=== PATIENT | female | born 1950 | race African-American/Black ===

== ENCOUNTER 2016-07-21 16:52 | Emergency (ER) | payer OTHER ==
[~2016-07-21] VITALS: Ht 152.4 cm; Wt 66.2 kg
--- NOTE | ~2016-07-21 | EKG ---
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
[~2016-07-21 16:52] MED LIST: ACCUNEB SO1.25 MG/1 INH; ADVAIR 250-501 EACH INH; ADVAIRDISKUS; ALBUTEROL INH; ALBUTEROL2.5 MG/0.1 INH; APAP500 PO; APAP650 PO; ASPIR 8181 MG PO; ASPIRIN325 PO; AUGMENTIN 875875 M1 PO; AUGMENTIN 875875 MG PO; AZITHROMYCIN 2250 MG; AZITHROMYCIN 2250 MG PO; AZITHROMYCIN500 MG PO; BACTRIM DS TAB1 EACH PO; BENICAR HCT 401 EACH PO; BENICAR20 MG PO; CEFUROXIME250 MG PO; CENTRUM SILVER1 EAC2 PO; CEPHALEXIN 500500 M3 PO; CIPRO250 M1 PO; CIPRO500 MG PO; CIPROFLOXACIN500 M1 PO; CLARITIN10 MG PO; CLEOCIN HCL150 MG PO; COLACE100 MG PO; CORT IH; COUMADIN 5 MG TA5 M1 PO; CRESTOR10 MG PO; DOXYCYCLINE 10100 MG PO; ENOXAPARIN30 MG/0.1 SUBQ; HYDROCHLOROTHIA25 M2 PO; KEFLEX250 M1 PO; KEFLEX500 M1 PO; KLOR-CON 1010 MEQ PO; LACTINEX CHEWA1 EACH PO; LACTINEX PO; LASIX 20 MG TAB20 MG PO; LEVAQUIN 500 M500 M2 PO; LIPITOR 20 MG T20 M1 PO; MUCINEX TA600 MG/TA2 PO; MULTIVITAMINS PO; NORCO 5-325 TA1 EACH PO; OXYCODONE HCL 55 MG PO; PERCOCET 5-3251 EACH PO; PREDNISONE 10 M10 M1 PO; PREDNISONE 10 M10 MG PO; PREDNISONE 5 MG5 M1 PO; PREDNISONE 5 MG5 MG PO; PREDNISONE50 MG PO; PROAIR HFA8.5 GM INH; PROVENTIL HFA6.7 G1 INH; SIMVASTATIN40 MG PO; TUSSIONEX PENN473 ML PO; TYLENOL325 MG PO; UNICOMPLEX M TA1 TA1 PO; ZOCOR40 MG PO; ZPAK PO
[2016-07-21 18:22] LABS: ABSOLUTE NEUTROPHILS 5.1 thou/uL (1.4-8.2); BASOPHILS 0.7 % (0.0-2.0); EOSINOPHILS 1.7 % (0.0-3.0); HEMATOCRIT 38.5 % (37.0-47.0); HEMOGLOBIN 12.5 gm/dL (12.0-15.0); MANUAL DIFF NO; MCH 27.5 pg (26.0-34.0); MCHC 32.5 % (28.0-37.0); MCV 84.8 fL (80.0-100.0); PLATELET COUNT 204 thou/uL (150-400); POLYS 70.6 % (36.0-66.0); RBC 4.54 mil/uL (4.20-5.00); RDW 14.4 % (10.5-14.5); WBC 7.3 thou/uL (4.0-11.0)
[2016-07-21 18:29] LABS: ANION GAP 8 mmol/L (7-16); BUN 16 mg/dL (7-18); CALCIUM 8.1 mg/dL (8.5-10.1); CHLORIDE 108 mmol/L (98-107); CO2 27 mmol/L (21-32); GLUCOSE 72 mg/dL (70-99); POTASSIUM 3.3 mmol/L (3.5-5.1); SODIUM 143 mmol/L (136-145)
[2016-07-21 18:37] LABS: TROPONIN-I < 0.04 ng/mL (<0.04-0.07)
== END 2016-07-21 19:45 | disposition home or self-care (01) ==
LOC: ER 16:52
PROVIDERS: Physician Assistant
DX: I10 Essential (primary) hypertension (principal); R51 Headache; E87.6 Hypokalemia; D86.0 Sarcoidosis of lung; G47.39 Other sleep apnea; H40.89 Other specified glaucoma; Z86.711 Personal history of pulmonary embolism; Z96.0 Presence of urogenital implants

== ENCOUNTER 2016-11-06 08:44 | Inpatient (IN) | payer OTHER ==
[~2016-11-06] VITALS: Ht 152.4 cm; Wt 63.5 kg
[2016-11-06] VITALS (16 sets, daily range): BP systolic 94–186; BP diastolic 49–83
--- NOTE | ~2016-11-06 | HC ---
[facility] [place] [address] CONSULTATION Name: ARIELLE YA Room #: 251-P ADM IN M.R.#: [id number] Admission: 11/06/16 Attend Phys: Angelo Gomez DO Discharge: Date of : 46 Report #: [id number] THIS REPORT FOR: //name// CC: Paula Haider PULMONARY CONSULTATION PRIMARY CARE PHYSICIAN: Pavithra Lilly M.D. REFERRAL PHYSICIAN: Ronak Frost M.D. REASON FOR REFERRAL: Hemoptysis. HISTORY OF PRESENT ILLNESS: The patient is a 66-year-old -Czech female who presents to the emergency room with hemoptysis. A pulmonary consultation is requested. The patient is known to this physician. She has been followed longitudinally for sleep apnea, bronchiectasis and sarcoidosis. She is also on chronic anticoagulation for history of multiple pulmonary emboli. She was in her usual state of health until this morning when she started to cough up blood. It is mild in quantity. It is mixed in with secretions. Otherwise, denies any recent febrile illness, chest pain, nausea, vomiting or diarrhea. PAST MEDICAL HISTORY: Notable for sarcoidosis with evidence of pulmonary fibrosis; bronchiectasis; chronic hypoxic respiratory failure, on supplemental O2 and HEAVEN, on CPAP. The patient was also found to have recurrent pulmonary embolus, on chronic anticoagulation. The patient is also on chronic corticosteroids for sarcoidosis. The patient has a history of nephrolithiasis, undergoing nephrostomy tube placement along with history of asthma and hypertension. PAST SURGICAL HISTORY: Notable for nephrostomy tube placement, as mentioned above. ALLERGIES: None to medications. MEDICATIONS: Home medication list reviewed. This includes Coumadin 5 mg once a day, prednisone 5 mg once a day, Crestor and multivitamins. SOCIAL HISTORY: The patient has never smoked. Denies any alcohol use. She lives with her son and [id number]. Has 2 brothers[address] [address] CONSULTATION Name: ARIELLE YA Room #: 251-P [facility] IN M.R.#: [id number] Admission: 11/06/16 Attend Phys: Angelo Gomez DO Discharge: Date of : 46 Report #: [id number] REVIEW OF SYSTEMS: As mentioned above, otherwise 10-point system review negative. PHYSICAL EXAMINATION: GENERAL: On examination, she is awake, alert, in no apparent distress. VITAL SIGNS: Temperature is 98.5 degrees Fahrenheit, pulse is 87, respiratory rate is 28, blood pressure is 122/49 mmHg and saturation is 97% on 3 liters of O2. HEENT: Normocephalic, atraumatic. NECK: Supple, without lymphadenopathy or thyromegaly. CHEST: Breath sounds are fair. Few scattered crackles. No wheezes. CARDIOVASCULAR: Normal S1, S2. There is no murmur or gallop. There is no JVD. There no carotid bruit. Pulses are 2+/4+ bilaterally. ABDOMEN: Soft, nontender. No organomegaly or masses felt. EXTREMITIES: There is no edema, cyanosis or clubbing. LABORATORY DATA: Chest x-ray shows bilateral nodular densities, pulmonary fibrosis that appears to be chronic changes. Electrolytes are unremarkable. WBC 9300, hemoglobin is 13.4. No significant bandemia. INR today is 3.2. IMPRESSION: 1. Hemoptysis in this 66-year-old -Czech female. This is in part related to anticoagulation with underlying lung disease. Note that she has a history of bronchiectasis along with sarcoidosis with some evidence of pulmonary fibrosis. I do not think she has an exacerbation of sarcoidosis at this time. 2. Recurrent pulmonary embolus, on chronic anticoagulation. Given the hemoptysis, we will need to hold anticoagulation for now. 3. Sarcoidosis with stage III radiographic changes, including pulmonary fibrosis and nodular densities. She has a past history of bronchiectasis. 4. History of asthma. 5. Chronic corticosteroids. 6. Obstructive sleep apnea, on CPAP. RECOMMENDATION: We will observe the patient in ICU overnight. We will quantitate hemoptysis. Cough suppression will be started. The patient will be kept n.p.o. or clear liquids for now. Hold anticoagulation as you are. Antitussives will also be administered. We will obtain a CT chest to evaluate the lung parenchyma. If hemoptysis worsens, the patient will need a diagnostic bronchoscopy and possible coil embolization. Hopefully, withholding the anticoagulation should help. As mentioned above, I do not think this is exacerbation of sarcoidosis and we will defer increasing corticosteroids for now. [address] [address] CONSULTATION Name: ARIELLE YA Room #: 251-P ADM IN M.R.#: [id number] Admission: 11/06/16 Attend Phys: Angelo Gomez DO Discharge: Date of : 46 Report #: [id number] I have discussed the above findings in detail with the patient along with her son and her brothers. Thank you for the consultation. By: 1331 1537 Aden Haider MD /butser
--- NOTE | ~2016-11-06 | EKG ---
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
[2016-11-06 10:01] LABS: ABSOLUTE NEUTROPHILS 7.2 thou/uL (1.4-8.2); BASOPHILS 0.5 % (0.0-2.0); EOSINOPHILS 1.3 % (0.0-3.0); HEMATOCRIT 40.4 % (37.0-47.0); HEMOGLOBIN 13.4 gm/dL (12.0-15.0); LYMPHOCYTES 13.6 % (24.0-44.0); MCH 28.6 pg (26.0-34.0); MCV 86.5 fL (80.0-100.0); MONOCYTES 7.5 % (1.0-8.0); PLATELET COUNT 227 thou/uL (150-400); POLYS 77.1 % (36.0-66.0); RBC 4.67 mil/uL (4.20-5.00); RDW 14.2 % (10.5-14.5); WBC 9.3 thou/uL (4.0-11.0)
[2016-11-06 10:02] LABS: MANUAL DIFF NO
[2016-11-06 10:15] LABS: ANION GAP 5 mmol/L (7-16); BUN 15 mg/dL (7-18); CALCIUM 8.7 mg/dL (8.5-10.1); CHLORIDE 105 mmol/L (98-107); CO2 34 mmol/L (21-32); CREATININE 0.9 mg/dL (0.6-1.0); GLUCOSE 97 mg/dL (74-106); POTASSIUM 3.3 mmol/L (3.5-5.1); SODIUM 144 mmol/L (136-145)
[2016-11-06 10:17] LABS: PROTIME 32.8 Seconds (9.3-11.4)
[2016-11-06 10:22] LABS: APTT 42.5 Seconds (24.5-32.8); INR 3.2
[2016-11-06 10:26] LABS: ALKALINE PHOSPHATASE 92 U/L (46-116); NT-PRO BRAIN NAT PEPTIDE 157 pg/mL (<300); SGOT 21 U/L (15-37); SGPT 27 U/L (30-65); TOTAL BILIRUBIN 0.6 mg/dL (<0.1-1.0); TROPONIN-I < 0.04 ng/mL (<0.04-0.07)
[2016-11-07] VITALS (19 sets, daily range): BP systolic 139–177; BP diastolic 55–123
[2016-11-07 03:46] LABS: ABSOLUTE NEUTROPHILS 4.3 thou/uL (1.4-8.2); EOSINOPHILS 4.2 % (0.0-3.0); HEMATOCRIT 38.5 % (37.0-47.0); HEMOGLOBIN 12.6 gm/dL (12.0-15.0); LYMPHOCYTES 16.4 % (24.0-44.0); MCH 28.4 pg (26.0-34.0); MCHC 32.8 g/dL (28.0-37.0); MCV 86.7 fL (80.0-100.0); MONOCYTES 7.6 % (1.0-8.0); PLATELET COUNT 212 thou/uL (150-400); POLYS 70.8 % (36.0-66.0); RBC 4.44 mil/uL (4.20-5.00); RDW 14.4 % (10.5-14.5); WBC 6.1 thou/uL (4.0-11.0)
[2016-11-07 03:50] LABS: CREATININE 0.8 mg/dL (0.6-1.0); INR 3.6; POTASSIUM 3.4 mmol/L (3.5-5.1); PROTIME 37.5 Seconds (9.3-11.4)
[2016-11-07 03:58] LABS: MANUAL DIFF NO
[2016-11-07 20:31] LABS: CALCIUM 8.5 mg/dL (8.5-10.1); CREATININE 1.2 mg/dL (0.6-1.0); POTASSIUM 4.2 mmol/L (3.5-5.1)
[2016-11-08 04:07] VITALS: BP 149/55
[2016-11-08 05:30] LABS: HEMOGLOBIN 12.3 gm/dL (12.0-15.0); MCHC 32.4 g/dL (28.0-37.0); MCV 86.3 fL (80.0-100.0); RBC 4.4 mil/uL (4.20-5.00); WBC 9.5 thou/uL (4.0-11.0)
[2016-11-08 05:44] LABS: CALCIUM 8.5 mg/dL (8.5-10.1); CREATININE 0.9 mg/dL (0.6-1.0); POTASSIUM 3.5 mmol/L (3.5-5.1)
[2016-11-08 08:01] VITALS: BP 132/62
[2016-11-08 09:54] LABS: INR 3.3; PROTIME 34.1 Seconds (9.3-11.4)
[2016-11-08 14:57] VITALS: BP 134/54
[2016-11-08 20:00] VITALS: BP 124/64
[2016-11-09 05:41] VITALS: BP 161/79
[2016-11-09 07:37] VITALS: BP 135/53
[2016-11-09] MEDS ORDERED: AUGMENTIN 875-1 EACH PO (08:28)
[2016-11-09] MEDS ORDERED: HYDRALAZINE 2525 MG PO (08:28)
[2016-11-09] MEDS ORDERED: PREDNISONE 20 M20 M1 PO (08:28)
[2016-11-09 15:41] VITALS: BP 136/60
[2016-11-09 16:41] VITALS: BP 136/60
[2016-11-09 21:51] VITALS: BP 150/79
[2016-11-10 07:16] VITALS: BP 153/98
== END 2016-11-10 07:59 | disposition home health service (06) | DRG 813 ==
LOC: ER 08:44 → EROBS 09:25 → ICU 09:25 → 4E 11-07 14:51
PROVIDERS: Emergency Medicine; Family Medicine; Internal Medicine; Internal Medicine Geriatric Medicine; Internal Medicine Pulmonary Disease
DX: D68.32 Hemorrhagic disorder due to extrinsic circulating anticoagulants (principal); J96.11 Chronic respiratory failure with hypoxia; T45.515A Adverse effect of anticoagulants, initial encounter; I10 Essential (primary) hypertension; H40.9 Unspecified glaucoma; D86.9 Sarcoidosis, unspecified; J45.909 Unspecified asthma, uncomplicated; G47.33 Obstructive sleep apnea (adult) (pediatric); J20.9 Acute bronchitis, unspecified; J47.9 Bronchiectasis, uncomplicated; Z86.711 Personal history of pulmonary embolism; Z95.820 Peripheral vascular angioplasty status with implants and grafts; Z87.442 Personal history of urinary calculi; Z79.01 Long term (current) use of anticoagulants; Z79.52 Long term (current) use of systemic steroids; Z93.6 Other artificial openings of urinary tract status
CPT/HCPCS: 10078; 10183

== ENCOUNTER 2016-11-17 14:59 | Inpatient (IN) | payer OTHER ==
[~2016-11-17] VITALS: Ht 152.4 cm; Wt 74.8 kg
--- NOTE | ~2016-11-17 | HC ---
[facility] [place] [address] CONSULTATION Name: ARIELLE YA Room #: 424-P ADM IN M.R.#: [id number] Admission: 11/17/16 Attend Phys: Jarocho Cannon MD Discharge: Date of : 46 Report #: [id number] THIS REPORT FOR: //name// CC: Jarocho CazaresTorres Haider MD DATE OF SERVICE: 11/18/2016 DATE OF SERVICE: 11/18/2016. REFERRING PROVIDER: Dr. Jarocho Cannon. REASON FOR CONSULTATION: Pneumonia. CHIEF COMPLAINT: Cough and shortness of breath. HISTORY OF PRESENT ILLNESS: Our group was asked to see the patient in consultation while hospitalized at [facility] discussed with the Emergency Department yesterday evening and seen earlier today, pleasant 66-year-old woman with a past pulmonary history significant for sarcoidosis with upper lobe predominant pulmonary fibrosis and bronchiectasis, she was just hospitalized and discharged on 11/09/2016 for similar complaints, was discharged on Augmentin and bronchodilators. However, the last few days had increasing shortness of breath, cough productive of yellow sputum, has not noted any fevers or chills, dyspnea was getting progressively worse, presented to the Emergency Department yesterday. Of note, review of her cultures from last hospital stay grew pseudomonas. Subsequently, has been admitted and started on Fortaz and Levaquin in addition to bronchodilators, feeling somewhat improved today. ALLERGIES: None known. PAST MEDICAL HISTORY: 1. History of pulmonary fibrosis likely related to sarcoidosis. 2. Bronchiectasis. 3. Hypertension. 4. Obstructive sleep apnea, on nocturnal CPAP and supplemental oxygen. 5. Chronic hypoxemic respiratory failure. 6. History of current venous thromboembolism, chronically anticoagulated. 7. History of nephrolithiasis. OUTPATIENT MEDICATIONS: 1. Hydralazine 25 mg twice daily. 2. Multivitamin. 3. Prednisone. [facility] [address] [place] [address] CONSULTATION Name: ARIELLE YA Room #: 424-P [facility] IN ..#: [id number] Admission: 11/17/16 Attend Phys: Jarocho Cannon MD Discharge: Date of : 46 Report #: [id number] 4. Warfarin. 5. Crestor. SOCIAL HISTORY: The patient lives independently, is a never smoker, no alcohol consumption. FAMILY HISTORY: Significant for father who had a malignancy. Mother had a stroke. REVIEW OF SYSTEMS: CONSTITUTIONAL: The patient's notes no fever, chills or sweats. HEENT: No upper respiratory congestion, rhinorrhea or dysphagia. CARDIOVASCULAR: No chest pains or palpitations. GASTROINTESTINAL: No nausea, vomiting, diarrhea, constipation or abdominal pain. GENITOURINARY: No dysuria, no frequency. INTEGUMENT: Denies any new rash. MUSCULOSKELETAL: No new joint pains or swelling, although lower extremity edema noted. PHYSICAL EXAMINATION: VITAL SIGNS: Afebrile, pulse 60 and regular, respiratory rate 20, blood pressure 142/66, oxygen saturation 90% on 2 liters. GENERAL: This is a pleasant elderly woman, does not appear in any distress. Speaking in full sentences. ENT: Clear oropharynx, Mallampati 2 airway. NECK: Supple, no lymphadenopathy. LUNGS: Some coarse expiratory wheezes and low pitch rhonchi noted throughout, prominent lower lung anne. CARDIOVASCULAR: Heart was regular. No murmurs noted. ABDOMEN: Soft, nontender, no masses, no hepatosplenomegaly. EXTREMITIES: Without edema. LABORATORY DATA: CT scan of the chest done PE protocol reveals no pulmonary embolism again noted is diffuse bronchiectasis, predominantly upper lung anne, difficult intermittent superimposed infiltrates are present, although does not appear much different when compared to prior study. White blood cell count 6000, hemoglobin 13, hematocrit 39, platelet count 194. Sodium 143, potassium 3.2, chloride 104, bicarbonate 34, BUN 16, creatinine 1.0, glucose 90. IMPRESSION: 1. Acute exacerbation of underlying bronchiectasis, likely related to pseudomonas noted on recent cultures. Suggest airway clearance with flutter valve, Mucinex and aerosol treatments in addition to antibiotics per Infectious Disease Service as well as oral steroid taper. 2. History of pulmonary fibrosis as presumed related to sarcoid. [facility] [address] [place] [address] CONSULTATION Name: ARIELLE YA Room #: 424-P ADM IN M.R.#: [id number] Admission: 11/17/16 Attend Phys: Jarocho Cannon MD Discharge: Date of : 46 Report #: [id number] 3. Chronic hypoxemic respiratory failure. PLAN: As outlined above. We will follow with you. Thank you for requesting our suggestions. <ELECTRONICALLY SIGNED> By: Kwame Sandhu MD 11/19/16 1454 1133 1355 Kwame Sanduh MD /nt
--- NOTE | ~2016-11-17 | HC ---
[facility] [place] [address] CONSULTATION Name: ARIELLE YA Room #: 424-P ADM IN M.R.#: [id number] Admission: 11/17/16 Attend Phys: Jarocho Cannon MD Discharge: Date of : 46 Report #: [id number] THIS REPORT FOR: //name// CC: Jarocho Lilly REASON FOR CONSULTATION: I was asked to evaluate concerning exacerbation of her bronchiectasis. HISTORY OF PRESENT ILLNESS: The patient was a 66-year-old with chronic bronchiectasis, sarcoidosis, hypertension, obstructive sleep apnea, who is maintained on prednisone and 2 liters of oxygen. She was hospitalized with an exacerbation of her bronchiectasis on 11/07/2016, dismissed on Augmentin. While at home, did not improve and now returns for further treatment. She has been coughing up purulent sputum with blood tinge. No fever, chills or sweats. No nausea, vomiting, diarrhea, no dysuria or frequency. No travel. She does have a history of Pseudomonas aeruginosa identified from her sputum. She also had 1 sputum culture, which showed mycobacterium avium that was several years ago. ALLERGIES: None known. MEDICATIONS: Was started on ceftazidime last evening and continued on Solu-Medrol. FAMILY HISTORY: Noncontributory. SOCIAL HISTORY: Nonsmoker, no significant alcohol intake. PAST MEDICAL HISTORY: Hypertension, sarcoidosis, pulmonary emboli, pneumonia, chronic bronchitis and bronchiectasis, kidney stones, glaucoma, obstructive sleep apnea. She has had methicillin-susceptible Staph aureus pubic abscess several years ago. PHYSICAL EXAMINATION: VITAL SIGNS: She is afebrile, hemodynamically stable. GENERAL: She is alert and cooperative and pleasant, in no acute distress, on 2 liters of oxygen per nasal cannula. SKIN: Unremarkable. LYMPH: Unremarkable. HEENT: Unremarkable. LUNGS: Decreased breath sounds bilaterally with no consolidation. She had frequent loose cough. HEART: Regular, without murmur. ABDOMEN: Soft, nontender, no hepatosplenomegaly or mass. EXTREMITIES: Unremarkable. LABORATORY STUDIES: Sodium 143, potassium 3.2, bicarbonate of 34, creatinine 1, [facility] [address] [place] [address] CONSULTATION Name: ARIELLE YA Room #: 424-P [facility].#: [id number] Admission: 11/17/16 Attend Phys: Jarocho Cannon MD Discharge: Date of : 46 Report #: [id number] liver function test normal. Hemoglobin 12.7, white count 5.7, differential unremarkable, platelet count 194,000. Review of her cultures from 11/07/2016, she has sputum culture Pseudomonas aeruginosa intermediate to ciprofloxacin, sensitive to Levaquin, resistant to imipenem, otherwise susceptible. Repeat sputum culture and blood cultures are pending. Chest x-ray, no acute changes. CT scan of the chest showed bronchiectasis. IMPRESSION: A 66-year-old with sarcoidosis and bronchiectasis with exacerbation of the bronchiectasis associated with Pseudomonas aeruginosa. With intermediate sensitivity to quinolones including ciprofloxacin, I would be concern about the possibility of loosing control with Levaquin. We will continue with ceftazidime while in the hospital and reevaluate as we go forward. May be reasonable candidate for aerosolized tobramycin in order to control her bronchiectasis. <ELECTRONICALLY SIGNED> By: Ronak Smith MD 11/19/16 1027 1204 1403 Ronak Smith MD /nt
[~2016-11-17 14:59] MED LIST changes: +AUGMENTIN 875-1 EACH PO; +HYDRALAZINE 2525 MG PO; +PREDNISONE 20 M20 M1 PO
[2016-11-17 15:00] VITALS: BP 162/99
[2016-11-17 16:59] LABS: HEMATOCRIT 40.6 % (37.0-47.0); HEMOGLOBIN 13.3 gm/dL (12.0-15.0); MCHC 32.8 g/dL (28.0-37.0); MCV 88.4 fL (80.0-100.0); PLATELET COUNT 228 thou/uL (150-400); RBC 4.59 mil/uL (4.20-5.00); RDW 14.6 % (10.5-14.5); WBC 9.1 thou/uL (4.0-11.0)
[2016-11-17 17:02] LABS: MANUAL DIFF YES
[2016-11-17 17:09] LABS: ANION GAP 4 mmol/L (7-16); BUN 18 mg/dL (7-18); CALCIUM 8.9 mg/dL (8.5-10.1); CHLORIDE 104 mmol/L (98-107); CO2 32 mmol/L (21-32); CREATININE 0.9 mg/dL (0.6-1.0); GLUCOSE 162 mg/dL (74-106); SODIUM 140 mmol/L (136-145)
[2016-11-17 17:13] LABS: ALBUMIN 3.1 g/dL (3.4-5.0); ALKALINE PHOSPHATASE 83 U/L (46-116); APTT 25.7 Seconds (24.5-32.8); DIRECT BILIRUBIN < 0.1 mg/dL (<0.1-0.3); INR 1.4; PROTIME 14.8 Seconds (9.3-11.4); SGOT 22 U/L (15-37); SGPT 21 U/L (30-65); TOTAL BILIRUBIN 0.7 mg/dL (<0.1-1.0); TOTAL PROTEIN 6.8 g/dL (6.4-8.2)
[2016-11-17 17:26] LABS: ABSOLUTE NEUTROPHILS 8.8 thou/uL (1.4-8.2); TOTAL CELL COUNT 100
[2016-11-17 18:58] VITALS: BP 118/43
[2016-11-17 20:00] VITALS: BP 119/62
[2016-11-17] MEDS ORDERED: COUMADIN 5 MG TA5 M1 PO (20:21)
[2016-11-18 04:30] VITALS: BP 142/66
[2016-11-18 05:48] LABS: HEMATOCRIT 39.4 % (37.0-47.0); HEMOGLOBIN 12.7 gm/dL (12.0-15.0); MCH 28.5 pg (26.0-34.0); MCHC 32.2 g/dL (28.0-37.0); MCV 88.6 fL (80.0-100.0); RBC 4.44 mil/uL (4.20-5.00); RDW 14.7 % (10.5-14.5); WBC 5.7 thou/uL (4.0-11.0)
[2016-11-18 06:02] LABS: INR 1.1; PROTIME 11.8 Seconds (9.3-11.4)
[2016-11-18 06:15] LABS: ALBUMIN 2.7 g/dL (3.4-5.0); CALCIUM 8.5 mg/dL (8.5-10.1); POTASSIUM 3.2 mmol/L (3.5-5.1); TOTAL BILIRUBIN 0.7 mg/dL (<0.1-1.0); TOTAL PROTEIN 6.5 g/dL (6.4-8.2)
[2016-11-18 15:48] VITALS: BP 154/71
[2016-11-18 19:51] VITALS: BP 131/56
[2016-11-19 03:58] VITALS: BP 162/52
[2016-11-19 06:06] LABS: INR 1.1; PROTIME 11.4 Seconds (9.3-11.4)
[2016-11-19 07:50] VITALS: BP 141/53
[2016-11-19 16:08] VITALS: BP 153/65
[2016-11-19 20:00] VITALS: BP 138/104
[2016-11-20 04:30] VITALS: BP 139/52
[2016-11-20 04:48] LABS: INR 1.3; PROTIME 13.1 Seconds (9.3-11.4)
[2016-11-20 19:30] VITALS: BP 147/60
[2016-11-21 05:45] VITALS: BP 164/81
[2016-11-21 06:20] LABS: INR 10.1; PROTIME 104.8 Seconds (9.3-11.4)
[2016-11-21 07:42] VITALS: BP 156/73
[2016-11-21 12:24] LABS: PROTIME 20.1 Seconds (9.3-11.4)
[2016-11-21 12:25] LABS: INR 1.9
[2016-11-21 16:18] VITALS: BP 173/60
[2016-11-21 20:30] VITALS: BP 127/59
[2016-11-22 05:30] VITALS: BP 150/67
[2016-11-22 07:36] VITALS: BP 164/59
[2016-11-22] MEDS ORDERED: MUCINEX TA600 MG/TA1 PO (09:47)
[2016-11-22] MEDS ORDERED: LEVAQUIN 750 M750 MG PO (09:48)
[2016-11-22 09:54] VITALS: BP 164/59
[2016-11-22] MEDS ORDERED: PREDNISONE 20 M20 M1 PO (09:55)
[2016-11-22 09:58] LABS: INR 1.2
[2016-11-22 15:55] VITALS: BP 156/85
== END 2016-11-22 17:29 | disposition home health service (06) | DRG 189 ==
LOC: ER 14:59 → EROBS 18:25 → 4E 18:25
PROVIDERS: Hospitalist; Internal Medicine; Nurse Practitioner; Nurse Practitioner Family
DX: J96.21 Acute and chronic respiratory failure with hypoxia (principal); E44.1 Mild protein-calorie malnutrition; J47.1 Bronchiectasis with (acute) exacerbation; J20.9 Acute bronchitis, unspecified; I10 Essential (primary) hypertension; H40.9 Unspecified glaucoma; G47.33 Obstructive sleep apnea (adult) (pediatric); D86.9 Sarcoidosis, unspecified; J84.10 Pulmonary fibrosis, unspecified; J45.909 Unspecified asthma, uncomplicated; B96.5 Pseudomonas (aeruginosa) (mallei) (pseudomallei) as the cause of diseases classified elsewhere; Z86.711 Personal history of pulmonary embolism; Z87.442 Personal history of urinary calculi; Z79.01 Long term (current) use of anticoagulants; Z86.718 Personal history of other venous thrombosis and embolism; Z82.3 Family history of stroke; Z86.14 Personal history of Methicillin resistant Staphylococcus aureus infection; Z79.52 Long term (current) use of systemic steroids; Z68.32 Body mass index [BMI] 32.0-32.9, adult
CPT/HCPCS: 10183; 27001

== ENCOUNTER 2017-01-07 17:45 | Inpatient (IN) | payer OTHER ==
[~2017-01-07] VITALS: Wt 63.0 kg
--- NOTE | ~2017-01-07 | EKG ---
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 : 1950 Requested By: Olga Stevens Order Number: [id number] MD: Kishore Vigil Measurements Intervals [place] Rate: 99 P: 63 [place]: 120 QRS: -68 QRSD: 81 T: 59 QT: 355 QTc: 456 Interpretive Statements Sinus rhythm Left atrial enlargement Left anterior fascicular block Anteroseptal infarct, age indeterminate Compared to ECG 11/06/2016 09:13:13 No significant change was found Electronically Signed On 01-08-2017 18:10:49 CDT by Kishore Vigil [email or web address] <ELECTRONICALLY SIGNED> By: Kishore Vigil MD, [facility] 01/08/17 1810 06 06 Kishore Vigil MD, [facility] /EPI
[2017-01-07 17:45] VITALS: BP 150/70
[~2017-01-07 17:45] MED LIST changes: +LEVAQUIN 750 M750 MG PO; +MUCINEX TA600 MG/TA1 PO
[2017-01-07 18:36] LABS: ABSOLUTE NEUTROPHILS 7.5 thou/uL (1.4-8.2); BASOPHILS 0.5 % (0.0-2.0); EOSINOPHILS 0.1 % (0.0-3.0); HEMATOCRIT 39.7 % (37.0-47.0); HEMOGLOBIN 12.7 gm/dL (12.0-15.0); LYMPHOCYTES 9.7 % (24.0-44.0); MCH 28.1 pg (26.0-34.0); MCV 87.8 fL (80.0-100.0); MONOCYTES 5.3 % (1.0-8.0); PLATELET COUNT 257 thou/uL (150-400); POLYS 84.4 % (36.0-66.0); RBC 4.52 mil/uL (4.20-5.00); RDW 14.8 % (10.5-14.5); WBC 8.9 thou/uL (4.0-11.0)
[2017-01-07 18:37] LABS: MANUAL DIFF NO
[2017-01-07 18:41] LABS: ANION GAP 4 mmol/L (7-16); BUN 19 mg/dL (7-18); CALCIUM 8.9 mg/dL (8.5-10.1); CHLORIDE 106 mmol/L (98-107); CO2 32 mmol/L (21-32); GLUCOSE 127 mg/dL (74-106); POTASSIUM 4.1 mmol/L (3.5-5.1); SODIUM 142 mmol/L (136-145)
[2017-01-07 18:53] LABS: NT-PRO BRAIN NAT PEPTIDE 183 pg/mL (<300); TROPONIN-I < 0.04 ng/mL (<0.04-0.07)
[2017-01-07 22:19] VITALS: BP 155/65
[2017-01-07 22:47] LABS: URINE BILIRUBIN NEGATIVE (Negative); URINE BLOOD 1+ (Negative); URINE COLOR YELLOW; URINE GLUCOSE-RANDOM* NEGATIVE (Negative); URINE KETONES NEGATIVE (Negative); URINE NITRITE NEGATIVE (Negative); URINE PROTEIN (DIPSTICK) TRACE (Negative); URINE SPECIFIC GRAVITY >= 1.030 (1.003-1.035); URINE UROBILINOGEN 0.2 E.U./dl (0.2-1.0)
[2017-01-07 22:52] LABS: ABG SAMPLE TYPE ARTERIAL; BE(vivo) 2.2 mmol/L (-2 to +3); HCO3 27.5 mmol/L (22.0-26.0); LACTATE 1.45 mmol/L (0.5-2.0); O2(CT) 17.7 mL/dL (15.0-23.0); O2Hb 95.1 % (92.0-98.0); PCO2 45.3 mmHg (35.0-45.0); PO2 85.6 mmHg (80.0-100.0); pH 7.401 (7.360-7.450); sO2 96.4 % (92.0-98.0); tCO2 28.9 mmol/L (24.0-30.0)
[2017-01-07 22:53] LABS: STICK SITE R.RADIAL
[2017-01-07 23:07] LABS: SQUAMOUS 4-10 Moderate /LPF (0-3)
[2017-01-07 23:08] LABS: BACTERIA 1-9 Few /HPF (None Seen); CASTS None Seen /LPF (None Seen); URINE RBC 0-2 Rare /HPF (0-2); URINE WBC None Seen /HPF (0-5)
[2017-01-07 23:09] LABS: CRYSTALS None Seen /LPF (None Seen)
[2017-01-08 00:55] VITALS: BP 140/58
[2017-01-08 07:10] LABS: HEMATOCRIT 36.8 % (37.0-47.0); HEMOGLOBIN 12.1 gm/dL (12.0-15.0); MCH 28.3 pg (26.0-34.0); MCV 85.7 fL (80.0-100.0); RBC 4.3 mil/uL (4.20-5.00); RDW 14.5 % (10.5-14.5); WBC 6.5 thou/uL (4.0-11.0)
[2017-01-08 07:41] VITALS: BP 136/61
[2017-01-08 08:42] LABS: CALCIUM 8.6 mg/dL (8.5-10.1); CREATININE 0.8 mg/dL (0.6-1.0); POTASSIUM 4.2 mmol/L (3.5-5.1)
[2017-01-08 12:40] VITALS: BP 136/73
[2017-01-08 14:49] LABS: PROTIME 20.5 Seconds (9.3-11.4)
[2017-01-08 15:14] VITALS: BP 150/68
[2017-01-08 19:21] VITALS: BP 137/63
[2017-01-09 02:42] LABS: HEMATOCRIT 35.2 % (37.0-47.0); HEMOGLOBIN 11.6 gm/dL (12.0-15.0); MCH 28.5 pg (26.0-34.0); MCHC 32.9 g/dL (28.0-37.0); MCV 86.7 fL (80.0-100.0); RBC 4.06 mil/uL (4.20-5.00); RDW 14.3 % (10.5-14.5); WBC 12.5 thou/uL (4.0-11.0)
[2017-01-09 02:53] LABS: CALCIUM 8.4 mg/dL (8.5-10.1); CREATININE 1.1 mg/dL (0.6-1.0); INR 2.9; POTASSIUM 4.7 mmol/L (3.5-5.1); PROTIME 30.2 Seconds (9.3-11.4)
[2017-01-09 03:35] VITALS: BP 152/63
[2017-01-09 08:27] VITALS: BP 148/66
[2017-01-09] MEDS ORDERED: MUCINEX TA600 MG/TA1 PO (12:07)
[2017-01-09 12:08] VITALS: BP 113/89
[2017-01-09] MEDS ORDERED: PREDNISONE 10 M10 MG PO (12:09)
[2017-01-09] MEDS ORDERED: AUGMENTIN 875875 MG PO (12:10)
[2017-01-09 12:52] VITALS: BP 113/89
[2017-01-09 13:48] VITALS: BP 113/89
== END 2017-01-09 18:43 | disposition home health service (06) | DRG 190 ==
LOC: ER 17:45 → 2N 19:54 → EROBS 19:54 → 2N 20:35
PROVIDERS: Emergency Medicine; Internal Medicine Pulmonary Disease; Nurse Practitioner Family
DX: J44.0 Chronic obstructive pulmonary disease with (acute) lower respiratory infection (principal); J15.6 Pneumonia due to other Gram-negative bacteria; E44.1 Mild protein-calorie malnutrition; I10 Essential (primary) hypertension; H40.9 Unspecified glaucoma; J44.1 Chronic obstructive pulmonary disease with (acute) exacerbation; G47.33 Obstructive sleep apnea (adult) (pediatric); D86.0 Sarcoidosis of lung; J84.10 Pulmonary fibrosis, unspecified; Z79.899 Other long term (current) drug therapy; Z86.711 Personal history of pulmonary embolism; Z87.442 Personal history of urinary calculi; Z79.01 Long term (current) use of anticoagulants; Z79.52 Long term (current) use of systemic steroids; Z93.6 Other artificial openings of urinary tract status; Z68.27 Body mass index [BMI] 27.0-27.9, adult
CPT/HCPCS: 10081

== ENCOUNTER 2017-08-07 15:03 | Emergency (ER) | payer OTHER ==
[~2017-08-07] VITALS: Ht 152.4 cm; Wt 63.5 kg
--- NOTE | ~2017-08-07 | EKG ---
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 : 1950 Requested By: Medardo Fang Order Number: [id number] MD: Kishore Vigil Measurements Intervals [place] Rate: 77 P: 68 CT: 124 QRS: -62 QRSD: 81 T: 63 QT: 373 QTc: 423 Interpretive Statements Sinus rhythm Left anterior fascicular block Poor R wave progression Compared to ECG 01/07/2017 18:07:41 No significant changes Electronically Signed On 08-07-2017 17:22:42 [employer] OFF[employer] by Kishore Vigil [email or web address] <ELECTRONICALLY SIGNED> By: Kishore Vigil MD, [facility] 08/07/17 1722 1522 1522 Kishore Vigil MD, [facility] /EPI
[2017-08-07 16:59] LABS: INR 2.8; PROTIME 28.7 Seconds (9.3-11.4)
[2017-08-07 17:05] LABS: BASOPHILS 0.3 % (0.0-2.0); EOSINOPHILS 0.1 % (0.0-3.0); HEMATOCRIT 37.8 % (37.0-47.0); HEMOGLOBIN 12.4 gm/dL (12.0-15.0); LYMPHOCYTES 17.5 % (24.0-44.0); MCH 28.7 pg (26.0-34.0); MCHC 32.9 g/dL (28.0-37.0); MCV 87.3 fL (80.0-100.0); MONOCYTES 9.8 % (1.0-8.0); PLATELET COUNT 208 thou/uL (150-400); POLYS 72.3 % (36.0-66.0); RBC 4.33 mil/uL (4.20-5.00); RDW 15.2 % (10.5-14.5); WBC 6.9 thou/uL (4.0-11.0)
[2017-08-07 17:11] LABS: CALCIUM 8.8 mg/dL (8.5-10.1); CREATININE 1.2 mg/dL (0.6-1.0); POTASSIUM 4.2 mmol/L (3.5-5.1)
[2017-08-07 17:16] LABS: ALBUMIN 2.9 g/dL (3.4-5.0); TOTAL BILIRUBIN 0.3 mg/dL (<0.1-1.0)
[2017-08-07] MEDS ORDERED: PREDNISONE 20 M20 MG PO (17:58)
[2017-08-07] MEDS ORDERED: DOXYCYCLINE 10100 MG PO (18:13)
[2017-08-07 18:23] VITALS: BP 155/70
== END 2017-08-07 18:33 | disposition home or self-care (01) ==
LOC: ER 15:03
PROVIDERS: Physician Assistant
DX: J44.1 Chronic obstructive pulmonary disease with (acute) exacerbation (principal); I10 Essential (primary) hypertension; Z87.01 Personal history of pneumonia (recurrent); G47.30 Sleep apnea, unspecified; Z99.81 Dependence on supplemental oxygen

== ENCOUNTER 2018-04-15 21:07 | Inpatient (IN) | payer OTHER ==
[~2018-04-15] VITALS: Ht 152.4 cm; Wt 65.8 kg
--- NOTE | ~2018-04-15 | EKG ---
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 : 1950 Requested By: Inna Saunders Order Number: [id number] MD: Kishore Vigil Measurements Intervals [place] Rate: 87 P: 79 DC: 134 QRS: -55 QRSD: 82 T: 85 QT: 377 QTc: 454 Interpretive Statements Sinus rhythm Left anterior fascicular block Poor septal R-wave progression Compared to ECG 08/07/2017 15:22:36 no significant change was found Electronically Signed On 04-16-2018 9:13:35 CDT by Kishore Vigil [email or web address] <ELECTRONICALLY SIGNED> By: Kishore Vigil MD, [facility] 04/16/18 0913 0024 0024 Kishore Vigil MD, [facility] /EPI
--- NOTE | ~2018-04-15 | HC ---
[facility] [place] [address] CONSULTATION Name: ARIELLE YA Room #: 456-P [facility] IN M.R.#: [id number] Admission: 04/16/18 Attend Phys: Jarocho Cannon MD Discharge: 04/17/18 Date of : 46 Report #: [id number] THIS REPORT FOR: //name// CC: Jarocho Lilly DATE OF SERVICE: 04/16/2018 CHIEF COMPLAINT: Lesion and possible ulceration to the right lower extremity. HISTORY OF PRESENT ILLNESS: This is a 67-year-old female patient who presents after developing an area of redness and pain, blistering to her right lower leg approximately 2 weeks ago. It has become increasingly uncomfortable and has not improved with benign neglect. She has been admitted for evaluation. I have been asked to see her with regard to wound care. Additionally, it is noted that Dermatology has been consulted for consideration of biopsy. The patient is followed by Dr. Pavithra Lilly, Dr. Belle, Dr. Aden Haider for Pulmonology. PAST MEDICAL HISTORY: Prior history of bronchitis, bronchiectasis, history of community-acquired pneumonia, COPD, sarcoidosis of the lung. ALLERGIES: None. MEDICATIONS: Include guaifenesin, prednisone, amoxicillin, multivitamin with minerals, Coumadin, olmesartan. SOCIAL HISTORY: Negative for alcohol or tobacco use. FAMILY HISTORY: Noncontributory. REVIEW OF SYSTEMS: CONSTITUTIONAL: The patient denies fever, chills, weight loss. NEUROLOGICAL: The patient denies focal weakness, numbness or tingling. EYES: The patient denies visual changes, redness or drainage. ENT: The patient denies earache, nasal drainage or sore throat. CARDIOVASCULAR: The patient denies chest pain, palpitations, diaphoresis. PULMONARY: The patient complains of mild discomfort with mild shortness of breath. Denies cough or sputum production. GASTROINTESTINAL: The patient denies nausea, vomiting, diarrhea or abdominal pain. ORTHOPEDIC: The patient does complain of pain, swelling and tenderness to her right lower extremity. Other systems in a 14-point review of systems are negative. PHYSICAL EXAMINATION: VITAL SIGNS: At this time include pulse 73, respiratory rate of 18, blood [address] [address] CONSULTATION Name: ARIELLE YA Room #: 456-P [facility] IN M.R.#: [id number] Admission: 04/16/18 Attend Phys: Jarocho Cannon MD Discharge: 04/17/18 Date of : 46 Report #: [id number] pressure 122/53, and temperature 98.4. GENERAL: This is a chronically ill-appearing female patient who appears to be in minimal distress. HEENT: Head is normocephalic. Nose and throat clear. NECK: Supple. LUNGS: Clear. HEART: Regular rhythm. ABDOMEN: Soft. Bowel sounds present. EXTREMITIES: Lower extremities demonstrate easily palpable dorsalis pedis and posterior tibialis pulses bilaterally. Feet are pink, warm and dry. She has multiple areas of petechiae scattered about both lower legs and feet. She has a circular area of erythema with 2 discrete bullae present on the right posterolateral ankle area just proximal to the lateral malleolus. These areas are tender. There is a little bit of drainage and I have lifted some of the loose skin from what appears to be a deflated blister and obtained a culture, there appears to be some underlying tissue necrosis as well. The erythema is not very warm, it is tender. CLINICAL IMPRESSION: 1. Bullous lesion to the right lower extremity. Etiology is indeterminate. 2. Petechiae in the bilateral lower extremities. 3. Chronic obstructive pulmonary disease and bronchiectasis. 4. Anticoagulation, on Coumadin. RECOMMENDATION: At this point in time, we have taken a culture and sensitivity from some of the fluid beneath the bullae. It may be reasonable to perform a biopsy. Her INR currently is 2.0. She may have some issues with bleeding following local biopsy, although this may be accomplished at the bedside with a local anesthetic with a vasoconstrictor. Dermatology has been consulted, specifically for biopsy. We will see what Dermatology's opinion is before proceeding. Certainly, differential diagnosis would include vasculitis versus insect bite or possible spider bite with tissue necrosis related to such. RECOMMENDATIONS: At this point in time, we will recommend silver foam to the affected area. We will await culture and sensitivity results. She may benefit from some topical steroid. If this were to be insect or spider venom related, benign neglect would be the appropriate course. Once again, biopsy may provide additional data. I appreciate being asked to see her in consultation. We will continue to follow her in the hospital. <ELECTRONICALLY SIGNED> By: Aung Haney MD 04/17/18 2039 1745 0127 Aung Haney MD /nt
[~2018-04-15 21:07] MED LIST changes: +PREDNISONE 20 M20 MG PO
[2018-04-15 21:19] VITALS: BP 140/65
[2018-04-15] MEDS ORDERED: OLMESARTAN-HCT1 EAC1 PO (22:30)
[2018-04-15 23:08] LABS: HEMATOCRIT 36.8 % (37.0-47.0); HEMOGLOBIN 12.2 gm/dL (12.0-15.0); MCH 29.6 pg (26.0-34.0); MCHC 33.2 g/dL (28.0-37.0); MCV 89.2 fL (80.0-100.0); PLATELET COUNT 213 thou/uL (150-400); RBC 4.13 mil/uL (4.20-5.00); RDW 14.5 % (10.5-14.5); WBC 8.3 thou/uL (4.0-11.0)
[2018-04-15 23:15] LABS: CALCIUM 9.2 mg/dL (8.5-10.1); CREATININE 1.1 mg/dL (0.6-1.0)
[2018-04-15 23:41] LABS: ABSOLUTE NEUTROPHILS 5.3 thou/uL (1.4-8.2)
[2018-04-16 00:42] VITALS: BP 117/35
[2018-04-16 01:08] VITALS: BP 121/64
[2018-04-16 02:20] LABS: PROTIME 19.8 Seconds (9.3-11.4)
[2018-04-16 08:40] VITALS: BP 116/60
[2018-04-16 16:35] VITALS: BP 122/53
[2018-04-16 20:03] VITALS: BP 120/53
[2018-04-17 03:21] VITALS: BP 121/50
[2018-04-17 05:42] LABS: HEMATOCRIT 36.7 % (37.0-47.0); HEMOGLOBIN 12.1 gm/dL (12.0-15.0); MCH 29.3 pg (26.0-34.0); MCHC 32.9 g/dL (28.0-37.0); MCV 89.1 fL (80.0-100.0); RBC 4.12 mil/uL (4.20-5.00); RDW 14.4 % (10.5-14.5)
[2018-04-17 05:52] LABS: INR 1.6; PROTIME 16.4 Seconds (9.3-11.4)
[2018-04-17 05:58] LABS: CALCIUM 9.1 mg/dL (8.5-10.1); CREATININE 1.1 mg/dL (0.6-1.0); MAGNESIUM 2.3 mg/dL (1.8-2.4); POTASSIUM 4.2 mmol/L (3.5-5.1)
[2018-04-17 07:33] VITALS: BP 155/67
[2018-04-17] MEDS ORDERED: PREDNISONE 20 M20 MG PO ×2 (09:31→10:31)
[2018-04-17] MEDS ORDERED: MUPIROCIN22 GM TOP (09:31)
[2018-04-17] MEDS ORDERED: TRIAMCINOLONE 080 G3 TOP (09:31)
[2018-04-17] MEDS ORDERED: DOXYCYCLINE HYC50 MG PO (09:31)
[2018-04-17] MEDS ORDERED: NORCO 5-325 TA1 EACH PO (09:31)
[2018-04-17 11:39] LABS: FOLIC ACID 31.3 ng/mL (8.6-58.9)
[2018-04-17 12:01] VITALS: BP 155/67
[2018-04-17 14:00] VITALS: BP 155/67
[2018-04-17 14:51] VITALS: BP 139/53
== END 2018-04-17 18:15 | disposition home health service (06) | DRG 546 ==
LOC: ER 21:07 → 4W 04-16 00:09 → EROBS 04-16 00:09 → 4W 04-16 00:49 → ENTRNSPT 04-17 17:52 → 4W 04-17 18:15
PROVIDERS: Internal Medicine; Nurse Practitioner Acute Care; Student in an Organized Health Care Education/Training Program
PROC: 5A09357 Assistance with Respiratory Ventilation, Less than 24 Consecutive Hours, Continuous Positive Airway Pressure (ICD-10-PCS; principal; 2018-04-16)
PROC: 5A09357 Assistance with Respiratory Ventilation, Less than 24 Consecutive Hours, Continuous Positive Airway Pressure (ICD-10-PCS; 2018-04-17)
DX: I77.6 Arteritis, unspecified (principal); J96.11 Chronic respiratory failure with hypoxia; T14.8XXA Other injury of unspecified body region, initial encounter; J44.9 Chronic obstructive pulmonary disease, unspecified; I10 Essential (primary) hypertension; H40.9 Unspecified glaucoma; L13.9 Bullous disorder, unspecified; G47.33 Obstructive sleep apnea (adult) (pediatric); M62.84 Sarcopenia; D86.0 Sarcoidosis of lung; Z23 Encounter for immunization; Z86.711 Personal history of pulmonary embolism; Z87.442 Personal history of urinary calculi; Z79.01 Long term (current) use of anticoagulants; Z99.81 Dependence on supplemental oxygen; Z79.52 Long term (current) use of systemic steroids; Z79.899 Other long term (current) drug therapy; X58.XXXA Exposure to other specified factors, initial encounter; Y93.89 Activity, other specified; Y92.89 Other specified places as the place of occurrence of the external cause; Y99.8 Other external cause status
CPT/HCPCS: 10040

== ENCOUNTER 2018-05-16 06:58 | Inpatient (IN) | payer OTHER ==
[~2018-05-16] VITALS: Ht 152.4 cm; Wt 69.6 kg
[2018-05-16] VITALS (36 sets, daily range): BP systolic 82–123; BP diastolic 28–73
--- NOTE | ~2018-05-16 | HC ---
[facility] [place] [address] CONSULTATION Name: ARIELLE YA Room #: 241-P ADM IN M.R.#: [id number] Admission: 05/16/18 Attend Phys: Jarocho Cannon MD Discharge: Date of : 46 Report #: [id number] THIS REPORT FOR: //name// CC: Jarocho Lilly DATE OF SERVICE: 05/16/2018 Infectious Disease Consultation: REASON FOR CONSULTATION: I was asked to evaluate concerning pulmonary infiltrates and bilateral lower extremity nonhealing wounds. HISTORY OF PRESENT ILLNESS: The patient is a 68-year-old with underlying history of bronchiectasis, sarcoidosis, obstructive sleep apnea, who is on longstanding prednisone 10 mg a day. Also, on 2 liters of oxygen on a regular basis. She has had nonhealing painful wounds to both lower extremities for last several months. No specific injuries noted. She does have some leg edema. Because of worsening lesions along with increased malaise, shortness of breath, cough with blood-streaked sputum, she was brought into the Emergency Room. No fever, chills or sweats. Once in the Emergency Room, she was hypotensive and has required several liters of fluid. She appeared dehydrated. Her creatinine was up to 2.2. She was afebrile. Now, on oxygen per nasal cannula and placed in the intensive care unit. Her urine output has picked up. Previous cultures of her sputum had shown Pseudomonas aeruginosa. 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 Unclear as to the treatment of her leg wounds other than topical steroid. She has also been on doxycycline recently. No HIV risk factors. No tuberculosis exposure. 2013 TB screen was negative as was histoplasma. ALLERGIES: None. MEDICATIONS: As noted on her MAR including multivitamin, Coumadin, prednisone at 10 mg a day, mupirocin topical to the wounds, olmesartan, hydrochlorothiazide. PAST MEDICAL HISTORY: Hypertension, sarcoidosis, pulmonary emboli, pneumonia, chronic bronchitis and bronchiectasis, kidney stones, glaucoma, obstructive sleep apnea, Staph aureus, pubic abscess several years ago, glaucoma. FAMILY HISTORY: Noncontributory. SOCIAL HISTORY: Nonsmoker, no significant alcohol intake. [address] [address] CONSULTATION Name: ARIELLE YA Room #: 241-P [facility] IN M.R.#: [id number] Admission: 05/16/18 Attend Phys: Jarocho Cannon MD Discharge: Date of : 46 Report #: [id number] REVIEW OF SYSTEMS: CONSTITUTIONAL: As noted above. EYES: No visual changes. EARS: No change in her hearing. MOUTH: No oral lesions. RESPIRATORY: As above. CARDIOVASCULAR: No chest pain, palpitations or syncopal episodes. GASTROINTESTINAL: No nausea, vomiting or diarrhea. GENITOURINARY: Negative. MUSCULOSKELETAL: Negative. SKIN: As above. NEUROLOGIC: Negative. PSYCHIATRIC: Negative. HEMATOLOGIC: As above. LYMPH: Negative. PHYSICAL EXAMINATION: VITAL SIGNS: The patient was alert and cooperative. Appeared her stated age, on 2 liters of oxygen per nasal cannula, blood pressure initially 88/35, now 123/65, heart rate 79, respiratory rate 19, MAP of 74. SKIN: Two lateral lower leg eschar wounds with some surrounding induration and significantly tender. No erythema or fluctuance. On the left, she had a bullous lesion with bloody fluid with surrounding induration without erythema or fluctuance. Area was tender to palpation. No other rashes or decubiti. No palpable lymphadenopathy. HEENT: Eyes, without conjunctivitis or scleral icterus. Mouth without lesion or mucositis. NECK: Supple with no thyromegaly, mass or JVD. LUNGS: A few scattered crackles with no wheezes or consolidation. HEART: Regular, without murmur, gallop or rub. ABDOMEN: Soft, nontender, no hepatosplenomegaly or mass appreciated. GENITOURINARY: External genitalia unremarkable with no lesions. RECTAL: Not performed. EXTREMITIES: With trace edema to her pretibial skin. No cyanosis or clubbing. NEUROLOGIC: Cranial nerves intact. Strength in the lower and upper extremities was normal. Sensation in upper and lower extremities normal. Mood, normal. Mental status, normal. Pulses in both feet normal, palpable with good capillary refill. LABORATORY STUDIES: Hemoglobin 11.8, WBC 7.8, platelet count 191,000. BNP was 96. Sodium 140, potassium 3.5, bicarbonate 35, creatinine 2.2. Liver function test normal. Lactate 1.4. TSH normal. Electrocardiogram, normal sinus rhythm, left anterior fascicular block unchanged. Urinalysis 30 bacteria with rare wbc's and rbc's. Influenza antigen is negative. INR 3.7. Blood cultures are pending. Urine culture is pending. Chest x-ray shows bilateral upper lobe and [facility] [address] [place] [address] CONSULTATION Name: ARIELLE YA Room #: 241-P ADM IN M.R.#: [id number] Admission: 05/16/18 Attend Phys: Jarocho Cannon MD Discharge: Date of : 48 Report #: [id number] lower lobe infiltrates, left greater than right. Previous CT scan has revealed upper lobe bronchiectasis as well as lower lobe bronchiectasis changes with bullae. IMPRESSION: A 68-year-old with hemoptysis and increased pulmonary infiltrates along with hypotension, dehydration with acute kidney injury. Would be concerned about exacerbation of her bronchiectasis. Atypical infection would also be considered noting that the patient is on 10 mg of prednisone a day. Would consider fungal and AFB including Mycobacterium causing problems at this point. 1. Bilateral lower extremity wounds, which appear tender. These have suggestion of vascular etiology. Do not have the typical appearance of atypical mycobacterial infection, but will need to be further evaluated. 2. Acute kidney injury, suspect prerenal. 3. Anticoagulated for previous pulmonary emboli. 4. Sarcoidosis. 5. Chronic obstructive pulmonary disease. 6. Obstructive sleep apnea. 7. Hypertension. RECOMMENDATIONS: We will obtain cultures of her sputum for AFB, fungus and bacteria. Check viral respiratory panel and urine antigens. Check histoplasma titers. Check procalcitonin level, sedimentation rate. Repeat CT scan of the chest. We will consider biopsying her lower extremity wounds for further workup. Begin cefepime considering the patient has had previous pseudomonas identified from her sputum. <ELECTRONICALLY SIGNED> By: Ronak Smith MD 05/17/18 1108 [id number] Ronak Smith MD /nt
--- NOTE | ~2018-05-16 | HC ---
[facility] [place] [address] CONSULTATION Name: ARIELLE YA Room #: 215-P ADM IN M.R.#: [id number] Admission: 05/16/18 Attend Phys: Jarocho Cannon MD Discharge: Date of : 48 Report #: [id number] THIS REPORT FOR: //name// [facility] DATE OF SERVICE: 05/19/2018 PERSONAL PHYSICIAN: Dr. Cannon. CHIEF COMPLAINT: Chronic ulcer, left lower extremity of indeterminate etiology. HISTORY OF PRESENT ILLNESS: This is a 68-year-old black female, who is currently hospitalized for respiratory failure, who has ulceration on her left lateral lower extremity that is somewhat hemorrhagic, but does not appear to be vascular in nature. The patient states she denies any trauma to the site. The actual etiology is unknown and therefore, I was asked by infectious disease to perform a punch biopsy of the lesion. PREPROCEDURE DIAGNOSES: 1. Chronic ulcer, left lateral lower extremity, limited breakdown of skin. 2. History of pulmonary failure with recurrent infection and a history of sarcoidosis. POSTPROCEDURE DIAGNOSES: 1. Chronic ulcer, left lateral lower extremity, limited breakdown of skin. 2. History of pulmonary failure with recurrent infection and a history of sarcoidosis. DESCRIPTION OF PROCEDURE: After timeout was taken, verbal consent was obtained. The patient had a punch biopsy performed at the bedside using a 4 mm punch biopsy without difficulty. There was no anesthesia used. The patient had no pain associated with the procedure. The biopsy material was placed in formalin and sent to pathology for evaluation. Bleeding was minimal, easily controlled with pressure. Sterile dressing was placed over the area after the procedure was performed. By: [id number] Devin Daniels MD /nt
--- NOTE | ~2018-05-16 | EKG ---
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: : 1950 Requested By: Ronak Frost Order Number: [id number] MD: Jesus Echevarria Measurements Intervals [place] Rate: 84 P: 72 [place]: 128 QRS: -52 QRSD: 90 T: 39 QT: 400 QTc: 473 Interpretive Statements Sinus rhythm left atrial enlargement Left anterior fascicular block Compared to ECG 04/16/2018 00:24:36 No significant changes Electronically Signed On 05-16-2018 10:19:03 TUBE LASER OPERATOR by Jesus Echevarria [email or web address] <ELECTRONICALLY SIGNED> By: Jesus Echevarria MD 05/16/18 1019 [id number] [id number] Jesus Echevarria MD /EPI
--- NOTE | ~2018-05-16 | PATH ---
[facility] [place] [address] PATHOLOGY RPT PROCEDURE Name: ARIELLE HOLGUIN Room #: 225-P DIS IN M.R.#: [id number] Admission: 05/16/18 Date of : 46 Discharge: 05/24/18 Report #: [id number] Path Case #: [id number] [facility] Accession Number: [id number] . 01 Material submitted: . PUNCH BIOPSY OF LEFT LOWER LEG . 01 Clinical history: . None provided . 02 Diagnosis: Skin, left lower leg, punch biopsy: - Complete ulceration of the surface associated with fibrinoid degeneration and gangrenous necrosis as well as hemorrhage, consistent with chronic ulcer bed. - Focal vessel identified within the deep dermis associated with a thrombus. - Negative for granulomata, history of sacroidosis. - No intact epithelium present. . (IUV:emma; 05/21/2018) QMS/05/26/2018 . 02 Comment: Dr. Maya Piper (board-certified dermatopathologist) has seen this case and concurs with the diagnosis as well as my findings. (IUV:emma; 05/21/2018) . 02 Electronically signed: . Dora Angelo MD, Pathologist NPI- [id number] . 01 Gross description: . Received in formalin labeled "Arielle Holguin," and additionally verified as "left lower leg," is a punch biopsy measuring 0.2 x 0.2 x 0.8 cm. The epidermal surface is dark brown and displays no grossly identifiable lesion. The margin is inked and the specimen is entirely submitted in cassette A1. (TSD; 05/20/2018) TOB/TOB . 02 Pathologist provided ICD-10: L98.499, I96, I74.3 . 02 CPT . 052899 Specimen Comment: A courtesy copy of this report has been sent to [place] [id number] PATHOLOGY RPT PROCEDURE Name: ARIELLE HOLGUIN Room #: 225-P DIS IN M.R.#: [id number] Admission: 05/16/18 Date of : 46 Discharge: 05/24/18 Report #: [id number] Path Case #: [id number] Specimen Comment: [phone]. Specimen Comment: Report sent to Specimen Comment: A duplicate report has been generated due to demographic updates. Performed at: [address], [place], [place] [id number] MD Cristian Leigh MD Phone: [phone] Performed at: [address] [id number] MD Dora Angelo MD Phone: [phone]
--- NOTE | ~2018-05-16 | HC ---
[facility] [place] [address] CONSULTATION Name: ARIELLE YA Room #: 215-P ADM IN M.R.#: [id number] Admission: 05/16/18 Attend Phys: Jarocho Cannon MD Discharge: Date of : 46 Report #: [id number] THIS REPORT FOR: //name// CC: Jarocho WallerMacdonald DATE OF SERVICE: 05/16/2018 CHIEF COMPLAINT: Ulcers, bilateral lower extremities. HISTORY OF PRESENT ILLNESS: This is a 68-year-old female patient with whom I am briefly familiar from a short hospitalization in 03/2018. At that time, she had a lesion and ulceration to the right lower extremity. It began 2 weeks prior. She was seen by dermatology. She does not have a biopsy at that time, but was started on some topical medications and sent home with home health. She has not had any wound care followup, but may have had some dermatology followup, although that is not entirely clear. PAST MEDICAL HISTORY: Positive for bronchitis, bronchiectasis, history of community-acquired pneumonia, COPD, and sarcoidosis. ALLERGIES: None. MEDICATIONS: Include guaifenesin, prednisone, amoxicillin, multivitamin, Coumadin, olmesartan. SOCIAL HISTORY: Negative for current tobacco use. FAMILY HISTORY: Noncontributory. REVIEW OF SYSTEMS: CONSTITUTIONAL: The patient denies fever, chills or weight loss. NEUROLOGICAL: The patient complains of generalized weakness. Denies focal weakness, numbness or tingling. EYES: The patient denies visual changes, redness or drainage. ENT: The patient denies earache, nasal drainage or sore throat. CARDIOVASCULAR: The patient denies chest pain, palpitations or diaphoresis. PULMONARY: The patient denies cough or shortness of breath. GASTROINTESTINAL: The patient denies nausea, vomiting or abdominal pain. ORTHOPEDIC: The patient does complain of pain and swelling in both ankles. Other systems in a 14-point review of systems are negative. PHYSICAL EXAMINATION: VITAL SIGNS: At this time include temperature of 97.1, pulse rate 79, respiratory rate of 26, blood pressure 112/43. [facility] [address] [place] [address] CONSULTATION Name: ARIELLE YA Room #: 215-P ADM IN M.R.#: [id number] Admission: 05/16/18 Attend Phys: Jarocho Cannon MD Discharge: Date of : 46 Report #: [id number] GENERAL: This is a somewhat chronically ill-appearing female patient who appears to be in mild discomfort. HEENT: Head normocephalic. Nose and throat are clear. NECK: Supple. HEART: Regular rhythm without murmur. ABDOMEN: Soft. Bowel sounds are present. There is no obvious tenderness. EXTREMITIES: Lower extremities demonstrate palpable distal pulses. She has discrete ulcerations with necrosis on both lateral ankles, just proximal to the lateral malleoli bilaterally. There is some surrounding hyperpigmentation. No obvious drainage. These areas are exquisitely tender to palpation. NEUROLOGIC: The patient is alert and oriented, does move all 4 extremities spontaneously. CLINICAL IMPRESSION: 1. Ulcerations to both ankles. Etiology is uncertain. Certainly possibility of cutaneous sarcoidosis is considered versus possible spider bite versus trauma. 2. Pulmonary fibrosis. 3. Sterile stage 4 sarcoidosis. 4. Possible sepsis. 5. Acute kidney injury and volume depletion with hypotension. RECOMMENDATIONS: At this point in time, we will recommend simple topical care. We will use Silvadene and morphine compound with Xeroform gauze and a Tk or Kerlix with no tape or adhesive to the skin. Likely, she will require debridement and/or biopsy of these areas to try to establish a tissue diagnosis. We will recommend q. 2 hour turning and positioning. She is on the ICU bed at present. Consider Prevalon boots. We will check arterial Dopplers for the sake of thoroughness, although I am able to palpate her distal pulses. I do appreciate being asked to see her in consultation. <ELECTRONICALLY SIGNED> By: Aung Haney MD 05/19/18 0921 [id number] 0325 Aung Haney MD /nt
[~2018-05-16 06:58] MED LIST changes: +DOXYCYCLINE HYC50 MG PO; +MUPIROCIN22 GM TOP; +OLMESARTAN-HCT1 EAC1 PO; +TRIAMCINOLONE 080 G3 TOP
[2018-05-16 08:44] LABS: BE(vivo) 6.1 mmol/L (-2 to +3); HCO3 33.1 mmol/L (22.0-26.0); PCO2 VENOUS 59.6 mmHg (41.0-51.0); PO2 VENOUS 39.4 mmHg (35.0-45.0)
[2018-05-16 08:49] LABS: HEMATOCRIT 35.3 % (37.0-47.0); HEMOGLOBIN 11.8 gm/dL (12.0-15.0); MCH 29.5 pg (26.0-34.0); MCHC 33.5 g/dL (28.0-37.0); MCV 88.2 fL (80.0-100.0); PLATELET COUNT 191 thou/uL (150-400); RDW 14.2 % (10.5-14.5); WBC 7.8 thou/uL (4.0-11.0)
[2018-05-16 09:00] LABS: ANION GAP 7 mmol/L (7-16); BUN 91 mg/dL (7-18); CALCIUM 9.1 mg/dL (8.5-10.1); CHLORIDE 98 mmol/L (98-107); CO2 35 mmol/L (21-32); CREATININE 2.2 mg/dL (0.6-1.0); GLUCOSE 101 mg/dL (74-106); POTASSIUM 3.5 mmol/L (3.5-5.1); SODIUM 140 mmol/L (136-145)
[2018-05-16 09:01] LABS: PROTIME 38.1 Seconds (9.3-11.4)
[2018-05-16 09:03] LABS: INR 3.7
[2018-05-16 09:08] LABS: ALBUMIN 2.8 g/dL (3.4-5.0); MAGNESIUM 2.6 mg/dL (1.8-2.4); SGOT 25 U/L (15-37); SGPT 27 U/L (30-65); TOTAL BILIRUBIN 0.6 mg/dL (<0.1-1.0); TOTAL PROTEIN 6.8 g/dL (6.4-8.2); TROPONIN-I <0.06 ng/mL (<0.06)
[2018-05-16 09:17] LABS: URINE BILIRUBIN NEGATIVE (Negative); URINE BLOOD 1+ (Negative); URINE CLARITY CLEAR; URINE COLOR YELLOW; URINE GLUCOSE-RANDOM* NEGATIVE (Negative); URINE KETONES NEGATIVE (Negative); URINE LEUKOCYTES-REFLEX NEGATIVE (Negative); URINE NITRITE-REFLEX NEGATIVE (Negative); URINE PROTEIN (DIPSTICK) NEGATIVE (Negative); URINE SPECIFIC GRAVITY >= 1.030 (1.005-1.035); URINE UROBILINOGEN 0.2 E.U./dl (0.2-1.0)
[2018-05-16 09:20] LABS: ANISOCYTOSIS SLIGHT
[2018-05-16 09:31] LABS: CASTS None Seen /LPF (None Seen); MUCUS 0-3 Light strn/LPF (None Seen); SQUAMOUS 4-10 Moderate /LPF (0-3); URINE WBC-REFLEX 0-5 Rare /HPF (0-5)
[2018-05-16 09:32] LABS: AMORPHOUS URATES Few /LPF (None Seen); BACTERIA-REFLEX >30 Many /HPF (None Seen); URINE RBC 0-2 Rare /HPF (0-2)
[2018-05-16 14:47] LABS: TSH 0.363 uIU/mL (0.358-3.740)
[2018-05-17] VITALS (38 sets, daily range): BP systolic 90–124; BP diastolic 31–65
[2018-05-17] MEDS ORDERED: CRESTOR10 MG PO (05:55)
[2018-05-17] MEDS ORDERED: PENTOXIFYLLINE400 MG PO (05:59)
[2018-05-17 06:00] LABS: HEMATOCRIT 30.4 % (37.0-47.0); HEMOGLOBIN 10.3 gm/dL (12.0-15.0); MCHC 33.9 g/dL (28.0-37.0); MCV 88.6 fL (80.0-100.0); RBC 3.44 mil/uL (4.20-5.00); RDW 14.1 % (10.5-14.5); WBC 5.2 thou/uL (4.0-11.0)
[2018-05-17 06:09] LABS: CALCIUM 7.3 mg/dL (8.5-10.1); POTASSIUM 3.8 mmol/L (3.5-5.1)
[2018-05-17 06:11] LABS: CREATININE 1.2 mg/dL (0.6-1.0)
[2018-05-17 06:29] LABS: PROTIME 41.5 Seconds (9.3-11.4)
[2018-05-18] VITALS (12 sets, daily range): BP systolic 108–162; BP diastolic 43–71
[2018-05-18 05:27] LABS: HEMATOCRIT 28.2 % (37.0-47.0); HEMOGLOBIN 9.5 gm/dL (12.0-15.0); MCH 29.8 pg (26.0-34.0); MCHC 33.7 g/dL (28.0-37.0); MCV 88.6 fL (80.0-100.0); RBC 3.18 mil/uL (4.20-5.00); WBC 6.5 thou/uL (4.0-11.0)
[2018-05-18 05:33] LABS: POTASSIUM 3.9 mmol/L (3.5-5.1)
[2018-05-18 05:42] LABS: CALCIUM 6.9 mg/dL (8.5-10.1); MAGNESIUM 1.9 mg/dL (1.8-2.4)
[2018-05-18 10:23] LABS: INR 3.2; PROTIME 33.1 Seconds (9.3-11.4)
[2018-05-19] VITALS (13 sets, daily range): BP systolic 118–175; BP diastolic 53–76
[2018-05-19 06:01] LABS: HEMATOCRIT 31.3 % (37.0-47.0); HEMOGLOBIN 10.5 gm/dL (12.0-15.0); MCH 29.8 pg (26.0-34.0); MCHC 33.5 g/dL (28.0-37.0); MCV 88.9 fL (80.0-100.0); RBC 3.52 mil/uL (4.20-5.00); RDW 14.3 % (10.5-14.5); WBC 6.8 thou/uL (4.0-11.0)
[2018-05-19 06:10] LABS: CALCIUM 6.7 mg/dL (8.5-10.1); CREATININE 0.9 mg/dL (0.6-1.0); MAGNESIUM 1.7 mg/dL (1.8-2.4); POTASSIUM 3.9 mmol/L (3.5-5.1)
[2018-05-19 06:12] LABS: INR 2.3; PROTIME 23.7 Seconds (9.3-11.4)
[2018-05-20 04:08] LABS: CALCIUM 7.4 mg/dL (8.5-10.1); CREATININE 0.8 mg/dL (0.6-1.0); MAGNESIUM 1.8 mg/dL (1.8-2.4); POTASSIUM 4.1 mmol/L (3.5-5.1)
[2018-05-20 04:14] VITALS: BP 130/60
[2018-05-20 06:01] LABS: HEMATOCRIT 25.2 % (37.0-47.0); HEMOGLOBIN 8.6 gm/dL (12.0-15.0); MCV 88.4 fL (80.0-100.0); RBC 2.85 mil/uL (4.20-5.00); RDW 14.3 % (10.5-14.5); WBC 5.6 thou/uL (4.0-11.0)
[2018-05-20 06:11] LABS: INR 2.3; PROTIME 23.9 Seconds (9.3-11.4)
[2018-05-20 13:48] LABS: HEMATOCRIT 32.7 % (37.0-47.0); MCH 29.7 pg (26.0-34.0); MCHC 33.6 g/dL (28.0-37.0); MCV 88.3 fL (80.0-100.0); RBC 3.7 mil/uL (4.20-5.00); RDW 14.7 % (10.5-14.5); WBC 9.7 thou/uL (4.0-11.0)
[2018-05-20 13:50] LABS: CALCIUM 7.2 mg/dL (8.5-10.1); CREATININE 0.7 mg/dL (0.6-1.0); POTASSIUM 3.9 mmol/L (3.5-5.1)
[2018-05-20 13:57] LABS: INR 2.2; PROTIME 22.9 Seconds (9.3-11.4)
[2018-05-20 15:14] VITALS: BP 130/53
[2018-05-20 19:55] VITALS: BP 140/51
[2018-05-20 23:00] VITALS: BP 138/51
[2018-05-20 23:10] LABS: HISTOPLASMA MYCELIAL-CF Negative (Neg:<1:2)
[2018-05-21 00:06] LABS: ADENOVIRUS Negative (Negative); INFLUENZA A Negative (Negative); INFLUENZA B Negative (Negative); METAPNEUMOVIRUS Negative (Negative); PARAINFLUENZA 1 Negative (Negative); PARAINFLUENZA 2 Negative (Negative); PARAINFLUENZA 3 Negative (Negative); RHINOVIRUS Negative (Negative); RSV A Negative (Negative); RSV B Negative (Negative)
[2018-05-21 04:00] LABS: INR 2.1; PROTIME 21.8 Seconds (9.3-11.4)
[2018-05-21 07:35] VITALS: BP 156/79
[2018-05-21 19:57] VITALS: BP 134/62
[2018-05-21 21:08] LABS: HISTOPLASMA MYCELIAL-ID Negative (Negative)
[2018-05-22 04:39] LABS: ANION GAP < 0 mmol/L (7-16); BUN 20 mg/dL (7-18); CALCIUM 7.9 mg/dL (8.5-10.1); CHLORIDE 106 mmol/L (98-107); CO2 39 mmol/L (21-32); CREATININE 0.8 mg/dL (0.6-1.0); GLUCOSE 95 mg/dL (74-106); POTASSIUM 4.1 mmol/L (3.5-5.1); SODIUM 144 mmol/L (136-145)
[2018-05-22 04:44] LABS: INR 1.5; PROTIME 15.9 Seconds (9.3-11.4)
[2018-05-22 05:10] LABS: HEMATOCRIT 32.7 % (37.0-47.0); HEMOGLOBIN 10.7 gm/dL (12.0-15.0); MCH 29.6 pg (26.0-34.0); MCHC 32.8 g/dL (28.0-37.0); RBC 3.64 mil/uL (4.20-5.00); RDW 14.2 % (10.5-14.5); WBC 7.2 thou/uL (4.0-11.0)
[2018-05-22 07:53] VITALS: BP 150/69
[2018-05-22 19:11] VITALS: BP 119/50
[2018-05-23 07:10] LABS: HEMATOCRIT 30.9 % (37.0-47.0); MCH 28.8 pg (26.0-34.0); MCHC 32.3 g/dL (28.0-37.0); MCV 89.3 fL (80.0-100.0); RBC 3.46 mil/uL (4.20-5.00); RDW 14.5 % (10.5-14.5); WBC 7.2 thou/uL (4.0-11.0)
[2018-05-23 07:30] LABS: ANION GAP < 0 mmol/L (7-16); BUN 19 mg/dL (7-18); CALCIUM 8.5 mg/dL (8.5-10.1); CHLORIDE 104 mmol/L (98-107); CO2 41 mmol/L (21-32); CREATININE 0.8 mg/dL (0.6-1.0); GLUCOSE 93 mg/dL (74-106); INR 1.3; POTASSIUM 4.1 mmol/L (3.5-5.1); PROTIME 13.3 Seconds (9.3-11.4); SODIUM 144 mmol/L (136-145)
[2018-05-23 08:12] VITALS: BP 129/55
[2018-05-23 13:31] VITALS: BP 129/55
[2018-05-23 20:42] VITALS: BP 130/50
[2018-05-24 07:32] VITALS: BP 122/48
[2018-05-24 08:11] LABS: INR 1.5; PROTIME 15.2 Seconds (9.3-11.4)
[2018-05-24] MEDS ORDERED: CEFDINIR300 MG PO (10:34)
== END 2018-05-24 18:42 | disposition home health service (06) | DRG 682 ==
LOC: ER 06:58 → 2N 09:26 → EROBS 09:26 → ICU 13:52 → 2N 05-19 06:27 → SICU 05-20 23:19
PROVIDERS: Emergency Medicine; Hospitalist; Internal Medicine; Specialist
PROC: 0HBLXZX Excision of Left Lower Leg Skin, External Approach, Diagnostic (ICD-10-PCS; principal; 2018-05-19)
PROC: 5A09357 Assistance with Respiratory Ventilation, Less than 24 Consecutive Hours, Continuous Positive Airway Pressure (ICD-10-PCS; 2018-05-22)
DX: N17.9 Acute kidney failure, unspecified (principal); J96.21 Acute and chronic respiratory failure with hypoxia; E43 Unspecified severe protein-calorie malnutrition; R04.2 Hemoptysis; L97.321 Non-pressure chronic ulcer of left ankle limited to breakdown of skin; L97.311 Non-pressure chronic ulcer of right ankle limited to breakdown of skin; N39.0 Urinary tract infection, site not specified; I50.32 Chronic diastolic (congestive) heart failure; E27.40 Unspecified adrenocortical insufficiency; I13.0 Hypertensive heart and chronic kidney disease with heart failure and stage 1 through stage 4 chronic kidney disease, or unspecified chronic kidney disease; J44.0 Chronic obstructive pulmonary disease with (acute) lower respiratory infection; A31.0 Pulmonary mycobacterial infection; H40.9 Unspecified glaucoma; N18.9 Chronic kidney disease, unspecified; G47.33 Obstructive sleep apnea (adult) (pediatric); I95.9 Hypotension, unspecified; J45.909 Unspecified asthma, uncomplicated; E86.0 Dehydration; D86.9 Sarcoidosis, unspecified; J84.10 Pulmonary fibrosis, unspecified; E86.9 Volume depletion, unspecified; I27.20 Pulmonary hypertension, unspecified; Z79.52 Long term (current) use of systemic steroids; Z86.711 Personal history of pulmonary embolism; Z87.442 Personal history of urinary calculi; Z99.81 Dependence on supplemental oxygen; Z79.01 Long term (current) use of anticoagulants; Z68.30 Body mass index [BMI] 30.0-30.9, adult
CPT/HCPCS: 10078; 10081; 15002

== ENCOUNTER → 2018-06-17 | Outpatient (CLI) | payer OTHER ==
[~2018-06-17] MED LIST changes: +CEFDINIR300 MG PO; +PENTOXIFYLLINE400 MG PO
== END ==
LOC: HYPER 05-15 11:34
DX: S80.862A Insect bite (nonvenomous), left lower leg, initial encounter (principal); S80.861A Insect bite (nonvenomous), right lower leg, initial encounter; L84 Corns and callosities; G47.33 Obstructive sleep apnea (adult) (pediatric); I10 Essential (primary) hypertension; J44.9 Chronic obstructive pulmonary disease, unspecified; F41.9 Anxiety disorder, unspecified; Z79.01 Long term (current) use of anticoagulants; Z86.711 Personal history of pulmonary embolism

== ENCOUNTER → 2018-07-09 | Outpatient (CLI) | payer OTHER | LOC: HYPER 06:35 | DX: S80.861D Insect bite (nonvenomous), right lower leg, subsequent encounter (principal); I10 Essential (primary) hypertension; L84 Corns and callosities; J44.9 Chronic obstructive pulmonary disease, unspecified; F41.9 Anxiety disorder, unspecified; Z79.01 Long term (current) use of anticoagulants; W57.XXXD Bitten or stung by nonvenomous insect and other nonvenomous arthropods, subsequent encounter ==

== ENCOUNTER → 2018-08-13 | Outpatient (CLI) | payer OTHER | LOC: HYPER 07-24 09:20 | DX: S80.862D Insect bite (nonvenomous), left lower leg, subsequent encounter (principal); S80.861D Insect bite (nonvenomous), right lower leg, subsequent encounter; L84 Corns and callosities; G47.33 Obstructive sleep apnea (adult) (pediatric); I10 Essential (primary) hypertension; J44.9 Chronic obstructive pulmonary disease, unspecified; F41.9 Anxiety disorder, unspecified; Z79.01 Long term (current) use of anticoagulants; Z86.711 Personal history of pulmonary embolism ==

== ENCOUNTER → 2018-09-03 | Outpatient (CLI) | payer OTHER | LOC: HYPER 06:35 | DX: S80.862D Insect bite (nonvenomous), left lower leg, subsequent encounter (principal); S80.861D Insect bite (nonvenomous), right lower leg, subsequent encounter; L84 Corns and callosities; I10 Essential (primary) hypertension; J44.9 Chronic obstructive pulmonary disease, unspecified; G47.33 Obstructive sleep apnea (adult) (pediatric); F41.9 Anxiety disorder, unspecified; Z79.01 Long term (current) use of anticoagulants; Z87.01 Personal history of pneumonia (recurrent); W57.XXXD Bitten or stung by nonvenomous insect and other nonvenomous arthropods, subsequent encounter ==

== ENCOUNTER 2018-09-24 19:09 | Inpatient (IN) | payer OTHER ==
[~2018-09-24] VITALS: Ht 152.4 cm; Wt 59.3 kg
[2018-09-24 19:17] VITALS: BP 179/80
[2018-09-24 20:59] LABS: BE(vivo) 8.8 mmol/L (-2 to +3); HCO3 34.4 mmol/L (22.0-26.0); PCO2 51.5 mmHg (35.0-45.0); PO2 79.2 mmHg (80.0-100.0); pH 7.442 (7.360-7.450); sO2 95.9 % (92.0-98.0)
[2018-09-24 21:25] LABS: ABSOLUTE NEUTROPHILS 8.3 thou/uL (1.4-8.2); BASOPHILS 0.2 % (0.0-2.0); EOSINOPHILS 0.9 % (0.0-3.0); HEMATOCRIT 35.5 % (37.0-47.0); HEMOGLOBIN 11.6 gm/dL (12.0-15.0); LYMPHOCYTES 8.3 % (24.0-44.0); MCH 27.8 pg (26.0-34.0); MCHC 32.6 g/dL (28.0-37.0); MCV 85.3 fL (80.0-100.0); MONOCYTES 8.4 % (1.0-8.0); PLATELET COUNT 205 thou/uL (150-400); POLYS 82.2 % (36.0-66.0); RBC 4.16 mil/uL (4.20-5.00); RDW 14.9 % (10.5-14.5); WBC 10.1 thou/uL (4.0-11.0)
[2018-09-24 21:36] LABS: ANION GAP 2 mmol/L (7-16); BUN 11 mg/dL (7-18); CALCIUM 8.8 mg/dL (8.5-10.1); CHLORIDE 103 mmol/L (98-107); CO2 38 mmol/L (21-32); CREATININE 0.8 mg/dL (0.6-1.0); GLUCOSE 106 mg/dL (74-106); POTASSIUM 3.4 mmol/L (3.5-5.1); SODIUM 143 mmol/L (136-145)
[2018-09-24 21:37] LABS: APTT 28.3 Seconds (24.5-32.8); INR 1.1; PROTIME 11.4 Seconds (9.3-11.4)
[2018-09-24 21:46] LABS: ALBUMIN 3.1 g/dL (3.4-5.0); MAGNESIUM 1.7 mg/dL (1.8-2.4); SGOT 19 U/L (15-37); SGPT 19 U/L (30-65); TOTAL BILIRUBIN 0.8 mg/dL (<0.1-1.0); TOTAL PROTEIN 6.8 g/dL (6.4-8.2); TROPONIN-I <0.06 ng/mL (<0.06)
[2018-09-24 22:56] VITALS: BP 162/63
[2018-09-24 23:46] VITALS: BP 148/61
--- NOTE | 2018-09-25 02:26 | NUR ---
Received pt from ED at 2114. Pt has been having dizziness and productive cough with luis sputum blood streaked x1 wk. AOX4. VSS. +1 edema on both ankles. Mild jones on both legs. R FA I.V with NS @125. X1 assist to bedside commode. 4L O2 NC. No identified needs at the moment. Will continue to monitor.
[2018-09-25 03:39] VITALS: BP 136/68
[2018-09-25 06:35] LABS: HEMATOCRIT 36.2 % (37.0-47.0); HEMOGLOBIN 11.5 gm/dL (12.0-15.0); MCH 27.2 pg (26.0-34.0); MCHC 31.9 g/dL (28.0-37.0); MCV 85.4 fL (80.0-100.0); RBC 4.23 mil/uL (4.20-5.00); RDW 15.3 % (10.5-14.5); WBC 5.9 thou/uL (4.0-11.0)
[2018-09-25 06:49] LABS: CALCIUM 8.2 mg/dL (8.5-10.1); CREATININE 0.8 mg/dL (0.6-1.0)
[2018-09-25 06:59] LABS: POTASSIUM 4.6 mmol/L (3.5-5.1)
[2018-09-25 08:25] VITALS: BP 152/65
--- NOTE | 2018-09-25 08:42 | EKG ---
[address] [place] [address] ELECTROCARDIOGRAM REPORT Name: FELTONARIELLE CHANCE Room #: 464-P ADM IN M.R.#: [id number] ������������������ Admission: 09/24/18 ������������������ Attend Phys: Mary Sanderson Discharge: ������������������ Date of : 46 Report #: [id number] ����������������������������������������������������������������� [id number] THIS REPORT FOR: //name// [facility] ED Test Date: 2018-09-24 Test Time: 19:35:44 Pat Name: ARIELLE YA Department: Room: 464 Gender: F Geophysical Manager: ZAID : 1950 Requested By: Ronak Frost Order Number: [id number] MD: Kishore Vigil Measurements Intervals [place] Rate: 120 P: 38 CT: 154 QRS: -75 QRSD: 78 T: 85 QT: 300 QTc: 424 Interpretive Statements Sinus tachycardia Left anterior hemiblock Poor R wave progression Compared to ECG 05/16/2018 08:53:16 Heart rate has increased Electronically Signed On 09-25-2018 8:42:42 CDT by Kishore Vigil [email or web address] ��������������������������������������������� <ELECTRONICALLY SIGNED> ���������������������������������������� By: Kishore Vigil MD, [facility] ��������������������������������������������� 09/25/18 0842 34 34 Kishore Vigil MD, [facility] /EPI
--- NOTE | 2018-09-25 16:19 | NUR ---
PT ADMITTED RELATED TO CAP, SARCOIDOSIS, HYPOXIA. CM REVIEWED CHART AND SPOKE WITH CARE TEAM. CM MET WITH PT AT BEDSIDE THIS REJI PT IS A &O X4, CM ROLE INTRODUCED. PT INDICATED SHE LIVES IN A HOUSE WITH HER SON WITH 7 STEPS TO ENTER AND 6 STEPS WITH HANDRAILS INSIDE. PT INDICATED SHE HAD OCCASIONALLY USED A CANE TO ASSIST WITH MOBILITY AEROSPACE ENGINEER OFFICER ARMAMENT. PT INDICATED THAT SHE HAS A CPAP AND HOME O2 THROUGH [facility]. PT INDICATED SHE HAD BEEN ON SERVICE WITH [facility] IN THE PAST AND THAT SHE WOULD LIKE TO USE THEM AGAIN UPON DC IF NEEDED. PT STATED SHE PLANS TO RETURN HOME ONCE MEDICALLY STABLE. CM TO FOLLOW INDICATED WITH DC PLANNING.
--- NOTE | 2018-09-25 16:27 | NUR ---
PATIENT WAS ASLEEP WHEN CARE ASSUMED, UPON AWAKENING, PATIENT TOOK ALL MEDICATION WITHOUT DIFFICULTY. PATIENT IS ALERT AND ORIENTED X 3-4, FORGETFUL AT TIMES. PATIENT NOW HAS ORDER FOR BLOOD SUGAR CHECK AC/HS. PATIENT IS TO BE NPO AFTER MIDNIGHT TONIGHT, DUE TO BRONSCHOSCOPY TOMORROW, SPUTUM SPECIMEN OBTAINED, SENT TO LAB. PATIENT DENIES HAVING PHYSICAL PAIN. [address] AT 4L/NC. NO SIGN OF ACUTE DISTRESS NOTED, WILL CONTINUE TO MONITOR.
[2018-09-25 18:35] VITALS: BP 152/55
--- NOTE | 2018-09-25 19:17 | NUR ---
PATIENT TRANSFERRED FROM [facility] TO SICU 223, PATIENT TRANSPORTED PER WHEELCHAIR, PATIENT ON O2@3L/NC, RUE SALINE LOCK, ASSIST X1 TRANSFER FROM [facility] TO BED, DENIES PAIN AND DISCOMFORT, PERSONAL BELONGINGS AND CALL LIGHT IN REACH, WILL CONTINUE TO MONITOR
[2018-09-25 23:09] LABS: GLYCOHEMOGLOBIN (HGB A1C) 6.1 % (4.8-5.6)
--- NOTE | 2018-09-26 05:37 | NUR ---
ASSUMED CARE OF PATIENT AT 190. VSS. ASSESSMENT COMPLETED AT 2048 AND IS DOCUMENTED. PT HAS A PRODUCTIVE COUGH, COARSE CRACKLES THROUGHOUT ALL LOBES AND WHEEZES IN UPPER LOBES. O2 @ 3L VIA NC, CPAP @ HS. CONTINUOUS PULSE OX THROUGHOUT NIGHT. RIGHT UPPER ARM PIV PATENT WITH NS RUNNING AT 75 ML/HR. IV ABT GIVEN PER AUG WITHOUT COMPLICATION. BLOOD SUGAR AT HS: 189; 3 UNITS OF COVERAGE INSULIN GIVEN ORDERED. INCONTINENT OF BOWEL X1 LAST NIGHT. PT UP TO BSC WITH SBA. PT NPO 09/25 @ 6199 FOR SCHEDULED BRONCHOSCOPY. CONSENT SIGNED AND ON FRONT OF CHART. PT CURRENTLY SITTING IN BED IN NO ACUTE DISTRESS. CALL LIGHT WITHIN REACH. BED LOCKED AND IN LOWEST POSITION. WCTM.
--- NOTE | 2018-09-26 05:45 | NUR ---
Lady ALBERT THE ASSESSMENT AND NOTE ON THIS PATIENT. HELPED PATIENT CALL SON X2.
[2018-09-26 07:53] VITALS: BP 151/68
--- NOTE | 2018-09-26 09:43 | NUR ---
PATIENT OFF THE UNIT FOR BRONCHOSCOPY. IV SALINE LOCKED.
[2018-09-26 09:48] VITALS: BP 141/65
[2018-09-26] MEDS ORDERED: NORCO 5-325 TA1 EACH PO (10:47)
--- NOTE | 2018-09-26 10:47 | NUR ---
ASSUMED CARE OF PATIENT THIS MORNING. PATIENT IS ALERT AND ORIENTED WITH SOME FORGETFULLNESS. SHE GETS UP WITH 1 ASSIST AND WALKER. HER LUNG SOUNDS WERE COARSE. SHE IS ON 3L OF OXYGEN. 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 PATIENT WAS NPO PRIOR TO BRONCHOSCOPY AND SHE IS CURRENTLY OFF THE UNIT. SHE WAS CLEANED UP WITH ASSIST THIS MORNING AND HER BED LINENS WERE CHANGED. MEDICATIONS WILL BE GIVEN AFTER PROCEDURE.
--- NOTE | 2018-09-26 12:52 | NUR ---
PATIENT RETURNED TO THE UNIT FROM BRONCHOSCOPY. FLUIDS WILL BE RESUMED AND MORNING MEDICATION WILL BE GIVEN. BLOOD SUGAR WILL BE CHECKED.
[2018-09-26 13:18] VITALS: BP 141/61
[2018-09-26 13:19] VITALS: BP 132/73
--- NOTE | 2018-09-26 15:59 | NUR ---
SW reviewed chart and spoke with nursing and attending physician. Pt was transferred to [facility] from . Pt had bronchoscopy earlier today. Plan is for pt to return home when medically stable. SW is following to assist as needed with discharge planning.
--- NOTE | 2018-09-26 16:59 | NUR ---
I AGREE WITH NURSING ASSESSMENT DONE BY DIGNA/JOSE DE JESUS.
[2018-09-26 18:49] VITALS: BP 169/92
[2018-09-27] VITALS (22 sets, daily range): BP systolic 86–190; BP diastolic 32–86
--- NOTE | 2018-09-27 04:23 | NUR ---
ASSUMED CARE OF PATIENT AT 1900. VSS. ASSESSMENT COMPLETED AT 1999 AND IS DOCUMENTED. LUNG SOUNDS STILL COARSE. PRODUCTIVE COUGH WITH MODERATE AMOUNT OF YELLOW SPUTUM. PT C/O THROAT PAIN WHEN COUGHING. PRN CEPACOL GIVEN WITH SOME RELIEF ACHIEVED. PT UP TO BSC WITH SBA. RIGHT UPPER ARM PIV PATENT WITH NS RUNNING AT 75 ML/HR. IV ABT GIVEN PER AUG WITHOUT COMPLICATION. PATIENT WAS ABLE TO SLEEP FOR A COUPLE HOURS LAST NIGHT. PT CURRENTLY SITTING PEACEFULLY IN BED IN NO ACUTE DISTRESS. BED LOCKED AND IN LOWEST POSITION. CALL LIGHT WITHIN REACH. WCTM.
--- NOTE | 2018-09-27 05:46 | NUR ---
THIS NURSE AGREES WITH THE ASSESSMENT AND NOTES OF THE AUTOMOTIVE SALES PROFESSIONAL FOR THIS PATIENT.
[2018-09-27 06:45] LABS: INR 1.1; PROTIME 11.5 Seconds (9.3-11.4)
--- NOTE | 2018-09-27 12:15 | NUR ---
PT ALERT AND ORIENTED TIMES FOUR, WITH VERY BLUNTED AFFECT. BP ELEVATED THIS MORNING 190/86 NOTIFIED ONETIME DOSE OF HYDRALAZINE ORDERED AND GIVEN. WILL RECHECK BP. OTHER VSS, 94%3L. PT DENIES PAIN. PT TOLERATES MEDS AND MEALS. PT UP TO BSC WITH STANDBY ASSIST, CURRENTLY SITTING IN THE CHAIR. PT SLOWLY PROGRESSING TOWRADS POC GOALS.
--- NOTE | 2018-09-27 17:24 | HC ---
[facility] [place] [address] CONSULTATION Name: ARIELLE YA Room #: 223-P ADM IN M.R.#: [id number] Admission: 09/24/18 ������������������ Attend Phys: Mary Sanderson Discharge: ������������������ Date of : 46 Report #: [id number] THIS REPORT FOR: //name// CC: Pavithra Gabriel DATE OF SERVICE: 09/25/2018 REFERRING PHYSICIAN: Dr. Martinez. REASON FOR REFERRAL: Dyspnea. HISTORY OF PRESENT ILLNESS: The patient is a 68-year-old -Maldivian female who is well known to this physician, presents to the ED with progressive cough, dyspnea, congestion over the past week. She notes that she has coughed up 2 tablespoons of bright red blood. For that reason, a pulmonary consultation was requested. The patient has been seen in the Pulmonary Clinic. She has known pulmonary sarcoidosis, radiographic stage 4. Previous chest CT showed pulmonary fibrosis along with traction bronchiectasis. 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 She was last hospitalized in 05/2018. She has been doing fairly well until about a week ago when she started to be congested along with increasing cough and dyspnea. She has coughed up blood in the past. It has been many months ago. She is on Coumadin for history of pulmonary embolus. Otherwise, she denies any recent chest pain, febrile illness. She denies any recent productive cough or purulent sputum. 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 She is chronically on 2 liters of O2, also history of hypertension. PAST SURGICAL HISTORY: As mentioned above. ALLERGIES: None to medications. HOME MEDICATIONS: Omnicef, hydrocodone, multivitamins, Coumadin 5 mg once a day, olmesartan-hydrochlorothiazide once a day, Crestor once a day, pentoxifylline 400 mg once a day. [facility] [address] [place] [address] CONSULTATION Name: ARIELLE YA CHANCE Room #: 223-P [facility] IN M.R.#: [id number] Admission: 09/24/18 ������������������ Attend Phys: Mary Sanderson Discharge: ������������������ Date of : 46 Report #: [id number] FAMILY HISTORY: Noncontributory. SOCIAL HISTORY: The patient has never smoked. Denies any alcohol use. She lives with her son and [id number]. Her son is quite attentive to her medical needs. REVIEW OF SYSTEMS: As mentioned above, otherwise 10-point system review negative. PHYSICAL EXAMINATION: GENERAL: She is awake, alert, in mild distress. She appears mildly dyspneic. VITAL SIGNS: Temperature is 98 degrees Fahrenheit, pulse is 80, respiratory rate is 20, blood pressure 150/55 mmHg, saturation is 99%. HEENT: Normocephalic, atraumatic. NECK: Supple without lymphadenopathy or thyromegaly. CHEST: Breath sounds are fair. Few scattered crackles. Mild expiratory wheezes. CARDIOVASCULAR: Normal S1, S2. There are no murmurs or gallop. There is no JVD. There is no carotid bruit. Pulses are 2+/4+ bilaterally. ABDOMEN: Soft, nontender. No organomegaly or masses felt. GENITOURINARY: Deferred. RECTAL: Deferred. EXTREMITIES: There is no edema, cyanosis or clubbing. LABORATORY DATA: Portable chest x-ray shows pulmonary fibrosis, volume loss along with traction fibrosis seen in both upper lobes. Influenza A and B swab is negative. EKG shows left anterior hemiblock, poor R-wave progression. Electrolytes are normal, creatinine is normal. Liver enzymes are normal. INR is 1.1. Arterial blood gas revealed pH 7.44, pCO2 51, pO2 79 on 4 liters of O2. IMPRESSION: 1. Progressive cough and dyspnea in this 68-year-old white female. She had recent hemoptysis. Pneumonia is likely. INR is subtherapeutic and pulmonary embolus is possible. 2. Hgmrj-gd-zjdrinj hypercapnic-hypoxic respiratory failure due to above. 3. Pulmonary sarcoidosis, radiographic stage 4 with bronchiectasis, pulmonary fibrosis or past colonization with MAC and Pseudomonas. 4. Chronic steroids for sarcoidosis. In the past, she has been at maintenance dose at 15 mg. We were in the process of slowly tapering the prednisone. 5. Obstructive sleep apnea, on home CPAP. 6. Hypertension. 7. Recurrent pulmonary embolus on chronic anticoagulation. Note that she is subtherapeutic on this admission. 8. Chronic O2 at 2 liters. RECOMMENDATION AND DISCUSSION: The patient never had a recent bronchoscopy. [facility] [address] [place] [address] CONSULTATION Name: ARIELLE YA Room #: 223-P [facility] IN M.R.#: [id number] Admission: 09/24/18 ������������������ Attend Phys: Mary Sanderson Discharge: ������������������ Date of : 46 Report #: [id number] The patient had a history of recurrent hemoptysis. Given advancing age and recurrent hemoptysis, I would recommend proceeding with diagnostic bronchoscopy. Risks and benefits were discussed, which include infection, bleeding, pneumothorax. She voiced understanding. Continue broad spectrum antibiotics, corticosteroids and bronchodilators. We will check sputum for Gram stain, culture and sensitivity. DVT and GI prophylaxis recommended. The patient to resume the home CPAP use during sleep. Wean O2 for saturation 90%. Note that she is on baseline 2 liters of O2. Thank you for this consultation. ��������������������������������������������� <ELECTRONICALLY SIGNED> ���������������������������������������� By: Aden Haider MD ��������������������������������������������� 09/27/18 1724 1554 0605 Aden Haider MD /nt
--- NOTE | 2018-09-27 17:24 | P ---
[facility] [place] [address] PROCEDURE REPORT Name: ARIELLE YA Room #: 223-P ADM IN M.R.#: [id number] Admission: 09/24/18 ������������������ Attend Phys: Mary Sanderson Discharge: ������������������ Date of : 46 Report #: [id number] THIS REPORT FOR: //name// CC: Pavithra Gabriel DATE OF SERVICE: 09/26/2018 PROCEDURE: Diagnostic bronchoscopy. CLINICAL HISTORY: A 68-year-old -Tunisian female with pulmonary sarcoidosis, now with recurrent hemoptysis. Diagnostic bronchoscopy was performed. POSTOPERATIVE DIAGNOSES: 1. Pneumonia, right lung field. 2. No evidence of bleeding. DESCRIPTION OF PROCEDURE: Following obtained consent and risks and benefits been explained to the patient, which include infection, bleeding, pneumothorax, procedure performed in the endoscopy suite. The patient received aerosolized lidocaine. She also received Diprivan per anesthesia. Following adequate sedation, a flexible fiberoptic bronchoscope was introduced through the left naris without difficulty. The epiglottis was normal, vocal cords normal, trachea was unremarkable. At the distal trachea along with the right main stem bronchus, there appears to be moderate purulent secretions seen emanating. Moderate secretion was seen in the right upper lobe. Bronchial lavage was performed with 2 aliquots of 20 mL syringe. Right middle lobe and right lower lobes are otherwise gross unremarkable other than mild purulent secretion seen. Left main stem bronchus, left upper lobe and left lower were normal. No evidence of endobronchial lesion seen or bleeding noted. There is moderate purulent secretion seen predominantly in the right lung field. The patient tolerated the procedure well. Vital signs and saturation throughout the study were within normal range. Bronchial wash will be sent for microbiologic studies including AFB smear, fungal smear Gram stain, culture and sensitivity. ��������������������������������������������� <ELECTRONICALLY SIGNED> ���������������������������������������� By: Aden Haider MD ��������������������������������������������� 09/27/18 1724 1558 0614 Aden Haider MD /nt
[2018-09-27 18:14] LABS: HEMATOCRIT 41.4 % (37.0-47.0); HEMOGLOBIN 12.9 gm/dL (12.0-15.0); MCH 27.2 pg (26.0-34.0); MCHC 31.1 g/dL (28.0-37.0); MCV 87.5 fL (80.0-100.0); RBC 4.74 mil/uL (4.20-5.00); RDW 15.7 % (10.5-14.5); WBC 15.5 thou/uL (4.0-11.0)
--- NOTE | 2018-09-27 18:16 | NUR ---
PT FAMILY MEMBER WAS CONCERN ABOUT NOISES PATIENT WAS MAKING WHILE SHE WAS ASLEEP, STATING THAT AT NIGHT PATIENT WAS SLEEPLESS AND UP THROUGHOUT THE NIGHT,SHE WAS THINKING MAYBE SHE WAS JUST SO TIRED.NURSE ASSESSED PATIENT AND PATIENT WAS AROUSABLE BUT NOT ALERT OR ORIENTED, PATIENT WAS UNABLE TO SQUEEZE HANDS, OR FOLLOW ANY COMMANDS.PATIENT HAD SAID A FEW WORDS THAT WERE NOT RELATED, TO ANY QUESTIONS THAT WERE ASKED.VITALS WERE TAKEN. BLOOD SUGAR WAS TAKEN.DIRECTOR GAME WAS CALLED,AND CODE STROKE WAS CALLED.HOSPITALIST WAS NOTIFIED, AND ORDERS WERE GIVEN. CT WAS DONE. PT WAS GIVEN AN RECTAL ASA. NEUROLOGY WAS CONSULTED.REPORT WAS GIVEN TO ICU NURSE FOR TRANSFER FROM SENIOR SUITES AT 1900. FAMILY WAS UPDATED AND THEN TAKEN TO ICU WAITING ROOM, WHILE PATIENT WAS SETTLED IN ROOM 242.
[2018-09-27 18:21] LABS: ANION GAP 1 mmol/L (7-16); BUN 13 mg/dL (7-18); CALCIUM 9.3 mg/dL (8.5-10.1); CHLORIDE 106 mmol/L (98-107); CO2 38 mmol/L (21-32); CREATININE 0.7 mg/dL (0.6-1.0); GLUCOSE 162 mg/dL (74-106); POTASSIUM 4.8 mmol/L (3.5-5.1); SODIUM 145 mmol/L (136-145)
[2018-09-27 18:30] LABS: TROPONIN-I <0.06 ng/mL (<0.06)
--- NOTE | 2018-09-27 18:48 | NUR ---
CODE STROKE INITIATED AT 1753. PT WAS A/O X 4 TODAY, WALKING AND TALKING THIS AFTERNOON PER NURSE.BECAME LETHARGIC, MOANING AND UNABLE TO FOLLOW COMMANDS.CT CONFIRMS ACUTE R CEREBELLAR INFARCT PER RADIOLOGY. PT TRANSFERRED TO ICU PER DR MORGAN ORDER.
--- NOTE | 2018-09-27 19:42 | NUR ---
PT RECEIVED TO ICU ROOM 242 AT 1910. PT NON-RESPONSIVE TO PAINFUL STIMULI, PUPILS 3 AND VERY SLUGGISH, LEFT PUPIL CLOUDY. ARMS AND LEGS VERY STIFF. MONITOR IS SINUS TACH RATE 116; RESPIRATIONS IN MID-30'S ON BIPAP 16/6, RATE 18, FiO2 60%. BREATH SOUNDS COARSE THROUGH OUT. SPOKE WITH FAMILY; CONSENT GIVEN FOR PICC LINE AND PT WILL REMAIN FULL CODE. SPOKE WITH DR. BREWER AND READ HIM CT REPORT OVER PHONE. HE WILL BE IN TO SEE PATIENT.
--- NOTE | 2018-09-27 20:20 | NUR ---
VASCULAR ACCESS CONSUTED FOR PICC PLACEMENT. PT'S HISTORY,LABS,MEDS,ORDER AND CONSENT VERIFIED. PT WAS PREPPED AND DRAPED FOR MAX BARRIER PRECAUTIONS. LUIGI BASILIC WAS WIDELY PATENT WITH USG,1% LIDOCAINE GIVEN SQ. 5FR TL POWER PICC TRIMMED TO 40CM INSERTED TO 0CM. PICC SECURED STAT CXR ORDERED.DISCUSSED PICC LINE WITH DAUGHTER,VERBALIZED UNDERSTANDING.
[2018-09-27 20:22] LABS: BE(vivo) 6.2 mmol/L (-2 to +3); HCO3 37.9 mmol/L (22.0-26.0); PO2 122.1 mmHg (80.0-100.0); sO2 97.2 % (92.0-98.0)
[2018-09-27 20:23] LABS: PCO2 102.3 mmHg (35.0-45.0); pH 7.187 (7.360-7.450)
--- NOTE | 2018-09-27 20:42 | NUR ---
CXR CONFIRMED PLACEMENT, PICC RELEASED FOR IMMEIDAITE USE PER PROTOCOL TO HAMZAH HENDERSON
[2018-09-27 22:26] LABS: BE(vivo) 8.4 mmol/L (-2 to +3); HCO3 32.8 mmol/L (22.0-26.0); PCO2 44.8 mmHg (35.0-45.0); PO2 244.3 mmHg (80.0-100.0); pH 7.483 (7.360-7.450); sO2 99.6 % (92.0-98.0)
[2018-09-28] VITALS (49 sets, daily range): BP systolic 84–160; BP diastolic 35–61
--- NOTE | 2018-09-28 05:19 | NUR ---
END OF SHIFT SUMMARY Pt has been stable since intubation at 2114. Monitor sinus rhythm with one episode of SVT lasting approximately 20 beats with rate of 178 about 2330. VS stable, SBP remains > 95, MAP > 60, sat 98-100% on FiO2 40%, peep 8, Tv 50, AC 14. Pt moves all extremities and reaches for ET tube when sedaion lightened. Soft wrist restraints maintained bilaterally for pt safety. OG tube to LIS draining small amount of bile green drainage. Urine output adequate. Breath sounds remain coarse, suctioning moderate to large amounts of thick yellow-luis sputum about q 3 hours.
[2018-09-28 06:38] LABS: HEMATOCRIT 30.4 % (37.0-47.0); MCH 27.4 pg (26.0-34.0); MCHC 31.8 g/dL (28.0-37.0); MCV 86.2 fL (80.0-100.0); RBC 3.53 mil/uL (4.20-5.00); RDW 15.6 % (10.5-14.5); WBC 8.2 thou/uL (4.0-11.0)
[2018-09-28 06:40] LABS: HEMOGLOBIN 9.7 gm/dL (12.0-15.0)
[2018-09-28 06:46] LABS: CALCIUM 8.2 mg/dL (8.5-10.1); CREATININE 0.9 mg/dL (0.6-1.0); POTASSIUM 3.5 mmol/L (3.5-5.1)
[2018-09-28 06:52] LABS: APTT 66.4 Seconds (24.5-32.8); INR 1.2; PROTIME 12.7 Seconds (9.3-11.4)
--- NOTE | 2018-09-28 11:47 | EKG ---
[address] [address] ELECTROCARDIOGRAM REPORT Name: ARIELLE YA Room #: 242-P ADM IN M.R.#: [id number] ������������������ Admission: 09/24/18 ������������������ Attend Phys: Mary Sanderson Discharge: ������������������ Date of : 46 Report #: [id number] ����������������������������������������������������������������� [id number] THIS REPORT FOR: //name// [facility] Test Date: 2018-09-27 Test Time: 14:22:09 Pat Name: ARIELLE YA Department: Room: 242 Gender: F Pricing Lead: LUPIS : 1950 Requested By: Camilo Ledezma Order Number: [id number] MD: Kishore Vigil Measurements Intervals [place] Rate: 94 P: 59 IA: 128 QRS: -65 QRSD: 82 T: 61 QT: 374 QTc: 468 Interpretive Statements Sinus rhythm Left anterior fascicular block Anteroseptal infarct, age indeterminate Compared to ECG 09/24/2018 19:35:44 Sinus tachycardia no longer present Electronically Signed On 09-28-2018 11:47:49 CDT by Kishore Vigil [email or web address] ��������������������������������������������� <ELECTRONICALLY SIGNED> ���������������������������������������� By: Kishore Vigil MD, [facility] ��������������������������������������������� 09/28/18 1147 1422 1422 Kishore Vigil MD, [facility] /EPI
[2018-09-29] VITALS (25 sets, daily range): BP systolic 91–161; BP diastolic 33–60
[2018-09-29 04:32] LABS: BASOPHILS 0.1 % (0.0-2.0); HEMATOCRIT 32.7 % (37.0-47.0); HEMOGLOBIN 10.4 gm/dL (12.0-15.0); LYMPHOCYTES 3.9 % (24.0-44.0); MCH 27.2 pg (26.0-34.0); MCHC 31.7 g/dL (28.0-37.0); MCV 85.8 fL (80.0-100.0); MONOCYTES 2.6 % (1.0-8.0); PLATELET COUNT 127 thou/uL (150-400); POLYS 93.4 % (36.0-66.0); RBC 3.81 mil/uL (4.20-5.00); RDW 15.7 % (10.5-14.5); WBC 7.5 thou/uL (4.0-11.0)
[2018-09-29 04:38] LABS: CALCIUM 8.1 mg/dL (8.5-10.1); CREATININE 0.8 mg/dL (0.6-1.0); POTASSIUM 3.4 mmol/L (3.5-5.1)
--- NOTE | 2018-09-29 06:38 | NUR ---
END OF SHIFT SUMMARY: No significant changes in pt status. Monitor remains sinus rhythm in 70's to 80's. Max temp 99.9 F axillary. Breath sounds remain coarse and still suctioning thick yellow sputum q 2-3 hours. Remains on vent at FiO2 40%. Urine output marginal, 300 cc this shift.
--- NOTE | 2018-09-29 11:24 | 2DMMODE ---
[facility] [address] [place] [address] 2 D/M-MODE ECHOCARDIOGRAM Name: ARIELLE YA CHANCE Room #: 242-P ADM IN M.R.#: [id number] ������������� Admission: 09/24/18 ������������� Attend Phys: Juan Luis Rodriguez Discharge: ��� ������������� ��� Date of : 46 Date of Service: 09/29/18 1124 �� Report #: [id number] �������� ��������������������������������������������[id number] THIS REPORT FOR: //name// APPROVED REPORT Study performed: 09/29/2018 08:33:07 EXAM: Comprehensive 2D, Doppler, and color-flow Echocardiogram Patient Location: ICU Room #: 242 Status: routine BSA: 1.63 HR: 90 bpm BP: 126/59 mmHg Other Information Study Quality: Technically Difficult Technically limited study due to patient condition/inability to position patient. Indications COPD Hypertension/HDD stroke, sarcoidosis, SOA Echo Enhancing Agent Indication: Rule out Shunt Agent(s) / Amount(s) Used: Agitated Saline 6 cc 2D Dimensions RVDd: 33.52 mm IVSd: 8.96 (7-11mm) LVOT Diam: 19.25 (18-24mm) LVDd: 37.33 mm PWd: 9.78 (7-11mm) Ascending Ao: 27.64 (22-36mm) LVDs: 22.38 (25-40mm) Aortic Root: 22.96 mm IVC: 15.00 mm Volumes Left Atrial Volume (Systole) Single Plane 4CH: 50.54 mL Single Plane 2CH: 25.34 mL LA ESV Index: 24.00 mL/m2 Aortic Valve AoV Peak Ben.: 1.65 m/s AO Peak Gr.: 10.93 mmHg LVOT Max P.01 mmHg [facility] [address] [place] [address] 2 D/M-MODE ECHOCARDIOGRAM Name: ARIELLE YA Room #: [facility] IN .R.#: [id number] ������������� Admission: 09/24/18 ������������� Attend Phys: Juan Luis Rodriguez Discharge: ��� ������������� ��� Date of : 46 Date of Service: 09/29/18 1124 �� Report #: [id number] �������� ��������������������������������������������[id number] LVOT Max V: 1.42 m/s MATTHEW Vmax: 2.49 cm2 Mitral Valve E/A Ratio: 0.7 MV Decel. Time: 137.37 ms MV E Max Ben.: 0.94 m/s MV A Ben.: 1.32 m/s MV PHT: 39.84 ms IVRT: 114.19 ms Pulmonary Valve PV Peak Ben.: 1.27 m/s PV Peak Gr.: 6.49 mmHg Pulmonary Vein P Vein S: 0.87 m/s P Vein A: 0.36 m/s P Vein D: 0.55 m/s P Vein A Dur.: 103.8 msec P Vein S/D Ratio: 1.58 Tricuspid Valve TR Peak Ben.: 3.44 m/s RAP Estimate: 5.00 mmHg TR Peak Gr.: 47.30 mmHg PA Pressure: 52.00 mmHg Left Ventricle The left ventricle is normal size. There is normal LV segmental wall motion. There is normal left ventricular wall thickness. The left ventricular systolic function is normal. The left ventricular ejection fraction is within the normal range. LVEF is 60-65%. Transmitral Doppler flow pattern suggests mild impaired LV relaxation. Right Ventricle The right ventricle is normal size. The right ventricular systolic function is normal. Atria The left atrium size is normal. No shunting by contrast bubble injection. The right atrium size is normal. PICC line noted in right atrium. Aortic Valve Aortic valve is mildly calcified. with focal density noted clinical correlation suggested No aortic regurgitation is present. There is no aortic valvular stenosis. [facility] [address] [place] [address] 2 D/M-MODE ECHOCARDIOGRAM Name: ARIELLE YA Room #: 242-P ADM IN ..#: [id number] ������������� Admission: 09/24/18 ������������� Attend Phys: Juan Luis Rodriguez Discharge: ��� ������������� ��� Date of : 46 Date of Service: 09/29/18 1124 �� Report #: [id number] �������� ��������������������������������������������[id number] Mitral Valve The mitral valve is normal in structure. Trace mitral regurgitation. No evidence of mitral valve stenosis. Tricuspid Valve The tricuspid valve is normal in structure. Mild tricuspid regurgitation. PAP is estimated at 52-57 mmHg. Pulmonic Valve The pulmonary valve is normal in structure. There is no pulmonic valvular regurgitation. Great Vessels The aortic root is not well visualized but is probably normal size. IVC is normal in size. Unable to evaluate inspiratory collapse, patient is on a ventilator. Pericardium There is no pericardial effusion. <Conclusion> The left ventricle is normal size. LVEF is 60-65%. The right atrium size is normal. PICC line noted in right atrium. Aortic valve is mildly calcified. with focal density noted clinical correlation suggested No aortic regurgitation is present. There is no aortic valvular stenosis. The mitral valve is normal in structure. Trace mitral regurgitation. The tricuspid valve is normal in structure. Mild tricuspid regurgitation. PAP is estimated at 52-57 mmHg. The pulmonary valve is normal in structure. There is no pericardial effusion. No shunting by contrast bubble injection. ��������������������������������������������� <ELECTRONICALLY SIGNED> ���������������������������������������� By: Jesus Echevarria MD ��������������������������������������������� 09/29/18 1124 1124 1124 Jesus Echevarria MD /INF
--- NOTE | 2018-09-29 13:17 | NUR ---
VASCULAR ACCESS ROUNDING- THIS PATIENT CONTINUES IN ICU DAY 2 ON MULTIPLE DRIPS. PICC ACCESS IS APPROPRIATE AT THIS TIME
--- NOTE | 2018-09-29 18:33 | NUR ---
ASSUMED CARE OF PT AT 0645. PLAN FOR MRI THAT WAS NOT COMPLETED OVER WEEKEND. PRN VERSED GIVEN TO HELP WITH SEDATION, MRI DOES NOT HAVE COMPATIBLE IV PUMP. PT ROUSES TO NAME, NOT FOLLOWING COMMANDS. URINE TURNED BLOOD TINGED. DIETARY MADE RECOMMENDATIONS FOR TF. DR MORGAN AGREED TO PLACE ORDERS FOR POTASSIUM PER TUBE, ORDERS NEVER RECEIVED. DR MORGAN PAGED, NO RESPONSE. SON STAYING IN SLEEP ROOM. NO PROGRESS TOWARD PLAN OF CARE.
[2018-09-30] VITALS (25 sets, daily range): BP systolic 86–146; BP diastolic 39–98
[2018-09-30 05:04] LABS: HEMOGLOBIN 9.8 gm/dL (12.0-15.0); MCH 27.3 pg (26.0-34.0); MCHC 31.7 g/dL (28.0-37.0); MCV 86.1 fL (80.0-100.0); RBC 3.6 mil/uL (4.20-5.00); RDW 15.5 % (10.5-14.5); WBC 5.9 thou/uL (4.0-11.0)
[2018-09-30 05:35] LABS: CALCIUM 8.3 mg/dL (8.5-10.1); CREATININE 0.6 mg/dL (0.6-1.0); POTASSIUM 3.8 mmol/L (3.5-5.1)
--- NOTE | 2018-09-30 06:32 | NUR ---
PATIENT REMAINED STABLE THROUGHOUT THE NIGHT AND NO ACUTE EVENTS OCCURED. FAMILY UPDATED ON CARE PLAN. PATIENT PROGRESSING TOWARDS PLAN OF CARE.
[2018-09-30 08:38] LABS: PROTIME 10.7 Seconds (9.3-11.4)
--- NOTE | 2018-09-30 09:55 | NUR ---
VASCULAR ACCESS ROUNDING, PT ON MULTIPLE IV MEDS, CENTRAL LINE IS APPROPRIATE.
--- NOTE | 2018-09-30 17:34 | NUR ---
SHIFT SUMMARY: ON THE VENT LIGHTLY SEDATED, DURING SEDATION VACATION PATIENT FOLLOWS COMMANDS AND MOVES ALL EXTREMITIES. NODS TO Y/N QNS. VITALS STABLE. CPAP TRIAL UNSUCCESSFUL-PATIENT TACHYPNIC AND DESATURATES. STARTED ON TUBEFEEDING PER OG TUBE. CONTINUES TO HAVE BLOOD TINGED IN THE ROY. ON HEPARIN GTT. FAMILY UPDATED ON CONDITION AND PLAN OF CARE. WILL CONTINUE WITH POC.
[2018-10-01] VITALS (25 sets, daily range): BP systolic 111–153; BP diastolic 29–72
--- NOTE | 2018-10-01 01:04 | NUR ---
SHIFT NOTE VSS AND ASSESSMENT CHARTED. PT TURNED Q2H AND PRN. PT CLEANED AND LINENS WERE CHANGED. PT HAD NO S/SX OF SOA, CHEST PAIN, OR NV. PT TUBE FEEDING INCREASED TOLERATED. PT SUCTIONED AND ORAL CARE PROVIDED Q2H AND PRN. PT HAD 3 LOOSE BMS SO RECTAL TUBE WAS PLACED TO PROTECT SKIN. WILL CONTINUE TO MONITOR TILL THE END OF THE SHIFT.
[2018-10-01 05:07] LABS: HCO3 38.6 mmol/L (22.0-26.0); PO2 104.8 mmHg (80.0-100.0); pH 7.464 (7.360-7.450)
[2018-10-01 05:15] LABS: PROTIME 10.7 Seconds (9.3-11.4)
[2018-10-01 05:20] LABS: ALBUMIN 1.8 g/dL (3.4-5.0); CALCIUM 8.2 mg/dL (8.5-10.1); CREATININE 0.6 mg/dL (0.6-1.0); POTASSIUM 3.2 mmol/L (3.5-5.1); TOTAL BILIRUBIN 0.3 mg/dL (<0.1-1.0)
--- NOTE | 2018-10-01 06:24 | NUR ---
SHIFT NOTE PT ALERT AND ORRIENTED. VS AND ASSESSMENT CHARTED. PT TURNED Q2H AND PRN. ORAL CARE Q2H AND PRN. PT HAD NO S/SX OF PAIN, SOA, CHEST PAIN, OR NV. PT WILL CONTINUE TO BE MONITORED TILL THE END OF THE SHIFT. PT HEMOGLOBIN LOW 1 UNIT PRBC ORDERED TO BE TRANSFUSED WITH DIALYSIS IN AM CONSENT ON CHART.
--- NOTE | 2018-10-01 11:28 | NUR ---
PER COLLABORATION WITH RT BISMARK, CPAP TRIAL FOR 10 MINUTES WITH RR-40, TV-205, SA02-89%. REPLACED ON ASSIST CONTROL.
--- NOTE | 2018-10-01 15:37 | NUR ---
PATIENT CURRENTLY ON VENT AND HAS NOT RECEIVED THERAPY EVALUATIONS. FURTHER ASSESSMENT REGARDING IF PATIENT WOULD MEET ACUTE REHAB CRITERIA WILL BE MADE AFTER THERAPY EVALUATIONS HAVE BEEN ORDERED AND COMPELTED. THANK YOU FOR THIS REFERRAL.
[2018-10-01 16:32] LABS: CALCIUM 8.4 mg/dL (8.5-10.1); CREATININE 0.7 mg/dL (0.6-1.0); MAGNESIUM 1.8 mg/dL (1.8-2.4); POTASSIUM 3.5 mmol/L (3.5-5.1)
--- NOTE | 2018-10-01 17:58 | EEG ---
[facility] [place] [address] [place] [address] ELECTROENCEPHALOGRAM Name: ARIELLE YA Room #: 242-P ADM IN M.R.#: [id number] ������������������ Admission: 09/24/18 ������������������ Attend Phys: Juan Luis Gabriel, Discharge: ������������������ Date of : 46 Report #: [id number] ����������������������������������������������������������������� [id number] THIS REPORT FOR: //name// CC: Pavithra Gabriel DATE OF SERVICE: 09/27/2018 This patient is being evaluated for altered mental status. EEG was done by placing the electrodes by standard 10-20 system of electrode placement. Both referential and sequential montages were used for recording. Background activity in this patient's EEG is about 8 Hz and 30 microvolts. Background activity is intermixed with a lot of theta range slowing on both sides. Some question of triphasic waves is present in this patient, but it is difficult to confirm. Photic stimulation is unremarkable. IMPRESSION: Severely abnormal electroencephalogram because it is intermixed with theta range slowing on both sides. That is a nonspecific abnormality, which typically occurs with encephalopathy, but can occur in multiple other etiologies. Clinical correlation is recommended. ���������������������������������������� <ELECTRONICALLY SIGNED> ���������������������������������������� By: Rome Hicks MD ��������������������������������������������� 10/01/18 1758 1213 1430 Rome Hicks MD /nt
--- NOTE | 2018-10-01 18:01 | HC ---
[facility] [place] [address] CONSULTATION Name: ARIELLE YA Room #: 242-P ADM IN M.R.#: [id number] Admission: 09/24/18 ������������������ Attend Phys: Mary Sanderson Discharge: ������������������ Date of : 46 Report #: [id number] THIS REPORT FOR: //name// CC: Pavithra Gabriel DATE OF SERVICE: 09/27/2018 HISTORY OF PRESENT ILLNESS: This is a 68-year-old female patient who is unable to provide any history at all. I talked to the nurse about this patient who called the consult this evening and the patient was seen immediately. The history is from the patient's son. The patient, as I understand was well until 2:00 today. Son talked to the patient yesterday about 5:30 p.m. and she was doing okay. One of the aunts talked to the patient around 2:00 today, she was doing okay, but was having some respiratory difficulty. Since then, she has been unresponsive. So time of onset of this unresponsiveness is about 2:00. Subsequently, she was transferred to ICU where the patient was seen and the nurses tell me they did not give her any sedation, but the patient is completely unresponsive at the moment. REVIEW OF SYSTEMS: Indicate that the patient lives with the family. She is able to do her activities of daily living by herself. She is battling chronic infection in the lungs and home health come there and help her with the infection. She has a longstanding history of COPD. Her last blood gases were done on and did indicate that pCO2 was 51 at that time. Record indicate that she used to be on Coumadin at one time and it looks like she did get warfarin yesterday, but her INR has been only 1.1 here. Reason for admission at this time was infection. She has numerous other problems. She has a history of hemoptysis, bronchiectasis, lung sarcoidosis, COPD, glaucoma. She does take prednisone on a regular basis. This was a relevant 14-point review of system. PAST MEDICAL HISTORY: According to the family, is negative for any stroke in the past, but it is positive for COPD. FAMILY HISTORY: Negative for any early age stroke. SOCIAL HISTORY: The patient lives with his family. She was never a smoker, but had secondhand exposure to the smoke. PHYSICAL EXAMINATION: Pretty limited. She is completely unresponsive. She does not have any response of any kind. Her rest of the examination is not possible. Pupil is sluggish. She did have a CT scan of the head done and it [address] [address] CONSULTATION Name: ARIELLE YA Room #: 242-P ADM IN M.R.#: [id number] Admission: 09/24/18 ������������������ Attend Phys: Mary Sanderson Discharge: ������������������ Date of : 46 Report #: [id number] demonstrated question of cerebellum stroke, but that finding is a lot of time an artifact. I got blood gases done in this patient because the last blood gas was on . This patient's pH is only 7.1 and the patient's pCO2 is 102. She is on BiPAP at the moment. Nurses are going to call that finding to a utility forester. IMPRESSION AND PLAN: The patient's condition is most likely because of very high pCO2. Stroke is a possibility and cannot be excluded fully; however, the workup is very difficult. This is because she is on BiPAP and her respiratory status is poor and I cannot take her down for MRI. Secondly this time of onset is 2:00 and even if it is stroke, this is more than 6 hours and she is not a TPA candidate. She is also on Coumadin, although her INR is low. I had thought about sending her down for CT angiogram, but her respiratory status is so tenuous and we have the reason for her altered mental status that I am holding it for the time being until she is stabilized somewhat. Once she is stabilized, we might get a CT angio on her, but she is in no condition to go for MRI, which will be the test of choice when she stabilizes. I have talked to the family in great detail and I discussed her options. I discussed my plan with them. I am going to talk to them again after this dictation and this patient's family is agreeable with the plan and understand the difficult situation where. ��������������������������������������������� <ELECTRONICALLY SIGNED> ���������������������������������������� By: Rome Hicks MD ��������������������������������������������� 10/01/18 180 29 08 Rome Hicks MD /nt
--- NOTE | 2018-10-01 18:50 | NUR ---
SHIFT SUMMARY: PROPOFOL OFF IN AM UNTIL AFTER CPAP TRIAL. THEN PROPOFOL TITRATED 5-10 MCG/KG/MIN TO TOLERATE VENT. MOVES ALL EXTREMITIES TO COMMAND, SR WITH RARE PAC, CALL PLACED TO DR. MORGAN- ELECTROLYTE PROTOCOL ORDERED RELATED TO LOW POTASSIUM. LABS DRAWN AND POTASSIUM ADMINISTERED. LASIX ADMINISTERED WHEN POTASSIUM LEVEL ADEQUATE. TOLERATING VENT, LARGE AMOUNT SECRETIONS SUCTIONED PER ETT, TOLERATING TUBE FEEDINGS, ADEQUATE URINE OUTPUT. FAMILY MEMBERS PRESENT, UPDATED ON PLAN OF CARE.
[2018-10-01 22:58] LABS: BE(vivo) 13.5 mmol/L (-2 to +3); HCO3 40.4 mmol/L (22.0-26.0); pH 7.432 (7.360-7.450)
[2018-10-02] VITALS (26 sets, daily range): BP systolic 93–159; BP diastolic 31–62
[2018-10-02 05:48] LABS: ABSOLUTE NEUTROPHILS 4.7 thou/uL (1.4-8.2); BASOPHILS 0.4 % (0.0-2.0); HEMATOCRIT 30.5 % (37.0-47.0); HEMOGLOBIN 9.8 gm/dL (12.0-15.0); LYMPHOCYTES 9.2 % (24.0-44.0); MCH 27.3 pg (26.0-34.0); MCHC 32.1 g/dL (28.0-37.0); MCV 84.8 fL (80.0-100.0); PLATELET COUNT 131 thou/uL (150-400); POLYS 82.4 % (36.0-66.0); RBC 3.59 mil/uL (4.20-5.00); RDW 14.7 % (10.5-14.5); WBC 5.7 thou/uL (4.0-11.0)
[2018-10-02 06:08] LABS: ALBUMIN 1.8 g/dL (3.4-5.0); CALCIUM 8.4 mg/dL (8.5-10.1); CREATININE 0.6 mg/dL (0.6-1.0); POTASSIUM 3.5 mmol/L (3.5-5.1); TOTAL BILIRUBIN 0.2 mg/dL (<0.1-1.0)
--- NOTE | 2018-10-02 07:19 | NUR ---
PATIENT IS SLOWLY PROGRESSING IN HER CARE PLAN. VITAL SIGNS STABLE WITH NURSE NOT PERCEIVING ANY PAIN OR NAUSEA ON BEHALF OF PATIENT. BREATHING STABLE ON VENTILATOR EVIDENCED BY READINGS ON CONTINUOUS SATURATION MONITOR. ORAL CARE PROVIDED PER PROTOCOL. PATIENT REMAINS ON HEPARIN AND PROPOFOL GTT. EYES OPEN TO STIMULATION WITH PATIENT ABLE TO COMMUNICATE YES/NO WHEN OFF SEDATION. CONTINUOUS TUBE FEED THROUGHOUT SHIFT. PATIENT WAS TURNED FREQUENTLY AND PROVIDED WITH BED BATH THIS MORNING. CONTINUE PLAN OF CARE.
--- NOTE | 2018-10-02 10:24 | NUR ---
FOLLOWING FOR DC PLANNING. CLINICAL INFO REVIEWED. PT TRANSFERRED TO ICU WITH RESP FAILURE 08/31/18 AND INTUBATED SINCE. POORLY TOLERATING CPAP. PLANS TO CHANGE LOW DOSE PROPOFOL SEDATION TO PRECEDEX. PT AROUSABLE AND FOLLOWS COMMANDS. PT'S DTR LISSETTE HERE THIS AM AND MET WITH HER AND DISCUSSED PT'S CONDITION AND LIKELY NEED FOR REHAB STAY PRIOR TO RETURNING HOME. 5N CONSULTED 09/30/18 BUT PT'S INNSURANCE IS OON AND UPDATED 5N. LISSETTE IDICATES PT HAS BEEN TO [facility] SKILLED REHAB IN PAST AND OPEN TO SKILLED REHAB STAY AGAIN.
[2018-10-02 13:24] LABS: MAGNESIUM 2.4 mg/dL (1.8-2.4); POTASSIUM 3.7 mmol/L (3.5-5.1)
[2018-10-02 16:11] LABS: BE(vivo) 14.7 mmol/L (-2 to +3); HCO3 41.9 mmol/L (22.0-26.0); PO2 97.6 mmHg (80.0-100.0); sO2 97.3 % (92.0-98.0)
[2018-10-02 16:19] LABS: PCO2 66.1 mmHg (35.0-45.0)
--- NOTE | 2018-10-02 19:10 | NUR ---
SHIFT SUMMARY: PROPOFOL OFF WHEN PRECEDEX STARTED. INITIAL PRECEDEX BOLUS 1 MCG/KG OVER 10 MIN, THEN GTT STARTED AT 0.2 MCG/KG/HR. PRECEDEX OFF AT 1300, PT AWAKE @ 1500, THEN CPAP TRIAL STARTED. RR-32, ABG'S OBTAINED WITH C02-66. REPLACED ON ASSIST CONTROL. SR, K+, MAG REPLACED. HEPARIN SUBTHERAPEUTIC- SEE ANTICOAGULATION FLOWSHEET FOR DETAILS. TOLERATING TUBE FEEDING, LIQUID STOOL PER FLEXISEAL. FAMILY MEMBERS PRESENT, UPDATED ON PLAN OF CARE. PT SLOWLY PROGRESSING TOWARD EXTUBATION. REPORT TO SANTIAGO RUDD.
[2018-10-03] VITALS (23 sets, daily range): BP systolic 87–146; BP diastolic 24–57
[2018-10-03 05:40] LABS: HEMATOCRIT 27.3 % (37.0-47.0); HEMOGLOBIN 8.7 gm/dL (12.0-15.0); MCH 27.3 pg (26.0-34.0); MCV 85.4 fL (80.0-100.0); RBC 3.2 mil/uL (4.20-5.00); RDW 14.9 % (10.5-14.5); WBC 5.3 thou/uL (4.0-11.0)
--- NOTE | 2018-10-03 05:54 | NUR ---
PT AOX1, RUBY, DIFFICULTIES UNDERSTANDING PT SPEECH. PT SAID SHE WAS IN PAIN WHEN ASKED. PAIN MEDS GIVEN. AFEBIRLE. AFIB ON THE MONITOR, HR UP TO THE 120S, NOT SUSTAINED. BP HIGH AT TIMES. FREQUENT TURNS AND ORAL CARE. NO COMPLAINS PRESENTLY. WILL CONTINUE TO MONITOR.
--- NOTE | 2018-10-03 05:57 | NUR ---
PT AO. ON PRECEDEX AT 0.5MCG/KG/HR. ABLE TO FOLLOW COMMANDS. NO PAIN. AFEBRILE. VSS. ON VENT, TOLERATING VENT SETTINGS. MINIMAL SECRETIONS. TF ONGONG AT 60CC/HR, GOAL. FREQUENT TURNS AND ORAL CARE. ROY IN PLACE AND FECAL MANAGEMENT SYSTEM. PT RESTRAINED. ON HEPARIN GTT. FAMILY IN TO VISIT DURING THE NIGHT. SLOWLY PROGRESSING TOWARDS GOALS. WILL CONTINUE TO MONITOR.
[2018-10-03 09:08] LABS: BE(vivo) 15.3 mmol/L (-2 to +3); HCO3 41.9 mmol/L (22.0-26.0); PCO2 63.2 mmHg (35.0-45.0); PO2 106.1 mmHg (80.0-100.0); pH 7.439 (7.360-7.450); sO2 97.9 % (92.0-98.0)
[2018-10-04] VITALS (24 sets, daily range): BP systolic 114–187; BP diastolic 35–93
[2018-10-04 05:26] LABS: ABSOLUTE NEUTROPHILS 6.6 thou/uL (1.4-8.2); BASOPHILS 0.3 % (0.0-2.0); EOSINOPHILS 0.5 % (0.0-3.0); HEMATOCRIT 30.9 % (37.0-47.0); HEMOGLOBIN 9.7 gm/dL (12.0-15.0); LYMPHOCYTES 13.6 % (24.0-44.0); MCH 27.1 pg (26.0-34.0); MCHC 31.5 g/dL (28.0-37.0); MCV 85.9 fL (80.0-100.0); MONOCYTES 8.5 % (1.0-8.0); PLATELET COUNT 191 thou/uL (150-400); POLYS 77.1 % (36.0-66.0); RDW 14.9 % (10.5-14.5); WBC 8.6 thou/uL (4.0-11.0)
[2018-10-04 05:38] LABS: CALCIUM 8.5 mg/dL (8.5-10.1); CREATININE 0.7 mg/dL (0.6-1.0); POTASSIUM 3.2 mmol/L (3.5-5.1)
--- NOTE | 2018-10-04 05:44 | NUR ---
PT APX2-3, FORGETFUL, AND RESTLESS DURING THE NIGHT. DENIES PAIN. AFEBRILE. VSS. BP ELEVATED, INFORMED DOORPERSON ABOUT BP, ORDERS RECIEVED. ON FACESHIELD 50%, PT INFORMED ABOUT KEEPING O2 IN PLACE. REFUSED TO WEAR BIPAP AT NIGHT. NPO TILL SPEECH EVAL. FREQUENT TURNS AND ORAL CARE. URINE OUTPUT NOTED AND OUTPUT FROM FECAL MANAGEMENT SYSTEM NOTED. NO COMPLAINS PRESENTLY. WILL CONTINUE TO MONITOR.
--- NOTE | 2018-10-04 15:38 | NUR ---
VASCULAR ACCESS ROUNDS- PATIENT CONTINUES TO BE A CRITICAL PATIENT AND ON MULTIPLE NONCOMPATABLE IV MEDS. MAY BE ABLE TO TRANSITION TO MIDLINE OR PERIPHERAL IVS IN THE NEXT 24 TO 48 - WE WILL CONTINUE TO MONITOR
[2018-10-05] VITALS (24 sets, daily range): BP systolic 108–155; BP diastolic 37–80
[2018-10-05 05:20] LABS: BASOPHILS 0.2 % (0.0-2.0); EOSINOPHILS 0.9 % (0.0-3.0); HEMATOCRIT 28.5 % (37.0-47.0); HEMOGLOBIN 9.3 gm/dL (12.0-15.0); LYMPHOCYTES 18.9 % (24.0-44.0); MCH 27.6 pg (26.0-34.0); MCHC 32.5 g/dL (28.0-37.0); MCV 84.8 fL (80.0-100.0); MONOCYTES 8.9 % (1.0-8.0); PLATELET COUNT 220 thou/uL (150-400); POLYS 71.1 % (36.0-66.0); RBC 3.36 mil/uL (4.20-5.00); RDW 14.6 % (10.5-14.5); WBC 8.5 thou/uL (4.0-11.0)
[2018-10-05 05:40] LABS: ALBUMIN 2.7 g/dL (3.4-5.0); CALCIUM 9.1 mg/dL (8.5-10.1); CREATININE 0.8 mg/dL (0.6-1.0); POTASSIUM 3.3 mmol/L (3.5-5.1); TOTAL BILIRUBIN 0.7 mg/dL (<0.1-1.0); TOTAL PROTEIN 5.9 g/dL (6.4-8.2)
--- NOTE | 2018-10-05 05:40 | NUR ---
PT AOX2, CONFUSED AND FORGETFUL. DENIES PAIN. AFEBRIE. VSS. SR. ON 5L NC, USED CPAP DURING THE NIGHT. TOLERATED CPAP. ROY AND FECAL MANAGEMENT IN PLACE. OUTPUT NOTED. NO COMPLAINS PRESENTLY. WILL CONTINUE TO MONITOR PT.
--- NOTE | 2018-10-05 18:55 | NUR ---
ASSUMED CARE OF PT AT 0700, PT IS A/O TIMES 2-3, DENIES PAIN OR DISCOMFORT. PT CONT TO NEED 5L NC AND DESATS EASILY WITH EXERTION LASIX GIVEN THIS MORNING. VSS, PT SLIGHTLY FEBRILE THIS EVENING. SR ON THE MONITOR. CONT TO NEED BIPAP AT NOC. WILL CONT TO PROVIDE CARE TOWARDS GOALS.
[2018-10-06] VITALS (15 sets, daily range): BP systolic 107–146; BP diastolic 40–72
[2018-10-06 05:25] LABS: ABSOLUTE NEUTROPHILS 6.6 thou/uL (1.4-8.2); BASOPHILS 0.3 % (0.0-2.0); EOSINOPHILS 0.8 % (0.0-3.0); HEMATOCRIT 30.9 % (37.0-47.0); HEMOGLOBIN 9.9 gm/dL (12.0-15.0); LYMPHOCYTES 16.8 % (24.0-44.0); MCV 84.2 fL (80.0-100.0); MONOCYTES 9.5 % (1.0-8.0); PLATELET COUNT 281 thou/uL (150-400); POLYS 72.6 % (36.0-66.0); RBC 3.67 mil/uL (4.20-5.00); RDW 14.6 % (10.5-14.5)
[2018-10-06 05:37] LABS: ALBUMIN 3.4 g/dL (3.4-5.0); CALCIUM 9.5 mg/dL (8.5-10.1); POTASSIUM 3.2 mmol/L (3.5-5.1); TOTAL BILIRUBIN 0.8 mg/dL (<0.1-1.0); TOTAL PROTEIN 6.7 g/dL (6.4-8.2)
--- NOTE | 2018-10-06 06:21 | NUR ---
PT SLEPT ON AND OFF DURING NOC FOR BRIEF PERIODS. HAD HOME CPAP ON MOST OF NOC. CURRENTLY BACK ON 2L-02SAT 98% LS-DIMINISHED. CONGESTED COUGH NON PRODUCTIVE. VSS SR. UO ADEQUATE. OSMEL SM SIPS OF THICKENED LIQUIDS. PROGRESSING TOWARDS GOALS. CONT PLAN OF CARE
--- NOTE | 2018-10-06 09:10 | HC ---
[facility] [place] [address] CONSULTATION Name: ARIELLE YA Room #: 242-P ADM IN M.R.#: [id number] Admission: 09/24/18 ������������������ Attend Phys: Mary Sanderson Discharge: ������������������ Date of : 48 Report #: [id number] THIS REPORT FOR: //name// CC: Pavithra Gabriel DATE OF SERVICE: 10/03/2018 ATTENDING PHYSICIAN: Elio Martinez MD. REASON FOR CONSULTATION: Pseudomonas sputum. I discussed the patient's situation with her nurse last night, the patient on treatment with Zosyn. Adding Cipro high dose as well as inhaled tobramycin. I discussed with Dr. Alex Mcneil who reports the patient may be getting closer to extubation. The patient in ICU, ventilator dependent. All information gathered from review of records. PAST MEDICAL HISTORY: 1. Obstructive sleep apnea, requiring CPAP. 2. Pulmonary embolism -- recurrent. 3. Sarcoidosis, on prednisone. 4. Nephrolithiasis, status post nephrostomy tube placement. 5. 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 6. Hypertension. 7. Glaucoma. DRUG ALLERGIES: None listed. MEDICATIONS: The patient is on Cipro 400 mg 3 times daily, tobramycin inhalation treatment 300 mg 3 times daily. She is also on Zosyn 3.37 grams IV every 8 hours prolonged infusions, methylprednisolone 40 mg IV daily, magnesium and potassium supplementation per protocol, sedation with dexmedetomidine, aspirin, chlorhexidine oral care, guaifenesin liquid per tube, subcutaneous heparin infusions, p.r.n. morphine sulfate, normal saline IV, p.r.n. metoprolol, Atrovent and albuterol inhalation treatment as well as warfarin. She is on p.r.n. ondansetron and Tylenol. FAMILY HISTORY: Unable to obtain. REVIEW OF SYSTEMS: Unable to obtain. The patient not being in pain. PHYSICAL EXAMINATION: GENERAL: Chronically ill-appearing woman. [address] [address] CONSULTATION Name: ARIELLE YA Room #: 242-P [facility] IN .R.#: [id number] Admission: 09/24/18 ������������������ Attend Phys: Mary Sanderson Discharge: ������������������ Date of : 48 Report #: [id number] VITAL SIGNS: Temperature maximum 101.2 on 09/28/2018, essentially afebrile thereafter. Temperature today is 98.4, pulse 80, respirations 33, BP 109/49. Height not recorded. Weight 149.7 pounds. HEENT: Pupils reactive, status post cataract surgery, lens implants. Mouth, unable to examine. NECK: Supple. BREASTS: Deferred. LUNGS: Few basilar crackles. HEART: S1, S2. No gallop. ABDOMEN: Soft, no masses or megaly. PELVIC AND RECTAL: Deferred. EXTREMITIES: No clubbing, cyanosis. NEUROLOGIC: Grossly within normal limits. LABORATORY DATA: Revealed the following abnormals. BUN 23, creatinine 0.6, glucose 146, albumin 1.8 g/dL. WBC 5300, hemoglobin 8.7 g/dL, platelets are decreased at 127,000. Thrombocytopenia has developed on 09/28/2018. Arterial blood gases yesterday revealed pH 7.43, pCO2 elevated at 63.2, PO2 was 106, bicarbonate elevated at 41 indicating COPD. Lactate normal. This set of gases is on FiO2 of 40%, 5 of PEEP, tidal volume 380. MICROBIOLOGY DATA: Sputum culture 09/27/2018 revealed many white blood cells, no epithelial cells and the culture grew 1+ Pseudomonas aeruginosa, 2+ yeast. The Pseudomonas aeruginosa reported to be sensitive to all tested antibiotics. On 09/25/2018 through a glitch in the laboratory data reported as Pseudomonas being resistant to ceftriaxone, and so are possibly next to 99% of Pseudomonas, so this report is worthless. RADIOLOGY EVALUATION: A chest x-ray portable reveal endotracheal tube, right arm PICC, chronic changes both lung infiltrates, which appeared to be chronic in nature. Of course, pneumonia difficult to read in between the lines. ASSESSMENT: 1. Chronic obstructive pulmonary disease with chronic lung findings on CT, question pneumonia in isolation of Pseudomonas aeruginosa and yeast in sputum, improving. 2. Anemia. 3. Thrombocytopenia. 4. History of decubitus. SUGGESTIONS: Recommend few days of combination antibiotics for Pseudomonas in sputum. We will continue Zosyn 3.375 grams IV every 8 hours, Cipro 400 mg IV every 8 hours and inhalation tobramycin 300 mg t.i.d. I believe with this combination antibiotic, we should make it significantly better, though I doubt complete redundancy of Pseudomonas from chronic lung disease may be possible. [address] [address] CONSULTATION Name: ARIELLE YA Room #: 242-P ADM IN M.R.#: [id number] Admission: 09/24/18 ������������������ Attend Phys: Juan Luis Tadakamalla, M Discharge: ������������������ Date of : 48 Report #: [id number] Ledezma, thank you for requesting my suggestions. ��������������������������������������������� <ELECTRONICALLY SIGNED> ���������������������������������������� By: Wally Harmon MD ��������������������������������������������� 10/06/18 0910 1022 0101 Wally Harmon MD /nt
--- NOTE | 2018-10-06 10:53 | NUR ---
FOLLOWING FOR DC PLANNING. PT EXTUBATED 10/03/18 AROUND 1800 AND NOW ON 2-3 L NC AND CPAP. PT/OT EVAL PENDING TODAY AND ST SAW AND PT PASSED BEDSIDE SWALLOW EVAL. REFERRAL FOR SKILLED REHAB TO [facility] PER DC STUDENT ACTIVITIES DIRECTOR.
--- NOTE | 2018-10-06 14:45 | NUR ---
FAXED REFERRAL TO [facility] LEFT G WITH YAHAIRA IN ADM. THAT PT. IS NOW OUT OF ICU AND IS IN RM 355. ANTICIPATE DC WED. DCP TO FOLLOW.
--- NOTE | 2018-10-06 18:27 | NUR ---
CARE ASSUMED @ 1432 FROM KORY PEREIRA. PT HAS BEEN UP IN THE CHAIR. ASSESSMENT DOCUMENTED. NO CONCERNS AT THIS TIME WILL CONTINUE TO MONITOR.
[2018-10-07 00:13] VITALS: BP 119/60
[2018-10-07 04:18] VITALS: BP 133/73
--- NOTE | 2018-10-07 05:46 | NUR ---
ASSUMED CARE OF PT AT 1900. A&Ox2, PLEASANT. VS STABLE. HEPARIN DRIP INFUSING ORDERED. DENIED PAIN. 2L O2 VIA NC IN PLACE. WANTED TO SLEEP RECLINING IN CHAIR, PROVIDED. NO ACUTE DISTRESS OVER NOC. PROGRESSING TOWARDS POC GOALS. WILL CONTINUE TO PROVIDE CARE AND MONITOR.
[2018-10-07 08:00] VITALS: BP 109/61
[2018-10-07 11:41] VITALS: BP 102/43
--- NOTE | 2018-10-07 12:51 | NUR ---
Assumed care of patient at 0700. Vitals have been stable. Maintaining oxygen saturations on 2L NC. Alert and oriented to person, sometimes place. Otherwise confused. Able to follow commands, pleasant. Denies pain, SOB, nausea. Fall precautions in place. Up with one assist and gait belt. To pull Diaz this afternoon; good urine output. Incontinent of bowel. Cleaned as needed and frequent barrier cream applied. Heparin gtt continues to infuse; aPtt therapeutic this morning, so no changes made. Spoke with Dr. Ledezma regarding heparin drip. He states he will speak with pulmonary to determine when switch can be made to PO and to DC drip. Family at bedside this morning. Slowly progressing towards POC. Will continue to monitor.
[2018-10-07 13:30] LABS: INR 1.2; PROTIME 12.1 Seconds (9.3-11.4)
--- NOTE | 2018-10-07 15:26 | NUR ---
SAE reviewed chart and spoke with nursing and attending physician. Pt was transferred to from ICU and is progressing towards goals for discharge. SAE notified that [facility] is able to accept pt from a clinical standpoint. Discharge is anticipated for tomorrow. SAE updated Fabiana at [facility] to request them to submit for insurance authorization. SAE spoke with pt's dtr, Pepe, via phone to provide update. Pepe is aware and agreeable with discharge plan. Per Pepe, she will notify pt's son. SAE updated pt's nurse. Pt was sleeping soundly during time of SW visit. SAE is following to assist as needed with discharge planning.
[2018-10-07 16:34] VITALS: BP 110/50
[2018-10-07 20:45] VITALS: BP 124/50
[2018-10-08 03:55] VITALS: BP 104/47
--- NOTE | 2018-10-08 04:17 | NUR ---
SLEEPING MOST OF SHIFT. OFF CPAP FOR 30 MIN FOR SNACK AND PLACED ON O2 AT 2L/NC. PLACED BACK ON CPAP AT 0400, INCONTINENT OF URINE AT TIMES. PERICARE PRN AND LINEN CHANGE. REPOSITIONED EVERY 2 HOURS FOR COMFORT AND SKIN CARE. WORKING ON GOALS AND PLAN OF CARE FOR NOC. PROGRESSING SLOWLY TOWARDS DISCHARGE GOALS. CONTINUE TO ASSES CLOESLY.
[2018-10-08 06:30] LABS: INR 1.1; PROTIME 11.7 Seconds (9.3-11.4)
[2018-10-08 08:35] VITALS: BP 117/43
--- NOTE | 2018-10-08 11:16 | NUR ---
WOUND CONSULT: RECIVED A CONSULT TO EVALUATE THIS PT. SACRUM FOR A NEW SKIN ISSUE AND RULE OUT OR CONFIRM PRESSURE ULCER. PT. WAS SEEN AND EXAMINED BY THIS CABLE INSTALLER REPAIRER. PT. DOES NOT HAVE A PRESSURE ULCER. SHE IS SUFFERING FROM INCONTIENT ASSOICATED DERMITIS IN RELATION TO CONSTANT FECAL CONTAIMINATION. PT. WAS ALSO, SOILED UPON ARRIVAL OF ASSESMENT. PT. HAD A FECAL TUBE IN PLACE PRIOR DUE TO THE INCONTIENTENCE BUT, THIS IS NO LONGER AN OPTION. PT. AND STAFF NURSE WERE EDUCATION ON TREAMTENT MEASURES AND PRESSURE ULCER PREVENTION. WOUND CARE WILL BE SIGNING OFF AT THIS TIME. PLEASE RE-CONSULT IF NEEDED.
[2018-10-08 11:24] VITALS: BP 120/56
--- NOTE | 2018-10-08 14:55 | NUR ---
DISCHARGE PLANNING. ANTICIPATED DISCHARGE FOR PATIENT TO POST ACUTE CARE. UPDATED CLINICAL INFORMATION FAXED TO [facility], FOR INSURANCE AUTH PROCESS. YAHAIRA TO NOTIFY CM ONCE INSURANCE AUTH OBTAINED. WILL FACILITATE DISCHARGE ONCE AUTH COMPLETE. UNIT CM/SW AWARE. FOLLOWING TO ASSIST WITH DISCHARGE NEEDS.
--- NOTE | 2018-10-08 15:27 | NUR ---
care of pt assumed this am @ ~0700. pt has been awake and engaging today. pt has denied co pain, soa and no n/v/d today. pt w/ an improved appetite for food and fluid today as compared to yesterday. pt w/ use of o2 @ 2lt nc and nasal mask cpap today, w/ cont pulse oximetry. pt noted to have cold hands today, so need to replace pulse oximetry several times for a good waveform. pt up to her chair today for lunch and an afternoon nap. pt also up to bsc w/ x2 assistance. pt found to be incontinent of stool and urine today. iv access to rue picc, 3 ports all functional w/ + blood return. pt's friend/Ela at bs during lunch today, assisting pt w/ her hair, she left her phone number [phone] as she is retired, but Oneal and Pepe both still have to work.
[2018-10-08 16:24] VITALS: BP 112/40
--- NOTE | 2018-10-08 16:31 | NUR ---
SW reviewed chart and spoke with nursing and attending physician. land planner faxed clinical/therapy updates to [facility] for review. Awaiting insurance authorization at this time. SAE met with pt at bedside to discuss discharge plan. Pt is agreeable with plan for discharge. SAE left voice message for pt's dtrPepe, to provide update. SAE is following to assist as needed with discharge planning.
[2018-10-08 19:40] VITALS: BP 114/49
[2018-10-09 04:00] VITALS: BP 142/59
--- NOTE | 2018-10-09 05:03 | NUR ---
SLEPT MOST OF SHIFT. MORE ALERT TONIGHT. DENIES COMPLAINTS OF PAIN OR SHORTNESS OF AIR. TOLERATING CPAP THIS NOC. NEEDS REINFORCEMENT TO KEEP ON. WORKING ON GOALS AND PLAN OF CARE FOR NOC. ASSISTED UP TO COMODE AND SAT IN CHAIR UNTIL BEDTIME LAST NOC. TOLERATED WELL. PROGRESSING TOWARDS DISCHARGE GOALS SLOWLY. CONTINUE TO ASSES CLOESLY.
[2018-10-09 05:15] LABS: INR 1.3; PROTIME 13.8 Seconds (9.3-11.4)
[2018-10-09 07:31] VITALS: BP 130/52
[2018-10-09] MEDS ORDERED: CIPRO500 MG PO (10:19)
[2018-10-09] MEDS ORDERED: LOPRESSOR50 PO (10:19)
[2018-10-09 11:16] VITALS: BP 115/47
--- NOTE | 2018-10-09 13:22 | NUR ---
DISCHARGE NOTE: SW reviewed chart and spoke with nursing and attending physician. Pt is medically stable for discharge to [facility] today. [facility] did obtain insurance authorization and can accept today. Wheelchair van transportation is scheduled for 1330 per facility's arrangements. Pt's dtr, Pepe, notified. partner integration planner coordinated. Chart copy ordered. Nursing provided with number to call report. No additional SW needs identified at this time, but is available to assist should needs arise.
--- NOTE | 2018-10-09 14:03 | NUR ---
Assumed care of Pt at 0700. Pt alert and oriented to self and situation, very forgetful, requires frequent reminders. breathing comfortably on 2L NC. Ambulating around hallway with PT. daughter at bedside. Instructed by physician to remove PICC. SR/SB on telemetry. transported to wheelchair van by transport service to [facility]. report called to receiving nurse.
== END 2018-10-09 13:47 | DRG 870 ==
LOC: ER 19:09 → EROBS 22:38 → 4W 22:38 → ICU 22:38 → 4W 23:33 → SICU 09-25 18:32 → ICU 09-27 19:13 → 3W 10-06 13:32
PROVIDERS: Emergency Medicine; Family Medicine; Hospitalist; Internal Medicine Pulmonary Disease; Nurse Practitioner Family; Pediatrics; Psychiatry & Neurology Neuromuscular Medicine; ADMIT Hospitalist
DX: A41.9 Sepsis, unspecified organism (principal); J96.21 Acute and chronic respiratory failure with hypoxia; J15.1 Pneumonia due to Pseudomonas; I26.99 Other pulmonary embolism without acute cor pulmonale; G92 Toxic encephalopathy; J96.22 Acute and chronic respiratory failure with hypercapnia; J44.1 Chronic obstructive pulmonary disease with (acute) exacerbation; N17.9 Acute kidney failure, unspecified; K62.5 Hemorrhage of anus and rectum; I16.1 Hypertensive emergency; R04.2 Hemoptysis; D68.32 Hemorrhagic disorder due to extrinsic circulating anticoagulants; E87.0 Hyperosmolality and hypernatremia; D62 Acute posthemorrhagic anemia; J44.0 Chronic obstructive pulmonary disease with (acute) lower respiratory infection; I10 Essential (primary) hypertension; H40.9 Unspecified glaucoma; J20.9 Acute bronchitis, unspecified; G47.33 Obstructive sleep apnea (adult) (pediatric); J45.909 Unspecified asthma, uncomplicated; D86.0 Sarcoidosis of lung; D64.9 Anemia, unspecified; D69.6 Thrombocytopenia, unspecified; R00.0 Tachycardia, unspecified; R91.1 Solitary pulmonary nodule; E87.6 Hypokalemia; E11.65 Type 2 diabetes mellitus with hyperglycemia; J22 Unspecified acute lower respiratory infection; E88.09 Other disorders of plasma-protein metabolism, not elsewhere classified; Z87.442 Personal history of urinary calculi; Z93.6 Other artificial openings of urinary tract status; Z79.01 Long term (current) use of anticoagulants; Z79.52 Long term (current) use of systemic steroids; Z99.81 Dependence on supplemental oxygen; Z79.82 Long term (current) use of aspirin; Z79.899 Other long term (current) drug therapy
CPT/HCPCS: 10045; 10203; 10779; 10879; 15002; 27000; 62110; 62900; 70005

== ENCOUNTER 2018-11-01 04:40 | Inpatient (IN) | payer OTHER ==
[~2018-11-01] VITALS: Ht 152.4 cm; Wt 54.0 kg
[2018-11-01] VITALS (7 sets, daily range): BP systolic 96–135; BP diastolic 40–61
[~2018-11-01 04:40] MED LIST changes: +LOPRESSOR50 PO
[2018-11-01 04:53] LABS: BE(vivo) 11.4 mmol/L (-2 to +3); pH 7.332 (7.360-7.450); sO2 99.5 % (92.0-98.0)
[2018-11-01 04:54] LABS: PCO2 77.2 mmHg (35.0-45.0)
[2018-11-01] MEDS ORDERED: SEROQUEL 25 MG25 M1 PO (05:12)
[2018-11-01] MEDS ORDERED: COUMADIN 4 MG TA4 M1 PO (05:14)
--- NOTE | 2018-11-01 05:22 | NUR ---
lab contacted, blood is there and being checked in
[2018-11-01 05:31] LABS: ABSOLUTE NEUTROPHILS 11.3 thou/uL (1.4-8.2); BASOPHILS 0.8 % (0.0-2.0); EOSINOPHILS 0.1 % (0.0-3.0); HEMATOCRIT 37.1 % (37.0-47.0); HEMOGLOBIN 11.4 gm/dL (12.0-15.0); LYMPHOCYTES 6.4 % (24.0-44.0); MCH 26.6 pg (26.0-34.0); MCHC 30.7 g/dL (28.0-37.0); MCV 86.7 fL (80.0-100.0); MONOCYTES 4.7 % (1.0-8.0); PLATELET COUNT 347 thou/uL (150-400); RBC 4.28 mil/uL (4.20-5.00); RDW 16.3 % (10.5-14.5); WBC 12.9 thou/uL (4.0-11.0)
[2018-11-01 05:33] LABS: ANION GAP 8 mmol/L (7-16); BUN 14 mg/dL (7-18); CALCIUM 9.9 mg/dL (8.5-10.1); CHLORIDE 99 mmol/L (98-107); CO2 36 mmol/L (21-32); GLUCOSE 126 mg/dL (74-106); POTASSIUM 3.3 mmol/L (3.5-5.1); SODIUM 143 mmol/L (136-145)
[2018-11-01 05:43] LABS: ALBUMIN 3.2 g/dL (3.4-5.0); MAGNESIUM 1.8 mg/dL (1.8-2.4); SGOT 58 U/L (15-37); SGPT 28 U/L (30-65); TOTAL BILIRUBIN 0.7 mg/dL (<0.1-1.0); TOTAL PROTEIN 8.6 g/dL (6.4-8.2); TROPONIN-I <0.06 ng/mL (<0.06)
[2018-11-01 05:56] LABS: INR 2.3; PROTIME 24.1 Seconds (9.3-11.4)
--- NOTE | 2018-11-01 08:45 | EKG ---
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 : 1950 Requested By: Inna Saunders Order Number: [id number] MD: Jeff Harmon Measurements Intervals Dodge Rate: 79 P: 76 FL: 124 QRS: -53 QRSD: 88 T: 39 QT: 426 QTc: 489 Interpretive Statements Sinus rhythm Left anterior fascicular block Probable anteroseptal infarct, old Compared to ECG 09/27/2018 14:22:09 No significant changes Electronically Signed On 11-01-2018 8:45:08 CDT by Jeff Harmon [email or web address] ��������������������������������������������� <ELECTRONICALLY SIGNED> ���������������������������������������� By: Jeff Harmon MD ��������������������������������������������� 11/01/18 0845 0454 0454 Jeff Harmon MD /EPI
[2018-11-01 09:00] LABS: BE(vivo) 12.4 mmol/L (-2 to +3); HCO3 40.6 mmol/L (22.0-26.0); PCO2 74.8 mmHg (35.0-45.0); PO2 99.7 mmHg (80.0-100.0); pH 7.352 (7.360-7.450)
--- NOTE | 2018-11-01 15:39 | 2DMMODE ---
[facility] [place] [address] 2 D/M-MODE ECHOCARDIOGRAM Name: ARIELLE YA Room #: 350-P ADM IN M.R.#: [id number] ������������� Admission: 11/01/18 ������������� Attend Phys: Hansel Narayanan MD Discharge: ��� ������������� ��� Date of : 46 Date of Service: 11/01/18 1539 �� Report #: [id number] �������� ��������������������������������������������[id number] THIS REPORT FOR: //name// APPROVED REPORT Study performed: 11/01/2018 12:15:14 EXAM: Comprehensive 2D, Doppler, and color-flow Echocardiogram Patient Location: Bedside Room #: 350 Status: routine BSA: 1.67 HR: 72 bpm BP: 112/56 mmHg Rhythm: Irregular Other Information Study Quality: Adequate Indications Dyspnea Syncope Hx. COPD, Sarcoidosis, PE 2D Dimensions RVDd: 33.28 mm IVSd: 10.84 (7-11mm) LVOT Diam: 19.27 (18-24mm) LVDd: 34.93 mm PWd: 9.39 (7-11mm) Ascending Ao: 28.67 (22-36mm) LVDs: 18.91 (25-40mm) Aortic Root: 27.79 mm IVC: 18.00 mm Volumes Left Atrial Volume (Systole) Single Plane 4CH: 24.73 mL Single Plane 2CH: 21.62 mL LA ESV Index: 14.93 mL/m2 Aortic Valve AoV Peak Ben.: 1.77 m/s AO Peak Gr.: 12.47 mmHg LVOT Max P.18 mmHg LVOT Max V: 1.43 m/s MATTHEW Vmax: 2.36 cm2 Mitral Valve E/A Ratio: 0.7 [facility] [address] [address] 2 D/M-MODE ECHOCARDIOGRAM Name: ARIELLE YA Room #: [address] [place] [address] IN [facility]#: [id number] ������������� Admission: 11/01/18 ������������� Attend Phys: Hansel Narayanan MD Discharge: ��� ������������� ��� Date of : 46 Date of Service: 11/01/18 1539 �� Report #: [id number] �������� ��������������������������������������������[id number] MV Decel. Time: 202.75 ms MV E Max Ben.: 0.75 m/s MV A Ben.: 1.11 m/s MV PHT: 58.80 ms IVRT: 86.51 ms Pulmonary Valve PV Peak Ben.: 1.35 m/s PV Peak Gr.: 7.24 mmHg Pulmonary Vein P Vein S: 0.82 m/s P Vein D: 0.62 m/s P Vein S/D Ratio: 1.32 Tricuspid Valve TR Peak Ben.: 3.82 m/s RAP Estimate: 10.00 mmHg TR Peak Gr.: 58.49 mmHg PA Pressure: 68.00 mmHg Left Ventricle The left ventricle is normal size. There is normal left ventricular wall thickness. The left ventricular systolic function is normal. The left ventricular ejection fraction is within the normal range. LVEF is 55-60%. Mild diastolic dysfunction is present (impaired relaxation pattern). Right Ventricle The right ventricle is normal size. The right ventricular systolic function is normal. Atria The left atrium size is normal. The right atrium size is normal. Aortic Valve Aortic valve is calcified. Mild aortic regurgitation. There is no aortic valvular stenosis. Mitral Valve The mitral valve is normal in structure. Mild mitral regurgitation. No evidence of mitral valve stenosis. Tricuspid Valve The tricuspid valve is normal in structure. Moderate tricuspid regurgitation. Estimated PAP of 68 mmHg. [facility] [address] [place] [address] 2 D/M-MODE ECHOCARDIOGRAM Name: ARIELLE YA Room #: 350-P ADM IN .R.#: [id number] ������������� Admission: 11/01/18 ������������� Attend Phys: Hansel Narayanan MD Discharge: ��� ������������� ��� Date of : 46 Date of Service: 11/01/18 1539 �� Report #: [id number] �������� ��������������������������������������������[id number] Pulmonic Valve Pulmonic valve is not well visualized. Moderate pulmonic regurgitation. Great Vessels The aortic root is normal in size. The ascending aorta is normal in size. IVC is normal in size and collapses <50% with inspiration. Pericardium There is no pericardial effusion. <Conclusion> The left ventricle is normal size. There is normal left ventricular wall thickness. The left ventricular systolic function is normal. The left ventricular ejection fraction is within the normal range. LVEF is 55-60%. The right ventricle is normal size. The right ventricular systolic function is normal. The left atrium size is normal. The right atrium size is normal. Aortic valve is calcified. Mild aortic regurgitation. There is no aortic valvular stenosis. The mitral valve is normal in structure. Mild mitral regurgitation. The tricuspid valve is normal in structure. Moderate tricuspid regurgitation. Estimated PAP of 68 mmHg. IVC is normal in size and collapses <50% with inspiration. There is no pericardial effusion. ��������������������������������������������� <ELECTRONICALLY SIGNED> ���������������������������������������� By: Jeff Harmon MD ��������������������������������������������� 11/01/18 1539 1539 1539 Jeff Harmon MD /INF
--- NOTE | 2018-11-01 18:31 | NUR ---
ASSUMED PATIENT CARE AT 0700. ALERT TO SELF. OFF BIPAP AT 0930. TITRIATED TO 3L/NC. DENIES CHEST PAIN. POOR APPETITE. AGITATED WITH NURSING CARE. FAMILY AT BEDSIDE. SLOWLY TOWARDS POC GOALS.
[2018-11-02] VITALS (7 sets, daily range): BP systolic 128–140; BP diastolic 48–75
[2018-11-02 04:23] LABS: HEMATOCRIT 30.9 % (37.0-47.0); HEMOGLOBIN 9.7 gm/dL (12.0-15.0); MCH 27.2 pg (26.0-34.0); MCHC 31.5 g/dL (28.0-37.0); MCV 86.3 fL (80.0-100.0); RBC 3.58 mil/uL (4.20-5.00); RDW 16.4 % (10.5-14.5); WBC 7.4 thou/uL (4.0-11.0)
[2018-11-02 04:38] LABS: ALBUMIN 2.7 g/dL (3.4-5.0); CALCIUM 8.7 mg/dL (8.5-10.1); POTASSIUM 3.1 mmol/L (3.5-5.1); TOTAL BILIRUBIN 0.3 mg/dL (<0.1-1.0); TOTAL PROTEIN 6.1 g/dL (6.4-8.2)
--- NOTE | 2018-11-02 05:32 | NUR ---
SLEPT MOST OF SHIFT. REMAINS ALERT AND ORIENTED X1 TO SELF ONLY AND FORGETFUL. WORKING ON GOALS AND PLAN OF CARE FOR NOC. INCONTINENT OF URINE X2, PERICARE PRN. DENIES COMPLAINTS OF PAIN OR SHORTNESS OF AIR. O2 SAT REMAINS >95% ON 3L/NC. PROGRESSING SLOWLY TOWARDS DISCHARGE GOALS. CONTINUE TO ASSES CLOESLY. MAINTAIN SAFE ENVIRONMENT. BED ALARM ON.
[2018-11-02 14:11] LABS: URINE BILIRUBIN NEGATIVE (Negative); URINE BLOOD 1+ (Negative); URINE CLARITY HAZY; URINE COLOR YELLOW; URINE GLUCOSE-RANDOM* NEGATIVE (Negative); URINE KETONES NEGATIVE (Negative); URINE LEUKOCYTES-REFLEX 2+ (Negative); URINE NITRITE-REFLEX NEGATIVE (Negative); URINE PROTEIN (DIPSTICK) 1+ (Negative); URINE SPECIFIC GRAVITY 1.025 (1.005-1.035); URINE UROBILINOGEN 0.2 E.U./dl (0.2-1.0)
[2018-11-02 14:19] LABS: CASTS None Seen /LPF (None Seen); MUCUS 0-3 Light strn/LPF (None Seen); SQUAMOUS 4-10 Moderate /LPF (0-3)
[2018-11-02 14:20] LABS: BACTERIA-REFLEX 1-9 Few /HPF (None Seen); URIC ACID CRYSTALS >10 Many /LPF (None Seen); URINE RBC 0-2 Rare /HPF (0-2); YEAST-REFLEX Present (None Seen)
[2018-11-02 14:21] LABS: URINE WBC-REFLEX 6-15 Few /HPF (0-5)
--- NOTE | 2018-11-02 14:48 | HC ---
[facility] [place] [address] CONSULTATION Name: ARIELLE YA Room #: 350-P ADM IN M.R.#: [id number] Admission: 11/01/18 ������������������ Attend Phys: Hansel Narayanan MD Discharge: ������������������ Date of : 46 Report #: [id number] THIS REPORT FOR: //name// CC: Pavithra Narayanan DATE OF SERVICE: 11/01/2018 Infectious Diseases Consultation REASON FOR CONSULTATION: I was asked to evaluate concerning pneumonia. HISTORY OF PRESENT ILLNESS: The patient was a 68-year-old with underlying history of chronic bronchitis and bronchiectasis with COPD, steroid and oxygen dependent and obstructive sleep apnea, requiring CPAP. Also has pulmonary fibrosis for sarcoidosis, underlying, and pulmonary emboli. She presents after falling at home. No injury. Family was there to support her. Placed back on her CPAP, but did not improve and was hospitalized to the emergency room. She has had increased cough with purulent sputum production. She was just hospitalized last month at [facility] for exacerbation of COPD and pneumonia. She spent several days in the intensive care unit. Cultures had revealed pansensitive Pseudomonas aeruginosa. She was discharged on ciprofloxacin, which she completed. Now reports no pleuritic chest pain. No hemoptysis. Has a moderate amount of yellow sputum production. No chills or sweats. She has had low-grade fever. She has dyspnea on exertion. She has been on oxygen per nasal cannula and then CPAP at night. She was on 10 mg of prednisone a day. REVIEW OF SYSTEMS: A 10-point review of systems was negative other than what is described above. ALLERGIES: None known. MEDICATIONS: As noted on her MAR, now on Zosyn. PAST MEDICAL HISTORY: Bronchiectasis, obstructive sleep apnea, COPD, recurrent bronchitis, sarcoidosis, pulmonary fibrosis, pulmonary emboli, glaucoma, right kidney stone, status post stenting, recurrent pneumonia, pulmonary emboli, hypertension. FAMILY HISTORY: Noncontributory. SOCIAL HISTORY: Nonsmoker. No significant alcohol intake. PHYSICAL EXAMINATION: VITAL SIGNS: Afebrile, maximum temperature was 99 degrees, pulse 72, [facility] [address] [place] [address] CONSULTATION Name: ARIELLE YA Room #: 350-[facility] IN M.R.#: [id number] Admission: 11/01/18 ������������������ Attend Phys: Hansel Narayanan MD Discharge: ������������������ Date of : 46 Report #: [id number] respirations 28, blood pressure 115/61. She is on oxygen at 4 L per nasal cannula. GENERAL: She was alert and conversant. She was mildly disoriented, did not know for sure where she was. She did not know my name and day, did not give me a good history leading up to presentation. SKIN: Without rash or ulceration. No palpable adenopathy. HEENT: Eyes without scleral icterus. Mouth without mucositis. NECK: Supple, with no thyromegaly or mass. LUNGS: Coarse bilaterally with scattered wheezes. HEART: Regular without murmur, gallop or rub. ABDOMEN: Soft, nontender. No hepatosplenomegaly or mass. GENITOURINARY: External genitalia unremarkable with no lesions. RECTAL: Not performed. No CVA tenderness or back tenderness to palpation or percussion. EXTREMITIES: Without clubbing, cyanosis or edema. Cranial nerves intact. Strength in the upper and lower extremities was normal. Sensation in upper and lower extremities normal to touch. PSYCHIATRY: Mood normal. LABORATORY DATA: Chest x-ray with bilateral infiltrates. ABGs on 45% CPAP showed 45% BiPAP with pO2 99, pCO2 of 75, pH 7.3. Hemoglobin 11.4, WBC 12.9 and platelet count 347,000. Sodium 143, potassium 3.3, bicarbonate 36, creatinine 1, AST 58, ALT 28, alkaline phosphatase 120, bilirubin 0.7. Troponin 0.2. IMPRESSION: 1. A 68-year-old with bronchopneumonia, unsuspecting cause for her presentation, Gram-negative organisms suspected. She has mild encephalopathy. 2. Pulmonary sarcoidosis. 3. Chronic bronchiectasis. 4. Obstructive sleep apnea. 5. History of recurrent pulmonary emboli. RECOMMENDATIONS: We will continue with anti-pseudomonal coverage. Obtain sputum culture. Serial chest x-rays. Corticosteroids and pulmonary toilet. ��������������������������������������������� <ELECTRONICALLY SIGNED> ���������������������������������������� By: Ronak Smith MD ��������������������������������������������� 11/02/18 1448 1253 0610 Ronak Smith MD /nt
[2018-11-02 18:00] LABS: INR 3.2; PROTIME 33.6 Seconds (9.3-11.4)
--- NOTE | 2018-11-02 18:24 | NUR ---
ASSUMED PATIENT CARE AT 0700. PATIENT GETTING MORE ALERT. ABLE TO OFF BED USE BSC. FEEDED TO SELF. TOLERATED ON 3L/NC. PROGRESSING TOWARDS POC GOALS.
[2018-11-03 03:40] VITALS: BP 136/49
--- NOTE | 2018-11-03 05:20 | NUR ---
SLEPT MOST OF SHIFT. COOPERATIVE AND REMAINS ORIENTED TO SELF AND SITUATION. ASSIST UP PRN. INCONTINENT AT TIMES. TOLERATING CPAP TONIGHT. WORKING ON GOALS AND PLAN OF CARE FOR NOC. PROGRESSING TOWARDS DISCHARGE GOALS SLOWLY. CONTINUE TO ASSES CLOESLY.
[2018-11-03 06:02] LABS: ABSOLUTE NEUTROPHILS 4.7 thou/uL (1.4-8.2); BASOPHILS 0.6 % (0.0-2.0); EOSINOPHILS 1.2 % (0.0-3.0); HEMOGLOBIN 9.3 gm/dL (12.0-15.0); LYMPHOCYTES 14.8 % (24.0-44.0); MCH 27.2 pg (26.0-34.0); MCHC 31.1 g/dL (28.0-37.0); MCV 87.5 fL (80.0-100.0); PLATELET COUNT 237 thou/uL (150-400); POLYS 77.4 % (36.0-66.0); RBC 3.42 mil/uL (4.20-5.00); RDW 16.4 % (10.5-14.5); WBC 6.1 thou/uL (4.0-11.0)
[2018-11-03 06:12] LABS: INR 2.7
[2018-11-03 06:18] LABS: CREATININE 0.7 mg/dL (0.6-1.0); POTASSIUM 3.3 mmol/L (3.5-5.1)
[2018-11-03 07:46] VITALS: BP 135/53
--- NOTE | 2018-11-03 08:50 | EKG ---
[address] [place] [address] ELECTROCARDIOGRAM REPORT Name: ARIELLE YA Room #: 350-P ADM IN M.R.#: [id number] ������������������ Admission: 11/01/18 ������������������ Attend Phys: Ed Askew MD Discharge: ������������������ Date of : 46 Report #: [id number] ����������������������������������������������������������������� [id number] THIS REPORT FOR: //name// [facility] Test Date: 2018-11-02 Test Time: 07:11:55 Pat Name: ARIELLE YA Department: Room: 350 P Gender: F Field Examiner: : 1950 Requested By: Donna Gutierrez Order Number: [id number] MD: Kishore Vigil Measurements Intervals [place] Rate: 62 P: 72 SC: 121 QRS: -51 QRSD: 87 T: 59 QT: 435 QTc: 442 Interpretive Statements Sinus rhythm Probable left atrial enlargement Left anterior fascicular block Borderline T abnormalities, anterior leads Compared to ECG 11/01/2018 04:54:07 T-wave abnormality now present Electronically Signed On 11-03-2018 8:50:10 CDT by Kishore Vigil [email or web address] ��������������������������������������������� <ELECTRONICALLY SIGNED> ���������������������������������������� By: Kishore Vigil MD, [facility] ��������������������������������������������� 11/03/18 0850 0711 0711 Kishore Vigil MD, [facility] /EPI
[2018-11-03 10:40] VITALS: BP 134/50
--- NOTE | 2018-11-03 14:00 | NUR ---
ASSESSMENT: CM REVIEWED CHART AND MET WITH PATIENT AT THE BEDSIDE. PT WAS ADMITTED WITH ACUTE HYPOXIC RESPIRATORY FAILURE. PT REPORTS THAT SHE LIVES IN A HOUSE WITH HER ADULT SON. PT REPORTS HAVING ABOUT 7 STEPS TO ENTER THE HOME AND ABOUT 6 STEPS ONCE INSIDE. PT REPORTS SHE HAS A CANE AT HOME THAT SHE USES. PT REPORTS HAVING A CPAP AND OXYGEN ARRANGE AT HOME THROUGH [facility]. PT REPORTS BEING AT [facility] IN THE PAST RECENTLY AND REPORTS HAVING [facility] IN THE PAST BUT STATES SHE DOES NOT HAVE IT CURRENTLY. CM DISCUSSED ROLE. PT STATES SHE IS HOPEFUL SHE WILL BE ABLE TO RETURN HOME AND STATES SHE IS AGREEABLE WITH HH IF NEEDED. PT REPORTS IF SHE NEEDS HH SHE PREFERS TO USE [facility] AGAIN SINCE SHE HAS HAD THEM IN THE PAST. CM WILL CONTINUE TO FOLLOW. PT/OT EVALS ARE PENDING.
[2018-11-03 16:17] VITALS: BP 142/64
--- NOTE | 2018-11-03 17:53 | NUR ---
ASSUMED PATIENT CARE AT 0700. ALERT TO SELF. CONFUSED SOMETIMES. INCONT URINE. STB ASSITED WHEN UP. PROGRESSING TOWARDS POC GOALS.
[2018-11-03 19:25] VITALS: BP 130/69
--- NOTE | 2018-11-04 04:12 | NUR ---
PATIENT IS PROGRESSING SLOWLY IN HER CARE PLAN. VITAL SIGNS STABLE WITH PATIENT HAVING NO COMPLAINTS OF PAIN OR NAUSEA. PATIENT HAS REMAINED CONFUSED THROUGHOUT SHIFT AND IS ORIENTED ONLY TO SELF, WHICH NURSE BELIEVES MAY BE PATIENTS BASELINE. SHE HAS SHOWN IMPULSIVENESS MULTIPLE TIMES DURING SHIFT, AND SHOULD BE REGARDED A HIGH FALL RISK. BREATHING STABLE ON NASAL CANNULA AND HOME CPAP WHICH SHE TOLERATED OVERNIGHT. SPOT OXYGENATION CHECKS SHOW PATIENT IN ACCEPTABLE RANGE. PATIENT HAS BEEN INCONTINENT TO BOWEL AND BLADDER AND HAS REQUIRED NURSING STAFF TO CLEAN HER UP. FREQUENT INCONTINENCE CHECKS WITH SKIN CARE PROVIDED. PATIENT IS TO BE TRANSFERRED TO [facility] AT SHIFT CHANGE THIS MORNING. CONTINUE PLAN OF CARE.
[2018-11-04 04:45] VITALS: BP 145/79
[2018-11-04 06:31] LABS: HEMATOCRIT 33.7 % (37.0-47.0); HEMOGLOBIN 10.5 gm/dL (12.0-15.0); MCH 27.1 pg (26.0-34.0); MCHC 31.3 g/dL (28.0-37.0); MCV 86.7 fL (80.0-100.0); RBC 3.88 mil/uL (4.20-5.00); RDW 16.8 % (10.5-14.5); WBC 6.7 thou/uL (4.0-11.0)
[2018-11-04 06:41] LABS: CALCIUM 8.7 mg/dL (8.5-10.1); CREATININE 0.7 mg/dL (0.6-1.0); POTASSIUM 3.3 mmol/L (3.5-5.1)
[2018-11-04 08:30] VITALS: BP 143/74
[2018-11-04 13:38] LABS: BE(vivo) 10.5 mmol/L (-2 to +3); HCO3 38.1 mmol/L (22.0-26.0); PO2 103.7 mmHg (80.0-100.0); pH 7.366 (7.360-7.450); sO2 97.4 % (92.0-98.0)
--- NOTE | 2018-11-04 15:50 | NUR ---
PT RECOMMENDING POST ACUTE CARE STAY OT INDICATED FURTHER ASSESSMENT NEEDED. CM CALLED AND SPOKE WITH PT'S SON AND INDICATED THE ABOVE. HE INDICATED THAT IS PT NEED POST ACUTE CARE STAY HE WOULD BE AGREEABLE WITH PT GOING BACK TO [facility]. CM ASKED DC END LATHE OPERATOR TO FAX REFERRAL FOR THEM TO REVIEW. CM TO FOLLOW INDICATED WITH DC PLANNING.
--- NOTE | 2018-11-04 16:00 | NUR ---
dp sent referral to [facility], possible dc in a day or 2.
[2018-11-04 19:01] VITALS: BP 124/42
--- NOTE | 2018-11-04 19:52 | NUR ---
ASSUMED CARE OF PATIENT AT 0730, REPORT FROM RADHA/B2B SALES CONSULTANTBOATSWAIN MATE NURSE. PATIENT TRANSPORTED BY BED TO [facility]. PATIENT UP WITH SBA WITH WALKER AND GAIT BELT, PATIENT WORKED WITH PHYSICAL THERAPY TODAY. PATIENT UP IN RECLINER MOST OF THE SHIFT. PATIENT HAS RIGHT UPPER ARM IV WITH D5NS AT 75CC/HR, RECEIVED IV ZOSYN THIS SHIFT. PATIENT ON SOLU-MEDROL IV, BLOOD SUGAR MONITORING ORDERED, S/S INSULIN GIVEN PER BLOOD SUGAR. DR AYERS WANTS PATIENT BACK ON TELE MONITOR FLOOR DUE TO ABNORMAL LABS. PATIENT HAS O2 AT 4 LITERS/NC. REPORT GIVEN TO GIA/SANTIAGO, PATIENT TRANSFERRED TO [facility]. ALL PERSONAL BELONGINGS SENT WITH THE PATIENT.
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
--- NOTE | 2018-11-05 00:54 | NUR ---
ASSUMED CARE OF PATIENT AT 1999 PAST BLACKJACK DEALER VISITED WITH PATIENT AND FAMILY. ASSESMENT COMPLETED AT 2024 PAST REVIEWING PATIENT MEDICATIONS. WATER GIVEN TO PATIENT AND IV FLUIDS STARTED, MEDICATIONS GIVEN. POLICE HERE FOR REPORT. 2199 PATIENT WATCHING TV AT THIS TIME. WILL AWAIT CPAP WHEN SHOW IS OVER. DENIES PRESENT COMPLAINTS.
[2018-11-05 04:20] VITALS: BP 152/55
[2018-11-05 05:59] LABS: ALBUMIN 2.9 g/dL (3.4-5.0); CALCIUM 8.9 mg/dL (8.5-10.1); CREATININE 0.6 mg/dL (0.6-1.0); PHOSPHORUS 2.1 mg/dL (2.5-4.9)
--- NOTE | 2018-11-05 07:26 | NUR ---
SLEPT MOST OF SHIFT WITH CPAP ON. REMAINS ORIENTED TO SELF AND SOMETIMES SITUATION. REORIENTED FREQUENTLY. WORKING ON GOALS AND PLAN OF CARE FOR NOC. PROGRESSING SLOWLY TOWARDS DISCHARGE GOALS. MAINTAIN SAFE ENVIRONMENT. AM REPORT GIVEN TO FEMALE NURSE. NO FURTHER COMPLAINTS OF FEELINGS OF VIOLATION. ATTEMPTED TO GET OUT OF BED X1 WITHOUT CALLING. BED ALARM REMAINS ON AT ALL TIMES WHEN IN BED.
[2018-11-05 08:04] VITALS: BP 126/64
[2018-11-05] MEDS ORDERED: AUGMENTIN 875-1 EACH PO (09:09)
[2018-11-05] MEDS ORDERED: PREDNISONE 5 MG5 M1 PO (09:16)
[2018-11-05 11:43] VITALS: BP 122/49
[2018-11-05 12:46] VITALS: BP 122/49
--- NOTE | 2018-11-05 12:46 | NUR ---
DISCHARGE PLANNING. HOME HEALTH RECOMMENDED AT DISCHARGE. PATIENT REQUESTS REFERRAL FAXED TO [facility] FOR HH SERVICES. PATIENT HAS USED [facility] IN THE PAST. [facility] MORE TO REVIEW AND CONTACT EZEQUIEL ONCE COMPLETE. FOLLOWING TO ASSIST WITH DISCHARGE NEEDS. UNIT CM/SAE AWARE.
[2018-11-05 12:54] VITALS: BP 122/49
--- NOTE | 2018-11-05 14:21 | NUR ---
DISCHARGE NOTE: SW reviewed chart and spoke with nursing and attending physician. Pt was transferred back to from [facility] yesterday. Pt is medically stable for discharge home today with HH services. SW spoke with pt's dtr, Pepe, via phone to provide update and discuss discharge plan. Pt's dtr requests [facility] to be the HH provider, as pt is currently on service with them. SW confirmed pt's home address and phone number. Pt's PCP is Dr. Pavithra Lilly. Pt's family will be transporting pt home around 1600 this afternoon. medical planner notified intake at [facility] of discharge orders. Contact info for [facility] placed in pt's discharge summary. [facility] admissions were notified of pt's discharge disposition. No additional SW needs identified at this time, but is available to assist should needs arise.
--- NOTE | 2018-11-05 16:40 | NUR ---
ASSUMED PATIENT CARE AT 0715. A&OX1-2. PATIENT CALM AND COOPERATIVE WITH THIS NURSE TODAY. NO COMPLAINTS. PATIENT CLEARED TO DC HOME WITH SON. PATIENT HAS O2 AT HOME WELL NEBULIZER AND RT TREATMENTS. ALL MEDS AND DISCHARGE ORDERS DISCUSSED WITH SON. PATIENT ALREADY HAS FOLLOW UP APPOINTMENTS SCHEDULED WITH DR. VARGAS AND PRIMARY CARE PHYSICIAN. IV DC'D.
== END 2018-11-05 17:06 | disposition home health service (06) | DRG 177 ==
LOC: ER 04:40 → EROBS 05:37 → SICU 05:37 → 3W 05:37 → SICU 11-04 07:46 → ENTRNSPT 11-04 17:58 → 3W 11-04 18:57 → EDTRNSPT 11-05 16:37 → 3W 11-05 17:06
PROVIDERS: Hospitalist; Internal Medicine Pulmonary Disease; Student in an Organized Health Care Education/Training Program; ADMIT Family Medicine
PROC: 5A09357 Assistance with Respiratory Ventilation, Less than 24 Consecutive Hours, Continuous Positive Airway Pressure (ICD-10-PCS; principal; 2018-11-01)
PROC: 5A09357 Assistance with Respiratory Ventilation, Less than 24 Consecutive Hours, Continuous Positive Airway Pressure (ICD-10-PCS; 2018-11-04)
DX: J15.1 Pneumonia due to Pseudomonas (principal); I50.33 Acute on chronic diastolic (congestive) heart failure; J96.21 Acute and chronic respiratory failure with hypoxia; G93.40 Encephalopathy, unspecified; N17.9 Acute kidney failure, unspecified; E87.1 Hypo-osmolality and hyponatremia; J44.1 Chronic obstructive pulmonary disease with (acute) exacerbation; J44.0 Chronic obstructive pulmonary disease with (acute) lower respiratory infection; A31.0 Pulmonary mycobacterial infection; J18.0 Bronchopneumonia, unspecified organism; H40.9 Unspecified glaucoma; G47.33 Obstructive sleep apnea (adult) (pediatric); I11.0 Hypertensive heart disease with heart failure; J84.10 Pulmonary fibrosis, unspecified; D86.0 Sarcoidosis of lung; I27.20 Pulmonary hypertension, unspecified; E87.6 Hypokalemia; Z86.711 Personal history of pulmonary embolism; Z87.442 Personal history of urinary calculi; Z86.14 Personal history of Methicillin resistant Staphylococcus aureus infection; Z99.81 Dependence on supplemental oxygen; Z79.899 Other long term (current) drug therapy; Z87.891 Personal history of nicotine dependence
CPT/HCPCS: 10779; 10879

== ENCOUNTER → 2018-11-10 | Outpatient (CLI) | payer OTHER ==
[~2018-11-10] MED LIST changes: +COUMADIN 4 MG TA4 M1 PO; +SEROQUEL 25 MG25 M1 PO
== END ==
LOC: RAD 12:09
DX: J84.9 Interstitial pulmonary disease, unspecified (principal); J90 Pleural effusion, not elsewhere classified; J98.4 Other disorders of lung

== ENCOUNTER 2018-11-14 03:50 | Inpatient (IN) | payer OTHER ==
[~2018-11-14] VITALS: Ht 165.1 cm; Wt 52.6 kg
[2018-11-14 03:52] VITALS: BP 110/43
[2018-11-14 04:22] LABS: HCO3 33.6 mmol/L (22.0-26.0); PO2 137.9 mmHg (80.0-100.0); sO2 98.4 % (92.0-98.0)
[2018-11-14 04:23] LABS: PCO2 67.1 mmHg (35.0-45.0); pH 7.318 (7.360-7.450)
[2018-11-14 04:34] LABS: ABSOLUTE NEUTROPHILS 7.7 thou/uL (1.4-8.2); BASOPHILS 0.2 % (0.0-2.0); EOSINOPHILS 1.3 % (0.0-3.0); HEMOGLOBIN 9.3 gm/dL (12.0-15.0); LYMPHOCYTES 7.3 % (24.0-44.0); MCH 27.2 pg (26.0-34.0); MCV 87.6 fL (80.0-100.0); MONOCYTES 6.1 % (1.0-8.0); PLATELET COUNT 206 thou/uL (150-400); POLYS 85.1 % (36.0-66.0); RBC 3.43 mil/uL (4.20-5.00); RDW 18.8 % (10.5-14.5)
[2018-11-14 04:39] LABS: ANION GAP 2 mmol/L (7-16); BUN 10 mg/dL (7-18); CHLORIDE 104 mmol/L (98-107); CO2 40 mmol/L (21-32); CREATININE 0.7 mg/dL (0.6-1.0); GLUCOSE 148 mg/dL (74-106); POTASSIUM 3.1 mmol/L (3.5-5.1); SODIUM 146 mmol/L (136-145)
[2018-11-14 04:48] LABS: TROPONIN-I <0.06 ng/mL (<0.06)
[2018-11-14 12:01] VITALS: BP 113/84
--- NOTE | 2018-11-14 16:02 | NUR ---
WOUND CONSULT; BILATERAL BUTTOCKS WOUNDS RE; FRICTION SHEARING. PATIENT IS INCONTINET OF URINE. NO INFECTION S/S . RECOMMENDATION; PUREWICK URINARY INCONTINECE MANAGEMENT DEVICE. USE BARRIER CREAM WITH EACH INCONTINET EPISODE APPLY THICKLY AND LIBRALLY TO THE BUTTOCK AND PERINEAL AREAS. DISCUSSED WITH RN
[2018-11-14 16:13] VITALS: BP 122/49
--- NOTE | 2018-11-14 17:27 | NUR ---
ASSUMED CARE OF PT AT 1140 THIS SHIFT. PT IS AN ED ADMIT TO CC/TELE, OVERFLOW IN ICU. PT HAS BEEN COOPERATIVE, CONFUSED, VERY DROWSY. PT WOKE UP FOR A FEW HOURS AND AND WAS NOT AWARE OF WHAT HAPPENED TO GET HER TO THE HOSPITAL. PT WAS ABLE TO RE-ORIENT FOR A FEW HOURS AND HAS NOW GONE BACK TO SLEEP. PT IS CURRENTLY TOLERATING BIPAP WELL WHILE ASLEEP. PT HAS EXTERNAL FEMALE CATHETER ON. PT HAS HAD FAMILY VISIT, EDUCATION WAS PROVIDED. PLAN OF CARE IS TO CONTINUE TO MONITOR PT CLOSELY AT THIS TIME.
[2018-11-14 19:00] LABS: INR 3.7; PROTIME 38.2 Seconds (9.3-11.4)
[2018-11-14 20:46] VITALS: BP 122/41
[2018-11-14 21:57] LABS: URINE BILIRUBIN NEGATIVE (Negative); URINE BLOOD TRACE (Negative); URINE CLARITY CLEAR; URINE COLOR YELLOW; URINE GLUCOSE-RANDOM* NEGATIVE (Negative); URINE KETONES NEGATIVE (Negative); URINE LEUKOCYTES-REFLEX NEGATIVE (Negative); URINE NITRITE-REFLEX NEGATIVE (Negative); URINE PROTEIN (DIPSTICK) NEGATIVE (Negative); URINE SPECIFIC GRAVITY 1.015 (1.005-1.035); URINE UROBILINOGEN 0.2 E.U./dl (0.2-1.0)
[2018-11-15 03:28] LABS: ABSOLUTE NEUTROPHILS 5.4 thou/uL (1.4-8.2); HEMATOCRIT 33.2 % (37.0-47.0); HEMOGLOBIN 10.1 gm/dL (12.0-15.0); LYMPHOCYTES 4.8 % (24.0-44.0); MCH 27.2 pg (26.0-34.0); MCHC 30.4 g/dL (28.0-37.0); MCV 89.6 fL (80.0-100.0); MONOCYTES 0.9 % (1.0-8.0); PLATELET COUNT 206 thou/uL (150-400); POLYS 94.3 % (36.0-66.0); RDW 18.2 % (10.5-14.5); WBC 5.7 thou/uL (4.0-11.0)
[2018-11-15 03:39] LABS: CALCIUM 8.1 mg/dL (8.5-10.1); CREATININE 0.6 mg/dL (0.6-1.0); MAGNESIUM 1.9 mg/dL (1.8-2.4)
[2018-11-15 03:45] LABS: ALBUMIN 3.1 g/dL (3.4-5.0); CREATININE 0.6 mg/dL (0.6-1.0); POTASSIUM 4.6 mmol/L (3.5-5.1); TOTAL BILIRUBIN 0.5 mg/dL (<0.1-1.0); TOTAL PROTEIN 6.1 g/dL (6.4-8.2)
[2018-11-15 03:46] LABS: POTASSIUM 4.6 mmol/L (3.5-5.1)
[2018-11-15 04:00] VITALS: BP 90/70
--- NOTE | 2018-11-15 05:36 | NUR ---
ASSUMED PATIENT CARE AT 1900. PATIENT SLEEPING AND ON BIPAP. PATIENT WAKES EASILY BUT IS VERY DROWSY. PATIENT NOTED TO BE WET AND HAS OPEN ULCERS ON THE BUTTOCKS. NOTIFED DRY CHAIN PULLER (Antonio GAVIN) AND REQUESTED FOR ROY. URINE SAMPLE COLLECTED ALSO. PATIENT BRIEFLY WOKE UP AT 0400 AND WAS VERY CONFUSED AND ASKING WHAT HAPPENED TO HER. SHE KEPT THANKING GOD THAT SHE WAS OKAY WHEN REALIZED WHAT HAPPENED AND THANKING THIS RN AND RT FOR GIVING HER GOOD CARE. SHE ALSO BEGAN TO STATE SHE WAS HUNGRY AND WANTED A COOKIE. HOURLY ROUNDING COMPLETED. PATIENT PROGRESSING TOWARD GOAL.
[2018-11-15 11:19] LABS: PROTIME 49.2 Seconds (9.3-11.4)
[2018-11-15 11:22] LABS: INR 4.8
--- NOTE | 2018-11-15 18:11 | NUR ---
ASSUMED CARE AT 0700, ALER BUT CONFUSED. SHE C/O ROY BURNING, PATIENT PULLED THE ROY OUT, AND SHE IS INCONTINENET OF BOWEL AND BLADDAR. REMIANS ON O2 4L NC. ASSESSMENT DOCUMENTED. BED SWALLOW EVAL WAS DONE AND PASSED. REGULAR DIET ORDERED AND PATIENT TOLERATED DIET WELL. PROGRESSING TOWARDS GOALS AND WILL CONTINUE WITH POC.
[2018-11-15 18:12] VITALS: BP 112/41
[2018-11-15 18:54] VITALS: BP 116/32
[2018-11-15 19:14] LABS: AMP/METHAMP Negative (Negative); BARBITURATES Negative (Negative); BENZODIAZEPINES Negative (Negative); COCAINE Negative (Negative); METHADONE Negative (Negative); OPIATES Negative (Negative); PCP Negative (Negative)
[2018-11-15 20:00] VITALS: BP 113/32
[2018-11-15 20:34] VITALS: BP 103/34
[2018-11-16] VITALS (9 sets, daily range): BP systolic 106–135; BP diastolic 35–88
[2018-11-16 05:38] LABS: ABSOLUTE NEUTROPHILS 8.3 thou/uL (1.4-8.2); HEMATOCRIT 31.9 % (37.0-47.0); HEMOGLOBIN 10.1 gm/dL (12.0-15.0); LYMPHOCYTES 2.2 % (24.0-44.0); MCH 27.9 pg (26.0-34.0); MCHC 31.5 g/dL (28.0-37.0); MCV 88.6 fL (80.0-100.0); PLATELET COUNT 209 thou/uL (150-400); POLYS 96.8 % (36.0-66.0); RDW 18.1 % (10.5-14.5); WBC 8.6 thou/uL (4.0-11.0)
--- NOTE | 2018-11-16 05:38 | NUR ---
Pt remains stable, sleep well tonight. No event in this shift.Continue to be on O2 therapy. So far her o2 sat has been reading 100% on 4 liters of oxygen. Denies any trouble breathing. RT placed pt on BIPAP last night as order. She isn't miguel bipap and requested it to be off. Taking Po well. She is being incontinent of urine and stool. Unable to obtain accurate output due to above. Continue to monitor any changes.
[2018-11-16 05:44] LABS: INR 4.5; PROTIME 46.8 Seconds (9.3-11.4)
[2018-11-16 05:52] LABS: ALBUMIN 2.9 g/dL (3.4-5.0); ANION GAP < 0 mmol/L (7-16); BUN 11 mg/dL (7-18); CHLORIDE 103 mmol/L (98-107); CO2 41 mmol/L (21-32); CREATININE 0.6 mg/dL (0.6-1.0); GLUCOSE 167 mg/dL (74-106); MAGNESIUM 1.9 mg/dL (1.8-2.4); POTASSIUM 5.5 mmol/L (3.5-5.1); SGOT 13 U/L (15-37); SGPT 22 U/L (30-65); SODIUM 143 mmol/L (136-145); TOTAL BILIRUBIN 0.4 mg/dL (<0.1-1.0); TOTAL PROTEIN 5.9 g/dL (6.4-8.2)
--- NOTE | 2018-11-16 17:04 | NUR ---
ASSUMED CARE AT SHIFT CAHNGE, ALERT AND ORIENTED X4 AND FORGETFUL. LOW GRADE FEVER THIS AM, AND DR BALL NOTIFIED. DBP 39-64, DR BENJAMIN NOTIFIED MEOPROLOL CHANGED TO DAILY. PROGRESSING TOWARD GOALS.REPORT GIVEN TO RECIEVING RN AND PATIENT TRANSFERED TO CCU.
--- NOTE | 2018-11-16 18:36 | NUR ---
ASSUMED CARE OF PT APPROX 1730. TRANSFERRED FROM ICU. PT CAN ANSWER ORIENTATION QUESTIONS BUT THEN THINKS SHE IS AT WORK. PROVIDED HER WITH TELEMETRY LETTER AND EDUCATION. ALSO SPOKE WITH HER DAUGHTER, LISSETTE, ABOUT TELEMETRY. PT VITALS WITHIN NORMAL LIMITS, PT WAS SINUS ARYTHMIA ON TELE WITH 1D, BBB. WILL CONT WITH POC.
--- NOTE | 2018-11-16 22:25 | EKG ---
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 : 1950 Requested By: Olga Stevens Order Number: [id number] MD: Jeff Harmon Measurements Intervals [place] Rate: 65 P: 67 RI: 127 QRS: -49 QRSD: 87 T: 71 QT: 455 QTc: 474 Interpretive Statements Sinus rhythm Left anterior fascicular block Borderline T wave abnormalities Compared to ECG 11/02/2018 07:11:55 No significant changes Electronically Signed On 11-16-2018 22:25:03 CDT by Jeff Harmon [email or web address] ��������������������������������������������� <ELECTRONICALLY SIGNED> ���������������������������������������� By: Jeff Harmon MD ��������������������������������������������� 11/16/18 8887 0424 042 Jeff Harmon MD /GRISELDA
[2018-11-17 04:40] VITALS: BP 141/73
[2018-11-17 04:48] LABS: HEMATOCRIT 33.9 % (37.0-47.0); HEMOGLOBIN 10.5 gm/dL (12.0-15.0); MCH 27.4 pg (26.0-34.0); MCHC 31.1 g/dL (28.0-37.0); MCV 88.1 fL (80.0-100.0); RBC 3.85 mil/uL (4.20-5.00); RDW 17.8 % (10.5-14.5); WBC 8.3 thou/uL (4.0-11.0)
[2018-11-17 05:14] LABS: CALCIUM 8.7 mg/dL (8.5-10.1); CREATININE 0.5 mg/dL (0.6-1.0)
--- NOTE | 2018-11-17 06:56 | NUR ---
ASSUME CARE 1900 VITALS STABLE. PT CONFUSED AND WANTING TO LEAVE. DENIES BEING IN THE HOSPITAL AND DEMANDING TO CALL THE POSLICVE TO TAKE HER BACK. HALDOL GIVEN AND REST EVENTUALLY NOTED. ADEQUATE SLEEP NOTED ALL NIGHT WITH PT JUMPING OOB WITH INCONTINENCE. A/O TO PERSON ONLY. REFUSING TO WEAR BIPAP. 2LNC SATS OK. NEEDS FREQUENT REDIRECTION TO UNDERSTAND AND COMPLY WITH TREATMENT. WILL CONTINUE TO MONITOR AND FOLLOW WITH POC
[2018-11-17 07:30] VITALS: BP 142/66
[2018-11-17 12:43] LABS: PROTIME 30.4 Seconds (9.3-11.4)
[2018-11-17 12:44] LABS: INR 2.9
--- NOTE | 2018-11-17 16:01 | NUR ---
met with patient she is A/Ox4. She resides at home with son. She reports when he works she is alone during that time but has no worries. She reports steps "all over the home" and she reports she has never fallen and no problem with steps. She reports railings up/down steps. She goes to basement area to do her laundry. She uses a walker in home. She has nebulizer, oxygen, cpap, at home via [facility]. She is usu 3L at home for her home oxygen. 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 She reports she really enjoys having her HH care. She is hopeful for dc home at dc with resumed HH care. Recent dc from [facility] November 10 to home with HH. [facility] following for dc planning.
--- NOTE | 2018-11-17 16:53 | NUR ---
PATIENT ASSESSMENTS AND VITAL SIGNS DOCUMENTED. SHE DENIES PAIN. SHE HAS BEEN UP FREQUENTLY TO THE BEDSIDE COMMODE WITH ASSISTANCE. SHE IS STEADY WITH ASSISTANCE. FAMILY UPDATED ON CURRENT PLAN OF CARE AND TREATMENTS. SHE HAD A SWALLOW EVALUATION TODAY, CHANGE IN DIET NOTED, FAMILY INFORMED. NURSE TO CONTINUE TO MONITOR PATIENT STATUS.
[2018-11-17 20:46] VITALS: BP 138/48
[2018-11-18 03:18] VITALS: BP 143/45
--- NOTE | 2018-11-18 04:03 | NUR ---
pt resting quietly in room called appropriatly for help up to bsc, remains compliant with honey thick liquids, and pureed diet, bg checked at 121, no c/o pain, remains on 2L/nc refusing bipap, vss, will con't to monitor per ppoc.
[2018-11-18 07:23] VITALS: BP 151/53
[2018-11-18 07:53] LABS: INR 2.1; PROTIME 21.9 Seconds (9.3-11.4)
[2018-11-18 15:19] VITALS: BP 127/47
--- NOTE | 2018-11-18 15:38 | NUR ---
Discussed with patient therapy recommendation for post acute care. Patient is not willing. She wants to return home with HH care via [facility]. She is very pleased with HH care. Reviewed benefit of post acute and more therapy but patient adament of home. Plan home with HH [facility] at [place].
--- NOTE | 2018-11-18 18:12 | NUR ---
ASSESSMENT DOCUMENTED, VSS AND DENIES ANY DISOCMFORT.PROGRESSING TOWARD GOALS AND WILL CONTINUE WITH POC.
[2018-11-18 20:05] VITALS: BP 112/72; BP 144/75
[2018-11-19 04:45] VITALS: BP 140/60
[2018-11-19 05:07] LABS: INR 1.9
--- NOTE | 2018-11-19 05:27 | NUR ---
PT ALERT AND ORIENTED X 2. PT ANXIOUS ABOUT HER STAY HERE. REASSURED HER ABOUT HER STAY. PT DENIES ANY PAIN DISCOMFORT OR SOB. REPORTS BREATHING BETTER BTHAN PREVIOUS DAYS. FAILED SWALLOWING TEST. CURRENTLY ON MECHANICAL SOFT AND NECTER THICK DIET. NO FURTHER COMPLAINS AT THIS TIME. NO C/O NAUSEA VOMITING OR DIARRHEA . WILL CONTINUE TO FOLLOW POC.
[2018-11-19 08:44] VITALS: BP 133/47
[2018-11-19 16:59] VITALS: BP 131/45
--- NOTE | 2018-11-19 18:04 | NUR ---
ASSUMED CARE OF PT AT SHIFT CHANGE. ASSESSMENTS CHARTED. MEDS GIVEN PER AUG. PT ALERT AND ORIENTED TO SELF, PLACE, AND SITUATION, FORGETFUL OF TIME. VSS, O2 SATS WNL ON 2L O2. NO C/O PAIN, DENIES CHEST PAIN. PT UP WITH PHYSICAL THERAPY, TOLERATED WELL, WALKED WITH NURSING STAFF AROUND UNIT AND TOLERATED WELL. APPETITE ADEQUATE. WOUND CARE PERFORMED PER WOUND CARE ORDERS, Q2 TURNS ENFORCED. PT SON DISCUSSED WITH CASE MANAGEMENT REGARDING PT DESIRE FOR HOME WITH HOME HEALTH, PLAN IS FOR PT TO DC HOME WITH HOME HEALTH AND LIVE WITH SON. PT CURRENTLY RESTING IN CHAIR IN NO APPARENT DISTRESS, DENYING CONCERNS. CONTINUING TO MONITOR.
[2018-11-19 20:15] VITALS: BP 150/60
[2018-11-20] VITALS (7 sets, daily range): BP systolic 122–146; BP diastolic 47–53
[2018-11-20 04:42] LABS: CREATININE 0.7 mg/dL (0.6-1.0); MAGNESIUM 2.1 mg/dL (1.8-2.4); POTASSIUM 4.9 mmol/L (3.5-5.1)
[2018-11-20 05:16] LABS: INR 2.2; PROTIME 22.4 Seconds (9.3-11.4)
[2018-11-20 05:37] LABS: HEMATOCRIT 33.6 % (37.0-47.0); HEMOGLOBIN 10.3 gm/dL (12.0-15.0); MCH 27.6 pg (26.0-34.0); MCHC 30.8 g/dL (28.0-37.0); MCV 89.6 fL (80.0-100.0); RBC 3.75 mil/uL (4.20-5.00); WBC 7.1 thou/uL (4.0-11.0)
--- NOTE | 2018-11-20 10:03 | NUR ---
Pt wanting to dc to home with hh per [facility] today vs going to snf. Attempted to contact pt's son Stephon this morning to discuss pt's care needs as she lives with him. Unable to leave a message. Will try again later this morning. Discussed with the care team.
--- NOTE | 2018-11-20 10:03 | NUR ---
Assess for length of stay. Admitted with copd, has stage IV sarcoidosis. Has friction shearing to buttocks, seen by wound care. ST following and pt requires modified diet of mech soft, honey liquids-tolerating and was eage to eat breakfast this am. ST educated pt/son on diet precautions for home. Appears pt has had severe wt loss past few months 24lb/17%. On oral supplments of ensure pudding. No new interventions since pt with good appetite. Low nutrition risk
[2018-11-20] MEDS ORDERED: PREDNISONE 5 MG5 M1 PO (12:05)
--- NOTE | 2018-11-20 15:02 | NUR ---
ASSUMED CARE OF PT AT 0700. PT ALERT, ORIENTED TO SELF AND SOMETIMES PLACE AND TIME. PT FORGETFUL AND REQUIRES REORIENTATION. PT NEEDFUL AND DOES NOT LIKE TO BE ALONE IN HER ROOM. ON MECH ALT AND HONEY THICKS. PT DENIES SHORTNESS OF BREATH AND IS ON 2L O2. PT CONTINUES TO BE HOARSE. PT TO BE DISCHARGED HOME TO FAMILY. SON TO PICK HER UP AT 1800. VITALS WITHIN NORMAL LIMITS, BLOOD SUGAR WNL. PT WAS SINUS RHYTHM ON MONITOR. SWALLOW PRECAUTIONS MAINTAINED.
--- NOTE | 2018-11-20 15:35 | NUR ---
WOUND CARE FOLLOW UP; ROUNDING WITH DR AARON OBRIEN TODAY. PATIENT IS GOING TO BE D/C TO [facility] TODAY. FAMILY IN THE ROOM DURING ASSESSMENT. DR OBRIEN ANSWERED QUESTIONS FORM THE FAMILY. THE WOUND WAS CLEANSED AND THE DRESSING CHANGED. THE PATIENT TOLERATED WELL. PLAN ; OK TO D/C TO [facility] DR OBRIEN WILL FOLLOW THE PATIENT THERE. BILLET HEATER PRESENT
== END 2018-11-20 19:13 | disposition home health service (06) | DRG 189 ==
LOC: ER 03:50 → ICU 06:04 → 2N 06:04 → EROBS 06:04 → ICU 11:07 → 2N 11-16 17:15
PROVIDERS: Emergency Medicine; Nurse Practitioner; Nurse Practitioner Family; Pediatrics; ADMIT Internal Medicine
PROC: 5A09357 Assistance with Respiratory Ventilation, Less than 24 Consecutive Hours, Continuous Positive Airway Pressure (ICD-10-PCS; principal; 2018-11-14)
PROC: 5A09357 Assistance with Respiratory Ventilation, Less than 24 Consecutive Hours, Continuous Positive Airway Pressure (ICD-10-PCS; 2018-11-16)
DX: J96.21 Acute and chronic respiratory failure with hypoxia (principal); J15.1 Pneumonia due to Pseudomonas; G92 Toxic encephalopathy; J44.0 Chronic obstructive pulmonary disease with (acute) lower respiratory infection; J44.1 Chronic obstructive pulmonary disease with (acute) exacerbation; E87.2 Acidosis; E87.0 Hyperosmolality and hypernatremia; D68.9 Coagulation defect, unspecified; D68.59 Other primary thrombophilia; I50.32 Chronic diastolic (congestive) heart failure; Z68.1 Body mass index [BMI] 19.9 or less, adult; A31.0 Pulmonary mycobacterial infection; J96.22 Acute and chronic respiratory failure with hypercapnia; H40.9 Unspecified glaucoma; D86.9 Sarcoidosis, unspecified; I11.0 Hypertensive heart disease with heart failure; J84.10 Pulmonary fibrosis, unspecified; M62.84 Sarcopenia; E83.51 Hypocalcemia; E87.6 Hypokalemia; I27.20 Pulmonary hypertension, unspecified; G47.33 Obstructive sleep apnea (adult) (pediatric); E11.65 Type 2 diabetes mellitus with hyperglycemia; E66.9 Obesity, unspecified; Z86.14 Personal history of Methicillin resistant Staphylococcus aureus infection; Z87.442 Personal history of urinary calculi; Z86.711 Personal history of pulmonary embolism; Z99.81 Dependence on supplemental oxygen; Z87.891 Personal history of nicotine dependence; Z79.01 Long term (current) use of anticoagulants; Z79.52 Long term (current) use of systemic steroids
CPT/HCPCS: 10081; 10203

== ENCOUNTER 2019-01-07 13:08 | Emergency (ER) | payer OTHER ==
[~2019-01-07] VITALS: Ht 152.4 cm; Wt 47.6 kg
[2019-01-07 14:23] LABS: ABSOLUTE NEUTROPHILS 6.2 thou/uL (1.4-8.2); BASOPHILS 0.6 % (0.0-2.0); EOSINOPHILS 1.2 % (0.0-3.0); HEMATOCRIT 34.8 % (37.0-47.0); HEMOGLOBIN 10.8 gm/dL (12.0-15.0); LYMPHOCYTES 9.7 % (24.0-44.0); MCHC 31.1 g/dL (28.0-37.0); MCV 86.7 fL (80.0-100.0); MONOCYTES 6.6 % (1.0-8.0); PLATELET COUNT 316 thou/uL (150-400); POLYS 81.9 % (36.0-66.0); RBC 4.01 mil/uL (4.20-5.00); RDW 15.5 % (10.5-14.5); WBC 7.6 thou/uL (4.0-11.0)
[2019-01-07 14:30] LABS: ANION GAP 2 mmol/L (7-16); BUN 13 mg/dL (7-18); CALCIUM 9.5 mg/dL (8.5-10.1); CHLORIDE 107 mmol/L (98-107); CO2 42 mmol/L (21-32); CREATININE 0.8 mg/dL (0.6-1.0); GLUCOSE 156 mg/dL (74-106); POTASSIUM 3.4 mmol/L (3.5-5.1); SODIUM 151 mmol/L (136-145)
[2019-01-07 14:38] LABS: TROPONIN-I <0.06 ng/mL (<0.06)
--- NOTE | 2019-01-07 16:55 | EKG ---
[facility] [place] [address] ELECTROCARDIOGRAM REPORT Name: ARIELLE YA Room #: [facility] [id number] ������������������ Admission: 01/07/19 ������������������ Attend Phys: Discharge: ������������������ Date of : 46 Report #: [id number] ����������������������������������������������������������������� [id number] THIS REPORT FOR: //name// [facility] ED Test Date: 2019-01-07 Test Time: 13:22:51 Pat Name: ARIELLE YA Department: Room: Gender: F Yarrow Gatherer: : 1950 Requested By: Khoa Matute Order Number: [id number] MD: Kishore Vigil Measurements Intervals [place] Rate: 59 P: 31 MT: 132 QRS: -61 QRSD: 87 T: 21 QT: 446 QTc: 442 Interpretive Statements Sinus rhythm Left anterior fascicular block Poor R wave progression Compared to ECG 11/14/2018 04:24:53 No significant change was found Electronically Signed On 01-07-2019 16:55:31 CDT by Kishore Vigil [email or web address] ��������������������������������������������� <ELECTRONICALLY SIGNED> ���������������������������������������� By: Kishore Vigil MD, [facility] ��������������������������������������������� 01/07/19 1655 1322 21 Kishore Vigil MD, FACC /EPI
[2019-01-07 17:25] VITALS: BP 114/45
== END 2019-01-07 17:25 | disposition home or self-care (01) ==
LOC: ER 13:08
PROVIDERS: Emergency Medicine
DX: R06.00 Dyspnea, unspecified (principal); I10 Essential (primary) hypertension; J44.9 Chronic obstructive pulmonary disease, unspecified; G47.30 Sleep apnea, unspecified

== ENCOUNTER 2019-01-09 15:52 | Inpatient (IN) | payer OTHER ==
[~2019-01-09] VITALS: Ht 152.4 cm; Wt 59.9 kg
[2019-01-09 15:53] VITALS: BP 132/66
[2019-01-09 17:52] LABS: ABSOLUTE NEUTROPHILS 8.2 thou/uL (1.4-8.2); BASOPHILS 0.5 % (0.0-2.0); EOSINOPHILS 0.7 % (0.0-3.0); HEMATOCRIT 38.1 % (37.0-47.0); HEMOGLOBIN 11.6 gm/dL (12.0-15.0); MCH 26.7 pg (26.0-34.0); MCHC 30.5 g/dL (28.0-37.0); MCV 87.5 fL (80.0-100.0); MONOCYTES 4.8 % (1.0-8.0); PLATELET COUNT 330 thou/uL (150-400); RBC 4.35 mil/uL (4.20-5.00); RDW 15.6 % (10.5-14.5)
[2019-01-09 18:05] LABS: HCO3 37.8 mmol/L (22.0-26.0); PCO2 69.8 mmHg (35.0-45.0); PO2 82.2 mmHg (80.0-100.0); pH 7.351 (7.360-7.450); sO2 95.2 % (92.0-98.0)
[2019-01-09 18:13] LABS: ALBUMIN 2.5 g/dL (3.4-5.0); CALCIUM 8.3 mg/dL (8.5-10.1); CREATININE 0.6 mg/dL (0.6-1.0); TOTAL BILIRUBIN 0.2 mg/dL (<0.1-1.0); TOTAL PROTEIN 6.1 g/dL (6.4-8.2); TROPONIN-I 0.16 ng/mL (<0.06)
[2019-01-09 18:20] LABS: MAGNESIUM 1.9 mg/dL (1.8-2.4); POTASSIUM 3.1 mmol/L (3.5-5.1)
[2019-01-09 18:27] LABS: APTT 44.6 Seconds (24.5-32.8); PROTIME 53.5 Seconds (9.3-11.4)
[2019-01-09 18:33] LABS: INR 5.2
[2019-01-09 18:47] VITALS: BP 155/71
[2019-01-09 19:43] VITALS: BP 158/98
[2019-01-09 20:02] LABS: CHOLESTEROL 186 mg/dL (<200); HDL CHOLESTEROL 54 mg/dL (>40); LDL CHOLESTEROL 116 mg/dL (<100); TC:HDL 3.4 Ratio (Not establshd); TRIGLYCERIDE 82 mg/dL (<150); VLDL 16 mg/dL (<40)
[2019-01-09 20:06] LABS: SERUM ASSESSMENT Clear
[2019-01-09 20:25] LABS: TSH 0.659 uIU/mL (0.358-3.740)
[2019-01-09 21:19] LABS: FOLIC ACID 48.6 ng/mL (8.6-58.9)
[2019-01-10 00:31] VITALS: BP 103/74
[2019-01-10 04:17] VITALS: BP 164/50
--- NOTE | 2019-01-10 05:24 | NUR ---
ADMIT. PT NEW ADMIT OF YESTERDAY 01/09. ARRIVED ON UNIT ABOUT 1999. ALERT AND ORIENTED WITH INTERMITTENT CONFUSION.. PT WAS UPSET BECAUSE SHE HAD BEEN HERE IN THE ED ABOUT A WEEK AGO AND SENT HOME AFTER VISIT. VITALS OTHERWISE STABLE. DENIES PAIN. PRODUCTIVE COUGH WITH A FAIR TO POOR COUGH EFFORT. RECEIVING D5W AT 75/HR. PT REFUSED TO WEAR BIPAP. NO FURTHER C/O AT THIS TIME . WILL CONTINUE TO FOLLOW POC/. ,
[2019-01-10 07:31] VITALS: BP 155/136
[2019-01-10 07:35] LABS: PROTIME 52.5 Seconds (9.3-11.4)
[2019-01-10 07:45] LABS: INR 5.1
[2019-01-10 07:48] LABS: ALBUMIN 2.5 g/dL (3.4-5.0); ANION GAP 5 mmol/L (7-16); BUN 10 mg/dL (7-18); CALCIUM 8.5 mg/dL (8.5-10.1); CHLORIDE 108 mmol/L (98-107); CO2 36 mmol/L (21-32); CREATININE 0.6 mg/dL (0.6-1.0); GLUCOSE 202 mg/dL (74-106); PHOSPHORUS 3.7 mg/dL (2.5-4.9); SODIUM 149 mmol/L (136-145); TROPONIN-I <0.06 ng/mL (<0.06)
[2019-01-10 07:50] LABS: POTASSIUM 5.3 mmol/L (3.5-5.1)
--- NOTE | 2019-01-10 10:38 | 2DMMODE ---
[facility] [place] [address] 2 D/M-MODE ECHOCARDIOGRAM Name: ARIELLE YA Room #: 218-P ADM IN M.R.#: [id number] ������������� Admission: 01/09/19 ������������� Attend Phys: Bhavna David Discharge: ��� ������������� ��� Date of : 46 Date of Service: 01/10/19 [facility] �� Report #: [id number] �������� ��������������������������������������������[id number] THIS REPORT FOR: //name// APPROVED REPORT Study performed: 01/10/2019 08:59:58 EXAM: Limited 2D, Doppler, and color-flow Echocardiogram Patient Location: Bedside Room #: 214 Status: on-call BSA: 1.50 HR: 73 bpm BP: 164/50 mmHg Rhythm: NSR Other Information Study Quality: Adequate Indications Elevated troponin. (Complete echo done 10/2018) Hx: HTN, COPD, sarcoidosis. Aortic Valve AoV Peak Ben.: 1.45 m/s AO Peak Gr.: 8.36 mmHg Tricuspid Valve TR Peak Ben.: 3.36 m/s RAP Estimate: 5.00 mmHg TR Peak Gr.: 45.27 mmHg PA Pressure: 50.00 mmHg Left Ventricle The left ventricle is normal size. There is normal LV segmental wall motion. There is normal left ventricular wall thickness. Left ventricular systolic function is normal. LVEF is 60-65%. Mild diastolic dysfunction is present (impaired relaxation pattern). Right Ventricle The right ventricle is normal size. The right ventricular systolic function is normal. Aortic Valve Aortic valve is trileaflet, mildly calcified. No aortic regurgitation is present. There is no aortic valvular stenosis. [facility] [address] [place] [address] 2 D/M-MODE ECHOCARDIOGRAM Name: ARIELLE YA Room #: 218-P ADM IN M.R.#: [id number] ������������� Admission: 01/09/19 ������������� Attend Phys: Bhavna David Discharge: ��� ������������� ��� Date of : 46 Date of Service: 01/10/19 [facility] �� Report #: [id number] �������� ��������������������������������������������[id number] Mitral Valve The mitral valve is normal in structure. Mild mitral regurgitation. Tricuspid Valve The tricuspid valve is normal in structure. Mild to moderate tricuspid regurgitation. Estimated PAP is 50mmHg. Great Vessels IVC is normal in size and collapses >50% with inspiration. Pericardium There is no pericardial effusion. <Conclusion> Left ventricular systolic function is normal. There is normal LV segmental wall motion. LVEF is 60-65%. Mild diastolic dysfunction Aortic valve is trileaflet, mildly calcified. No aortic stenosis or insufficiency. The mitral valve is normal in structure. Mild mitral regurgitation. Mild to moderate tricuspid regurgitation. Estimated pulmonary artery pressure of 50mmHg. There is no pericardial effusion. ��������������������������������������������� <ELECTRONICALLY SIGNED> ���������������������������������������� By: Kishore Vigil MD, [facility] ��������������������������������������������� 01/10/19 1038 1038 1038 Kishore Vigil MD, FACC /INF
--- NOTE | 2019-01-10 11:11 | EKG ---
[facility] [address] [place] [address] ELECTROCARDIOGRAM REPORT Name: ARIELLE YA Room #: 218-P ADM IN M.R.#: [id number] ������������������ Admission: 01/09/19 ������������������ Attend Phys: Bhavna Garcia Discharge: ������������������ Date of : 46 Report #: [id number] ����������������������������������������������������������������� [id number] THIS REPORT FOR: //name// [facility] ED Test Date: 2019-01-09 Test Time: 16:09:12 Pat Name: ARIELLE YA Department: Room: 218 Gender: F Shipping Specialist: LORETTA : 1950 Requested By: Ronak Frost Order Number: [id number] MD: Kishore Vigil Measurements Intervals [place] Rate: 63 P: 49 SD: 128 QRS: -61 QRSD: 82 T: 46 QT: 426 QTc: 437 Interpretive Statements Sinus rhythm Left anterior fascicular block Poor R wave progression Compared to ECG 01/07/2019 13:22:51 no significant change was found Electronically Signed On 01-10-2019 11:10:56 CDT by Kishore Vigil [email or web address] ��������������������������������������������� <ELECTRONICALLY SIGNED> ���������������������������������������� By: Kishore Vigil MD, [facility] ��������������������������������������������� 01/10/19 1110 1609 1609 Kishore Vigil MD, [facility] /EPI
[2019-01-10 12:18] VITALS: BP 125/43
[2019-01-10 16:17] VITALS: BP 121/43
[2019-01-10 19:20] VITALS: BP 140/62
[2019-01-11 04:13] VITALS: BP 152/85; BP 185/85
--- NOTE | 2019-01-11 04:53 | NUR ---
ASSUMED CARE AT 1900. PT ALERT BUT A LITTLE CONFUSED. RECIEVING BREATHING SCHEDULED AND PT CONTINUES TO DECLINE CPAP/BIPAP. VITALS STABLE. STILL PRODUCTIVE COUGH WITH A FAIR COUGH EFFORT. C/O OF HEADACHE AND INABILITY TO SLEEP. TYLENOL AND AMBIEN GIVEN. NO FURTHER C/O OVER NIGHT. WILL CONTINUE TO FOLLOW PLAN OF CARE.
[2019-01-11 05:54] LABS: ALBUMIN 2.4 g/dL (3.4-5.0); CALCIUM 8.9 mg/dL (8.5-10.1); CREATININE 0.6 mg/dL (0.6-1.0); POTASSIUM 4.9 mmol/L (3.5-5.1)
[2019-01-11 07:32] VITALS: BP 140/48
--- NOTE | 2019-01-11 10:17 | NUR ---
PT ORIENTED TO ROOM AND UNIT. TELE APPLIED. BED LOW AND LOCKED, SIDE RAILS UPX 3, CALL LIGHT IN REACH. WILL CONTINUE TO ASSESS.
[2019-01-11 11:53] VITALS: BP 119/35
--- NOTE | 2019-01-11 16:18 | NUR ---
PT UP TO CHAIR AND BED CAHNGED. FAMILY VISITED TODAY. PT REMIANS ON OXYGEN VIA [place]. WILL CONTINUE TO ASSESS.
[2019-01-11 19:24] VITALS: BP 135/77
[2019-01-12 04:55] VITALS: BP 123/48
[2019-01-12 05:05] LABS: ALBUMIN 2.3 g/dL (3.4-5.0); ANION GAP 3 mmol/L (7-16); BUN 18 mg/dL (7-18); CALCIUM 8.4 mg/dL (8.5-10.1); CHLORIDE 106 mmol/L (98-107); CO2 36 mmol/L (21-32); CREATININE 0.6 mg/dL (0.6-1.0); GLUCOSE 130 mg/dL (74-106); PHOSPHORUS 2.7 mg/dL (2.5-4.9); POTASSIUM 4.4 mmol/L (3.5-5.1); SODIUM 145 mmol/L (136-145); TROPONIN-I <0.06 ng/mL (<0.06)
--- NOTE | 2019-01-12 07:41 | NUR ---
pt sleeping on and off thru the noc, vss, prn tylenol given for ARREDONDO, no further c/o, iv infusing in l hand, RT placed on 9L to home cpap machine and added chin strap and able to titrate down to 4l then pt agreed to bipap placement with rate at 16 and 35% O2, will con't to monitor per ppoc.
[2019-01-12 08:51] VITALS: BP 118/47; BP 188/47
[2019-01-12 09:19] LABS: PROTIME 37.6 Seconds (9.3-11.4)
[2019-01-12 09:21] LABS: INR 3.6
--- NOTE | 2019-01-12 10:44 | NUR ---
ASSUMED CARE AT 0700, SHIFT ASSESSMENT DONE, MEDS GIVEN, VSS. DENIES ANY PAIN, NAUSEA, VOMITING. ON 3L NASAL CANULA, TOLERATING WELL, SATURATING ABOVE 95%. SR TO SB ON THE MONITOR. UP WITH STANDBY ASSIST, WILL CONTINUE TO ASSESS AND ASSIST WITH ADLs NEEDED.
[2019-01-12 12:12] VITALS: BP 152/59
[2019-01-12 16:54] VITALS: BP 139/47
--- NOTE | 2019-01-12 17:47 | NUR ---
met with patient with recent dc from hospital with HH from [facility]. PIE BOTTOMER patient resides at home with son. He works during day. Patient reports her sisters are helping during the day. patient has oxygen via [place] [facility], cpap, walker at home. Discussed post acute care patient adamant she wants to return home at dc with HH care. Called son and discussed post acute care. Left list of post acute facilities in room. Plan to further discuss with son in am [facility] following.
[2019-01-12 19:56] VITALS: BP 142/50
[2019-01-13 04:17] VITALS: BP 155/54
[2019-01-13 06:27] LABS: INR 2.5; PROTIME 26.2 Seconds (9.3-11.4)
[2019-01-13 07:09] VITALS: BP 149/46
--- NOTE | 2019-01-13 07:19 | NUR ---
PT STATED SHE RESTED VERY WELL LAST EVENING, O2 SATS STAYED 95% AND GREATER, VSS,ASSISTED UP TO BSC SEVERAL TIMES THRU THE NOC, WILL CON'T TO MONITOR PER PPOC.
--- NOTE | 2019-01-13 11:36 | NUR ---
ASSUMED CARE AT 0700, SHIFT ASSESSMENT DONE, MEDS GIVEN, VSS. DENIES PAIN, NAUSEA, VOMITING. HAD A VIDEO SWALLOW EVAL DONE TODAY, DIET CHNAGED TO [facility] CHOPPED PER INSTRUCTION. REMAINS ON 3L NC. WILL CONTINUE TO ASSESS AND ASSIST WITH ADLs NEEDED.
--- NOTE | 2019-01-13 15:26 | NUR ---
sp with patient who did not recall converation yesterday regarding post acute care. Patient again wanted to review post acute list and reports she did not like care at [facility]. She wants to return home with HH. Discussed with son patients desire for home with HH. Son reports he believes post acute beneficial and interested in [facility]. Requested referral to [facility] to seek auth for dc on am.
[2019-01-13 15:57] VITALS: BP 129/63
--- NOTE | 2019-01-13 17:13 | NUR ---
FAXED REFERRAL TO [facility] SPOKE WITH VÍCTOR IN ADM SHE RECEIVED REFERRAL AND WILL REVIEW. DCP TO FOLLOW.
[2019-01-13 20:08] VITALS: BP 152/52
[2019-01-14 04:30] LABS: INR 1.9; PROTIME 19.6 Seconds (9.3-11.4)
--- NOTE | 2019-01-14 04:43 | NUR ---
ASSUMED PT CARE AT 1900. PT A/0 TO SELF, PLACE AND OCCASIONALLY TO SITUATION. VITAL SIGNS STABLE, ASSESSMENT CHARTED. NO COMPLAINTS OF PAIN. FREQUENT CHECKS. PT RESTED WELL THROUGH THE NIGHT. NO ACUTE CHANGES IN POC. WILL CONTINUE TO MONITOR.
[2019-01-14 05:43] VITALS: BP 166/55
[2019-01-14 08:20] VITALS: BP 147/57
[2019-01-14 20:00] VITALS: BP 158/52
[2019-01-15 00:53] VITALS: BP 147/57
--- NOTE | 2019-01-15 04:21 | NUR ---
ASSUMED PT CARE AT 1900. PT A/O TO SELF, PLACE AND OCCASIONALLY TO SITUATION. NIGHT PROGRESSED, PT BECAME INCREASINGLY CONFUSED. REMAINED ON 3L THROUGH THE NIGHT. VITAL SIGNS STABLE, ASSESSMENT CHARTED. REFUSED BIPAP. FALL PRECAUTIONS MAINTAINED. FREQUENT CHECKS. RESTED PROGRESSING SLOWLY TOWARD PLAN OF CARE. WILL CONTINUE TO MONITOR.
[2019-01-15 08:00] VITALS: BP 178/79
[2019-01-15 16:00] VITALS: BP 135/62
[2019-01-15 20:05] VITALS: BP 154/51
--- NOTE | 2019-01-16 03:17 | NUR ---
ASSUMED PT CARE AT 1900. PT ORIENTED TO SELF, SLEEPY, SOME CONFUSION. VITAL SIGNS STABLE, ASSESSMENT CHARTED. NO COMPLAINTS OF PAIN. FALL PRECAUTIONS MAINTAINED. PT REFUSED CPAP AT HS. PT RESTED WELL THROUGH THE NIGHT. ON 3L O2 NC. WILL CONTINUE TO CLOSELY MONITOR.
[2019-01-16 05:08] VITALS: BP 144/48
--- NOTE | 2019-01-16 07:51 | NUR ---
ASSUMED CARE OF PT APPROX 0715, READJUSTED IN BED FOR BREAKFAST, SET UP TRAY, PT IS A&0X2-3, FORGETFUL, IS NOT IMPULSIVE THUS FAR, TAKES PILLS ONE AT A TIME IN PUDDING. SEE INTERVENTIONS FOR ASSESSMENTS. WILL CONTINUE TO MONITOR, MED SURGE PT
[2019-01-16 08:21] VITALS: BP 142/61
[2019-01-16 08:42] LABS: INR 1.4; PROTIME 14.7 Seconds (9.3-11.4)
[2019-01-16 10:48] LABS: HEMATOCRIT 35.6 % (37.0-47.0); HEMOGLOBIN 11.2 gm/dL (12.0-15.0); MCHC 31.5 g/dL (28.0-37.0); MCV 85.8 fL (80.0-100.0); RBC 4.15 mil/uL (4.20-5.00); WBC 10.9 thou/uL (4.0-11.0)
[2019-01-16 11:01] LABS: ALBUMIN 2.5 g/dL (3.4-5.0); BUN 22 mg/dL (7-18); CALCIUM 8.7 mg/dL (8.5-10.1); CHLORIDE 103 mmol/L (98-107); CREATININE 0.6 mg/dL (0.6-1.0); GLUCOSE 171 mg/dL (74-106); MAGNESIUM 2.4 mg/dL (1.8-2.4); POTASSIUM 4.4 mmol/L (3.5-5.1); SGOT 15 U/L (15-37); SGPT 25 U/L (30-65); SODIUM 148 mmol/L (136-145); TOTAL BILIRUBIN 0.4 mg/dL (<0.1-1.0); TOTAL PROTEIN 5.7 g/dL (6.4-8.2)
[2019-01-16 11:03] LABS: CO2 > 45 mmol/L (21-32)
[2019-01-16 12:43] VITALS: BP 148/56
--- NOTE | 2019-01-16 14:05 | NUR ---
Chart reviewed and case discussed with the care tea. Critical CO2 today. The attending spoke with the pt's son. [facility] has obtained auth for [facility] admission this weekend if medically cleared for dc to skilled rehab. [facility] can be contacted to give report and arranged transport. Orders would need to be faxed and chart copy sent with the pt as well as dc confirmed with the pt's son. [facility] report [phone], fax [phone]
[2019-01-16 16:35] VITALS: BP 190/69
[2019-01-16 19:31] VITALS: BP 153/61
[2019-01-17 06:40] LABS: CALCIUM 8.4 mg/dL (8.5-10.1); CREATININE 0.5 mg/dL (0.6-1.0); MAGNESIUM 2.1 mg/dL (1.8-2.4)
[2019-01-17 08:15] VITALS: BP 157/58
--- NOTE | 2019-01-17 08:19 | NUR ---
ASSUME CARE 1900. PT/VITALS STABLE. DENIES ANY PAIN. MODERATE TOLERANCE TO ACTIVITY. UP WITH ASSISTANCE. A/O TO PERSON. FOLLOWS COMMANDS APPROPRIATELY BUT FORGETFUL AND CONFUSED AT TIMES. HX OF DEMENTIA. ADEQUATE REST NOTED. ASSESSMENT CHARTED. PLAN IS A POSSIBLE DISCHARGE TO [facility] AFTER ENT SEES PATIENT. WILL CONTINUE TO MONITOR AND FOLLOW WIHT POC
[2019-01-17 08:33] LABS: HEMATOCRIT 35.1 % (37.0-47.0); MCH 26.8 pg (26.0-34.0); MCHC 31.3 g/dL (28.0-37.0); MCV 85.8 fL (80.0-100.0); RBC 4.1 mil/uL (4.20-5.00); RDW 15.3 % (10.5-14.5); WBC 12.5 thou/uL (4.0-11.0)
[2019-01-17 08:48] LABS: INR 1.3
[2019-01-17 12:00] VITALS: BP 123/56
--- NOTE | 2019-01-17 13:49 | NUR ---
ASSUMED CARE AT 0700, SHIFT ASSESSMENT DONE, MEDS GIVEN, VSS. DENIES ANY PAIN, NAUSEA, VOMITING. ON 3L NC. UP WITH STANDBY, HAD TWO EPISODES OF INCONTINENECE OF URINE. SAT ON THE BEDSIDE COMMODE BUT DID NOT URINATE. WILL CONTINUE TO ASSESS AND ASSIST WITH ADLs NEEDED.
--- NOTE | 2019-01-17 14:35 | HC ---
[facility] [place] [address] CONSULTATION Name: ARIELLE YA Room #: 208-P ADM IN M.R.#: [id number] Admission: 01/09/19 ������������������ Attend Phys: Bhavna Garcia Discharge: ������������������ Date of : 46 Report #: [id number] THIS REPORT FOR: //name// CC: Bhavna Lilly DATE OF SERVICE: 01/15/2019 HISTORY OF PRESENT ILLNESS: This is a 68-year-old female patient who is unable to provide any reliable history. I talked to hospitalist, Dr. Cannon. I tried to call and reach the patient's son and I was not able to reach him. The patient talks very softly. She is not oriented. I do not know the duration of these symptoms. She does not like to go to the rehabilitation. She thinks peoples are mean to her. She will not give me much history. I reviewed the patient's record. She is admitted with shortness of breath and cough. She has a history of sarcoid and I do not know what the patient's baseline memory status is. I reviewed the patient's old records and it would appear that she was admitted with increased CO2 at one time. I do not know if this patient had an evaluation for sarcoid in the past and what her baseline status as far as mentation is concerned. REVIEW OF SYSTEMS: Positive for pulmonary fibrosis. She has been admitted to this facility with increased pCO2 even during this admission on 01/09/2019, her pCO2 was 69. A 14-point review of system was carried out from the record. This is the relevant for this patient has numerous medical problems. She has been admitted on multiple occasions with respiratory failure. She has increased pCO2. She has memory problem. It is not sure how long this memory problem is going on. She has a history of COPD. That was the relevant 14-point review. PAST MEDICAL HISTORY: Positive for sarcoid and pulmonary fibrosis. FAMILY HISTORY: Negative for any stroke. SOCIAL HISTORY: She does not smoke or drink any alcohol. PHYSICAL EXAMINATION: NEUROLOGIC: The patient's examination was pretty limited because she is not able to cooperate. She talks very softly. She thinks it is September. Cranial nerve examination II through XII was attempted. It looks like she can move all 4 extremities. She does not cooperate very well with the rest of the examination. She does not appear to be any more distress than her baseline is. VITAL SIGNS: Her blood pressure is 135/62, respirations 18, pulse is 71, and temperature is 97. [address] [address] CONSULTATION Name: ARIELLE YA Room #: [facility] IN M.R.#: [id number] Admission: 01/09/19 ������������������ Attend Phys: Bhavna Garcia Discharge: ������������������ Date of : 46 Report #: [id number] LABORATORY DATA: White count is 10. IMAGING: She did not have any imaging study of the brain. IMPRESSION: It is not possible to form any impression until we can talk to some family member. We will continue to try to reach the son. We need to see how long she has memory disturbances and then decide whether to do the workup for sarcoid or dementia. Sarcoid workup is pretty extensive, but can be done depending upon how aggressive the family need to be. RECOMMENDATIONS: 1. I will schedule an EEG. 2. I will recommend doing a CT or an MRI. 3. We will try to reach the family and see how aggressive they want to be and then decide about the studies and I will check out the patient to Dr. Ley who will take over the service tomorrow and hopefully, she can reach the family and decide about the workup depending upon what the family would like to do. ��������������������������������������������� <ELECTRONICALLY SIGNED> ���������������������������������������� By: Rome Contreras MD ��������������������������������������������� 01/17/19 1435 1832 [id number] Rome Contreras MD /nt
--- NOTE | 2019-01-17 14:36 | EEG ---
[facility] [place] [address] ELECTROENCEPHALOGRAM Name: ARIELLE YA Room #: 208-P ADM IN M.R.#: [id number] ������������������ Admission: 01/09/19 ������������������ Attend Phys: Bhavna Peter Discharge: ������������������ Date of : 46 Report #: [id number] ����������������������������������������������������������������� [id number] THIS REPORT FOR: //name// CC: Bhavna Lilly DATE OF SERVICE: 01/16/2019 INTERPRETATION: The patient is being evaluated for altered mental status. EEG was done by placing the electrodes by standard 10-20 system of electrode placement. Both referential and sequential montages were used for recording. Background activity in this patient's EEG is about 8 Hz and 30 microvolt. The patient became drowsy that is associated with bilateral slowing. Photic stimulation is unremarkable. No active epileptiform activity was noticed. IMPRESSION: Moderately abnormal EEG because it is intermixed with theta range slowing. That is a nonspecific abnormality, which can occur with dementia, encephalopathy, effect of psychotropic medication, etc. Clinical correlation is recommended. ���������������������������������������� <ELECTRONICALLY SIGNED> ���������������������������������������� By: Rome Contreras MD ��������������������������������������������� 01/17/19 1436 1742 762 Rome Contreras MD /nt
[2019-01-17 16:15] VITALS: BP 157/49
[2019-01-17 20:15] VITALS: BP 152/58
--- NOTE | 2019-01-18 02:15 | NUR ---
ASSESSMENT: PT REMAIN ALERT AND ORIENT TIMES 1-2. EASY TO REORIENT TO PLACE AND TIME. PT LIKES TO SAT ON THE SIDE OF THE BED. BED ALARM SET WITH SBA. UP WITH ONE TO THE BSC. BM TIMES TWO. PT SPEAKS OF A REPUBLICAN TO GO ON TONIGHT WHERE A LOT OF PPL WILL BE COMING TO HAVE A GOOD TIME. VSS, AFEBRILE. NOT BEING MONITORED. [facility] AND HONEY THICK LIQUIDS. UA STILL PENDING AT THIS. REFUSED BIPAP AT [facility], TOLERATING 3 LITERS, SAT PROBE PLACED ON EAR TO PREVENT PT FROM PULLING OFF OF HER FINGER. DOES NOT SEEM TO BOTHER PROBE ON EAR. SLOW PROGRESS TOWARDS DC GOALS, WILL CONTINUE TO MONITOR.
[2019-01-18 04:45] VITALS: BP 147/72
[2019-01-18 05:37] LABS: INR 1.5; PROTIME 15.6 Seconds (9.3-11.4)
[2019-01-18 05:51] LABS: HEMATOCRIT 36.5 % (37.0-47.0); HEMOGLOBIN 11.2 gm/dL (12.0-15.0); MCH 26.6 pg (26.0-34.0); MCHC 30.7 g/dL (28.0-37.0); MCV 86.6 fL (80.0-100.0); RBC 4.21 mil/uL (4.20-5.00); RDW 15.1 % (10.5-14.5); WBC 9.5 thou/uL (4.0-11.0)
[2019-01-18 05:56] LABS: ALBUMIN 2.4 g/dL (3.4-5.0); BUN 19 mg/dL (7-18); CALCIUM 8.4 mg/dL (8.5-10.1); CHLORIDE 104 mmol/L (98-107); CREATININE 0.5 mg/dL (0.6-1.0); GLUCOSE 100 mg/dL (74-106); MAGNESIUM 2.3 mg/dL (1.8-2.4); POTASSIUM 4.1 mmol/L (3.5-5.1); SGOT 25 U/L (15-37); SGPT 40 U/L (30-65); SODIUM 147 mmol/L (136-145); TOTAL BILIRUBIN 0.4 mg/dL (<0.1-1.0); TOTAL PROTEIN 5.5 g/dL (6.4-8.2)
[2019-01-18 06:02] LABS: CO2 > 45 mmol/L (21-32)
[2019-01-18 08:00] VITALS: BP 144/62
[2019-01-18] MEDS ORDERED: PANTOPRAZOLE SO40 M1 PO (08:33)
[2019-01-18] MEDS ORDERED: NYSTATIN100000 UNI SW&SWALLOW (08:34)
[2019-01-18 10:06] LABS: SYPHILIS AB Negative (Negative)
[2019-01-18 11:15] VITALS: BP 118/41
--- NOTE | 2019-01-18 12:35 | NUR ---
ASSUMED CARE AT 0700, SHIFT ASSESSMENT DONE, MEDS GIVEN, VSS. DENIES PAIN, NAUSEA, VOMITING. ALERT TO SELF ONLY. FALL PRECAUTIONS IN PLACE. ON 3L NC. DISCHARGE ORDER RECEIVED, PERIPHERAL IV WAS TAKEN OUT. [facility] IS SUPPOSED TO BALING MACHINE TENDER THE PATIENT AT 1400. WILL CONTINUE TO ASSESS AND ASSIST WITH ADLs NEEDED.
--- NOTE | 2019-01-18 14:16 | NUR ---
REPORPT CALLED AT 1400, PATIENT LEFT THE HOSPITAL WITH VOLUNTEER AT 1350.
--- NOTE | 2019-01-19 13:49 | NUR ---
PT DISCHARGED OVER WEEKEND TO [facility] FAXED DC ORDERS/SUMMARY TO FACILITY SPOKE WITH BRITTANY IN ADM SHE RECEIVED DC ORDERS.
== END 2019-01-18 13:40 | DRG 189 ==
LOC: ER 15:52 → 2N 18:39 → EROBS 18:39 → 2N 19:36
PROVIDERS: Emergency Medicine; Internal Medicine; Internal Medicine Pulmonary Disease; Nurse Practitioner Family; Psychiatry & Neurology Neurology; ADMIT Hospitalist
PROC: 5A09357 Assistance with Respiratory Ventilation, Less than 24 Consecutive Hours, Continuous Positive Airway Pressure (ICD-10-PCS; principal; 2019-01-11)
PROC: 5A09357 Assistance with Respiratory Ventilation, Less than 24 Consecutive Hours, Continuous Positive Airway Pressure (ICD-10-PCS; 2019-01-12)
PROC: 5A09357 Assistance with Respiratory Ventilation, Less than 24 Consecutive Hours, Continuous Positive Airway Pressure (ICD-10-PCS; 2019-01-13)
PROC: 5A09357 Assistance with Respiratory Ventilation, Less than 24 Consecutive Hours, Continuous Positive Airway Pressure (ICD-10-PCS; 2019-01-14)
PROC: 5A09357 Assistance with Respiratory Ventilation, Less than 24 Consecutive Hours, Continuous Positive Airway Pressure (ICD-10-PCS; 2019-01-15)
DX: J96.22 Acute and chronic respiratory failure with hypercapnia (principal); G92 Toxic encephalopathy; E43 Unspecified severe protein-calorie malnutrition; E87.0 Hyperosmolality and hypernatremia; J44.1 Chronic obstructive pulmonary disease with (acute) exacerbation; I10 Essential (primary) hypertension; H40.9 Unspecified glaucoma; J96.21 Acute and chronic respiratory failure with hypoxia; E87.6 Hypokalemia; D86.9 Sarcoidosis, unspecified; T45.515A Adverse effect of anticoagulants, initial encounter; J84.10 Pulmonary fibrosis, unspecified; E86.1 Hypovolemia; E87.5 Hyperkalemia; G47.33 Obstructive sleep apnea (adult) (pediatric); I27.20 Pulmonary hypertension, unspecified; E78.5 Hyperlipidemia, unspecified; I08.1 Rheumatic disorders of both mitral and tricuspid valves; R13.10 Dysphagia, unspecified; R49.0 Dysphonia; D72.829 Elevated white blood cell count, unspecified; F03.90 Unspecified dementia, unspecified severity, without behavioral disturbance, psychotic disturbance, mood disturbance, and anxiety; Z87.01 Personal history of pneumonia (recurrent); Z99.81 Dependence on supplemental oxygen; Z86.711 Personal history of pulmonary embolism; Z79.52 Long term (current) use of systemic steroids; Z87.442 Personal history of urinary calculi; Z87.440 Personal history of urinary (tract) infections; Z79.899 Other long term (current) drug therapy; Z79.01 Long term (current) use of anticoagulants; Y92.89 Other specified places as the place of occurrence of the external cause; Z68.25 Body mass index [BMI] 25.0-25.9, adult
CPT/HCPCS: 10081; 10194

== ENCOUNTER 2019-05-04 20:51 | Inpatient (IN) | payer OTHER ==
[~2019-05-04] VITALS: Ht 152.4 cm; Wt 53.1 kg
[~2019-05-04 20:51] MED LIST changes: +NYSTATIN100000 UNI SW&SWALLOW; +PANTOPRAZOLE SO40 M1 PO
[2019-05-04 21:00] VITALS: BP 169/71
[2019-05-04 21:32] LABS: URINE BILIRUBIN NEGATIVE (Negative); URINE BLOOD 2+ (Negative); URINE CLARITY CLEAR; URINE COLOR YELLOW; URINE GLUCOSE-RANDOM* NEGATIVE (Negative); URINE KETONES TRACE (Negative); URINE LEUKOCYTES-REFLEX NEGATIVE (Negative); URINE NITRITE-REFLEX NEGATIVE (Negative); URINE PROTEIN (DIPSTICK) 2+ (Negative); URINE SPECIFIC GRAVITY 1.025 (1.005-1.035); URINE UROBILINOGEN 0.2 E.U./dl (0.2-1.0)
[2019-05-04 21:33] LABS: BASOPHILS 0.5 % (0.0-2.0); EOSINOPHILS 0.1 % (0.0-3.0); HEMATOCRIT 36.3 % (37.0-47.0); HEMOGLOBIN 11.3 gm/dL (12.0-15.0); LYMPHOCYTES 11.8 % (24.0-44.0); MCH 26.3 pg (26.0-34.0); MCHC 31.1 g/dL (28.0-37.0); MCV 84.5 fL (80.0-100.0); MONOCYTES 11.3 % (1.0-8.0); PLATELET COUNT 221 thou/uL (150-400); POLYS 76.3 % (36.0-66.0); RDW 15.1 % (10.5-14.5); WBC 6.6 thou/uL (4.0-11.0)
[2019-05-04 21:43] LABS: BACTERIA-REFLEX 1-9 Few /HPF (None Seen); CASTS None Seen /LPF (None Seen); SQUAMOUS 0-3 Few /LPF (0-3); URINE RBC 0-2 Rare /HPF (0-2); URINE WBC-REFLEX 0-5 Rare /HPF (0-5)
[2019-05-04 21:44] LABS: AMORPHOUS URATES Moderate /LPF (None Seen)
[2019-05-04 21:46] LABS: ANION GAP 3 mmol/L (7-16); BUN 17 mg/dL (7-18); CALCIUM 9.6 mg/dL (8.5-10.1); CHLORIDE 99 mmol/L (98-107); CO2 38 mmol/L (21-32); CREATININE 0.9 mg/dL (0.6-1.0); GLUCOSE 154 mg/dL (74-106); POTASSIUM 3.2 mmol/L (3.5-5.1); SODIUM 140 mmol/L (136-145)
[2019-05-04 21:52] LABS: MAGNESIUM 1.9 mg/dL (1.8-2.4); SGOT 19 U/L (15-37); SGPT 16 U/L (30-65); TOTAL BILIRUBIN 0.9 mg/dL (<0.1-1.0); TOTAL PROTEIN 7.4 g/dL (6.4-8.2); TROPONIN-I <0.06 ng/mL (<0.06)
[2019-05-04 23:10] VITALS: BP 127/40
[2019-05-04 23:27] VITALS: BP 117/43
[2019-05-05 00:03] VITALS: BP 119/48
[2019-05-05] MEDS ORDERED: FUROSEMIDE 20 M20 MG PO (01:03)
[2019-05-05 01:04] LABS: INR 1.3
[2019-05-05] MEDS ORDERED: RAYOS5 MG PO (01:06)
[2019-05-05] MEDS ORDERED: TOPROL XL25 MG PO (01:07)
--- NOTE | 2019-05-05 01:18 | NUR ---
2345 PT ARRIVED FROM ED VIA STRETCHER IN STABLE CONDITION. PT NOW HAS BEEN R/O FOR INFLUENZA A AND B. PT PLACED ON TELE AND CONSENT SIGNED FOR INTERFERENCE KNOWLEDGE. PT ORIENTED TO ROOM. ALLOWED FOR QUESTIONS. ALL ORDERS HAVE BEEN CARRIED OUT SO FAR.
[2019-05-05 03:45] VITALS: BP 97/48
--- NOTE | 2019-05-05 04:26 | NUR ---
PT CURRENTLY SLEEPING AND HAS BEEN DROWSY SINCE ARRIVAL FROM ED TO FLOOR. PT CONTINUES WITH MAINTENANCE IVFs. CONTINUES ON 4L O2 PER NC. PENDING COLLECTION OF SPUTUM SAMPLE.
[2019-05-05 08:02] VITALS: BP 106/52
--- NOTE | 2019-05-05 08:46 | NUR ---
WILL MAKE PT NPO UNTIL SWALLOW EVALUATION DONE BY ST. [facility] CRUSHED PILLS.
[2019-05-05 11:05] LABS: BE(vivo) 6.8 mmol/L (-2 to +3); HCO3 34.4 mmol/L (22.0-26.0); PCO2 65.9 mmHg (35.0-45.0); PO2 93.5 mmHg (80.0-100.0); pH 7.335 (7.360-7.450); sO2 96.4 % (92.0-98.0)
--- NOTE | 2019-05-05 14:03 | NUR ---
INITIAL ASSESSMENT: Received high risk nursing referral. SW reviewed chart and spoke with nursing and attending physician. Pt was admitted from home due to pneumonia/AMS. SW met with pt at bedside. Introduced role of SW. Pt is alert/orientated x 4. Pt reports she lives at home with her son. Prior to admission, pt was using a walker and is on home O2 (provided by [facility]). Pt states she has O2 tubing that allows her to go all over the house. Pt has used [facility] in the past for HH services and was recently at [facility] in December of this year. Pt states she had a good experience at [facility]. ST ordered to evaluate pt. Pt agreeable with HH if needed. Pt's PCP is Dr. Pavithra Lilly. planner intern to fax HH referral to [facility] for review. SW is following to assist as needed with discharge planning.
--- NOTE | 2019-05-05 14:36 | NUR ---
DISCHARGE PLANNING. ANTICIPATED DISCHARGE TO HOME IN ONE TO TWO DAYS. HOME HEALTH RECOMMENDED AT DISCHARGE. PATIENT REFERRAL FAXED TO [facility] PER REQUEST. [facility] TO REVIEW, AWAITING RESPONSE. FOLLOWING.
--- NOTE | 2019-05-05 14:41 | NUR ---
PT IS MORE ALERT THIS AFTERNOON AND ABLE TO TAKE IN ORDERED PO DIET WELL. WILL CONTINUE TO ASSESS.
[2019-05-05 14:53] VITALS: BP 117/55
--- NOTE | 2019-05-05 17:02 | EKG ---
[place] [address] [facility] [place] [address] ELECTROCARDIOGRAM REPORT Name: ARIELLE YA Room #: 358-P ADM IN M.R.#: [id number] Admission: 05/04/19 Attend Phys: Bhavna Garcia Discharge: Date of : 46 Report #: [id number] THIS REPORT FOR: //name// [facility] ED Test Date: 2019-05-04 Test Time: 21:09:19 Pat Name: ARIELLE YA Department: Room: 358 Gender: F Craft Center Director: SHANNON : 1950 Requested By: Ronak Frost Order Number: [id number] MD: Kishore Vigil Measurements Intervals [place] Rate: 119 P: 66 LA: 117 QRS: -73 QRSD: 90 T: 95 QT: 310 QTc: 437 Interpretive Statements Sinus tachycardia Right atrial enlargement Left anterior fascicular block Poor R wave progression Compared to ECG 01/09/2019 16:09:12 Heart rate has increased Electronically Signed On 05-05-2019 17:02:01 HYDROSTATIC TUBING TESTER by Kishore Vigil [email or web address] <ELECTRONICALLY SIGNED> By: Kishore Vigil MD, [facility] 05/05/19 170 08 08 Kishore Vigil MD, [facility] /EPI
[2019-05-05 17:26] VITALS: BP 149/64
[2019-05-05 19:40] VITALS: BP 128/61
[2019-05-06 03:40] VITALS: BP 135/72
[2019-05-06 05:11] LABS: INR 1.8; PROTIME 18.4 Seconds (9.3-11.4)
--- NOTE | 2019-05-06 06:09 | NUR ---
PT MAKING PROGRESS TOWARDS GOALS. ON O2 AT 2L PER NC, THEN CPAP WITH 2L O2 BLED IN OVERNIGHT. PT HAS PREDOMINATELY NOT SLEPT THOUGHT SHE HAS WORN THEN CPAP MUCH OF THE NIGHT. LUNGS CLEAR, DIMINISHED SLIGHTLY IN BOTH WITH FAINT WHEEZE IN RLL. DENIES ANY SOA AT REST. NO PAUSES IN SPEECH OBSERVED.
[2019-05-06 07:37] VITALS: BP 130/59
--- NOTE | 2019-05-06 14:03 | NUR ---
SW reviewed chart and spoke with nursing and attending physician. Pt is progressing towards goals for discharge. Discharge home is anticipated in 1-2 days. Pt will d/c home with [facility]. liaison met with pt and family at bedside earlier today. SW is following to assist as needed with discharge planning.
[2019-05-06 16:00] VITALS: BP 121/62
--- NOTE | 2019-05-06 16:24 | NUR ---
Assumed care approx. 0700 this AM. Pt on CPAP machine at shift change then placed on 2LNC. Diaz catheter intact-will DC today per orders. Pt has complained of a nagging headache that won't subside; tylenol and tramadol administered. [facility] visited patient today and are planning on providing services at discharge. Family visited patient at bedside today. Pt progressing toward plan of care goals.
[2019-05-06 20:14] VITALS: BP 138/62
[2019-05-07 03:38] VITALS: BP 154/71
[2019-05-07 06:22] LABS: INR 2.3; PROTIME 24.2 Seconds (9.3-11.4)
[2019-05-07 07:25] VITALS: BP 152/73
--- NOTE | 2019-05-07 14:40 | NUR ---
SW reviewed chart and spoke with nursing and attending physician. Pt is progressing towards goals for discharge. Discharge home with HH is anticipated for tomorrow. [facility] SW is following to assist as needed with dishcharge planning.
[2019-05-07 15:41] VITALS: BP 154/72
--- NOTE | 2019-05-07 19:33 | NUR ---
PT ALERT AND ORIENTED TIMES FOUR. VSS, 97%2L, SR ON TELE. PT C/O BACK PAIN PAIN PATCH APPILED. PT TOLERATES MEDS AND MEALS. PT UP TO CHAIR FOR SOME PART OF THE SHIFT. PT SLOWLY PROGRESSING TOWRADS POC GOALS.
[2019-05-07 21:00] VITALS: BP 151/73
--- NOTE | 2019-05-08 03:07 | NUR ---
ASSUMED CARE FROM DAY SHIFT PT RESTING IN BED , NO CONCERNS VOICED , CPAP PLACED ON BY RESP , UP TO BSC WITH STAND BY ASSIST . TRAMDOL GIVEN FOR FLANK PAIN. [employer] UTILITY WORKER SHOWS NSR , RESTING WELL THROUGHOUT HOURLY ROUNDS, PT USING CALL LIGHT WHEN NEEDING ASSISTANCE BED ALARM ON FOR SAFETY.
[2019-05-08 03:55] VITALS: BP 140/70
[2019-05-08 05:34] LABS: INR 2.5; PROTIME 25.5 Seconds (9.3-11.4)
[2019-05-08 07:25] VITALS: BP 153/65
[2019-05-08] MEDS ORDERED: LEVAQUIN 500 M500 M2 PO (08:38)
[2019-05-08] MEDS ORDERED: TRAMADOL 50 MG50 MG PO (08:39)
[2019-05-08 09:36] VITALS: BP 153/65
--- NOTE | 2019-05-08 09:54 | NUR ---
DISCHARGE NOTE: SAE reviewed chart and spoke with nursing and attending physician. Pt is medically stable for discharge home today with services. SAE faxed final discharge orders/summary to [facility] . SAE spoke with Misael in intake at to notify of pt's discharge. Contact info for HH placed in pt's discharge summary. SAE met with pt at bedside to discuss discharge. Pt is aware and in agreement with discharge plan. Pt's son will provide transportation home. No additional SW needs identified at this time, but is available to assist should needs arise.
[2019-05-08 15:28] VITALS: BP 153/70
--- NOTE | 2019-05-08 16:37 | NUR ---
assumed patient care at 0700. a/o x3. forgetful. no disdress noted. will dc to home with HH soon.
[2019-05-08 21:07] LABS: ADENOVIRUS Negative (Negative); INFLUENZA A Negative (Negative); INFLUENZA B Negative (Negative); METAPNEUMOVIRUS Negative (Negative); PARAINFLUENZA 1 Negative (Negative); PARAINFLUENZA 2 Negative (Negative); PARAINFLUENZA 3 Negative (Negative); RHINOVIRUS Negative (Negative); RSV A Negative (Negative); RSV B Negative (Negative)
== END 2019-05-08 17:42 | disposition home health service (06) | DRG 871 ==
LOC: ER 20:51 → 3W 22:28 → EROBS 22:28 → 3W 23:27
PROVIDERS: Emergency Medicine; Nurse Practitioner Acute Care; ADMIT Hospitalist
PROC: 5A09357 Assistance with Respiratory Ventilation, Less than 24 Consecutive Hours, Continuous Positive Airway Pressure (ICD-10-PCS; principal; 2019-05-07)
PROC: 5A09357 Assistance with Respiratory Ventilation, Less than 24 Consecutive Hours, Continuous Positive Airway Pressure (ICD-10-PCS; 2019-05-08)
DX: A41.9 Sepsis, unspecified organism (principal); J96.21 Acute and chronic respiratory failure with hypoxia; G93.41 Metabolic encephalopathy; J69.0 Pneumonitis due to inhalation of food and vomit; I50.32 Chronic diastolic (congestive) heart failure; J44.0 Chronic obstructive pulmonary disease with (acute) lower respiratory infection; J84.10 Pulmonary fibrosis, unspecified; I11.0 Hypertensive heart disease with heart failure; D86.0 Sarcoidosis of lung; E87.6 Hypokalemia; G47.33 Obstructive sleep apnea (adult) (pediatric); F03.90 Unspecified dementia, unspecified severity, without behavioral disturbance, psychotic disturbance, mood disturbance, and anxiety; Z99.81 Dependence on supplemental oxygen; Z86.14 Personal history of Methicillin resistant Staphylococcus aureus infection; Z87.442 Personal history of urinary calculi; Z86.711 Personal history of pulmonary embolism; Z87.891 Personal history of nicotine dependence; Z79.1 Long term (current) use of non-steroidal anti-inflammatories (NSAID); Z79.01 Long term (current) use of anticoagulants
CPT/HCPCS: 10879

== ENCOUNTER 2019-06-03 21:15 | Emergency (ER) | payer OTHER ==
[~2019-06-03] VITALS: Ht 152.4 cm; Wt 52.2 kg
[~2019-06-03 21:15] MED LIST changes: +FUROSEMIDE 20 M20 MG PO; +RAYOS5 MG PO; +TOPROL XL25 MG PO; +TRAMADOL 50 MG50 MG PO
[2019-06-03 22:41] LABS: ABSOLUTE NEUTROPHILS 4.4 thou/uL (1.4-8.2); BASOPHILS 0.3 % (0.0-2.0); EOSINOPHILS 1.3 % (0.0-3.0); HEMATOCRIT 34.5 % (37.0-47.0); HEMOGLOBIN 10.6 gm/dL (12.0-15.0); LYMPHOCYTES 21.4 % (24.0-44.0); MCH 26.1 pg (26.0-34.0); MCHC 30.8 g/dL (28.0-37.0); MCV 84.6 fL (80.0-100.0); MONOCYTES 11.7 % (1.0-8.0); PLATELET COUNT 216 thou/uL (150-400); POLYS 65.3 % (36.0-66.0); RBC 4.07 mil/uL (4.20-5.00); RDW 15.6 % (10.5-14.5); WBC 6.7 thou/uL (4.0-11.0)
[2019-06-03 22:47] LABS: CALCIUM 9.1 mg/dL (8.5-10.1); CREATININE 0.9 mg/dL (0.6-1.0); POTASSIUM 3.6 mmol/L (3.5-5.1)
[2019-06-03 22:53] LABS: DIRECT BILIRUBIN 0.1 mg/dL (<0.1-0.3); TOTAL BILIRUBIN 0.4 mg/dL (<0.1-1.0); TOTAL PROTEIN 6.6 g/dL (6.4-8.2)
[2019-06-04 02:17] VITALS: BP 142/55
[2019-06-04] MEDS ORDERED: PREDNISONE 20 M20 MG PO (02:36)
[2019-06-04] MEDS ORDERED: ZPAK PO (02:39)
--- NOTE | 2019-06-04 17:32 | EKG ---
[place] [address] [facility] [place] [address] ELECTROCARDIOGRAM REPORT Name: ARIELLE YA [id number] Admission: 06/03/19 Attend Phys: Discharge: 06/04/19 Date of : 46 Report #: [id number] THIS REPORT FOR: //name// [facility] ED Test Date: 2019-06-03 Test Time: 22:25:05 Pat Name: ARIELLE YA Department: Room: Gender: F Personal Care Worker: TK : 1950 Requested By: Olga Stevens Order Number: [id number] MD: Kishore Vigil Measurements Intervals [place] Rate: 91 P: 12 TN: 123 QRS: -70 QRSD: 77 T: 65 QT: 365 QTc: 450 Interpretive Statements Sinus rhythm Left anterior hemiblock Poor R wave progression Compared to ECG 05/04/2019 21:09:19 No significant change was found Electronically Signed On 06-04-2019 17:31:57 DRAPERY ESTIMATOR by Kishore Vigil [email or web address] <ELECTRONICALLY SIGNED> By: Kishore Vigil MD, [facility] 06/04/19 1731 24 Kishore Vigil MD, F[facility] /EPI
== END 2019-06-04 02:47 | disposition home or self-care (01) ==
LOC: ER 21:15
PROVIDERS: Emergency Medicine
DX: J98.4 Other disorders of lung (principal); R06.02 Shortness of breath; I10 Essential (primary) hypertension; J44.9 Chronic obstructive pulmonary disease, unspecified; Z99.81 Dependence on supplemental oxygen; Z79.899 Other long term (current) drug therapy; Z79.01 Long term (current) use of anticoagulants; Z87.01 Personal history of pneumonia (recurrent)

== ENCOUNTER 2019-07-29 13:39 | Inpatient (IN) | payer OTHER ==
[~2019-07-29] VITALS: Ht 152.4 cm; Wt 56.2 kg
[2019-07-29 13:48] VITALS: BP 142/70
[2019-07-29 16:19] LABS: ABSOLUTE NEUTROPHILS 4.9 thou/uL (1.4-8.2); BASOPHILS 0.4 % (0.0-2.0); EOSINOPHILS 2.7 % (0.0-3.0); HEMATOCRIT 35.8 % (37.0-47.0); HEMOGLOBIN 10.9 gm/dL (12.0-15.0); LYMPHOCYTES 21.5 % (24.0-44.0); MCH 26.9 pg (26.0-34.0); MCHC 30.5 g/dL (28.0-37.0); MCV 88.2 fL (80.0-100.0); MONOCYTES 11.1 % (1.0-8.0); PLATELET COUNT 175 thou/uL (150-400); POLYS 64.3 % (36.0-66.0); RBC 4.06 mil/uL (4.20-5.00); RDW 16.2 % (10.5-14.5); WBC 7.7 thou/uL (4.0-11.0)
[2019-07-29 16:21] LABS: ANION GAP 1 mmol/L (7-16); BUN 16 mg/dL (7-18); CALCIUM 8.8 mg/dL (8.5-10.1); CHLORIDE 104 mmol/L (98-107); CO2 37 mmol/L (21-32); CREATININE 0.7 mg/dL (0.6-1.0); GLUCOSE 66 mg/dL (74-106); POTASSIUM 4.6 mmol/L (3.5-5.1); SODIUM 142 mmol/L (136-145)
[2019-07-29 16:34] LABS: ALBUMIN 3.1 g/dL (3.4-5.0); SGOT 25 U/L (15-37); SGPT 24 U/L (30-65); TOTAL BILIRUBIN 0.6 mg/dL (<0.1-1.0); TOTAL PROTEIN 6.1 g/dL (6.4-8.2); TROPONIN-I <0.06 ng/mL (<0.06)
[2019-07-29 18:07] LABS: BE(vivo) 7.3 mmol/L (-2 to +3); HCO3 32.7 mmol/L (22.0-26.0); PCO2 49.2 mmHg (35.0-45.0); PO2 41.9 mmHg (80.0-100.0); sO2 78.7 % (92.0-98.0)
[2019-07-29 18:33] VITALS: BP 142/70
[2019-07-29 19:23] VITALS: BP 128/53
[2019-07-29 20:00] VITALS: BP 142/97
[2019-07-29 20:06] VITALS: BP 142/97
[2019-07-30 04:45] VITALS: BP 132/72
[2019-07-30 04:45] LABS: HEMATOCRIT 35.5 % (37.0-47.0); HEMOGLOBIN 11.1 gm/dL (12.0-15.0); MCH 27.2 pg (26.0-34.0); MCHC 31.3 g/dL (28.0-37.0); MCV 86.7 fL (80.0-100.0); RBC 4.09 mil/uL (4.20-5.00); RDW 15.9 % (10.5-14.5); WBC 5.2 thou/uL (4.0-11.0)
[2019-07-30 05:08] LABS: CALCIUM 8.9 mg/dL (8.5-10.1); CREATININE 0.8 mg/dL (0.6-1.0); MAGNESIUM 2.1 mg/dL (1.8-2.4); POTASSIUM 4.3 mmol/L (3.5-5.1)
[2019-07-30 07:40] VITALS: BP 119/60
--- NOTE | 2019-07-30 07:43 | NUR ---
ADMISSION NOTE:RECEIVED REPORT FROM SHAKIR PARKER RN.PATIENT ARRIVED TO ROOM 205 AROUND 1999.PATIENT A/O X 4.UP WITH 1 ASSIST TO THE BEDSIDE COMMODE.O2 2L NC.PULMONARY CONSULTED.MONITOR SHOWS SR.ADMISSION DONE.POC CONTINUED.
[2019-07-30 08:25] LABS: BE(vivo) 7.1 mmol/L (-2 to +3); HCO3 33.7 mmol/L (22.0-26.0); PCO2 57.8 mmHg (35.0-45.0); PO2 88.9 mmHg (80.0-100.0); pH 7.384 (7.360-7.450); sO2 96.5 % (92.0-98.0)
[2019-07-30 15:40] VITALS: BP 99/77
--- NOTE | 2019-07-30 16:29 | NUR ---
PT CARE ASSUMED APPROX 0700. ASSESSMENT CHARTED. PT DENIES PAIN AND SOA. VSS. UP WITH WALKER AND MIN ASSIST. PT COMPLIANT WITH FALL PRECAUTIONS. UP TO CHAIR OR SIDE OF BED MOST OF SHIFT. EDUCATED OFTEN TODAY ABOUT MODIFIED DIET. TOLERATING POC. NO FAMILY AT BEDSIDE THIS SHIFT. NO DISTRESS NOTED.
--- NOTE | 2019-07-30 16:38 | NUR ---
Case opened to follow for dc planning. Pt admitted for copd exac. Pt known to cm from previous admissions. She was here in May 2019 and dc'd to home with hh per [facility]. Drafter Structural visited with the pt at bedside. She is a&ox4 and reports that she does not have any hh services at this time. She has home o2, cpap, rwalker and cane at home. Her o2 use is 2liters at baseline. Her son lives with her but works outside the home. Other family members provide supervision when he is at work. She reports that someone is always with her. She is receptive to having HH [facility] and wants to use [facility] again. She is being seen by therapy. Referral faxed to [facility] for possible hh referral at [facility]. Will follow.
--- NOTE | 2019-07-30 18:06 | NUR ---
PT IS CONFUSED AT BASELINE SO CODE STATUS UPDATED TO NO CODE PER HER SON/DPEFREN HOUSTON. HE REPORTED TO THIS NURSE THAT SHE HAS NOT WANTED "ANY TYPE OF RESUSCITATION FOR A LONG TIME NOW." SANTIAGO BANGURA PROVIDED WITNESS TO CODE STATUS CHANGE.
[2019-07-30 20:08] VITALS: BP 154/76
[2019-07-31 05:11] VITALS: BP 152/77
--- NOTE | 2019-07-31 06:10 | NUR ---
PATIENTS CARES WERE ASSUMED AT SHIFT CHANGE. PATIENT WAS ASSESSED AND MEDS WERE PASSED. PATIENT DID HAVE A SHORT EPISODE OF CONFUSION AT APPROX 0330. SHE THOUGHT SHE HAD SLEPT FOR DAYS AFTER GOING TO THE BATHROOM. PATIENT WAS EASILY REDIRECTED. REFILLED HER ICE WATER AND VISITED WITH HER FOR AWHILE AND SHE WENT BACK TO BED, HOURLY ROUNDS WERE DONE, THE BED IS IN A LOW AND LOCKED POSITION
[2019-07-31 07:45] VITALS: BP 140/60
[2019-07-31 08:30] VITALS: BP 140/60
[2019-07-31] MEDS ORDERED: [UNRECOGNIZED DRUG - CODE] PO (11:48)
[2019-07-31 11:50] VITALS: BP 140/60
--- NOTE | 2019-07-31 11:52 | NUR ---
Pt dcing home today. [facility] can see for hh. Dc operations planner to fax and verify hh orders. Reagan to issue a rwalker to pt prior to dc today. Script and referral faxed to intake for delievery to her hospital room willy.
[2019-07-31 12:34] VITALS: BP 140/60
[2019-07-31 13:46] VITALS: BP 140/60
--- NOTE | 2019-07-31 13:52 | NUR ---
FAXED REFERRAL TO [facility] FOR [facility] SPOKE WITH LISSETH HE RECEIVED REFERRAL AND WILL DELIVER PRIOR TO DC TODAY. [facility] SPOKE WITH MORE IN INTAKE AND RECEIVED CONFIRMATION THEY WILL NOTIFY PT'S FAMILY TIME OF VISITS.
--- NOTE | 2019-07-31 16:49 | NUR ---
PT CARE ASSUMED APPROXIMATELY 0700. PT ASSESSMENTS CHARTED. RIGHT WRIST IV INSERTED DUE TO LEFT HAND INFILTRATING. PT DENIES PAIN. PT IS CALM AND COOPERATIVE. PT IS DISCHARGING TODAY.
--- NOTE | 2019-07-31 17:43 | NUR ---
PT CARE ASSUMED APPROX 0700. ASSESSMENT CHARTED. DENIES PAIN AND SOA. VSS. UP WITH WALKER AND SBA. PT APPROVED FOR DISCHARGE. DISCHARGE EDUCATION AND PAPERWORK REVIEWED WITH PT AND PT'S SON. BOTH DENY QUESITONS OR CONCERNS REGARDING POST HOSPITAL CARES AND PHYSICIAN F/U. IV OUT, TELE BOX OFF. PT BEING ESCORTED OUT VIA WHEELCHAIR BY HOSPITAL STAFF AT THIS TIME.
== END 2019-07-31 17:49 | disposition home or self-care (01) | DRG 189 ==
LOC: ER 13:39 → 2N 17:48 → EROBS 17:48 → 2N 19:37
PROVIDERS: Emergency Medicine; ADMIT Internal Medicine
DX: J96.21 Acute and chronic respiratory failure with hypoxia (principal); J44.1 Chronic obstructive pulmonary disease with (acute) exacerbation; I50.32 Chronic diastolic (congestive) heart failure; R04.2 Hemoptysis; D86.9 Sarcoidosis, unspecified; J84.10 Pulmonary fibrosis, unspecified; J44.9 Chronic obstructive pulmonary disease, unspecified; Z96.0 Presence of urogenital implants; I11.0 Hypertensive heart disease with heart failure; Z86.711 Personal history of pulmonary embolism; Z99.81 Dependence on supplemental oxygen; Z87.01 Personal history of pneumonia (recurrent); Z87.442 Personal history of urinary calculi; Z86.14 Personal history of Methicillin resistant Staphylococcus aureus infection; Z87.440 Personal history of urinary (tract) infections; Z79.899 Other long term (current) drug therapy; Z79.01 Long term (current) use of anticoagulants; Z79.52 Long term (current) use of systemic steroids; Z87.891 Personal history of nicotine dependence
CPT/HCPCS: 10081

== ENCOUNTER 2019-08-16 12:23 | Emergency (ER) | payer OTHER ==
[~2019-08-16] VITALS: Ht 172.7 cm; Wt 55.3 kg
[~2019-08-16 12:23] MED LIST changes: +[UNRECOGNIZED DRUG - CODE] PO
[2019-08-16 12:54] LABS: ABSOLUTE NEUTROPHILS 5.8 thou/uL (1.4-8.2); BASOPHILS 0.5 % (0.0-2.0); EOSINOPHILS 1.3 % (0.0-3.0); HEMATOCRIT 37.2 % (37.0-47.0); HEMOGLOBIN 11.5 gm/dL (12.0-15.0); LYMPHOCYTES 8.5 % (24.0-44.0); MCH 27.4 pg (26.0-34.0); MCV 88.6 fL (80.0-100.0); MONOCYTES 3.3 % (1.0-8.0); PLATELET COUNT 215 thou/uL (150-400); POLYS 86.4 % (36.0-66.0); WBC 6.7 thou/uL (4.0-11.0)
[2019-08-16 13:02] LABS: ANION GAP < 0 mmol/L (7-16); BUN 14 mg/dL (7-18); CHLORIDE 104 mmol/L (98-107); CO2 43 mmol/L (21-32); CREATININE 0.9 mg/dL (0.6-1.0); GLUCOSE 138 mg/dL (74-106); POTASSIUM 4.1 mmol/L (3.5-5.1); SODIUM 145 mmol/L (136-145)
[2019-08-16 13:12] LABS: ALBUMIN 3.1 g/dL (3.4-5.0); SGOT 12 U/L (15-37); SGPT 19 U/L (30-65); TOTAL BILIRUBIN 0.4 mg/dL (<0.1-1.0); TOTAL PROTEIN 7.1 g/dL (6.4-8.2); TROPONIN-I <0.06 ng/mL (<0.06)
[2019-08-16 16:00] LABS: URINE BILIRUBIN NEGATIVE (Negative); URINE BLOOD NEGATIVE (Negative); URINE CLARITY SL CLOUDY; URINE COLOR YELLOW; URINE GLUCOSE-RANDOM* NEGATIVE (Negative); URINE KETONES NEGATIVE (Negative); URINE LEUKOCYTES-REFLEX NEGATIVE (Negative); URINE NITRITE-REFLEX NEGATIVE (Negative); URINE PROTEIN (DIPSTICK) NEGATIVE (Negative); URINE SPECIFIC GRAVITY 1.015 (1.005-1.035); URINE UROBILINOGEN 0.2 E.U./dl (0.2-1.0)
[2019-08-16 16:14] LABS: SSA (PROTEIN CONFIRMATORY) NEGATIVE (Negative)
[2019-08-16 16:39] VITALS: BP 138/59
[2019-08-16] MEDS ORDERED: DOXYCYCLINE 10100 M2 PO (16:48)
[2019-08-16] MEDS ORDERED: PREDNISONE50 MG PO (16:50)
--- NOTE | 2019-08-17 08:00 | EKG ---
[facility] [place] [address] ELECTROCARDIOGRAM REPORT Name: ARIELLE YA Room #: DEP [facility]#: [id number] Admission: 08/16/19 Attend Phys: Discharge: 08/16/19 Date of : 46 Report #: [id number] THIS REPORT FOR: cc: Pavithra Lilly MD, Karla L. MD Lundgren,Kishore Dunbar MD [facility] THIS REPORT FOR: //name// [facility] ED Test Date: 2019-08-16 Test Time: 12:59:39 Pat Name: ARIELLE YA Department: Room: Gender: Filler Block Inserter Remover: : 1950 Requested By: Stephan Colon Order Number: [id number] MD: Kishore Vigil Measurements Intervals [place] Rate: 65 P: 45 NE: 134 QRS: -55 QRSD: 83 T: 49 QT: 414 QTc: 431 Interpretive Statements Sinus rhythm Left anterior fascicular block Compared to ECG 06/03/2019 22:25:05 no significant change was found Electronically Signed On 08-17-2019 7:59:36 TOTER by Kishore Vigil [email or web address] <ELECTRONICALLY SIGNED> By: Kishore Vigil MD, [facility] 08/17/19 0759 [id number] [id number] Kishore Vigil MD, [facility] /EPI
== END 2019-08-16 16:39 | disposition home or self-care (01) ==
LOC: ER 12:23
PROVIDERS: Emergency Medicine
DX: J44.1 Chronic obstructive pulmonary disease with (acute) exacerbation (principal); I10 Essential (primary) hypertension; J44.9 Chronic obstructive pulmonary disease, unspecified; G47.30 Sleep apnea, unspecified; Z86.14 Personal history of Methicillin resistant Staphylococcus aureus infection

== ENCOUNTER 2019-12-16 08:19 | Inpatient (IN) | payer OTHER ==
[2019-12-16] VITALS (33 sets, daily range): BP systolic 98–150; BP diastolic 40–87
[~2019-12-16] VITALS: Ht 152.4 cm; Wt 50.1 kg
--- NOTE | ~2019-12-16 | EMS ---
[address] [address] EMS Patient Care Report Name: ARIELLE YA Room #: 236-P ADM IN M.R.#: [id number] Admission: 12/16/19 Attend Phys: Hansel Narayanan MD Discharge: Date of : 46 Report #: [id number] THIS REPORT FOR: //name// Report Transmitted: 12/16/2019 20:45 EMS Care Summary [place], [place] Incident [id number] @ 12/16/2019 07:24 Incident [address] [place] [address] Patient ARIELLE YA Female, 69 Years 1950 Patient Address [address] [place] [address] Patient History Chronic Obstructive Pulmonary Disease (COPD), Patient Allergies No known allergies, Patient Medications Prednisone, Furosemide, Metoprolol, Rosuvastatin, Chief Complaint SOB Disposition Transported No Lights/[place] Dispatch Reason Breathing Problem Transported To [facility] Narrative Called for SOB. Upon arrival, pt was awake and talking, moderate resp distress. 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 Her son wants her transported. Pt switched to a NRB, moved to the stair chair, EMS cot and loaded into the ambulance [place] [address] EMS Patient Care Report Name: ARIELLE YA Room #: 236-P ADM IN .R.#: [id number] Admission: 12/16/19 Attend Phys: Hansel Narayanan MD Discharge: Date of : 46 Report #: [id number] obtained. 4 lead. Duo-Neb. Attempt IV x 2. D-stick. Vitals repeated. 20g IV. 125mg Solumedrol. En route: pt appeared to be doing better. RR to [facility]. Vitals repeated. Arrived, pt taken to ER #15, pt care & report to ER staff. Initial Vitals @07:51P: 97,CO: 4,SpO2: 95, @07:55P: 204,CO: 2,SpO2: 99, @08:02P: 97,R: 40,BP: 128/59,Pain: 0/10,GCS: 13,Glucose: 111,SpO2: 98,Revised Trauma: 11,AL Suspected: false @07:52P: 98, @07:58P: 95,CO: 1,SpO2: 99, @07:53P: 97,R: 48,BP: 128/75,Pain: 0/10,CO: 4,SpO2: 98,AL Suspected: false @07:40P: 109,R: 56,BP: 180/75,Pain: 0/10,GCS: 15,SpO2: 85,Revised Trauma: 11, Assessments @07:31MENTAL:Person Oriented,Time Oriented,Place Oriented,Event Oriented,SKIN:HEENT:LUNG SOUNDS:ABDOMEN:PELVIS//GI:EXTREMITIES:Left Arm: No Abnormalities,Right Arm: No Abnormalities,Left Leg: No Abnormalities,Right Leg: No Abnormalities,PULSE:Radial: 2+ Normal,NEURO: Impression Acute Respiratory Distress (Dyspnea) Procedures @07:56Saline Lock 8cc (20 ga) Site: Forearm-RightResponse: UnchangedSucceeded@07:31ALS AssessmentResponse: UnchangedSucceeded@07:36StairchairResponse: Unchanged@07:50Saline Lock cc (18 ga) Site: Forearm-LeftResponse: UnchangedFailed@07:52Atrovent - 0.5 Milligrams (mg) - NebulizedResponse: Improved@07:38StretcherResponse: Unchanged@07:52Albuterol - 2.5 Milligrams (mg) - NebulizedResponse: Improved@07:52Saline Lock cc (18 ga) Site: Forearm-LeftResponse: UnchangedFailed@07:52Albuterol - 2.5 Milligrams (mg) - NebulizedResponse: Improved@07:58Solu-Medrol - 125 Milligrams (mg) - Intravenous (IV)Response: Improved@PTAOxygen FlowRate: 2 Device: Nasal Cannula (NC) Response: WorseFailed@07:32Oxygen FlowRate: 12 Device: Non Re-breather Mask (NRB) Response: ImprovedSucceeded Timeline LEGAL DOCUMENT ASSISTANT,Oxygen FlowRate: 2 Device: Nasal Cannula (NC) Response: WorseFailed, 07:23,Call Received 07:23,Dispatch Notified 07:24,Dispatched 07:25,En Route 07:30,On Scene 07:31,At Patient 07:31,ALS Assessment,Response: UnchangedSucceeded, [facility] [address] [place] [address] EMS Patient Care Report Name: ARIELLE YA Room #: 236-P [facility] IN M.R.#: [id number] Admission: 12/16/19 Attend Phys: Hansel Narayanan MD Discharge: Date of : 46 Report #: [id number] 07:32,Oxygen FlowRate: 12 Device: Non Re-breather Mask (NRB) Response: ImprovedSucceeded, 07:36,Stairchair,Response: Unchanged 07:38,Stretcher,Response: Unchanged 07:40,BP: 180/75 M,PULSE: 109,RR: 56 R,SPO2: 85 Ox,ETCO2: ,BG: ,PAIN: 0,GCS: 15, 07:50,Saline Lock cc 18 ga Site: Forearm-Left,Response: UnchangedFailed, 07:51,BP: / M,PULSE: 97,RR: R,SPO2: 95 Ox,ETCO2: ,BG: ,PAIN: ,GCS: , 07:52,BP: / M,PULSE: 98,RR: R,SPO2: Ox,ETCO2: ,BG: ,PAIN: ,GCS: , 07:52,Albuterol - 2.5 Milligrams (mg) - Nebulized,Response: Improved 07:52,Albuterol - 2.5 Milligrams (mg) - Nebulized,Response: Improved 07:52,Atrovent - 0.5 Milligrams (mg) - Nebulized,Response: Improved 07:52,Saline Lock cc 18 ga Site: Forearm-Left,Response: UnchangedFailed, 07:53,BP: 128/75 M,PULSE: 97,RR: 48 R,SPO2: 98 Ox,ETCO2: ,BG: ,PAIN: 0,GCS: , 07:55,BP: / M,PULSE: 204,RR: R,SPO2: 99 Ox,ETCO2: ,BG: ,PAIN: ,GCS: , 07:56,Saline Lock 8cc 20 ga Site: Forearm-Right,Response: UnchangedSucceeded, 07:58,Solu-Medrol - 125 Milligrams (mg) - Intravenous (IV),Response: Improved 07:58,BP: / M,PULSE: 95,RR: R,SPO2: 99 Ox,ETCO2: ,BG: ,PAIN: ,GCS: , 08:00,Depart Scene 08:02,BP: 128/59 M,PULSE: 97,RR: 40 R,SPO2: 98 Ox,ETCO2: ,B,PAIN: 0,GCS: 13, 08:13,At Destination 08:35,Call Closed Disclaimer v1.1 Copyright 2020 [employer] This EMS Care Summary contains data elements from the applicable legal record (which may be displayed differently). It is designed to provide pertinent information for the following purposes: continuity of care, clinical quality, and state data reporting. The complete legal record is available to ED staff and administrators of the receiving hospital in ES's Patient Tracker. All data is provided "as is."
[~2019-12-16 08:19] MED LIST changes: +DOXYCYCLINE 10100 M2 PO
[2019-12-16 08:48] LABS: HEMATOCRIT 40.6 % (37.0-47.0); HEMOGLOBIN 12.4 gm/dL (12.0-15.0); MCH 26.6 pg (26.0-34.0); MCHC 30.4 g/dL (28.0-37.0); MCV 87.5 fL (80.0-100.0); PLATELET COUNT 212 thou/uL (150-400); RBC 4.64 mil/uL (4.20-5.00); RDW 15.9 % (10.5-14.5); WBC 5.7 thou/uL (4.0-11.0)
[2019-12-16 08:54] LABS: BE(vivo) 12.8 mmol/L (-2 to +3); PCO2 VENOUS 92.2 mmHg (41.0-51.0); PO2 VENOUS 39.6 mmHg (35.0-45.0)
[2019-12-16 08:58] LABS: BUN 13 mg/dL (7-18); CALCIUM 9.2 mg/dL (8.5-10.1); CHLORIDE 103 mmol/L (98-107); CREATININE 0.8 mg/dL (0.6-1.0); GLUCOSE 106 mg/dL (74-106); POTASSIUM 3.5 mmol/L (3.5-5.1); SODIUM 145 mmol/L (136-145)
[2019-12-16 09:08] LABS: ALBUMIN 3.1 g/dL (3.4-5.0); MAGNESIUM 2.2 mg/dL (1.8-2.4); SGOT 17 U/L (15-37); SGPT 16 U/L (30-65); TOTAL BILIRUBIN 0.7 mg/dL (0.2-1.0); TROPONIN-I <0.06 ng/mL (<0.06)
[2019-12-16 09:21] LABS: URINE BILIRUBIN NEGATIVE (Negative); URINE BLOOD 1+ (Negative); URINE CLARITY CLEAR; URINE COLOR YELLOW; URINE GLUCOSE-RANDOM* NEGATIVE (Negative); URINE KETONES NEGATIVE (Negative); URINE PROTEIN (DIPSTICK) 1+ (Negative); URINE UROBILINOGEN 0.2 E.U./dl (0.2-1.0)
[2019-12-16 09:21] LABS: CO2 > 45 mmol/L (21-32)
[2019-12-16 09:23] LABS: URINE LEUKOCYTES-REFLEX 1+ (Negative); URINE NITRITE-REFLEX POSITIVE (Negative)
[2019-12-16 09:38] LABS: ABSOLUTE NEUTROPHILS 3.2 thou/uL (1.4-8.2); PLATELET ESTIMATE NORMAL
[2019-12-16 09:39] LABS: BACTERIA-REFLEX >30 Many /HPF (None Seen); CASTS None Seen /LPF (None Seen); CRYSTALS None Seen /LPF (None Seen); SQUAMOUS 0-3 Few /LPF (0-3); URINE RBC 0-2 Rare /HPF (0-2); URINE WBC-REFLEX 6-15 Few /HPF (0-5)
[2019-12-16] MEDS ORDERED: FUROSEMIDE 20 M20 M1 PO (10:39)
[2019-12-16] MEDS ORDERED: ADVIL200 M3 PO (10:40)
[2019-12-16] MEDS ORDERED: PREDNISOLONE SO10 MG PO (10:41)
--- NOTE | 2019-12-16 11:13 | NUR ---
CALLED LAB AT THIS TIME TO FIND OUT IF COVID SWAB WILL BE ON THE FIRST BATCH OR SECOND, PROVIDED PT NAME AND TIME OF COLLECTION, MICRO STATED THAT HER SWAB WILL BE STARTED IN THE 2ND BATCH WHICH USUALLY STARTS AROUND [id number]
[2019-12-16 11:32] LABS: BE(vivo) 18.5 mmol/L (-2 to +3); HCO3 50.4 mmol/L (22.0-26.0); PO2 69.9 mmHg (80.0-100.0); sO2 89.7 % (92.0-98.0)
[2019-12-16 11:34] LABS: PCO2 113.3 mmHg (35.0-45.0); pH 7.266 (7.360-7.450)
--- NOTE | 2019-12-16 13:51 | NUR ---
ASSUMED CARE OF PT ON ARRIVAL TO UNIT AT APPROX 1130. PT ON BIPAP, IN MOD RESP DISTRESS. HR 35-40's. CRITICALLY HIGH pCO2 RELAYED TO PULMONARY. IV ABX, STEROIDS, AND MAINTENANCE FLUIDS INFUSING PER ORDER. AFEBRILE. PT UNABLE TO STAY AWAKE TO RECORD ADMISSION HISTORY, QUICKLY FALLING BACK ASLEEP. HOME MEDS PLACED IN SECURITY BAG AND LEFT IN ROOM PER PHARMACIST REC. WILL CONT TO MONITOR.
--- NOTE | 2019-12-16 16:57 | EKG ---
[facility] [place] [address] ELECTROCARDIOGRAM REPORT Name: ARIELLE YA Room #: 236-P ADM IN M.R.#: [id number] Admission: 12/16/19 Attend Phys: Hansel Narayanan MD Discharge: Date of : 46 Report #: [id number] THIS REPORT FOR: cc: Pavithra Lilly MD,Pavithra Vigil,Kishore Dunbar MD [facility] ~ THIS REPORT FOR: //name// [facility] ED Test Date: 2019-12-16 Test Time: 08:42:10 Pat Name: ARIELLE YA Department: Room: 236 Gender: F Qa Software Test Engineer: azra : 1950 Requested By: Ronak Frost Order Number: [id number] MD: Kishore Vigil Measurements Intervals [place] Rate: 102 P: 62 WV: 156 QRS: -80 QRSD: 86 T: 50 QT: 362 QTc: 472 Interpretive Statements Sinus tachycardia Left anterior fascicular block Poor R wave progression Baseline wander in lead(s) I,II,aVR,V1,V2,V4 Compared to ECG 08/16/2019 12:59:39 No significant change was found Electronically Signed On 12-16-2019 16:56:41 CDT by Kishore Vigil [email or web address] <ELECTRONICALLY SIGNED> By: Kishore Vigil MD, [facility] 12/16/19 1656 1 1 Kishore Vigil MD, [facility] /EPI
--- NOTE | 2019-12-16 19:24 | NUR ---
PT RESTING IN BED. PT DID NOT RESPOND TO COMMANDS, PT DID WITHDRAWL TO TOUCH AND HAVING EYES CHECKED FOR RESPONSIVENESS TO LIGHT. PT DID RESPOND TO NURSE SQUEEZING HER HANDS BILATERALLY. LUNGS DIMINISHED. FEMALE EXTERNAL CATH INTACT. BIPAP INTACT. RR 37. TALKED WITH RT RE RR AND BIPAP ALARMS. RT PROVIDING TREATMENT. PT REMAINS IN ISOLATION, FIRST COVID TEST NEG.
[2019-12-17] VITALS (11 sets, daily range): BP systolic 118–145; BP diastolic 46–80
[2019-12-17 05:48] LABS: HEMATOCRIT 37.2 % (37.0-47.0); HEMOGLOBIN 11.4 gm/dL (12.0-15.0); MCHC 30.8 g/dL (28.0-37.0); MCV 87.8 fL (80.0-100.0); RBC 4.23 mil/uL (4.20-5.00); RDW 15.4 % (10.5-14.5); WBC 3.9 thou/uL (4.0-11.0)
[2019-12-17 06:03] LABS: BUN 22 mg/dL (7-18); CALCIUM 8.9 mg/dL (8.5-10.1); CHLORIDE 101 mmol/L (98-107); CREATININE 0.9 mg/dL (0.6-1.0); GLUCOSE 118 mg/dL (74-106); MAGNESIUM 2.2 mg/dL (1.8-2.4); POTASSIUM 4.3 mmol/L (3.5-5.1); SODIUM 147 mmol/L (136-145)
[2019-12-17 08:27] LABS: CO2 > 45 mmol/L (21-32)
--- NOTE | 2019-12-17 09:46 | NUR ---
INITIAL ASSESSMENT: SW reviewed chart and spoke with attending physician. Pt was admitted from home due to respiratory failure. Pt is in Enhanced Isolation to r/o COVID-19. First test is negative. Pt is currently requiring bipap support. Pt is on IV abx and IV steroids. Pulmonary consulted. Pt known to SW from prior hospitalizations. SW spoke with pt's dtr, Pepe via phone. Introduced role of SW. Pt is normally alert/orientated x 4. Pt lives at home with her son, Stephon. Prior to admission, pt was independent with ADLs. Pt has a cane, walker and home O2 through [employer]. No steps to enter the home or inside the home. [facility] the past and has been [facility] Pt's PCP is Dr. Pavithra Lilly. Pt's dtr states that pt and family would be open to HH or SNF in recommended. Therapy evals to be ordered when pt is able to participate. SW left voice message for pt's son, Stephon. SW is following to assist as needed with discharge planning.
[2019-12-17 10:30] LABS: BE(vivo) 18.2 mmol/L (-2 to +3); HCO3 49.4 mmol/L (22.0-26.0); sO2 96.1 % (92.0-98.0)
[2019-12-17 10:31] LABS: PCO2 105.3 mmHg (35.0-45.0); pH 7.289 (7.360-7.450)
--- NOTE | 2019-12-17 19:57 | NUR ---
PATIENT TRANSITIONED FROM BIPAP NASAL CANNULA THIS SHIFT. ABLE TO TITRATE TO 3L NC. O2 SATS 94-96% AT REST. PT DOES DESAT WITH ACTIVITY AND TALKING. NEEDS FREQUENT REMINDERS TO TAKE SLOW DEEP BREATHS. ANSWERS ORIENTATION QUESTIONS APPROPRIATELY AT BEGINNING OF SHIFT. HOWEVER, HAS INCREASED CONFUSION SHIFT PROGRESSED TOWARDS EVENING. FAMILY WAS CALLED AND GIVEN UPDATE THIS SHIFT. EDUCATION REGARDING DESIGNATED VISITOR PROVIDED TO FAMILY. PATIENT REMOVED FROM ENHANCED PRECAUTIONS THIS SHIFT PER INFECTION CONTROL.
[2019-12-18] VITALS (12 sets, daily range): BP systolic 111–149; BP diastolic 40–64
--- NOTE | 2019-12-18 06:47 | NUR ---
Patient on NC O2 6L tolerating well. Able to make needs known. Slightly confused but redirectable. Plesant demenor. No adverse event throughout the night. Intructed to take deep breath when talking so she won't desat. Patient is stable progressing towards goal.
--- NOTE | 2019-12-18 12:37 | NUR ---
SW reviewed chart and spoke with nursing and attending physician. PT/OT ordered to evaluate pt for discharge needs. Pt transferred to CCU earlier today. No weekend discharge planned. Will need insurance authorization for post acute care if needed. Pt has been to [facility] in the past. SAE is following to assist as needed with discharge planning.
--- NOTE | 2019-12-18 17:37 | NUR ---
PT TRANSFERED FROM ICU TO CCU PRIOR TO NOON MEAL. PT ALERT TO SELF, UNABLE TO STATE PLACE OR SITUATION. HX OF DEMENCIA WITH ING AT NOT PER THERAPEUTIC SALES SPECIALIST. PT IMPULSIVE. UP WITH WALKER/GATE BELT. INCONTINENET OF BLADDER. NO BM NOTED AT THIS TIME. DECLINED NOON AND EVENING MEAL VOICING THAT SHE WAS NOT HUNGRY. FLUIDS AND MEALS ENCOURAGED. BS MONITORED WNL. 3L NASAL CANNULA BASE IS 2L AT HOME. DENIES PAIN, DENIES SOB. PER CM NOTES DC LIKELY SATURDAY AT [facility]. FALL PRECAUTIONS IN PLACE. CLOSE TO NURSE STATION. STAFF TO ANTICIPATE NEEDS. PT UNABLE TO DEMONSTRATE CALL LIGHT.
[2019-12-19] VITALS (7 sets, daily range): BP systolic 116–150; BP diastolic 47–76
--- NOTE | 2019-12-19 04:44 | NUR ---
ASSUMED PT CARE AT THE CHANGE OF SHIFT, PT IS AWAKE, ALERT AND ORIENTED TO SELF, ASSESSMENTS CHARTED, SR ON THE MONITOR, PT REFUSED BIPAP,O2SATS STABLE, PT WENT TACHYPNIC AROUND 0300, RT NOTIFIED, PT AGREED TO PUT ON BIPAP UPON ENCOURAGING HER TO PUT IT ON, VITAL NSIGNS STABLE, BS STABLE, ENCOURAGED PT TO TAKE ORANGE JUICE, DENIES PAIN, RESTING IN BED, NO DISTRESS NOTED, WILL CONTINUE TO MONITOR
--- NOTE | 2019-12-19 16:29 | NUR ---
ASSUMED CARE AT CHANGE OF SHIFT. ALERT TO SELF, CONFUSED BUT RE-ORRIENTATES TO SITUATION. COMPLIANT WITH BIPAP THIS MORING WHEN RESP RATE INCREASED TO UPPER 30'S. WALKED THE ARRIETA WITH REINSURANCE ANALYST. UP TO CHAIR PRIOR TO LUNCH. POOR NUTRITIONAL INTAKE. ENCOURAGE FLUIDS AND MEALS. INCONTINENT OF BOWEL/BLADDER. STAFF TO ANTICIPATE NEEDS. CALL LIGHT AND PERSONAL ITEMS IN REACH. CONTINUE TO MONITOR.
--- NOTE | 2019-12-20 03:44 | NUR ---
PT IS ALERT TO SELF WITH SELF WITH CUNFUSION. LUNGS ARE COARSE TO DIMINISHED. ON BIPAP DURING THE NIGHT. DAY ON OXYGEN AT 2 LITERS PER NASAL CANULA. SINUS RHYTHM ON THE CONTINUITY TESTER. ABDOMEN IS SOFT. BOWELS SOUNDS ACTIVE X4 QUAD. NO PAIN NOTED. PT HAS A FEMALE CATH ON. REPOSITION AND TURN. BILAERAL EDEMA NOTED 2 PLUS. CONTINUOUS OXYGEN SATURATION ON WITH BIPAP. FREQUENT MONITORING WITH BIPAP AND OXYGEN SATURATIONS. WILL CONTINUE TO ASSESS AND MONITOR PER NURSING
[2019-12-20 03:45] VITALS: BP 140/56
--- NOTE | 2019-12-20 04:46 | NUR ---
ERROR IN ALERT TO SELF. PT IS NOT PULLING AT BIPAP AND BIPAP IS ALARMING WITH FIO2 AT 40 PERCENT. OXYGEN SATURATION IS 88 PERCENT. FLUCUATING EVEN WITH CHAGING O2 SATUATION PROBES OUT ON PT. WILL GET ABG. AND GO FROM THERE AND NOTIFY PULMONARY WITH RESULTS AND SEE WHAT IS RECOMENDED IN PTS PLAN OF CARE FOR TREATEMENT. PT IS A FULL CODE.
[2019-12-20 04:56] LABS: BE(vivo) 17.8 mmol/L (-2 to +3); HCO3 48.9 mmol/L (22.0-26.0); PO2 73.5 mmHg (80.0-100.0); sO2 91.9 % (92.0-98.0)
[2019-12-20 04:57] LABS: PCO2 102.1 mmHg (35.0-45.0); pH 7.298 (7.360-7.450)
--- NOTE | 2019-12-20 05:13 | NUR ---
PT ABG REPORTED TO DR. VARGAS PT NOT FOLLOWING ANY COMMAND OR PULLING AT BIPAP AND NO CHANGES MADE IN BIPAP PER PHYSICAN. PHYSICAN AWARE OF PT CURRENT CONDITION AND AROUSAL NOTED AND HOW IT CHANGED WITH ONCOMING SHIFT PER NURSING. AND THAT ALSO PT IS A FULL CODE AND PHYSICAN AWARE OF THIS PER REPORT GIVEN TO PHSYCIAN IN REGARDS TO PT'S MENTAL STATUS CHANGES NOTED. AND NO NEW ORDERS GIVEN PER PHYSICAN WITH IN REGARDS TO PLAN OF CARE.
[2019-12-20 07:31] VITALS: BP 146/60
[2019-12-20 11:13] VITALS: BP 144/57
[2019-12-20 16:05] VITALS: BP 129/57
[2019-12-20 20:00] VITALS: BP 126/45
[2019-12-20 20:30] VITALS: BP 145/66
--- NOTE | 2019-12-20 20:36 | NUR ---
ASSUMMED PT CARE AT APPROXIMATELY 0700. PT ALERT AND ORIENTED TO SELF, OCCASIONALLY TO PLACE. PT IMPULSIVE AT TIMES. PT C HX OF DEMENTIA. FREQUENT REORIENTATION PROVIDED. PT DENIES HAVING CHEST PAIN. PT HAS SOB ON EXERSION. O2 SATS STABLE. PT DENIES HAVING ACUTE PAIN. VITAL SIGNS STABLE. BLOOD SUGARS STABLE. PT AMBULATED MULTIPLE TIMES AROUND UNIT. PT AMBULATES STEADY C STANDBY C WALKER. PT UP TO CHAIR THROUGHOUT SHIFT. EDUCATED PT ABOUT POC. ENCOURAGED PT TO EAT AND DRINK FLUIDS. PT COMFORTABLE IN CHAIR. PT DENIES HAVING FURTHER CONCERNS.
[2019-12-21] VITALS (7 sets, daily range): BP systolic 107–143; BP diastolic 33–77
--- NOTE | 2019-12-21 03:45 | NUR ---
PT REFUSE TO WEAR HER BIPAP MCHINE THIS EVENING. AND IS ON 3 LITETRS OXYGEN NASAL CANULA. LUNGS ARE COARSE TO DIMINISHED. PT REFUSE BPIAP TO RT AND NURSING STAFF. ALERT TO SELF WITH CONFUSION. UP IN THE CHAIR THIS EVENING THEN ASSISTED TO BED X1 WITH ASSIST AND LATOYA BELT. DENIES ANY PAIN NOTED. CALL LIGHT WITHIN REACH IF NEEDS ASSSTANCE
[2019-12-21 08:42] LABS: BE(vivo) 17.9 mmol/L (-2 to +3); PO2 75.6 mmHg (80.0-100.0); pH 7.332 (7.360-7.450); sO2 93.2 % (92.0-98.0)
[2019-12-21 08:44] LABS: PCO2 92.7 mmHg (35.0-45.0)
[2019-12-21 13:32] LABS: HEMATOCRIT 39.5 % (37.0-47.0); HEMOGLOBIN 11.8 gm/dL (12.0-15.0); MCH 26.7 pg (26.0-34.0); MCV 88.9 fL (80.0-100.0); RBC 4.44 mil/uL (4.20-5.00); RDW 15.8 % (10.5-14.5); WBC 7.8 thou/uL (4.0-11.0)
[2019-12-21 13:48] LABS: ALBUMIN 2.7 g/dL (3.4-5.0); BUN 14 mg/dL (7-18); CALCIUM 8.5 mg/dL (8.5-10.1); CHLORIDE 101 mmol/L (98-107); CREATININE 0.8 mg/dL (0.6-1.0); GLUCOSE 120 mg/dL (74-106); POTASSIUM 4.3 mmol/L (3.5-5.1); SGOT 16 U/L (15-37); SGPT 18 U/L (30-65); SODIUM 144 mmol/L (136-145); TOTAL BILIRUBIN 0.3 mg/dL (0.2-1.0); TOTAL PROTEIN 6.1 g/dL (6.4-8.2)
[2019-12-21 13:51] LABS: CO2 > 45 mmol/L (21-32)
--- NOTE | 2019-12-21 18:43 | NUR ---
PT CARE ASSUMED AT 0700, PT SEEMS DROWSY AND LETHARGIC, OPEN EYES WHEN NAME CALLED OUT AND FOLLWED SOME WHAT COMMANDS. DENIES PAIN, NAUSEA AND VOMITING. PT IS ON 4L NC, NO SIGNS OF DISTRESS NOTED. DR. BENJAMIN AND DR. BALL AWARE ABOUT PT DROWSINESS, GAVE ORDERS TO PUT PT ON FACESHIELD. 1230 PT SON VISITING, UPDATED ON PT CARE 1700 PT SEEMS MORE ALERT AND AWAKE, STATES SHE WANTS TO EAT HER DINNER. NC PLACED ON PT. PT FOLLOWED ALL COMMANDS AND ALERT AND ORIENTED X3, CONTINUES TO BE FORGETFUL AT TIMES. PT TURNED EVERY 2 HOURS.
--- NOTE | 2019-12-22 01:49 | NUR ---
ASSUMED PT CARE AT APPROX 2300.PT SLEEPING AT THE TIME.PER REPORT,PT REFUSING TO WEAR HER BIPAP,SHE WAS ON 3L/NC AT START OF THIS SHIFT.PRN HALDOL ADMINISTERED AT 2330,RT WAS ABLE TO PUT PT ON HER BIPAP.PT CONT TAKES THE BIPAP OFF,SHE NEEDED CONSTANT REMINDER TO LEAVE IT ON.PT NOTED TO DESAT ONCE THE BIPAP IS OFF BUT BOUNCES BACK TO MID 90'S ONCE THE BIPAP IS BACK ON.PT SLEEPING AT THIS TIME WITH HER BIPAP ON.FALL PREACUTIONS IN PLACE,CALL LIGHT WITHIN REACH.
[2019-12-22 05:04] VITALS: BP 131/64
[2019-12-22 06:38] LABS: ABSOLUTE NEUTROPHILS 5.5 thou/uL (1.4-8.2); BASOPHILS 0.3 % (0.0-2.0); EOSINOPHILS 0.5 % (0.0-3.0); HEMATOCRIT 37.9 % (37.0-47.0); HEMOGLOBIN 11.8 gm/dL (12.0-15.0); LYMPHOCYTES 13.7 % (24.0-44.0); MCH 27.5 pg (26.0-34.0); MCHC 31.2 g/dL (28.0-37.0); PLATELET COUNT 156 thou/uL (150-400); POLYS 78.5 % (36.0-66.0); RBC 4.31 mil/uL (4.20-5.00); RDW 15.7 % (10.5-14.5); WBC 7.1 thou/uL (4.0-11.0)
[2019-12-22 06:48] LABS: HCO3 54.9 mmol/L (22.0-26.0); pH 7.335 (7.360-7.450); sO2 92.8 % (92.0-98.0)
[2019-12-22 06:55] LABS: PCO2 105.3 mmHg (35.0-45.0)
--- NOTE | 2019-12-22 07:31 | NUR ---
SPOKE WITH DR BALL IN REGARD TO [facility] CRITICAL VALUES- WE CHANGED THE MODE TO AVAPS TO SEE IF WE ARE ABLE TO REDUCE THE CO2 AND BICARB. WILL MONITOR AND SEE HOW PATIENT TOLERATES NEW MODE.
[2019-12-22 07:52] VITALS: BP 145/45
--- NOTE | 2019-12-22 10:25 | NUR ---
Patient not answering phone in room. Sp with son Stephon discussing possible need for post acute care. plan referral to [facility] where patient has been in past. RN reports she sp with patient who nodded yes she liked [facility] following.
--- NOTE | 2019-12-22 11:37 | NUR ---
09:00AM. PT. REFUSED TO WEAR HER BIPAPAVAPS MASK AT THIS TIME, BROKE IT PART AND FOUND IT ON THE GROUND. PT. ALSO WAS TRYING TO GET OUT OF BED AND CONFUSED OVERALL. COMBATIVE WITH STAFF. HAD THE [employer] HELP ME LIFT HER BACK INTO HER BED FROM THE END OF IT. PLACED HER ON A NASAL CANNULA AT 3.0 AND HER OXYGEN SATURATIONS CAME BACK UP TO 93% WHEN DOING SUCH. NEW VAGINAL URINE WHICKING SYSTEM APPLIED WELL AND IT IS WORKING ABSORBING URINE. PT. IS GENERALLY CONFUSED OVERALL.
--- NOTE | 2019-12-22 11:41 | NUR ---
PT. IS DOING BETTER NOW, NO LONGER COMBATIVE AND KEEPING HER OXYGEN ON FOR NOW. LESS CONFUSION AND ORIENTS TO SELF ONLY. SPOKE TO CASE LYNN SHE DID SAY YES WHEN I ASKED HER IF SHE WANTED TO RETURN TO [facility] AND SHARED THIS WITH LÁZARO EUBANKS.
[2019-12-22 12:30] VITALS: BP 152/50
--- NOTE | 2019-12-22 14:17 | NUR ---
FAXED REFERRAL TO [facility] SPOKE WITH VÍCTOR IN ADM SHE RECEIVED REFERRAL BUT WILL HAVE TO DENY THEY DO NOT TAKE MEDICAID SECONDARY TO [employer] AND A CONCERN ABOUT TRANSITION TO NEXT LEVEL OF CARE. DP TO FOLLOW.
--- NOTE | 2019-12-22 15:24 | NUR ---
Spoke with son reviewed [facility] unable to accept. Emailed son list of facilities for review.
[2019-12-22 16:35] LABS: ALBUMIN 2.6 g/dL (3.4-5.0); BUN 15 mg/dL (7-18); CALCIUM 8.1 mg/dL (8.5-10.1); CHLORIDE 99 mmol/L (98-107); CREATININE 0.7 mg/dL (0.6-1.0); GLUCOSE 144 mg/dL (74-106); MAGNESIUM 1.9 mg/dL (1.8-2.4); POTASSIUM 3.5 mmol/L (3.5-5.1); SGOT 24 U/L (15-37); SGPT 21 U/L (30-65); SODIUM 142 mmol/L (136-145); TOTAL BILIRUBIN 0.4 mg/dL (0.2-1.0); TOTAL PROTEIN 5.5 g/dL (6.4-8.2)
[2019-12-22 16:37] LABS: CO2 > 45 mmol/L (21-32)
[2019-12-22 17:26] VITALS: BP 146/52
[2019-12-22 21:06] VITALS: BP 126/62
--- NOTE | 2019-12-23 05:18 | NUR ---
ASSUMED PT CARE AT 1900. PT IS ALERT AND SITTING IN CHAIR. PT IS CONFUSED. PT IS ON OXYGEN. OXYGEN STAURATION IS STABLE. FALL PRECAUTION IN PLACE. CALL LIGHT WITHIN REACH. ASSESSMENT COMPLETED AND DOCUMENTED. SCHEDULED MEDS ADMINISTERED TO PT. PT TOLERATED PO INTAKE. BIPAP IS PLACED ON THE FOR THE NIGHT. PT TOLERATED BIPAP FOR THE MOST PART OF THE NIGHT. NURSING POC, CONTINEU TO MONITOR. NO FURTHER NEEDS AT THIS TIME.
[2019-12-23 06:06] VITALS: BP 134/100
[2019-12-23 08:15] VITALS: BP 128/49
--- NOTE | 2019-12-23 11:36 | NUR ---
08:00- PT. IS MUCH MORE ALERT TODAY AND WITH IT OVERALL IN RESPONDING TO QUESTIONS. PERFORMED A LINEN EXCHANGE AT THIS TIME SHE HAD SOILED HER PAD AREA. DENIES ANY SOB, DENIES AND CHEST PAIN. WILL HAVE HER AMBULATE MORE WITH PT/OT TODAY ON UNIT SHE IS MORE STABLE IN HER GAIT AND TRANSFER ABILITIES.
[2019-12-23 12:17] VITALS: BP 129/43
[2019-12-23 16:35] VITALS: BP 111/29
--- NOTE | 2019-12-23 18:25 | NUR ---
14:00 AMBULATED AROUND THE UNIT TODAY WITH PT. OT GAVE HER A BTH TODAY. UP IN CHAIR AFTER ACITIVITY TOLERATED AMBULATION WELL WITH STAFF. DENIES ANY SOB, NO CHEST PAIN.
--- NOTE | 2019-12-23 18:26 | NUR ---
18:00-RETURNED PT. TO HER BED FOR SINNER AT THIS TIME. TOLERATED TRANSGER WELL AND NO SOB OBSERVED. SHE IS FUNNY TODAY AND CRACKING JOKES WITH STAFF.
[2019-12-23 20:40] VITALS: BP 126/43
[2019-12-24 03:30] VITALS: BP 119/43
--- NOTE | 2019-12-24 04:44 | NUR ---
ASSUMED CARE 1900. PT AOX1, PLEASANT AND CONFUSED. VITALS STABLE. DENIES PAIN, CHEST OR SOB. EXTERNAL FEMALE CATHETER TO INCONTINENCE. PT DECLINED BIPAP OVERNIGHT. URINAL SAMPLE OBTAINED VIA STRAIGHT CATH. PT DENIES CONCERNS. WILL CONTINUE TO MONITOR.
[2019-12-24 05:27] LABS: URINE BILIRUBIN NEGATIVE (Negative); URINE BLOOD TRACE (Negative); URINE CLARITY CLEAR; URINE COLOR YELLOW; URINE GLUCOSE-RANDOM* NEGATIVE (Negative); URINE KETONES NEGATIVE (Negative); URINE LEUKOCYTES-REFLEX NEGATIVE (Negative); URINE NITRITE-REFLEX NEGATIVE (Negative); URINE PROTEIN (DIPSTICK) NEGATIVE (Negative); URINE SPECIFIC GRAVITY 1.025 (1.005-1.035); URINE UROBILINOGEN 0.2 E.U./dl (0.2-1.0)
[2019-12-24 07:20] VITALS: BP 136/52
[2019-12-24 12:01] VITALS: BP 134/49
--- NOTE | 2019-12-24 12:29 | NUR ---
Spoke with son this am. Referral to [facility]. [facility] choice [facility].
[2019-12-24 16:00] VITALS: BP 154/59
--- NOTE | 2019-12-24 17:12 | NUR ---
FAXED REFERRAL TO [facility] SPOKE WITH ADM LIASON AND THEY CANNOT ACCEPT THEY HAVE NO BEDS AVAILABLE. [facility]XED RE[facility]ERRAL [facility] SPOKE WITH BISMARK IN ADM SHE RECEIVED REFERRAL AND WILL REVIEW. DP TO F/U WITH FACILITY IN THE AM.
[2019-12-24 20:30] VITALS: BP 134/48
--- NOTE | 2019-12-25 03:46 | NUR ---
NO CONCERNS OVERNIGHT.NO REPORTS OF PAIN, NAUSEA OR SOB. PT STILL DECLINED TO WEAR BIPAP DURING THE NIGHT. PT PLEASANTLY CONFUSED. SR ON THE MONITOR. NO OTHER CONCERNS. WILL CONTINUE TO FOLLOW POC.
[2019-12-25 04:45] VITALS: BP 139/45
[2019-12-25 07:46] VITALS: BP 139/54
--- NOTE | 2019-12-25 09:41 | NUR ---
ASSUMED CARE AT 0700, ASSESSMENT AND VITAL SIGNS COMPLETED PER CCU PROTOCOL. DR. BENJAMIN ROUNDED, NEW ORDERS RECEIVED. PT IS VERY LETHARGIC AND DIFFICULT TO AROUSE THIS MORNING. PLAN OF CARE DISCUSSED WITH DR. BENJAMIN, RN WILL CONTINUE TO MONITOR.
[2019-12-25 10:42] LABS: BE(vivo) 21.1 mmol/L (-2 to +3); HCO3 52.6 mmol/L (22.0-26.0); PCO2 102.3 mmHg (35.0-45.0); PO2 60.6 mmHg (80.0-100.0); pH 7.329 (7.360-7.450); sO2 87.3 % (92.0-98.0)
--- NOTE | 2019-12-25 11:25 | NUR ---
FAXED THE LATEST PT/OT NOTES TO [facility] SPOKE WITH BISMARK IN ADM SHE RECEIVED NOTES AND WILL ACCEPT CLINICALLY AND WILL SUBMIT FOR AUTH PT WILL NOT DC OVER WEEKEND. DP TO FOLLOW.
[2019-12-25 13:10] VITALS: BP 146/83
[2019-12-25 14:21] LABS: HEMATOCRIT 43.2 % (37.0-47.0); HEMOGLOBIN 12.9 gm/dL (12.0-15.0); MCH 26.6 pg (26.0-34.0); MCHC 29.9 g/dL (28.0-37.0); MCV 88.9 fL (80.0-100.0); RBC 4.86 mil/uL (4.20-5.00); RDW 15.9 % (10.5-14.5)
[2019-12-25 14:33] LABS: BUN 16 mg/dL (7-18); CALCIUM 8.5 mg/dL (8.5-10.1); CHLORIDE 98 mmol/L (98-107); CREATININE 0.6 mg/dL (0.6-1.0); GLUCOSE 297 mg/dL (74-106); POTASSIUM 3.8 mmol/L (3.5-5.1); SGOT 25 U/L (15-37); SGPT 24 U/L (30-65); SODIUM 140 mmol/L (136-145); TOTAL BILIRUBIN 0.4 mg/dL (0.2-1.0); TOTAL PROTEIN 6.3 g/dL (6.4-8.2)
[2019-12-25 14:53] LABS: CO2 > 45 mmol/L (21-32)
--- NOTE | 2019-12-25 14:53 | NUR ---
SAE reviewed chart and spoke with nursing and attending physician. Pt is not ready for discharge to SNF today. [facility] does not have any beds available. [facility] can accept pt and has submitted for insurance authorization. Physicians to discuss plan of care and code status with pt's son. SW left voice message for pt's son. No weekend discharge anticipated. Will need insurance authorization for SNF. Pt will need an updated COVID-19 test prior to discharge per facility's request. SAE is follwoing to assist as needed with discharge planning.
[2019-12-25 16:39] VITALS: BP 128/62
[2019-12-25 20:20] VITALS: BP 137/63
[2019-12-26 05:45] VITALS: BP 144/66
--- NOTE | 2019-12-26 06:41 | NUR ---
ASSUMED PT CARE AT AROUND MIDNOC. PT WAS VERY RESTLESS UPTO ABOUT 0300 DESPITE BEING GIVEN TYLENOL FOR C/O HEADACHE AND ATARAX TO HELP HER RELAX AND SLEEP. SHE TOLERATES HER BIPAP.ALERT TO SELF AND VERY CONFUSED. INCONTINENT OF B/B. AFEBRILE.PROGRESSING SLOWLY.
[2019-12-26 07:42] VITALS: BP 151/60
--- NOTE | 2019-12-26 08:37 | NUR ---
REC CARE OF PT AT SHIFT CHANGE, SLEEPING WITH HER OWN SLEEP MACHINE, TOLD RESPIRATORY SHE WASN'T READY FOR IT TO BE OFF, ALERT TO SELF, BDATE, REPORTS OF IMPULSIVITY, BED ALARM ON. TURNS INITIATED BY STAFF ALTHOUGH PT MOVING FREELY IN BED, VERY CLOSE SBA TO CHAIR, MINIMAL APPETITE, CONSIDERED FOOD SET UP MERELY D/T COGNITION. SEE SEPARATE INTERVENTIONS FOR ASSESSMENTS. ENCOURAGED HER TO USE CALL LIGHT FOR ANY NEEDS AND SHE DOES
[2019-12-26 09:12] LABS: ABSOLUTE NEUTROPHILS 4.8 thou/uL (1.4-8.2); BASOPHILS 0.4 % (0.0-2.0); EOSINOPHILS 0.7 % (0.0-3.0); HEMATOCRIT 39.7 % (37.0-47.0); HEMOGLOBIN 12.2 gm/dL (12.0-15.0); LYMPHOCYTES 16.6 % (24.0-44.0); MCH 26.8 pg (26.0-34.0); MCHC 30.6 g/dL (28.0-37.0); MCV 87.7 fL (80.0-100.0); MONOCYTES 6.9 % (1.0-8.0); PLATELET COUNT 176 thou/uL (150-400); POLYS 75.4 % (36.0-66.0); RBC 4.53 mil/uL (4.20-5.00); RDW 15.6 % (10.5-14.5); WBC 6.4 thou/uL (4.0-11.0)
[2019-12-26 09:28] LABS: ALBUMIN 2.7 g/dL (3.4-5.0); BUN 17 mg/dL (7-18); CALCIUM 8.7 mg/dL (8.5-10.1); CHLORIDE 101 mmol/L (98-107); CREATININE 0.7 mg/dL (0.6-1.0); GLUCOSE 90 mg/dL (74-106); MAGNESIUM 2.2 mg/dL (1.8-2.4); PHOSPHORUS 2.2 mg/dL (2.5-4.9); POTASSIUM 3.7 mmol/L (3.5-5.1); SGOT 16 U/L (15-37); SGPT 21 U/L (30-65); SODIUM 147 mmol/L (136-145); TOTAL BILIRUBIN 0.4 mg/dL (0.2-1.0); TOTAL PROTEIN 5.7 g/dL (6.4-8.2)
[2019-12-26 09:30] LABS: CO2 > 45 mmol/L (21-32)
[2019-12-26 11:28] VITALS: BP 126/56
--- NOTE | 2019-12-26 14:01 | NUR ---
DAUGHTER'S PHONE NUMBER IS [phone]
[2019-12-26 15:24] VITALS: BP 135/64
[2019-12-26 19:13] VITALS: BP 151/60
--- NOTE | 2019-12-26 22:59 | NUR ---
ASSESSMENTS CHARTED, MEDS CHARTED GIVEN. PATIENT RESTING IN BED DURING SHIFT. ON HOME BIPAP AT NIGHT WITH 2 LITERS BLEED IN. ACHS ON SSI. NO INSULIN GIVEN. PATIENT UP TO BSC WITH ASSIST, HAD BOWEL MOVEMENTS. PLAN OF CARE IS TO TRANSFER [facility] ON SATURDAY. FALL PRECAUTIONS IN PLACE DURING SHIFT. DENIED PAIN.
[2019-12-27 03:00] VITALS: BP 151/64
--- NOTE | 2019-12-27 06:53 | NUR ---
ASSUME CARE 1900. PT VITALS STABLE. DENIES ANYU PAIN. A/O TO PERSON AND MORE CONFUSION NOTED THROUGH THE NIGHT. ASSESSMENT CHARTED. PROGRESSING WELL WITH POC. PLAN IS TO CONTINUE MONITOR RESPIRATORY FUNCTION AND DISCHARGE SATURDAY TO [facility]. WILL CONTINUE TO MONITOR AND FOLLOW WITH POC
[2019-12-27 07:29] VITALS: BP 133/63
[2019-12-27 11:34] VITALS: BP 139/65
[2019-12-27 15:55] VITALS: BP 114/67
--- NOTE | 2019-12-27 17:07 | NUR ---
ASSUMED CARE OF PATIENT AT 0700. ASSESSMENT COMPLETED. PATIENT A&O TO SELF AND SITUATION AT TIMES. PATIENT'S SON VISITED FOR 30 MIN AND URGED PATIENT TO CONTINUE BIPAP. PATIENT USED HOME BIPAP UNIT 75% OF THE DAY, AND TOLERATED WELL. . CONTINUOUS PULSE OX ON. SR ON MONITOR, SB WHILE SLEEPING. ACCU CHECKS CHANGED TO BEFORE MEALS ONLY. PATIENT HAD MULTIPLE INCONTINENT EPISODES OF URINE AND BLADDED SCANNED WITH LESS THAN 35 ML OF URINE IN BLADDER AFTER PATIENT NOTED ABDOMINAL TENDERNESS ON PHYSICAL EXAM BY DOCTOR. PATIENT TO CONTINUE WITH POC.
[2019-12-27 20:14] VITALS: BP 136/56
--- NOTE | 2019-12-28 02:52 | NUR ---
ALERT,ANSWERS QUESTIONS,FORGETFUL.ASSISTED X1 TO THE BEDSIDE COMMODE.VOIDED.ON BIPAP AND SHE'S STILL ON SO FAR.RESTING IN BED AND APPEARS TO BE SLEEPING.MONITOR SHOWS SINUS ARRHYTHMIA.POC CONTINUED.
[2019-12-28 03:23] VITALS: BP 138/65
[2019-12-28 04:32] LABS: ABSOLUTE NEUTROPHILS 5.3 thou/uL (1.4-8.2); BASOPHILS 0.2 % (0.0-2.0); EOSINOPHILS 0.8 % (0.0-3.0); HEMATOCRIT 36.4 % (37.0-47.0); HEMOGLOBIN 11.4 gm/dL (12.0-15.0); LYMPHOCYTES 12.1 % (24.0-44.0); MCH 27.6 pg (26.0-34.0); MCHC 31.4 g/dL (28.0-37.0); MCV 87.9 fL (80.0-100.0); MONOCYTES 7.9 % (1.0-8.0); PLATELET COUNT 172 thou/uL (150-400); RBC 4.14 mil/uL (4.20-5.00); WBC 6.7 thou/uL (4.0-11.0)
[2019-12-28 04:43] LABS: ALBUMIN 2.5 g/dL (3.4-5.0); BUN 16 mg/dL (7-18); CALCIUM 8.7 mg/dL (8.5-10.1); CHLORIDE 102 mmol/L (98-107); CREATININE 0.7 mg/dL (0.6-1.0); GLUCOSE 90 mg/dL (74-106); MAGNESIUM 2.1 mg/dL (1.8-2.4); PHOSPHORUS 3.4 mg/dL (2.5-4.9); POTASSIUM 3.7 mmol/L (3.5-5.1); SGOT 15 U/L (15-37); SGPT 20 U/L (30-65); SODIUM 145 mmol/L (136-145); TOTAL BILIRUBIN 0.3 mg/dL (0.2-1.0); TOTAL PROTEIN 5.6 g/dL (6.4-8.2)
[2019-12-28 05:29] LABS: CO2 > 45 mmol/L (21-32)
[2019-12-28 07:00] VITALS: BP 105/67
[2019-12-28 11:20] VITALS: BP 102/53
--- NOTE | 2019-12-28 12:36 | NUR ---
Patient cannot tolerate being off bipap. Dr Ryan consulted for goals of care. Phys plans to discuss with son. Naz updated [facility].
[2019-12-28 16:30] VITALS: BP 139/49
--- NOTE | 2019-12-28 16:51 | NUR ---
PT CARE ASSUMED APPROX 0700. ASSESSMENTS CHARTED. PT DENIES PAIN AND SOA. PT SB MOST SHIFT. ASYMPTOMATIC. VITAL SIGNS OTHERWISE STABLE. SLEPT MOST OF DAY. EASILY AROUSABLE. CONFUSED BUT FOLLOWING COMMANDS. POOR ORAL INTAKE. COMPLIANT WITH POC. NO DISTRESS NOTED.
[2019-12-28 20:39] VITALS: BP 107/45
[2019-12-29 05:16] VITALS: BP 115/3
--- NOTE | 2019-12-29 06:37 | NUR ---
ASSESSMENTS CHARTED, MEDS GIVEN. PATIENT RESTED VERY WELL DURING SHIFT. FALL PRECAUTIONS IN PLACE DURING SHIFT.
--- NOTE | 2019-12-29 07:59 | EKG ---
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: Jayson FREY : 1950 Requested By: Donna Ace Order Number: [id number] MD: Kishore Vigil Measurements Intervals [place] Rate: 50 P: 66 WI: 129 QRS: -39 QRSD: 80 T: 39 QT: 461 QTc: 421 Interpretive Statements Sinus rhythm Poor R wave progression Compared to ECG 12/16/2019 08:42:10 No significant change was found Electronically Signed On 12-29-2019 7:59:22 CDT by Kishore Vigil [email or web address] <ELECTRONICALLY SIGNED> By: Kishore Vigil MD, [facility] 12/29/19 0759 1049 1049 Kishore Vigil MD, [facility] /EPI
[2019-12-29 08:07] VITALS: BP 120/96
[2019-12-29 11:17] VITALS: BP 136/44
[2019-12-29 16:15] VITALS: BP 145/58
--- NOTE | 2019-12-29 16:18 | NUR ---
phys reports she sp with son and plan for observation of 48 hours to determine if patient improves. Updated [facility].
--- NOTE | 2019-12-29 17:01 | NUR ---
PT CARE ASSUMED APPROX 0700. ASSESSMENTS CHARTED. PT DENIES PAIN AND SOA. VSS. UP WITH P/T, /OT. PT VERY CONFUSED BUT NOT IMPULSIVE. SON RECEIVED CLINICAL UPDATE FORM DR GONZALEZ. PT TOLERATING POC. CALORIE COUNT STARTED AND DIET ADVANCED. WILL AWAIT OUTCOMES. PT TURNING SELF IN BED WITH ENCOURAGEMENT AND REMINDERS. NO DISTRESS NOTED.
[2019-12-29 20:06] VITALS: BP 116/81
[2019-12-30 05:15] VITALS: BP 138/51
[2019-12-30 07:43] VITALS: BP 137/50
--- NOTE | 2019-12-30 10:08 | NUR ---
Calorie count in progress. No menus saved, however % intake was 10% of B/L/D yesterday. Breakfast tray delivered this am, pt sleeping. Continue calorie count.
[2019-12-30 11:35] VITALS: BP 126/44
--- NOTE | 2019-12-30 15:37 | NUR ---
FAXED CLINICAL UPDATE TO [facility] SPOKE WITH BISMARK IN ADM SHE RECEIVED UPDATE. DP TO FOLLOW.
[2019-12-30 16:35] VITALS: BP 134/51
--- NOTE | 2019-12-30 17:02 | NUR ---
ASSUMMED PT CARE AT APPROXIMATELY 0700. PT ALERT AND ORIENTED TO PERSON, PLACE, AND SITUATION. PT C HX OF DEMENTIA. FREQUENT REORIENTATION PROVIDED. ENCOURAGED PT TO EAT AND DRINK FLUIDS. PT HAS LOW APPETITE. VITAL SIGNS STABLE. BLOOD SUGARS STABLE. PT AMBULATES STEADY C WALKER C ONE ASSIST. EDUCATED FAMILY AND PT ABOUT POC. PT AND PT'S FAMILY STATED UNDERSTANDING AND DENIED HAVING FURTHER QUESTIONS. PT UP TO CHAIR THROUGHOUT SHIFT. ASSESSMENT CHARTED. FALL PRECAUTIONS IN PLACE. PT COMFORTABLE. PT DENIES HAVING FURTHER CONCERNS.
[2019-12-30 19:45] VITALS: BP 127/59
--- NOTE | 2019-12-31 03:31 | NUR ---
PT IS ALERT TO SELF AND SITUATION. LUNGS ARE COARSE. PRODUCTIVE COUGH WITH CLEAR MUCUS NOTED. USES WALKER WITH NURSING ASSISTANCE. SOCKS ON AND GAIT BELT ON WITH AMBULATING. CHANGES HER OWN BREIFS. WEARS HER HOME BIPAP MACHINE AND LIKES IT BETTER THAN THE HOSPITALS OXYGEN SATURATION IS 97 PERCENT. PT IS VERY PLEASANT THIS EVENING. DENIES PAIN AND IS WATCHING SOME TV THIS MORNING. NO ISSUES OR CONCERNS NOTED.
[2019-12-31 04:11] VITALS: BP 144/58
[2019-12-31 07:40] VITALS: BP 134/57
[2019-12-31 11:25] VITALS: BP 115/56
--- NOTE | 2019-12-31 13:30 | NUR ---
Nutrition: Day 1 calorie count pt consumed 765 kcals and 32 gm protein or approx. 50% of needs. Receives supplements on all trays. Now on megace. Overall intake appears to be improved but weight continues to decline. May need supplemental tube feeds if within POC. Continue nutrition interventions, encouragement and pushing nutrient dense foods first. Plan to D/C to SNF soon.
[2019-12-31 15:25] VITALS: BP 124/52
--- NOTE | 2019-12-31 15:30 | NUR ---
Case discussed with the care team. Pt working with therapy this afternoon. SNF auth pending with [facility];however the pt's po intake remains poor. Dr Ryan to f/u with pt/son regarding plan of care. The [facility] has a bed for the pt but is needing a new auth. Therapy notes for three days faxed and they are resubmitting auth request for possible dc tomorrow or sat.
--- NOTE | 2019-12-31 16:59 | NUR ---
RECEIVED PT'S CARE AROUND 724; PT. ON BED; RESTING WITH EYES CLOSED; EQUAL CHEST PAIN NOTICED; SR ON THE MONITOR; DURING AM ASSESSMENT NO C/O PAIN; AM MEDICATIONS GIVEN; UP TO CHAIR WITH PT & OT; PER DR. GONZALEZ MONITOR BREAKFAST & LUNCH INTAKE; POOR APPETITE DURING MEALS; ENCOURAGE TO EAT; PHYSICIAN NOTIFIED; NO NEW ORDERS; HAND COKE DRAWER NOTIFIED ABOUT PT'S POOR APPETITE; ST. UNDERSTANDING; PT. ATE ICE CREAM IN BETWEEN MEALS; ASSESSMENT CHARGED; FOLLOWING POC;
[2019-12-31 20:00] VITALS: BP 101/54
--- NOTE | 2020-01-01 03:35 | NUR ---
PT IS ALERT TO SELF. SITUATION FORGETFULL AT TIMES. UP TO BATHROOM WITH ASSISTANCE AND CHANGES HER OWN BREIEFS WITH HELP FROM NURSING STAFF. WALKED ARRIET[address] WAY WITH OXYGEN AND WALKER AND MASK ON. LUNGS ARE CLEAR TO WHEEZES NOTED WEARS HER OWN BIPAP MACHINE AT BEDTIME. DENIES ANY PAIN ISSUES. AT ICE CREAM TONIGHT FOR A SNACK. PLEASANT WITH MOOD. SPONGE BATH DONE AND SHEETS CHANGED FOR PT PRIOR TO BED. CALL LIGHT WITHIN REACH IF NEEDS ASSISTANCE
[2020-01-01 07:30] VITALS: BP 124/57
[2020-01-01 11:30] VITALS: BP 140/69
[2020-01-01 15:50] VITALS: BP 117/53
[2020-01-01 19:40] VITALS: BP 153/80
--- NOTE | 2020-01-01 20:15 | NUR ---
RECEIVED PT'S CARE AROUND 0715; PT. ON BED; RESTING WITH EYES CLOSED; EQUAL CHEST RISING NOTICED; SR ON THE MONITOR; DURING AM ASSESSMENT PT. AWAKE; ALERT TO PERSON; ST. WANTS TO EAT BREAKFAST SITTING ON THE BEDSIDE; AM MEDICATIONS GIVEN; IMPROVED APPETITE; PHYSICIAN NOTIFIED DURING ROUNDINGS; PER BIKE DESIGNER NOTES SNIF ARRAGMENTS ON PLACED; PHYSICIAN NOTIFIED DURING ROUNDINGS; NO NEW ORDERS RECEIVED; PT. UP TO CHAIR WITH PT.; AROUND NOON ST. WANTS TO GO UPSTAIRS; EDUCATED ABOUT D/C PROCESS; ST. UNDERSTANDING; SR ON THE MONITOR; ASSESSMENT CHARGED; FOLLOWING POC; PASSED ON REPORT;
[2020-01-02 04:15] VITALS: BP 138/60
--- NOTE | 2020-01-02 07:50 | NUR ---
ASSUME CARE 1900. PT/VITALS STABLE. DENIES ANY PAIN. GOOD TOLERANCE TO ACTIVITY. PROGRESSING WELL WITH POC. ASSESSMENT CHARTED. RESPIRATORY FUNCTION IMPROVING. PLAN IS POSSIBLE DISCHARGE TODAY TO REHAB FOR CONTINUM OF CARE. WILL CONTINUE TO MONITOR AND FOLLOW [facility] POC
[2020-01-02 08:00] VITALS: BP 138/60
[2020-01-02 12:06] VITALS: BP 138/56
[2020-01-02 14:00] VITALS: BP 138/66
--- NOTE | 2020-01-02 17:40 | NUR ---
ASSESSMENT CHARTED. PT ALERT TO SELF WITH FORGETFULNESS. VSS. DENIED HAVING PAIN. APPETITE GOOD THIS SHIFT. NO CARDIAC OR RESPIRATORY DISTRESS NOTED. WILL CONTINUE TO MONITOR.
[2020-01-02 20:00] VITALS: BP 136/44
[2020-01-03 04:40] VITALS: BP 171/72
--- NOTE | 2020-01-03 05:54 | NUR ---
ASSUME CARE 1900. PT/VITALS STABLE. DENIES ANY PAIN. GOOD ACTIVITY TOLERANCE. ASSESSMENT CHARTED. PROGRESSING WELL WITH POC. NOTED COUGHING WITH MODERATE THICK PINK SPUTUM. NO DISTRESS NOTED. SR/SB ON MONITOR WITH HR 50s-70s. ADEQUATE REST NOTED. PLAN IS POSSIBLE DISCHARGE TO TOMORROW. WILL CONTINUE TO MONITOR AND FOLLOW WITH POC
[2020-01-03 07:40] VITALS: BP 152/60
[2020-01-03 11:30] VITALS: BP 137/56
[2020-01-03 13:59] LABS: ABSOLUTE NEUTROPHILS 9.8 thou/uL (1.4-8.2); BASOPHILS 0.1 % (0.0-2.0); EOSINOPHILS 0.3 % (0.0-3.0); HEMATOCRIT 36.2 % (37.0-47.0); HEMOGLOBIN 11.5 gm/dL (12.0-15.0); LYMPHOCYTES 4.5 % (24.0-44.0); MCH 27.7 pg (26.0-34.0); MCHC 31.7 g/dL (28.0-37.0); MCV 87.4 fL (80.0-100.0); PLATELET COUNT 214 thou/uL (150-400); POLYS 92.1 % (36.0-66.0); RBC 4.15 mil/uL (4.20-5.00); RDW 16.1 % (10.5-14.5); WBC 10.6 thou/uL (4.0-11.0)
[2020-01-03 14:07] LABS: ANION GAP < 0 mmol/L (7-16); BUN 15 mg/dL (7-18); CALCIUM 8.6 mg/dL (8.5-10.1); CHLORIDE 99 mmol/L (98-107); CO2 41 mmol/L (21-32); CREATININE 0.8 mg/dL (0.6-1.0); GLUCOSE 140 mg/dL (74-106); POTASSIUM 3.9 mmol/L (3.5-5.1); SODIUM 137 mmol/L (136-145)
[2020-01-03 15:30] VITALS: BP 101/53
--- NOTE | 2020-01-03 16:47 | NUR ---
ASSESSMENT CHARTED. PT ALERT AND ORIENTED WITH FORGETFULNESS. VSS. APPETITE GOOD. UP IN THE CHAIR THIS SHIFT. DENIED HAVING PAIN OR DISCOMFORT. NO RESPIRATORY OR CARDIAC DISTRESS NOTED. WILL CONTINUE TO MONITOR.
[2020-01-03 20:47] VITALS: BP 157/50
[2020-01-04 05:13] VITALS: BP 146/61
[2020-01-04 07:40] VITALS: BP 137/55
--- NOTE | 2020-01-04 10:01 | NUR ---
ASSUME CARE 1900. PT/VITALS STABLE. ADEQUATE REST/NO DISTRESS. DENIES ANY PAIN. PROGRESSING WELL WITH POC. ASSESSMENT CHARTED. PLAN IS POSSIBLE DISCHARGE [facility] [place]. WILL CONTINUE TO MONITRO AND FOLLOW WITH POC
[2020-01-04] MEDS ORDERED: XARELTO10 MG PO (10:25)
[2020-01-04] MEDS ORDERED: MEGESTROL40 MG/1 M1 PO (10:25)
[2020-01-04] MEDS ORDERED: NYSTATIN100000 UNI SW&SWALLOW (10:25)
[2020-01-04] MEDS ORDERED: PEPCID20 MG PO (10:25)
[2020-01-04] MEDS ORDERED: PAXIL 20 MG TAB20 M1 PO (10:25)
[2020-01-04] MEDS ORDERED: IPRAT-ALBUT 0.5-3 ML INH (10:25)
[2020-01-04] MEDS ORDERED: ACETAMINOPHEN325 M1 PO (10:25)
[2020-01-04 11:40] VITALS: BP 154/51
[2020-01-04 15:20] VITALS: BP 117/59
--- NOTE | 2020-01-04 16:39 | NUR ---
patient to dc to [facility] today. Sp with son answered mutltiple questions re discharge and visitation at facility. Son agreeable to [facility]. Chart copied. transfer forms faxed. [facility] rec auth. Notified patient and son. Son visited today. Patient in agreement with plan. No furthers needs.
--- NOTE | 2020-01-04 17:06 | NUR ---
ASSESSMENT CHARTED. PT ALERT AND ORIENTED. VSS. DENIED HAVING PAIN OR DISCOMFORT. NO RESPIRATORY OR CARDIAC DISTRESS NOTED. SEEN BY DR. GONZALEZ. ORDERS GIVEN TO DISCHARGE PT TO SNF. SON TO WELDING PROCESS ENGINEER PT'S HOME MEDS UP FROM INPATIENT PHARMACY ON 01/04/20. PHARMACY NOTIFIED. DISTRICT LEADER AWARE.
== END 2020-01-04 17:10 | DRG 871 ==
LOC: ER 08:19 → 2N 10:30 → EROBS 10:30 → ICU 10:30 → 2N 12-18 11:31
PROVIDERS: Emergency Medicine; Hospitalist; Internal Medicine; Nurse Practitioner Family; Pediatrics; ADMIT Internal Medicine; ATTEND Internal Medicine
PROC: 5A09357 Assistance with Respiratory Ventilation, Less than 24 Consecutive Hours, Continuous Positive Airway Pressure (ICD-10-PCS; principal; 2019-12-16)
PROC: 5A09357 Assistance with Respiratory Ventilation, Less than 24 Consecutive Hours, Continuous Positive Airway Pressure (ICD-10-PCS; 2019-12-17)
PROC: 5A09357 Assistance with Respiratory Ventilation, Less than 24 Consecutive Hours, Continuous Positive Airway Pressure (ICD-10-PCS; 2019-12-19)
PROC: 5A09357 Assistance with Respiratory Ventilation, Less than 24 Consecutive Hours, Continuous Positive Airway Pressure (ICD-10-PCS; 2019-12-20)
PROC: 5A09357 Assistance with Respiratory Ventilation, Less than 24 Consecutive Hours, Continuous Positive Airway Pressure (ICD-10-PCS; 2019-12-21)
PROC: 5A09357 Assistance with Respiratory Ventilation, Less than 24 Consecutive Hours, Continuous Positive Airway Pressure (ICD-10-PCS; 2019-12-22)
PROC: 5A09357 Assistance with Respiratory Ventilation, Less than 24 Consecutive Hours, Continuous Positive Airway Pressure (ICD-10-PCS; 2019-12-23)
PROC: 5A09357 Assistance with Respiratory Ventilation, Less than 24 Consecutive Hours, Continuous Positive Airway Pressure (ICD-10-PCS; 2019-12-24)
PROC: 5A09357 Assistance with Respiratory Ventilation, Less than 24 Consecutive Hours, Continuous Positive Airway Pressure (ICD-10-PCS; 2019-12-25)
PROC: 5A09357 Assistance with Respiratory Ventilation, Less than 24 Consecutive Hours, Continuous Positive Airway Pressure (ICD-10-PCS; 2019-12-26)
PROC: 5A09357 Assistance with Respiratory Ventilation, Less than 24 Consecutive Hours, Continuous Positive Airway Pressure (ICD-10-PCS; 2019-12-27)
PROC: 5A09357 Assistance with Respiratory Ventilation, Less than 24 Consecutive Hours, Continuous Positive Airway Pressure (ICD-10-PCS; 2019-12-28)
PROC: 5A09357 Assistance with Respiratory Ventilation, Less than 24 Consecutive Hours, Continuous Positive Airway Pressure (ICD-10-PCS; 2019-12-29)
PROC: 5A09357 Assistance with Respiratory Ventilation, Less than 24 Consecutive Hours, Continuous Positive Airway Pressure (ICD-10-PCS; 2019-12-30)
PROC: 5A09357 Assistance with Respiratory Ventilation, Less than 24 Consecutive Hours, Continuous Positive Airway Pressure (ICD-10-PCS; 2019-12-31)
PROC: 5A09357 Assistance with Respiratory Ventilation, Less than 24 Consecutive Hours, Continuous Positive Airway Pressure (ICD-10-PCS; 2020-01-01)
DX: A41.9 Sepsis, unspecified organism (principal); J96.21 Acute and chronic respiratory failure with hypoxia; G92 Toxic encephalopathy; E43 Unspecified severe protein-calorie malnutrition; J96.22 Acute and chronic respiratory failure with hypercapnia; I26.99 Other pulmonary embolism without acute cor pulmonale; N39.0 Urinary tract infection, site not specified; D68.59 Other primary thrombophilia; I50.32 Chronic diastolic (congestive) heart failure; J47.9 Bronchiectasis, uncomplicated; J84.10 Pulmonary fibrosis, unspecified; D86.0 Sarcoidosis of lung; Z86.711 Personal history of pulmonary embolism; I27.20 Pulmonary hypertension, unspecified; G47.33 Obstructive sleep apnea (adult) (pediatric); Z66 Do not resuscitate; B96.20 Unspecified Escherichia coli [E. coli] as the cause of diseases classified elsewhere; F03.90 Unspecified dementia, unspecified severity, without behavioral disturbance, psychotic disturbance, mood disturbance, and anxiety; E87.5 Hyperkalemia; I11.0 Hypertensive heart disease with heart failure; F41.9 Anxiety disorder, unspecified; Z20.828 Contact with and (suspected) exposure to other viral communicable diseases; Z96.89 Presence of other specified functional implants; Z87.442 Personal history of urinary calculi; Z87.898 Personal history of other specified conditions; Z87.440 Personal history of urinary (tract) infections; Z79.899 Other long term (current) drug therapy; Z87.891 Personal history of nicotine dependence; Z68.21 Body mass index [BMI] 21.0-21.9, adult; Z79.01 Long term (current) use of anticoagulants
CPT/HCPCS: 10078; 10081

== ENCOUNTER → 2020-01-26 | Outpatient (CLI) | payer OTHER ==
[~2020-01-26] MED LIST changes: +ACETAMINOPHEN325 M1 PO; +ADVIL200 M3 PO; +FUROSEMIDE 20 M20 M1 PO; +IPRAT-ALBUT 0.5-3 ML INH; +MEGESTROL40 MG/1 M1 PO; +PAXIL 20 MG TAB20 M1 PO; +PEPCID20 MG PO; +PREDNISOLONE SO10 MG PO; +XARELTO10 MG PO
== END ==
LOC: RAD 10:09
PROVIDERS: ATTEND Pediatrics
DX: J47.9 Bronchiectasis, uncomplicated (principal); D86.9 Sarcoidosis, unspecified; J98.4 Other disorders of lung

== ENCOUNTER 2020-02-27 16:27 | Emergency (ER) | payer OTHER ==
[~2020-02-27] VITALS: Ht 162.6 cm; Wt 65.8 kg
[2020-02-27 17:30] LABS: BE(vivo) 9.8 mmol/L (-2 to +3); HCO3 35.8 mmol/L (22.0-26.0); PCO2 55.1 mmHg (35.0-45.0); PO2 70.1 mmHg (80.0-100.0); pH 7.431 (7.360-7.450); sO2 94.2 % (92.0-98.0)
[2020-02-27 18:16] LABS: BASOPHILS 0.4 % (0.0-2.0); EOSINOPHILS 1.9 % (0.0-3.0); HEMATOCRIT 39.4 % (37.0-47.0); HEMOGLOBIN 12.5 gm/dL (12.0-15.0); LYMPHOCYTES 9.8 % (24.0-44.0); MCH 27.5 pg (26.0-34.0); MCHC 31.7 g/dL (28.0-37.0); MCV 86.7 fL (80.0-100.0); MONOCYTES 8.6 % (1.0-8.0); PLATELET COUNT 207 thou/uL (150-400); POLYS 79.3 % (36.0-66.0); RBC 4.55 mil/uL (4.20-5.00); RDW 15.8 % (10.5-14.5); WBC 8.9 thou/uL (4.0-11.0)
[2020-02-27 18:36] LABS: ANION GAP 4 mmol/L (7-16); BUN 16 mg/dL (7-18); CALCIUM 8.6 mg/dL (8.5-10.1); CHLORIDE 102 mmol/L (98-107); CO2 39 mmol/L (21-32); CREATININE 0.9 mg/dL (0.6-1.0); GLUCOSE 108 mg/dL (74-106); POTASSIUM 3.6 mmol/L (3.5-5.1); SODIUM 145 mmol/L (136-145)
[2020-02-27 18:42] LABS: ALBUMIN 3.4 g/dL (3.4-5.0); MAGNESIUM 2.4 mg/dL (1.8-2.4); SGOT 17 U/L (15-37); SGPT 20 U/L (30-65); TOTAL BILIRUBIN 0.7 mg/dL (0.2-1.0); TOTAL PROTEIN 7.7 g/dL (6.4-8.2); TROPONIN-I <0.06 ng/mL (<0.06)
[2020-02-27 20:04] VITALS: BP 139/57
--- NOTE | 2020-02-29 08:14 | EKG ---
[facility] [place] [address] ELECTROCARDIOGRAM REPORT Name: ARIELLE YA Room #: DEP [facility]#: [id number] Admission: 02/27/20 Attend Phys: Discharge: 02/27/20 Date of : 46 Report #: [id number] THIS REPORT FOR: cc: Pavithra Lilly MD, Karla L. MD Lundgren,Kishore Dunbar MD [facility] ~ THIS REPORT FOR: //name// [facility] ED Test Date: 2020-02-27 Test Time: 17:36:22 Pat Name: ARIELLE YA Department: Room: Gender: F Claim Manager: esheets : 1950 Requested By: Ronak Frost Order Number: [id number] MD: Kishore Vigil Measurements Intervals [place] Rate: 96 P: 74 TX: 113 QRS: -67 QRSD: 84 T: 59 QT: 361 QTc: 457 Interpretive Statements Sinus rhythm Borderline short [place] interval Left anterior fascicular block Poor R wave progression Compared to ECG 12/28/2019 10:49:27 No significant change was found Electronically Signed On 02-29-2020 8:14:24 CDT by Kishore Vigil [email or web address] <ELECTRONICALLY SIGNED> By: Kishore Vigil MD, [facility] 02/29/20 0814 1736 1736 Kishore Vigil MD, [facility] /EPI
== END 2020-02-27 20:05 | disposition still patient (30) ==
LOC: ER 16:27
PROVIDERS: Emergency Medicine
DX: D86.0 Sarcoidosis of lung (principal); I10 Essential (primary) hypertension; J44.9 Chronic obstructive pulmonary disease, unspecified; Z79.899 Other long term (current) drug therapy; Z20.828 Contact with and (suspected) exposure to other viral communicable diseases

== ENCOUNTER 2020-03-24 08:36 | Inpatient (IN) | payer OTHER ==
[2020-03-24] VITALS (12 sets, daily range): BP systolic 123–146; BP diastolic 41–77
[~2020-03-24] VITALS: Ht 152.4 cm; Wt 53.5 kg
--- NOTE | ~2020-03-24 | EMS ---
[address] [address] EMS Patient Care Report Name: ARIELLE YA [id number] Admission: 03/24/20 Attend Phys: Discharge: Date of : 46 Report #: [id number] THIS REPORT FOR: //name// Report Transmitted: 03/24/2020 08:40 EMS Care Summary [place], [place]/[facility] Incident [id number] @ 03/24/2020 07:16 Incident Location [address] [place] [address] Patient ARIELLE YA Female, 69 Years 1950 Patient Address [address] [place] [address] Patient History Other,Chronic Obstructive Pulmonary Disease (COPD),Dementia,Sarcoidosis, Patient Allergies No known allergies, Patient Medications Prednisone, Albuterol, Chief Complaint SOA Disposition Transported No Lights/[place] Dispatch Reason Breathing Problem Transported To [facility] Narrative DISPATCHED EMERGENCY ON A BREATHING PROBLEM. PUMPER 41 ON SCENE UPON ARRIVAL. 69 Y/O FEMALE SITTING ON FRONT STAIRS JUST INSIDE OF FRONT DOOR APPEARING IN MILD DISTRESS. GCS 15 AND A/OX4. CONSENTS FOR TX. BREATHING IS LABORED AND INCREASED. PT SPEAKING IN FULL SENTENCES. WHEEZING BILATERALLY UPON [address] [address] EMS Patient Care Report Name: ARIELLE YA Room #: REG Michelle#: [id number] Admission: 03/24/20 Attend Phys: Discharge: Date of : 46 Report #: [id number] AUSCULTATION. PT STATES THAT SHE HAS COPD AND TRIED TO GIVE HERSELF A TREATMENT PRIOR TO EMS ARRIVAL BUT IT DIDN'T HELP. PLACED ON MONITOR AND V/S'S OBTAINED. H/R IS INCREASED. OXYGEN SATURATION IS DECREASED. OXYGEN, ALBUTEROL, ATROVENT ADMINISTERED VIA NEBULIZER. PT STATES THAT SHE WOKE UP ABOUT 20 MINUTES AGO AND SOMETHING HAD GONE WRONG WITH HER CPAP MACHINE. SHE ATTEMPTED TO GO TO THE BATHROOM AND STARTED HAVING DIFFICULTY BREATHING. DENIES ANY OTHER COVID SYMPTOMS AND STATES SHE THINKS THIS IS PROBLEMS FROM HER COPD AND SARCOIDOSIS. PT STATES THAT SHE NEEDS TO USE THE RESTROOM. ASSISTED WITHOUT INCIDENT TO BATHROOM. DELAY ON SCENE DUE TO PT HAVING TO USE THE BATHROOM. PT CONSENTS FOR TRANSPORTATION. HOME HEALTH NURSE ARRIVES AND CALLS PT'S SON. SPOKE WITH SON AFTER PT CONSENTED FOR EMS TO SPEAK WITH SON. MOVED WITHOUT INCIDENT TO AMBULANCE VIA STRETCHER. REATTACHED TO MONITOR. PLACED ON OXYGEN VIA NRB PER PT REQUEST FOR COMFORT. IV ATTEMPTED WITHOUT ESTABLISHMENT. TRANSPORTED TO [facility]. V/S'S CONTINOUSLY MONITORED ENROUTE. REASSESSED. REMAINS GCS 15 AND ALERT. H/R, OXYGEN SATURATION AND WORK OF BREATHING IMPROVED. PT STATES SHE IS FEELING MUCH BETTER. LUNG SOUNDS ARE NOW CLEAR AND EQUAL BILATERALLY. REPORT CALLED TO HOSPITAL. MOVED WITHOUT INCIDENT TO ER HOSPITAL BED 1. PT CARE TRANSFERRED TO ED RN. Initial Vitals @07:34P: 137,CO: 0,SpO2: 98, @08:12P: 102,R: 20,BP: 127/63,Pain: 0/10,GCS: 15,SpO2: 93,Revised Trauma: 12,IA Suspected: false @07:40P: 109,R: 20,BP: 109/62,Pain: 0/10,GCS: 15,SpO2: 100,Revised Trauma: 12,IA Suspected: false @07:23P: 130,R: 24,BP: 189/81,Pain: 0/10,GCS: 15,SpO2: 88,Revised Trauma: 12, @08:19P: 94,R: 18,BP: 126/77,Pain: 0/10,GCS: 15,CO: 0,SpO2: 100,Revised Trauma: 12, Assessments @07:23MENTAL:Person Oriented,Time Oriented,Event Oriented,Place Oriented,SKIN:HEENT:Head/Face: No Abnormalities,Neck/Airway: No Abnormalities,LUNG SOUNDS:General: No Abnormalities,ABDOMEN:General: No Abnormalities,PELVIS//GI:EXTREMITIES:Capillary Refill: Right Lower: < 2 Sec,Capillary Refill: Left Upper: < 2 Sec,Capillary Refill: Left Lower: < 2 Sec,Capillary Refill: Right Upper: < 2 Sec,Left Arm: No Abnormalities,Right Arm: No Abnormalities,Left Leg: No Abnormalities,Right Leg: No Abnormalities,PULSE:Radial: 2+ Normal,NEURO:No Abnormalities,@08:19MENTAL:No Abnormalities,SKIN:HEENT:Head/Face: No Abnormalities,Neck/Airway: No Abnormalities,LUNG SOUNDS:ABDOMEN:PELVIS//GI:EXTREMITIES:Capillary Refill: Right Upper: < 2 Sec,Capillary Refill: Left Lower: < 2 Sec,Capillary Refill: Right Lower: < 2 Sec,Capillary Refill: Left Upper: < 2 Sec,Left Arm: No Abnormalities,Right Arm: No Abnormalities,Left Leg: No Abnormalities,Right Leg: No Abnormalities,PULSE:Radial: 2+ Normal,NEURO:No Abnormalities, Impression [facility] [address] [place] [address] EMS Patient Care Report Name: ARIELLE YA Room #: REG MICHAEL Garza.#: [id number] Admission: 03/24/20 Attend Phys: Discharge: Date of : 46 Report #: [id number] Shortness of breath Procedures @07:24Albuterol - 2.5 Milligrams (mg) - NebulizedResponse: Improved@07:24Atrovent - 0.5 Milligrams (mg) - NebulizedResponse: Improved@07:23ALS AssessmentResponse: UnchangedSucceeded@07:24Oxygen FlowRate: 8 Device: Nebulizer Response: ImprovedSucceeded@08:14 cc (22 ga) Site: Antecubital-LeftResponse: UnchangedFailed@07:263-Lead ECGResponse: UnchangedSucceeded@08:12Oxygen FlowRate: 8 Device: Non Re-breather Mask (NRB) Response: ImprovedSucceeded@08:00StretcherResponse: Unchanged Timeline 07:14,Call Received 07:14,Dispatch Notified 07:16,Dispatched 07:16,En Route 07:21,On Scene 07:23,At Patient 07:23,ALS Assessment,Response: UnchangedSucceeded, 07:23,BP: 189/81 M,PULSE: 130,RR: 24 R,SPO2: 88 Ox,ETCO2: ,BG: ,PAIN: 0,GCS: 15, 07:24,Albuterol - 2.5 Milligrams (mg) - Nebulized,Response: Improved 07:24,Atrovent - 0.5 Milligrams (mg) - Nebulized,Response: Improved 07:24,Oxygen FlowRate: 8 Device: Nebulizer Response: ImprovedSucceeded, 07:26,3-Lead ECG,Response: UnchangedSucceeded, 07:34,BP: / M,PULSE: 137,RR: R,SPO2: 98 Ox,ETCO2: ,BG: ,PAIN: ,GCS: , 07:40,BP: 109/62 M,PULSE: 109,RR: 20 R,SPO2: 100 Ox,ETCO2: ,BG: ,PAIN: 0,GCS: 15, 08:00,Stretcher,Response: Unchanged 08:12,Oxygen FlowRate: 8 Device: Non Re-breather Mask (NRB) Response: ImprovedSucceeded, 08:12,BP: 127/63 M,PULSE: 102,RR: 20 R,SPO2: 93 Ox,ETCO2: ,BG: ,PAIN: 0,GCS: 15, 08:14, cc 22 ga Site: Antecubital-Left,Response: UnchangedFailed, 08:17,Depart Scene 08:19,BP: 126/77 M,PULSE: 94,RR: 18 R,SPO2: 100 Ox,ETCO2: ,BG: ,PAIN: 0,GCS: 15, 08:31,At Destination 08:46,Call Closed Disclaimer v1.1 Copyright 2020 [employer] This EMS Care Summary contains data elements from the applicable legal record (which may be displayed differently). It is designed to provide pertinent information for the following purposes: continuity of care, clinical quality, and state data reporting. The complete legal record is available to ED staff [address] [address] EMS Patient Care Report Name: ARIELLE YA Room #: REG MICHAEL Martinez#: [id number] Admission: 03/24/20 Attend Phys: Discharge: Date of : 46 Report #: [id number] and administrators of the receiving hospital in [facility] Patient Tracker. All data is provided "as is."
[2020-03-24 10:08] LABS: ABSOLUTE NEUTROPHILS 5.6 thou/uL (1.4-8.2); BASOPHILS 0.5 % (0.0-2.0); EOSINOPHILS 5.4 % (0.0-3.0); HEMATOCRIT 37.4 % (37.0-47.0); HEMOGLOBIN 11.9 gm/dL (12.0-15.0); LYMPHOCYTES 10.7 % (24.0-44.0); MCH 27.4 pg (26.0-34.0); MCHC 31.9 g/dL (28.0-37.0); MCV 86.1 fL (80.0-100.0); MONOCYTES 8.6 % (1.0-8.0); PLATELET COUNT 198 thou/uL (150-400); POLYS 74.8 % (36.0-66.0); RBC 4.34 mil/uL (4.20-5.00); RDW 15.6 % (10.5-14.5); WBC 7.5 thou/uL (4.0-11.0)
[2020-03-24 10:45] LABS: CALCIUM 8.8 mg/dL (8.5-10.1); CREATININE 0.9 mg/dL (0.6-1.0); POTASSIUM 3.8 mmol/L (3.5-5.1)
[2020-03-24 10:50] LABS: ALBUMIN 2.9 g/dL (3.4-5.0); TOTAL BILIRUBIN 0.5 mg/dL (0.2-1.0); TOTAL PROTEIN 6.4 g/dL (6.4-8.2)
[2020-03-24 11:54] LABS: BE(vivo) 6.9 mmol/L (-2 to +3); HCO3 35.7 mmol/L (22.0-26.0); PO2 111.4 mmHg (80.0-100.0); sO2 97.4 % (92.0-98.0)
[2020-03-24 11:55] LABS: PCO2 75.4 mmHg (35.0-45.0); pH 7.293 (7.360-7.450)
--- NOTE | 2020-03-24 13:57 | EKG ---
[facility] [place] [address] ELECTROCARDIOGRAM REPORT Name: ARIELLE YA Room #: 170-1 ADM IN M.R.#: [id number] Admission: 03/24/20 Attend Phys: Hansel Narayanan MD Discharge: Date of : 46 Report #: [id number] THIS REPORT FOR: cc: Pavithra Lilly MD, Karla L. MD Santiago, Patrick MD 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: carly : 1950 Requested By: Louie De Dios Order Number: [id number] MD: Kwame Love Measurements Intervals [place] Rate: 95 P: 18 NE: 120 QRS: -70 QRSD: 81 T: 72 QT: 363 QTc: 457 Interpretive Statements Sinus rhythm Poor R wave progression V1-3 Probable left atrial enlargement Compared to ECG 02/27/2020 17:36:22 Poor R-wave progression no longer present Electronically Signed On 03-24-2020 13:57:10 CDT by Kwame Love [email or web address] <ELECTRONICALLY SIGNED> By: Kwame Love MD, [facility] 03/24/20 1357 1109 1109 Kwame Love MD, [facility] /EPI
--- NOTE | 2020-03-24 17:10 | NUR ---
ASSUMED CARE AT 1430. PT ARRIVED FROM THE ER ON CART BY RNX1. PT TRANSFERRED TO BED, PT RESTING COMFORTABLY, NO DISTRESS. DR. VARGAS ROUNDED, PT CONDITION AND PLAN OF CARE DISCUSSED. PT PLACED ON BIPAP BY RT. RN WILL CONTINUE TO MONITOR.
[2020-03-25] VITALS (13 sets, daily range): BP systolic 85–142; BP diastolic 31–109
[2020-03-25 04:09] LABS: ABSOLUTE NEUTROPHILS 4.5 thou/uL (1.4-8.2); BASOPHILS 0.2 % (0.0-2.0); HEMATOCRIT 36.3 % (37.0-47.0); HEMOGLOBIN 11.3 gm/dL (12.0-15.0); LYMPHOCYTES 6.4 % (24.0-44.0); MCH 27.2 pg (26.0-34.0); MCHC 31.1 g/dL (28.0-37.0); MCV 87.6 fL (80.0-100.0); PLATELET COUNT 224 thou/uL (150-400); POLYS 92.4 % (36.0-66.0); RBC 4.14 mil/uL (4.20-5.00); RDW 15.6 % (10.5-14.5); WBC 4.9 thou/uL (4.0-11.0)
--- NOTE | 2020-03-25 05:56 | NUR ---
PATIENT DIFFICULT TO AROUSE DURING 2000 ASSESSMENT, BUT SHORTLY AFTER WAKING UP AND ASKING "WHAT HAPPENED" AND "HOW LONG HAVE I BEEN HERE" ABLE TO CARRY ON CONVERSATION AND IS ORIENTED TO YEAR, SELF AND PLACE. BECOMING INCREASINGLY AGITATED, SEVERAL EPISODES OF LOOSE-LIQUID STOOL, INCONT. PATIENT PULLING AT BIPAP AND COMPLAINING ABOUT IT, 3L PER NC PLACED ON PT. AFTER EATING, PATIENT RESTING QUIETLY FOR SEVERAL HOURS.
[2020-03-25 06:03] LABS: CALCIUM 8.3 mg/dL (8.5-10.1); MAGNESIUM 2.3 mg/dL (1.8-2.4)
[2020-03-25 06:07] LABS: POTASSIUM 4.8 mmol/L (3.5-5.1)
--- NOTE | 2020-03-25 07:36 | NUR ---
ATTEMPTED PERIPHERAL IV STICK TO RIGHT FOREARM. UNSUCCESSFUL. WITH MULIPLE ATTEMPTS THROUGHOUT THE NIGHT WILL TALK WITH IV TEAM.
--- NOTE | 2020-03-25 13:48 | NUR ---
chart review. cm unable to visit with pt rt resting. cm tried calling son emi, cm left message requesting call back. noted in chart pt lives with her son emi. has cane and walker. o2 from [place] [facility]. had [facility]iley tate in past. been to skill rehab at [facility] in past. will cont following as needed for dc needs. she has been requiring use of bipap and o2 per nasal cannula. no anticipated dc over the weekend.
--- NOTE | 2020-03-25 16:46 | NUR ---
CELSO ORELLANA CALLED AND NOTIFIED OF PT TRANSFER TO ROOM 217
--- NOTE | 2020-03-25 17:30 | NUR ---
REPORT GIVEN TO CYNDI Sheffield RN REGARDING PT. QUESTIONS ANSWERED.
--- NOTE | 2020-03-25 18:42 | NUR ---
REC PT FROM ED AT 1840, SHE IS ALERT TO SELF, SPEAKS INCESSANTLY OF MISSING HER ENSURES, AND ICU NURSE DID INDICATE SHE OBSESSES ON THIS. ASKED FOR ICE CREAM AND WATER. PUT MEDS IN MED ROOM, HAS SEVERAL EARRINGS ON, IVF RUNNING. ENCOURAGED HER AND REMINDED HER HOW TO USE THE CALL LIGHT, PT IN GOOD SPIRITS, TALKS ABOUT HER SON CELSO, PUT IN DESIGNATED VISITOR INTERVENTION FOR HIM FOR TOMORROW. WILL GIVE REPORT, BED ALARM ON.
[2020-03-26 04:30] VITALS: BP 146/55
--- NOTE | 2020-03-26 07:07 | NUR ---
PROGRESS PT ALERT ORIENTED TO SURROUNDINGS. HAS MENTAL HEALTH ISSUES AND IS DEPENDENT ON FAMILY SHE LIVES WITH HER FAMILY. ABLE TO PERFORM SOME ADL'S WITH ASSISTANCE FOR SAFETY CONTINUE POC.
[2020-03-26 08:24] VITALS: BP 144/64
[2020-03-26 11:57] VITALS: BP 132/49
[2020-03-26 16:25] VITALS: BP 128/52
--- NOTE | 2020-03-26 17:12 | NUR ---
ASSESSMENT CHRATED - MEDS PER TIGIST - OSMEL DIET AND FLUIDS - PT ON [facility] SOFT DIET HONEY THICK LIQUIDS. NO CO'S OF PAIN OR NAUSEA. HAS SPENT THE DAY RESTING IN BED - ACCUCHECKS CHARTED - IV FLUIDS CONT ORDERED. PT INCONTINENT. PT TURNED AND SKIN CARE PROVIDED. NO CO'S AT THE PRESENT TIME.
[2020-03-26 20:00] VITALS: BP 165/94
[2020-03-27 03:05] LABS: HBsAG-EMPLOYEE EXPOSURE Negative (Negative); HCV AB-EMPLOYEE EXPOSURE <0.1 (0.0-0.9)
[2020-03-27 03:30] VITALS: BP 148/60
--- NOTE | 2020-03-27 05:17 | NUR ---
ASSESSMENT DOCUMENTED.PT BEEN RESTING IN NO ACUTE DISTRESS.VSS.A/O X3 WITH CONFUSION AND FORGETFULNESS.REMAINS ON O2 PNC,NO RESP DISTRESS NOTED.MENJIVAR WITH ACTIVITIES.MINIMAL ASSIST TO BSC.ANTICIPATING DISCHARGE TOMORROW TO HOME W/HH.WILL CONT TO MONITOR.
[2020-03-27 08:30] VITALS: BP 155/52
[2020-03-27 16:43] VITALS: BP 152/68
--- NOTE | 2020-03-27 16:54 | NUR ---
ASSESSMENT CHARTED - MEDS PER MAR - PT OSMEL PURREE DIET AND NECTAR THICK LIQUIDS, PT DOES HAVE COUGHING AND THROAT CLEARING WITH ORAL INTAKE. PT INCONTINENT OS STOOL X 2. ROY WITH GOOD OUTPUT. ACCUCHECKS CHARTED - COVERED PER SLIDING SCALE PRN. PT AMBULATED TO THE BATHROOM - THEN PLACED IN CHAIR. DAUGHTER AT THE BEDSIDE WHILE IN CHAIR - WHILE PT IN BED RESTRAINTS INSITU. PT RESTLESS IN BED- PULLING AT COVERS ETC. PT WITH NO CO'S AT THE PRESENT TIME.
--- NOTE | 2020-03-27 16:59 | NUR ---
ASSESSMENT CHARTED - MEDS PER MAR - NO CO'S OF PAIN OR NAUSEA. OSMEL MECH SOFT DIET - HONEY THICK LIQUIDS - PATIENT FEED HERSELF TODAY. PT PLACED UP IN THE CHAIR FOR LUNCH AND FOR DINNER - ASKING TO GO BACK TO BED AND INFORMED SHE NEEDED TO STAY UP IT IS BETTER FOR LUNGS AND STRENGTH. IV FLUIDS D/C'D ORDERED - PT INCONTINENT OF BLADDER AND BOWELS THIS SHIFT. ACCUCHECKS CHARTED - COVERED PER SSI. SON INTO SEE PATIENT AND INFORMED THAT PT WOULD BE GOING HOME TOMORROW MOST LIKELY. HE STATED HE FINISHES WORK AT 3PM AND BRANNER MACHINE TENDER BE HERE TO PICK HER UP AFTER THAT. NO CO'S AT THE PRESENT TIME.
[2020-03-27 19:41] VITALS: BP 165/63
[2020-03-28 04:27] VITALS: BP 155/79
--- NOTE | 2020-03-28 05:15 | NUR ---
ASSUMED PT CARE AT 1900. VSS . PT ORIENTED TO SELF & SITUATION. PT IS CONFUSED AT TIMES AND FORGETFUL. SHE IS STABLE ON HER FEET SO SBA. PT HAD A GOOD NIGHT; RESTED WELL. WILL CONTINEU TO MONITOR
[2020-03-28 08:33] VITALS: BP 155/81
--- NOTE | 2020-03-28 10:00 | NUR ---
ASSUMED CARE OF PT AT SHIFT CHANGE, SHE HAS CONFUSION/FORGETFULNESS AND A SWEET SPIRIT. WAS TRYING TO GET OOB BEFORE BREAKFAST, AMB TO BSC W/SBA, BM, AND OVER TO CHAIR WITH CHAIR ALARM ENGAGED. SHE'S A POSSIBLE D/C TODAY AFTER SON GETS OFF WORK. ENCOURAGED HER, WITH RETURN DEMO FOR NOW, TO USE CALL LIGHT FOR ANY NEEDS. WILL CONTINUE TO MONITOR. SEE SEPARATE INTERVENTIONS FOR ASSESSMENTS.
[2020-03-28] MEDS ORDERED: PREDNISONE 5 MG5 MG PO (11:57)
[2020-03-28] MEDS ORDERED: DOXYCYCLINE 10100 M2 PO (11:57)
[2020-03-28] MEDS ORDERED: MELATONIN5 M1 PO (11:57)
[2020-03-28] MEDS ORDERED: MIRALAX17 GM PO (11:57)
[2020-03-28 12:59] VITALS: BP 154/52
[2020-03-28 13:25] VITALS: BP 154/52
--- NOTE | 2020-03-28 16:03 | NUR ---
PT DISCHARGING TODAY [facility]/SUMMARY SPOKE WITH LEXUS IN INTAKE SHE RECEIVED ORDERS AND WILL CALL PT TO SET UP VISITS.
--- NOTE | 2020-03-28 18:10 | NUR ---
CELSO, SON, CALLED TO SAY HIS MOTHER WAS MISSING A GREEN JACKET AND PAJAMAS. CALLED ED, ICU, SECURITY, AND NONE IN THE ROOM. GAVE HIM PHONE NUMBERS TO ALL TO CHECK BACK TOMORROW
== END 2020-03-28 16:30 | disposition home health service (06) | DRG 189 ==
LOC: ER 08:36 → ICU 12:54 → EROBS 12:54 → ICU 14:21 → 2N 03-25 18:39
PROVIDERS: Emergency Medicine; Nurse Practitioner; ADMIT Internal Medicine; ATTEND Internal Medicine
PROC: 5A09357 Assistance with Respiratory Ventilation, Less than 24 Consecutive Hours, Continuous Positive Airway Pressure (ICD-10-PCS; principal; 2020-03-24)
PROC: 5A09357 Assistance with Respiratory Ventilation, Less than 24 Consecutive Hours, Continuous Positive Airway Pressure (ICD-10-PCS; 2020-03-25)
PROC: 5A09357 Assistance with Respiratory Ventilation, Less than 24 Consecutive Hours, Continuous Positive Airway Pressure (ICD-10-PCS; 2020-03-26)
DX: J96.21 Acute and chronic respiratory failure with hypoxia (principal); G93.49 Other encephalopathy; E87.0 Hyperosmolality and hypernatremia; I50.32 Chronic diastolic (congestive) heart failure; D86.9 Sarcoidosis, unspecified; I11.0 Hypertensive heart disease with heart failure; Z96.0 Presence of urogenital implants; H40.9 Unspecified glaucoma; J44.9 Chronic obstructive pulmonary disease, unspecified; J96.22 Acute and chronic respiratory failure with hypercapnia; G47.33 Obstructive sleep apnea (adult) (pediatric); Z20.828 Contact with and (suspected) exposure to other viral communicable diseases; I27.20 Pulmonary hypertension, unspecified; Z87.01 Personal history of pneumonia (recurrent); Z87.442 Personal history of urinary calculi; Z87.440 Personal history of urinary (tract) infections; Z86.711 Personal history of pulmonary embolism; Z79.01 Long term (current) use of anticoagulants; Z79.899 Other long term (current) drug therapy; Z99.81 Dependence on supplemental oxygen
CPT/HCPCS: 10078; 10081

== ENCOUNTER 2020-04-16 01:43 | Emergency (ER) | payer OTHER ==
[~2020-04-16] VITALS: Ht 152.4 cm; Wt 54.4 kg
[~2020-04-16 01:43] MED LIST changes: +MELATONIN5 M1 PO; +MIRALAX17 GM PO
[2020-04-16 03:22] LABS: HEMATOCRIT 35.5 % (37.0-47.0); HEMOGLOBIN 10.8 gm/dL (12.0-15.0); MCH 27.1 pg (26.0-34.0); MCHC 30.5 g/dL (28.0-37.0); RBC 3.99 mil/uL (4.20-5.00); WBC 6.3 thou/uL (4.0-11.0)
[2020-04-16 03:26] LABS: ANION GAP 0 mmol/L (7-16); BUN 17 mg/dL (7-18); CALCIUM 8.4 mg/dL (8.5-10.1); CHLORIDE 110 mmol/L (98-107); CO2 39 mmol/L (21-32); CREATININE 0.9 mg/dL (0.6-1.0); GLUCOSE 97 mg/dL (74-106); POTASSIUM 4.3 mmol/L (3.5-5.1); SODIUM 149 mmol/L (136-145)
[2020-04-16 03:35] LABS: TROPONIN-I <0.06 ng/mL (<0.06)
[2020-04-16 06:07] VITALS: BP 122/70
--- NOTE | 2020-04-16 10:01 | EKG ---
[facility] [place] [address] ELECTROCARDIOGRAM REPORT Name: ARIELLE YA Room #: DEP [facility]#: [id number] Admission: 04/16/20 Attend Phys: Discharge: 04/16/20 Date of : 46 Report #: [id number] THIS REPORT FOR: cc: Pavithra Lilly MD, Karla L. 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: DANE : 1950 Requested By: Celio Pimentel Order Number: [id number] MD: Kishore Vigil Measurements Intervals [place] Rate: 78 P: 66 IA: 135 QRS: -64 QRSD: 80 T: 45 QT: 366 QTc: 417 Interpretive Statements Sinus rhythm Left anterior fascicular block Poor R wave progression Compared to ECG 03/24/2020 11:09:51 No significant change was found Electronically Signed On 04-16-2020 10:01:00 CDT by Kishore Vigil [email or web address] <ELECTRONICALLY SIGNED> By: Kishore Vigil MD, FAC 04/16/20 1001 9 9 Kishore Vigil MD, [facility] /EPI
== END 2020-04-16 06:08 | disposition home or self-care (01) ==
LOC: ER 01:43
PROVIDERS: Emergency Medicine
DX: R06.02 Shortness of breath (principal); R53.1 Weakness; R19.7 Diarrhea, unspecified; R53.83 Other fatigue; R11.0 Nausea; R05 Cough; I10 Essential (primary) hypertension; J44.9 Chronic obstructive pulmonary disease, unspecified; Z87.442 Personal history of urinary calculi; Z86.14 Personal history of Methicillin resistant Staphylococcus aureus infection; Z86.711 Personal history of pulmonary embolism; Z79.899 Other long term (current) drug therapy; Z79.2 Long term (current) use of antibiotics

== ENCOUNTER 2020-04-21 16:31 | Emergency (ER) | payer OTHER ==
[~2020-04-21] VITALS: Ht 152.4 cm; Wt 56.2 kg
[2020-04-21 19:05] LABS: HEMATOCRIT 35.5 % (37.0-47.0); HEMOGLOBIN 10.9 gm/dL (12.0-15.0); MCH 27.2 pg (26.0-34.0); MCHC 30.6 g/dL (28.0-37.0); MCV 88.8 fL (80.0-100.0); RBC 4.01 mil/uL (4.20-5.00); RDW 15.9 % (10.5-14.5); WBC 5.6 thou/uL (4.0-11.0)
[2020-04-21 19:17] LABS: ANION GAP < 0 mmol/L (7-16); BUN 14 mg/dL (7-18); CALCIUM 8.6 mg/dL (8.5-10.1); CHLORIDE 107 mmol/L (98-107); CO2 39 mmol/L (21-32); CREATININE 0.9 mg/dL (0.6-1.0); GLUCOSE 88 mg/dL (74-106); POTASSIUM 4.3 mmol/L (3.5-5.1); SODIUM 144 mmol/L (136-145)
[2020-04-21 19:20] LABS: TROPONIN-I <0.06 ng/mL (<0.06)
[2020-04-21 22:38] VITALS: BP 140/53
--- NOTE | 2020-04-22 07:45 | EKG ---
[facility] [place] [address] ELECTROCARDIOGRAM REPORT Name: ARIELLE YA Room #: DEP [facility]#: [id number] Admission: 04/21/20 Attend Phys: Discharge: 04/21/20 Date of : 46 Report #: [id number] THIS REPORT FOR: cc: Pavithra Lilly MD, Karla L. MD Santiago, Patrick MD [facility] ~ THIS REPORT FOR: //name// [facility] ED Test Date: 2020-04-21 Test Time: 19:12:41 Pat Name: ARIELLE YA Department: Room: Gender: F Drum Sprayer: vumsbekah : 1950 Requested By: Celio Pimentel Order Number: [id number] : Kwame Love Measurements Intervals [place] Rate: 69 P: 65 CA: 124 QRS: -50 QRSD: 80 T: 52 QT: 415 QTc: 445 Interpretive Statements Sinus rhythm Left atrial enlargement Anteroseptal infarct, age indeterminate Compared to ECG 04/16/2020 02:10:02 Atrial abnormality now present Myocardial infarct finding now present Poor R-wave progression no longer present Electronically Signed On 04-22-2020 7:44:56 CDT by Kwame Love [email or web address] <ELECTRONICALLY SIGNED> By: Kwame Love MD, FACC 04/22/20 0744 11 11 Kwame Love MD, FACC /EPI
== END 2020-04-21 22:19 | disposition home or self-care (01) ==
LOC: ER 16:31
PROVIDERS: Emergency Medicine
DX: R06.02 Shortness of breath (principal); I10 Essential (primary) hypertension; J44.9 Chronic obstructive pulmonary disease, unspecified; Z79.899 Other long term (current) drug therapy

== ENCOUNTER 2020-04-25 06:58 | Inpatient (IN) | payer OTHER ==
[~2020-04-25] VITALS: Ht 167.6 cm; Wt 50.4 kg
--- NOTE | 2020-04-25 07:38 | EKG ---
[facility] [place] [address] ELECTROCARDIOGRAM REPORT Name: ARIELLE YA Room #: PRE M.R.#: [id number] Admission: Attend Phys: Discharge: Date of : 46 Report #: [id number] THIS REPORT FOR: cc: Pavithra Lilly MD, Karla L. 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 : 1950 Requested By: Khoa Matute Order Number: [id number] MD: Kishore Vigil Measurements Intervals [place] Rate: 97 P: 34 IA: 125 QRS: -74 QRSD: 78 T: 49 QT: 367 QTc: 466 Interpretive Statements Sinus rhythm Left anterior hemiblock Poor R wave progression Baseline wander in lead(s) V6 Compared to ECG 04/21/2020 19:12:41 No significant changes Electronically Signed On 04-25-2020 7:37:56 CDT by Kishore Vigil [email or web address] <ELECTRONICALLY SIGNED> By: Kishore Vigil MD, [facility] 04/25/20 0737 3 3 Kishore Vigil MD, [facility] /EPI
[2020-04-25 10:30] LABS: POLYS 69.8 % (36.0-66.0)
[2020-04-25 10:37] LABS: ANION GAP 1 mmol/L (7-16); BUN 15 mg/dL (7-18); CALCIUM 8.4 mg/dL (8.5-10.1); CHLORIDE 108 mmol/L (98-107); CO2 44 mmol/L (21-32); CREATININE 0.9 mg/dL (0.6-1.0); GLUCOSE 87 mg/dL (74-106); POTASSIUM 4.1 mmol/L (3.5-5.1); SODIUM 153 mmol/L (136-145)
[2020-04-25 10:40] LABS: ABSOLUTE NEUTROPHILS 3.6 thou/uL (1.4-8.2); BASOPHILS 0.3 % (0.0-2.0); EOSINOPHILS 4.5 % (0.0-3.0); HEMATOCRIT 37.3 % (37.0-47.0); HEMOGLOBIN 11.5 gm/dL (12.0-15.0); LYMPHOCYTES 15.3 % (24.0-44.0); MCH 27.2 pg (26.0-34.0); MCHC 30.8 g/dL (28.0-37.0); MCV 88.1 fL (80.0-100.0); MONOCYTES 10.1 % (1.0-8.0); PLATELET COUNT 182 thou/uL (150-400); RBC 4.23 mil/uL (4.20-5.00); RDW 15.8 % (10.5-14.5); WBC 5.2 thou/uL (4.0-11.0)
[2020-04-25 10:45] LABS: TROPONIN-I <0.06 ng/mL (<0.06)
[2020-04-25 12:04] LABS: HCO3 44.8 mmol/L (22.0-26.0); PO2 61.8 mmHg (80.0-100.0); sO2 86.4 % (92.0-98.0)
[2020-04-25 12:05] LABS: PCO2 99.5 mmHg (35.0-45.0); pH 7.271 (7.360-7.450)
--- NOTE | 2020-04-25 13:09 | NUR ---
DPOA REYNA YA ([phone]) CALLED, UPDATED ON POC GIVEN.
[2020-04-25 19:01] LABS: URINE BILIRUBIN NEGATIVE (Negative); URINE BLOOD 2+ (Negative); URINE COLOR YELLOW; URINE GLUCOSE-RANDOM* NEGATIVE (Negative); URINE KETONES TRACE (Negative); URINE PROTEIN (DIPSTICK) TRACE (Negative); URINE SPECIFIC GRAVITY >= 1.030 (1.005-1.035); URINE UROBILINOGEN 0.2 E.U./dl (0.2-1.0)
[2020-04-25 19:02] LABS: URINE LEUKOCYTES-REFLEX 1+ (Negative); URINE NITRITE-REFLEX POSITIVE (Negative)
[2020-04-25 19:03] LABS: URINE CLARITY SL HAZY
[2020-04-25 19:07] LABS: BACTERIA-REFLEX >30 Many /HPF (None Seen); SQUAMOUS 0-3 Few /LPF (0-3); URINE RBC 0-2 Rare /HPF (0-2)
[2020-04-25 19:08] LABS: CASTS None Seen /LPF (None Seen); CRYSTALS None Seen /LPF (None Seen)
[2020-04-25 20:47] VITALS: BP 107/45
--- NOTE | 2020-04-25 20:51 | NUR ---
Called to give report and was told RN will call back ,she is with a pt
--- NOTE | 2020-04-25 21:06 | NUR ---
Attempted to give report, rn not available, reported to ER charge and taking pt to give bedside report
[2020-04-25 21:07] VITALS: BP 132/53
[2020-04-25 21:20] VITALS: BP 133/58
[2020-04-25 22:13] LABS: BE(vivo) 7.4 mmol/L (-2 to +3); HCO3 39.1 mmol/L (22.0-26.0); PO2 87.1 mmHg (80.0-100.0); sO2 93.5 % (92.0-98.0)
[2020-04-25 22:16] LABS: PCO2 105.3 mmHg (35.0-45.0); pH 7.188 (7.360-7.450)
[2020-04-26 00:05] VITALS: BP 137/91
[2020-04-26 01:32] LABS: BE(vivo) 10.7 mmol/L (-2 to +3); HCO3 40.2 mmol/L (22.0-26.0); PCO2 83.6 mmHg (35.0-45.0); PO2 65.5 mmHg (80.0-100.0); sO2 89.6 % (92.0-98.0)
[2020-04-26 04:09] VITALS: BP 162/74
[2020-04-26 06:16] LABS: HEMATOCRIT 38.3 % (37.0-47.0); HEMOGLOBIN 11.7 gm/dL (12.0-15.0); MCHC 30.5 g/dL (28.0-37.0); MCV 88.6 fL (80.0-100.0); RBC 4.32 mil/uL (4.20-5.00); RDW 15.5 % (10.5-14.5); WBC 6.1 thou/uL (4.0-11.0)
[2020-04-26 06:30] LABS: CALCIUM 8.8 mg/dL (8.5-10.1); CREATININE 0.9 mg/dL (0.6-1.0); POTASSIUM 4.3 mmol/L (3.5-5.1)
[2020-04-26 07:12] VITALS: BP 154/66
[2020-04-26 07:34] LABS: BE(vivo) 11.6 mmol/L (-2 to +3); HCO3 41.4 mmol/L (22.0-26.0); PCO2 85.6 mmHg (35.0-45.0); PO2 67.2 mmHg (80.0-100.0); pH 7.302 (7.360-7.450); sO2 90.3 % (92.0-98.0)
--- NOTE | 2020-04-26 07:51 | NUR ---
PT ARRIVED TO UNIT APPROX 2130. PT ON BIPAP, LETHARGIC, RESPONDED TO PAIN, BUT WOULD NOT WAKE UP TO ANSWER QUESTIONS. CRITICAL ABG'S OVERNIGHT, ORDERS RECEIVED FROM DR. VARGAS AND SADIE VALENTE; RT MANAGED BIPAP SETTINGS. IVF STARTED WELL ABX AND SOLUMEDROL. SKIN INTACT. ROY IN PLACED DRAINING CLEAR YELLOW URINE. HAS BEEN SR ON TELE. SHIFT REPORT GIVEN 0700.
--- NOTE | 2020-04-26 10:46 | NUR ---
DR MARCUM CLEARED PATIENT FROM ENHANCED PRECAUTIONS..
[2020-04-26 15:01] VITALS: BP 131/52
--- NOTE | 2020-04-26 15:49 | NUR ---
INITIAL ASSESSMENT: SW reviewed chart and spoke with attending physician. Pt was admitted from home due to respiratory failure. Pt is in Enhanced Isolation to r/o COVID-19. Pt's test is negative. Enhanced Isolation precautions have been discontinued. Pt required bipap support earlier today and is now on 3L O2 via NC. Pt is on IV abx and IV steroids. Pt known to SW from prior hospitalizations. Call placed into pt's room. No answer. SW left voice message for pt's son, Stephon. Per chart, pt lives at home with her son, Stephon. Prior to admission, pt was independent with ADLs. Pt has a cane, walker and home O2 through [employer]. 7 steps to enter the home and no steps inside the home. Pt has been to [facility] and [facility] in the past. Pt is currently on service with Carla . sales planner faxed updates to for review. Pt's PCP is Dr. Pavithra Lilly. Therapy evals ordered and are pending. SAE is following to assist as needed with discharge planning.
[2020-04-26 19:44] VITALS: BP 151/66
--- NOTE | 2020-04-26 19:54 | NUR ---
PT BEGAN SHIFT ON BIPAP AND WAS WEANED TO 4L @ 1230...DOING WELL ON 4L...WEARS 2L BASELINE...
[2020-04-26 21:45] VITALS: BP 135/56
--- NOTE | 2020-04-26 22:31 | NUR ---
ASSUMED CARE AT 1900. PT RESTLESS, HITTING CALL LIGHT MULTIPLE TIMES, TRIED TO GET OUT OF BED; CONFUSED BUT MOSTLY PLEASANT AND REDIRECTABLE. PT SOB ON 4L, O2 SAT HAD DROPPED INTO MID 70'S AND 80'S, WORSE WITH ALL THE MOVING AND TALKING SHE WAS DOING; INCREASED O2 TO 6L TRYING TO KEEP IT AROUND 90%. LUNGS VERY COARSE WITH SOME WHEEZES ON RIGHT. GAVE A TURKEY SANDWICH BOX. C/O OF PAIN IN RIGHT RIB AREA, GAVE A DOSE OF TYLENOL. OBTAINED ORDER TO RESUME HOME DOSE OF MELATONIN AND PAXIL. CALLED REPORT TO ANGELIQUE ON 2N AT 2099, MOVED PT BY BED AT 2119, PT LEFT UNIT IN STABLE CONDITION.
[2020-04-27] VITALS (7 sets, daily range): BP systolic 129–153; BP diastolic 53–81
--- NOTE | 2020-04-27 03:31 | NUR ---
PT TRANSFER FROM AROUND 2099. AO X1- 2. VITALS STABLE WITH LOW 02 SATS IN LOWER 80s AT SOME POINT. PT UNABLE TO TOLERATE BIPAP FOR MAJORITY OF THE NIGHT; CONSTANTLY PULLING IT OFF DESPITE MULTIPLE ENCOURAGEMENTS LEAVE IT ON. NPO NOTIFIED. 1 MG HALDOL GIVEN. DENIES PAIN. WILL CONTINUE TO FOLLOW POC.
[2020-04-27 06:00] LABS: HEMATOCRIT 32.5 % (37.0-47.0); HEMOGLOBIN 10.3 gm/dL (12.0-15.0); MCH 27.4 pg (26.0-34.0); MCHC 31.7 g/dL (28.0-37.0); MCV 86.4 fL (80.0-100.0); RBC 3.76 mil/uL (4.20-5.00); RDW 15.2 % (10.5-14.5); WBC 7.9 thou/uL (4.0-11.0)
[2020-04-27 06:15] LABS: CALCIUM 8.5 mg/dL (8.5-10.1); CREATININE 0.9 mg/dL (0.6-1.0); POTASSIUM 4.3 mmol/L (3.5-5.1)
--- NOTE | 2020-04-27 15:26 | NUR ---
FAXED RESUMPTION OF CARE REFERRAL TO [facility] HH SPOKE WITH ISRAEL IN INTAKE THEY WILL RESUME CARE AT DISCHARGE.
--- NOTE | 2020-04-27 16:01 | NUR ---
spoke with patient and discussed skilled care. She has been to [facility] and [facility] in past. Patient does not want skilled wants to return home. Therapy evals in process. Left message with son. Patient rec HH sea captain from [facility]. [facility] liason called this SW and reports their staff mentioned hospice might be appropriate at this time. updated phys.
--- NOTE | 2020-04-27 18:35 | NUR ---
ASSESSMENT CHARTED. PT ALERT TO SELF AND SITUATION WITH FORGETFULNESS. UP IN THE CHAIR THIS SHIFT. PRN PAIN MED GIVEN WITH PARTIAL RELIEF. NO RESPIRATORY DISTRESS NOTED. NO CONCERNS AT THIS TIME.
--- NOTE | 2020-04-28 04:44 | NUR ---
CARE ASSUMED AT 1900. PT AO X 1. CONFUSED AND FORGETFU;. DENIES SOB BUT REPORTS HEADACHE. TYLENOL X 1 GIVEN. PT MAINTIANED ON 3L NC OF O2 OVERNIGHT. O2 SATS > 95. NO ANY OTHER EVENTS. PT PROGRESSING TOWARDS GOAL. WILL CONTINUE TO MONITOR
[2020-04-28 04:45] VITALS: BP 148/60
[2020-04-28 07:31] VITALS: BP 144/64
[2020-04-28 08:49] LABS: CALCIUM 8.8 mg/dL (8.5-10.1); CREATININE 0.7 mg/dL (0.6-1.0); POTASSIUM 4.6 mmol/L (3.5-5.1)
[2020-04-28 11:21] VITALS: BP 127/70
[2020-04-28 15:21] VITALS: BP 140/90
--- NOTE | 2020-04-28 16:16 | NUR ---
ASSESSMENT CHARTED PT ALERT AND ORIENTED WITH FORGETFULNESS. VSS. PARTICIPATED IN PT/OT. NO RESPIRATORY DISTRESS NOTED. SEEN BY DR. MORGAN. ORDERS GIVEN TO STOP TELE AND TRANSFER PT TO [facility]. PLAN TO BE DISCAHRGE TO HOME IN AM WITH HH. NO CONCERNS AT THIS TIME.
[2020-04-28 16:54] VITALS: BP 129/53
--- NOTE | 2020-04-28 16:55 | NUR ---
Production Officer spoke with pt's son Stephon today. He has been updated on her move to 440 and her video swallow results recommending she go back to nectar thick liquids. He is supportive of her returning home with HH vs snf and will discuss it with her tonigh in anticipation of dc home tomorrow. The pt does not want to go to snf. [facility] alerted to Saturday dc. She will need RN,PT,OT and ST followup visits. Pt has needed dme in the home including home o2. Stephon will let cm know should they decide they do want to pursue a SNF stay ([facility]).
[2020-04-28 20:50] VITALS: BP 121/61
[2020-04-29] VITALS (45 sets, daily range): BP systolic 97–138; BP diastolic 35–65
--- NOTE | 2020-04-29 05:05 | NUR ---
Assumed care on 04/28/20 @ 19:30, A&Ox4, with forgetfulness noted. VSS, Lung sounds course and diminished, HRRR, S1S2 noted, ABD N x 4Q. Last BM on . IV site is in Right fore arm. Drinks nectar thick liquid. Diet is mechanical chopp. Takes meds crushed in appliesauce. Acucheck is 83, no sliding scale coverage required. Reports stomach hurts, Zofran IV push provided, Tylenol suppository provided. New order for Mario, tolerated well. Stand by assist for transfers. Will continue to monitor as per unit protocol.
[2020-04-29 10:09] LABS: BE(vivo) 19.2 mmol/L (-2 to +3); HCO3 52.3 mmol/L (22.0-26.0); PCO2 128.9 mmHg (35.0-45.0); PO2 71.7 mmHg (80.0-100.0); pH 7.226 (7.360-7.450); sO2 89.1 % (92.0-98.0)
[2020-04-29 10:14] LABS: HEMATOCRIT 38.6 % (37.0-47.0); HEMOGLOBIN 11.5 gm/dL (12.0-15.0); MCH 26.8 pg (26.0-34.0); MCHC 29.9 g/dL (28.0-37.0); MCV 89.6 fL (80.0-100.0); RBC 4.31 mil/uL (4.20-5.00); WBC 8.1 thou/uL (4.0-11.0)
--- NOTE | 2020-04-29 10:18 | NUR ---
SITE AUDITOR CALLED FOR PT AT 0955. PT WITH DECREASED LOC, NOT RESPONDING TO PHYSICAL STIMULI. SEE FLOWSHEET FOR FURTHER DETAILS.
[2020-04-29 10:28] LABS: BUN 24 mg/dL (7-18); CALCIUM 9.1 mg/dL (8.5-10.1); CHLORIDE 105 mmol/L (98-107); CREATININE 0.7 mg/dL (0.6-1.0); GLUCOSE 91 mg/dL (74-106); SODIUM 147 mmol/L (136-145)
[2020-04-29 10:40] LABS: CO2 > 45 mmol/L (21-32)
--- NOTE | 2020-04-29 10:47 | NUR ---
PT CARE ASSUMED AT 0700. A&Ox4. PT RESPONDING. STUDENT TAKING CARE OF PT WITH ELDER COUNSELOR. STUDENT INFORMED NURSE THAT PT WAS VERY SLEEPY. RN INSTRUCTED STUDENT TO TAKE VITALS, BS AND LET PT SLEEP FOR A WHILE LONGER. STUDENT CAME BACK TO NURSE ONE HOUR LATER AND INFORMED THAT PT WAS STILL NOT WAKING UP. STERNAL RUB WAS PERFORMED AND PT WAS MILDLY RESPONDING. RAPID RESPONSE WAS CALLED. PT TRANSFERRED TO ICU RM 243. SON (DPOA) UPDATED OF TRANSFER AND STATUS UPDATE. IV PATENT WITH NO REDNESS OR EDEMA. SALINE LOCKED. FALL PROTOCOL IN PLACE. CALL LIGHT WAS IN REACH. REPORT GIVEN TO SANTIAGO MELGOZA
--- NOTE | 2020-04-29 10:52 | NUR ---
entered into room around 0715 and patient appeared to be asleep. i notified the nurse and returned to the room on two more separate occasions for medications and a blood gluocse test. patient was unresponsive to me shaking her body, sternal rubs, and needle stick when blood glucose was taken (result was 81 around 0920). medications were held due to unresponsive state. clinical instructor was with me in the room as i notified the nurse about the patient's current state once more.
--- NOTE | 2020-04-29 10:56 | NUR ---
1040 PT TX TO ICU POST RAPID RESPONSE ON 4S. PLACED ON BIPAP, PT LETHARGIC, REPEAT ABG PER DR VARGAS AFTER ON BIPAP X1H. PT DESAT TO 90% SPO2. DPOA/SON IS COMING TO HOSPITAL. CATHY AND SAM BOTH REFER TO PATIENT END STAGE COPD.
[2020-04-29 11:33] LABS: BE(vivo) 15.8 mmol/L (-2 to +3); HCO3 47.6 mmol/L (22.0-26.0); PO2 61.2 mmHg (80.0-100.0); sO2 84.9 % (92.0-98.0)
[2020-04-29 11:34] LABS: PCO2 112.1 mmHg (35.0-45.0); pH 7.246 (7.360-7.450)
--- NOTE | 2020-04-29 12:23 | NUR ---
At aprx 0915 this RN entered pts room with student nurse to assess pt, administer ordered medication and obtain accucheck. Pt appered sleeping with Bipap in place, clear chest rise, and sats 95%, Sat probe on left index finger. Pt skin temp warm, arms flexed over chest, legs extended and striaght, peripheral pulses X4 2+, CR on all four extremeties <2, eyes closed, pt didn't open eyes to touch or voice, this RN gave several sternal chest rubs and spoke louding to pt who did not open her eyes. This RN extended arms bilat with PROM and noted significant tension while flexed. Feet moved easily with PROM, legs bilat were stiff and moved with moderate difficulty to flexion at knee. PT did not move feet to pressure with planter flexion nor squeeze fingers of this RNs when asked, however pt did move fingers when asked to squeeze. Student obtained accucheck of 81, pt did not open eyes to finger stick. BS were clear but diminshed, HRRR. This RN left student at bedside with pt to go get pts primary nurse, Rabia. Informed Rabia pt rating about 6 on GCS, pt had melatonin, zofran and an SSRI at HS, but appeared more sleepy than should be and may need rapid response called. Rabia immediately assessed pt and called rapid response. This RN remained at bedside to answer questions from team.
--- NOTE | 2020-04-29 13:55 | NUR ---
ON-GOING ASSESSMENT: CM REVIEWED CHART. PT WAS TRANSFERED TO LAST EVENING. PT HAD A RAPID RESPONSE CALL THIS AM AND WAS TRANSFERED TO THE ICU. CM UPDATED ICU CM.
[2020-04-29 14:15] LABS: BE(vivo) 17.3 mmol/L (-2 to +3); HCO3 44.4 mmol/L (22.0-26.0); PCO2 66.7 mmHg (35.0-45.0); PO2 100.1 mmHg (80.0-100.0); pH 7.441 (7.360-7.450); sO2 97.5 % (92.0-98.0)
--- NOTE | 2020-04-29 14:45 | NUR ---
chart review. lisandra unable to visit with sudha jaeger. her son been here visiting few times today. report from bedside nurse. she required the need for intubation today. no anticipated dc over the weekend. will cont following as needed for dc needs.
[2020-04-29 17:58] LABS: URINE BILIRUBIN NEGATIVE (Negative); URINE BLOOD NEGATIVE (Negative); URINE CLARITY CLEAR; URINE COLOR YELLOW; URINE GLUCOSE-RANDOM* NEGATIVE (Negative); URINE KETONES TRACE (Negative); URINE LEUKOCYTES-REFLEX NEGATIVE (Negative); URINE NITRITE-REFLEX NEGATIVE (Negative); URINE PROTEIN (DIPSTICK) TRACE (Negative); URINE SPECIFIC GRAVITY >= 1.030 (1.005-1.035); URINE UROBILINOGEN 0.2 E.U./dl (0.2-1.0)
--- NOTE | 2020-04-29 19:38 | NUR ---
VAT CONSULTED FOR A CL FOR THIS INTUBATED PT IN THE ICU FOR PRESSORS. TIP OF CL IS JUST PAST THE CAJ. LINE RELEASED FOR USE
--- NOTE | 2020-04-29 22:00 | NUR ---
Nurse talked with patients daughter, Pepe, and updated her on patients status and plan of care. Her questions were answered. She expressed to tell her mom she loves her, this was done.
[2020-04-30] VITALS (24 sets, daily range): BP systolic 115–165; BP diastolic 33–66
--- NOTE | 2020-04-30 02:41 | NUR ---
PT REPOSITIONED, O2 SAT DECREASED, VOLUME DECREASED. CHARGE NURSE ASSESSED DECREASE AIR IN LEFT LOWER LUNG. HR INCREASED 133. RESPIRATORY CONTACTED. PROPOFOL INCREASED. O2 SAT INCREASED TO 98%.
--- NOTE | 2020-04-30 03:00 | NUR ---
RESPIRATORY CHANGED VENT SETTING BACK TO PRESSURE SUPPORT.
--- NOTE | 2020-04-30 04:03 | NUR ---
PT ALARMING LOW VOLUME, CHARGE NURSE UPDATED. RESPIRATORY CALLED, PT PLACED ON ASSIST CONTROL TVOL 400.
[2020-04-30 04:19] LABS: HCO3 35.9 mmol/L (22.0-26.0); PCO2 69.2 mmHg (35.0-45.0); PO2 107.3 mmHg (80.0-100.0); pH 7.333 (7.360-7.450); sO2 97.4 % (92.0-98.0)
--- NOTE | 2020-04-30 05:09 | NUR ---
DR VARGAS CALLED UPDATED REGARDING SWITCH TO ASSIST CONTROL, RESPIRATORY STATED LUNGS WET, PT NOT HAVING VOLUME SUPPORT WITH PRESSURE SUPPORT AND AIR PRESSURE UNDER 30. STATED LUNG IS STIFF AND RESPIRATORY NOTIFIED. NO NEW ORDERS.
[2020-04-30 05:26] LABS: HEMOGLOBIN 10.2 gm/dL (12.0-15.0); MCV 89.1 fL (80.0-100.0); RDW 15.5 % (10.5-14.5)
[2020-04-30 05:29] LABS: HEMATOCRIT 33.4 % (37.0-47.0); MCH 27.3 pg (26.0-34.0); MCHC 30.7 g/dL (28.0-37.0); RBC 3.74 mil/uL (4.20-5.00); WBC 6.1 thou/uL (4.0-11.0)
[2020-04-30 05:43] LABS: CALCIUM 7.7 mg/dL (8.5-10.1); CREATININE 0.7 mg/dL (0.6-1.0); POTASSIUM 4.2 mmol/L (3.5-5.1)
--- NOTE | 2020-04-30 15:56 | NUR ---
ASSUMED CARE @ 0700 04/30/20, PT ASSESSMENTS AND VSS COMPLETE PER ICU PRT. DR MORGAN HERE TO ROUND THIS AM @ 1030, ORDERS FOR FLUIDS AND TF PLACED. DR VARGAS HERE THIS AFTERNOON TO ROUND @ 1300, NO ORDERS AT THIS TIME, DR VARGAS ABLE TO UPDATE PT,S SON IN THE ROOM. DR MARCUM AT BEDSIDE @ 1540, NO ORDERS RECIEVED AT THIS TIME. WILL CONT TO MONITOR.
[2020-05-01] VITALS (25 sets, daily range): BP systolic 113–168; BP diastolic 34–95
[2020-05-01 05:09] LABS: BE(vivo) 7.2 mmol/L (-2 to +3); HCO3 33.8 mmol/L (22.0-26.0); PCO2 58.4 mmHg (35.0-45.0); PO2 101.6 mmHg (80.0-100.0); pH 7.381 (7.360-7.450); sO2 97.4 % (92.0-98.0)
[2020-05-01 06:17] LABS: HEMATOCRIT 32.9 % (37.0-47.0); HEMOGLOBIN 10.3 gm/dL (12.0-15.0); MCHC 31.2 g/dL (28.0-37.0); MCV 86.7 fL (80.0-100.0); RBC 3.8 mil/uL (4.20-5.00); RDW 15.6 % (10.5-14.5); WBC 6.7 thou/uL (4.0-11.0)
[2020-05-01 06:24] LABS: CALCIUM 8.2 mg/dL (8.5-10.1); CREATININE 0.7 mg/dL (0.6-1.0); POTASSIUM 3.8 mmol/L (3.5-5.1)
--- NOTE | 2020-05-01 07:23 | NUR ---
Patient not progressing towards plan of care as evidenced by continued requirement of ventilator, with bath patient desat, requires rest time to recoupe. Patient urine output increased ml/hour to >50ml.
--- NOTE | 2020-05-01 18:30 | NUR ---
CPAP TRIAL DONE TODAY AND PT UNABLE TO TOLERATE. LOW RR AND LOW TIDAL VOLUMES. ADVANCING TUBE FEEDING TOLERATED. PT'S SON/DPOA AT BEDSIDE THIS AFTERNOON AND UDPATED. WILL CONTINUE TO MONITOR PATIENT.
[2020-05-02] VITALS (24 sets, daily range): BP systolic 103–141; BP diastolic 30–52
[2020-05-02 06:06] LABS: HEMATOCRIT 33.3 % (37.0-47.0); HEMOGLOBIN 10.2 gm/dL (12.0-15.0); MCH 26.7 pg (26.0-34.0); MCHC 30.6 g/dL (28.0-37.0); MCV 87.3 fL (80.0-100.0); RBC 3.82 mil/uL (4.20-5.00); RDW 15.3 % (10.5-14.5); WBC 8.3 thou/uL (4.0-11.0)
[2020-05-02 06:14] LABS: CALCIUM 8.2 mg/dL (8.5-10.1); CREATININE 0.7 mg/dL (0.6-1.0); POTASSIUM 3.8 mmol/L (3.5-5.1)
[2020-05-02 08:50] LABS: BE(vivo) 11.6 mmol/L (-2 to +3); HCO3 39.4 mmol/L (22.0-26.0); pH 7.363 (7.360-7.450); sO2 96.1 % (92.0-98.0)
[2020-05-02 08:51] LABS: PCO2 70.8 mmHg (35.0-45.0)
--- NOTE | 2020-05-02 13:36 | NUR ---
chart review. remains on vent, doing cpap trials. tf for nutritional support. unable to visit with son emi. will cont following as needed for dc needs.
[2020-05-03] VITALS (14 sets, daily range): BP systolic 106–135; BP diastolic 35–51
[2020-05-03 05:51] LABS: HEMATOCRIT 29.3 % (37.0-47.0); HEMOGLOBIN 9.2 gm/dL (12.0-15.0); MCHC 31.3 g/dL (28.0-37.0); MCV 86.3 fL (80.0-100.0); RBC 3.4 mil/uL (4.20-5.00); RDW 15.3 % (10.5-14.5); WBC 7.5 thou/uL (4.0-11.0)
[2020-05-03 06:01] LABS: CALCIUM 8.2 mg/dL (8.5-10.1); CREATININE 0.7 mg/dL (0.6-1.0); POTASSIUM 3.7 mmol/L (3.5-5.1)
--- NOTE | 2020-05-03 09:25 | NUR ---
PT IN CPAP TRIAL. RR UP TO UPPER 30'S DURING CPAP TRIAL. SEDATION TURNED OFF DURING CPAP TRIAL. DR. BALL NOTIFIED. SEDATION CHANGED TO PRECEDEX. CONTINUE TO MONITOR.
[2020-05-03 10:45] LABS: BE(vivo) 12.4 mmol/L (-2 to +3); HCO3 38.5 mmol/L (22.0-26.0); PCO2 58.2 mmHg (35.0-45.0); PO2 101.5 mmHg (80.0-100.0); pH 7.438 (7.360-7.450); sO2 97.7 % (92.0-98.0)
[2020-05-04] VITALS (25 sets, daily range): BP systolic 97–161; BP diastolic 32–54
[2020-05-04 04:30] LABS: HCO3 32.1 mmol/L (22.0-26.0); PCO2 54.6 mmHg (35.0-45.0); PO2 106.1 mmHg (80.0-100.0); pH 7.387 (7.360-7.450); sO2 97.7 % (92.0-98.0)
[2020-05-04 06:22] LABS: ABSOLUTE NEUTROPHILS 7.2 thou/uL (1.4-8.2); BASOPHILS 0.1 % (0.0-2.0); HEMATOCRIT 30.2 % (37.0-47.0); HEMOGLOBIN 9.5 gm/dL (12.0-15.0); LYMPHOCYTES 3.7 % (24.0-44.0); MCH 27.5 pg (26.0-34.0); MCHC 31.6 g/dL (28.0-37.0); MONOCYTES 7.4 % (1.0-8.0); PLATELET COUNT 156 thou/uL (150-400); POLYS 88.8 % (36.0-66.0); RBC 3.47 mil/uL (4.20-5.00); RDW 15.7 % (10.5-14.5); WBC 8.1 thou/uL (4.0-11.0)
[2020-05-04 06:52] LABS: ALBUMIN 2.1 g/dL (3.4-5.0); ANION GAP < 0 mmol/L (7-16); BUN 14 mg/dL (7-18); CALCIUM 8.2 mg/dL (8.5-10.1); CHLORIDE 105 mmol/L (98-107); CO2 39 mmol/L (21-32); CREATININE 0.6 mg/dL (0.6-1.0); GLUCOSE 161 mg/dL (74-106); POTASSIUM 4.2 mmol/L (3.5-5.1); SGOT 18 U/L (15-37); SGPT 28 U/L (30-65); SODIUM 142 mmol/L (136-145); TOTAL BILIRUBIN 0.3 mg/dL (0.2-1.0); TOTAL PROTEIN 5.4 g/dL (6.4-8.2)
--- NOTE | 2020-05-04 07:03 | NUR ---
ASSUMED PT CARE AT 1900. VSS, PT LIGHLY SEDATED ON PROPOFOL AND PRECEDEX. AWAKENS TO VOICE, TRACKS, FOLLOWS COMMANDS. PT HAD A RESTFUL NOC, NOT ACUTE EVENTS, WILL CONTINUE TO MONITOR
--- NOTE | 2020-05-04 15:26 | NUR ---
ASSUMED CARE @ 1115, PT ASSESSMENTS AND VS COMPLETE PER ICU PROTOCOL. SEDATION VACATION @ 1130, CPAP TRIAL @ 1135- 1415, RR 38, HR 118, PT SWITCHED BACK TO A/C. WILL CONT TO DIOGO.
[2020-05-05] VITALS (14 sets, daily range): BP systolic 101–135; BP diastolic 31–51
--- NOTE | 2020-05-05 04:29 | NUR ---
PATIENT'S TEMP WAS 100.1 RUBBER COMPOUNDER FORMULATOR JOSE NOTIFIED. ORDERS RECIEVED.
[2020-05-05 08:43] LABS: BE(vivo) 12.3 mmol/L (-2 to +3); HCO3 38.9 mmol/L (22.0-26.0); PCO2 62.7 mmHg (35.0-45.0); PO2 113.8 mmHg (80.0-100.0); pH 7.411 (7.360-7.450); sO2 98.1 % (92.0-98.0)
--- NOTE | 2020-05-05 13:17 | NUR ---
ASSUMED CARE @ 0700 05/05/20, PT ASSESSMENTS AND VSS COMPLETE PER ICU PROTOCOL. SEDATION VACATION 0750, CPAP @ 0835, @ 1225, HR IN 130'S, RR 30'S, PT SWITCHED BACK TO A/C. DR BALL @ BEDSIDE @ 0900, NO ORDERS RECIEVED AT THAT TIME.
--- NOTE | 2020-05-05 17:00 | NUR ---
RECEIVED PATIENT REPORT FROM EVA HENDERSON. ASSUMED PATIENT CARE AT THIS TIME. VADIM.
[2020-05-06] VITALS (22 sets, daily range): BP systolic 102–134; BP diastolic 32–77
--- NOTE | 2020-05-06 15:19 | NUR ---
chart review. sudha remains on vent, wean trials. cm visited with son who stated he going to come and visit tomorrow. thank you for calling per emi. no anticipated dc over the weekend. will cont following as needed for dc needs.
--- NOTE | 2020-05-06 15:47 | NUR ---
CPAP TRIAL PERFORMED FROM [id number] AND TOLERATED WELL BY PATIENT.
[2020-05-07] VITALS (22 sets, daily range): BP systolic 96–145; BP diastolic 29–56
--- NOTE | 2020-05-07 07:35 | NUR ---
VSS. BLOOD PRESSURE MAINTAINED WITH MAP >60. SR ON MONITOR. HR 70s to 90s. PT HAD 1000 CC OF URINE OUT OVERNIGHT. PT TOLERATING TF; LOW RESIDUALS. DR SMART FROM [facility] AT BEDSIDE AT 0615; GAVE UPDATE ON PT STATUS. DR MALDONADO HOSPITALIST AT BEDSIDE AT 0735; GAVE UPDATE ON PT STATUS. GAVE PATIENT REPORT TO CYNDI RN AND LETITIA RN. PATIENT CARE RELINQUISHED AT THIS TIME.
--- NOTE | 2020-05-07 12:00 | NUR ---
SEDATION VACATION PERFORMED PER RT BENNY. WITHIN FIVE MINUTES OF TRIAL, SHE EXPERIENCED TACHYPNEIC, TACHYCARDIA. REPLACED ON CPAP. LISSETTE, DAUGHTER CALLED INQUIRING REGARDING PT STATUS. UPDATED INCLUDING PT WEAKLY MOVES ALL EXTREMITIES TO COMMAND, CONTINUES TO HAVE LARGE AMOUNTS OF SECRETIONS PER HER ETT, FIO2 35%. PT ROY LEAKING LARGE AMOUNT URINE AND HAD A SOFT BROWN STOOL. ROY 16FR REPLACED WITH STERILE TECHNIQUE. COMPLETE BATH AND BED CHANGE PERFORMED.
[2020-05-07 12:55] LABS: ABSOLUTE NEUTROPHILS 9.3 thou/uL (1.4-8.2); BASOPHILS 0.1 % (0.0-2.0); EOSINOPHILS 0.1 % (0.0-3.0); HEMATOCRIT 31.1 % (37.0-47.0); HEMOGLOBIN 9.7 gm/dL (12.0-15.0); LYMPHOCYTES 5.6 % (24.0-44.0); MCH 27.3 pg (26.0-34.0); MCHC 31.2 g/dL (28.0-37.0); MCV 87.2 fL (80.0-100.0); MONOCYTES 8.6 % (1.0-8.0); PLATELET COUNT 224 thou/uL (150-400); POLYS 85.6 % (36.0-66.0); RBC 3.56 mil/uL (4.20-5.00); RDW 15.3 % (10.5-14.5); WBC 10.8 thou/uL (4.0-11.0)
[2020-05-07 13:08] LABS: ALBUMIN 1.9 g/dL (3.4-5.0); ANION GAP < 0 mmol/L (7-16); BUN 18 mg/dL (7-18); CALCIUM 8.4 mg/dL (8.5-10.1); CHLORIDE 104 mmol/L (98-107); CO2 42 mmol/L (21-32); CREATININE 0.7 mg/dL (0.6-1.0); GLUCOSE 137 mg/dL (74-106); MAGNESIUM 2.3 mg/dL (1.8-2.4); PHOSPHORUS 3.6 mg/dL (2.5-4.9); POTASSIUM 4.2 mmol/L (3.5-5.1); SGOT 36 U/L (15-37); SGPT 60 U/L (30-65); SODIUM 144 mmol/L (136-145); TOTAL BILIRUBIN < 0.1 mg/dL (0.2-1.0); TOTAL PROTEIN 5.4 g/dL (6.4-8.2)
--- NOTE | 2020-05-07 13:16 | NUR ---
PATIENT WAS WEANED UNSUCESSFULLY TODAY. RESPIRATIONS WERE IN THE MID 40'S AND HER TIDAL VOLUME WAS CONSITENTLY UNDER 200. PATIENT WAS PLACED BACK ON HER ORIGINAL SETTINGS AND DR BALL WAS NOTIFIED.
--- NOTE | 2020-05-07 18:45 | NUR ---
BED REMAINED ON ROTATION, LARGE AMOUNTS SECRETIONS PER ETT OBTAINED. LUNG SOUNDS IMPROVING- CLEAR IN UPPER LOBES. NO PROGRESS TODAY.
--- NOTE | 2020-05-07 22:00 | NUR ---
Nurse talked with patients daughterPepe, and updated her on patients status and plan of care. Nurse then informed patient of her daughters call, per family request. Patient had teards afterwards.
[2020-05-08] VITALS (15 sets, daily range): BP systolic 92–130; BP diastolic 30–46
[2020-05-08 05:20] LABS: HCO3 36.1 mmol/L (22.0-26.0); PCO2 56.5 mmHg (35.0-45.0); PO2 109.6 mmHg (80.0-100.0); pH 7.423 (7.360-7.450)
[2020-05-08 06:24] LABS: ABSOLUTE NEUTROPHILS 8.2 thou/uL (1.4-8.2); BASOPHILS 0.1 % (0.0-2.0); HEMATOCRIT 31.4 % (37.0-47.0); HEMOGLOBIN 9.7 gm/dL (12.0-15.0); LYMPHOCYTES 3.1 % (24.0-44.0); MCH 27.1 pg (26.0-34.0); MCHC 30.8 g/dL (28.0-37.0); MCV 87.8 fL (80.0-100.0); MONOCYTES 5.6 % (1.0-8.0); PLATELET COUNT 232 thou/uL (150-400); POLYS 91.2 % (36.0-66.0); RBC 3.57 mil/uL (4.20-5.00); RDW 15.4 % (10.5-14.5)
[2020-05-08 06:40] LABS: ALBUMIN 1.9 g/dL (3.4-5.0); CALCIUM 8.5 mg/dL (8.5-10.1); CREATININE 0.7 mg/dL (0.6-1.0); POTASSIUM 4.4 mmol/L (3.5-5.1); TOTAL BILIRUBIN 0.2 mg/dL (0.2-1.0); TOTAL PROTEIN 5.5 g/dL (6.4-8.2)
--- NOTE | 2020-05-08 08:14 | NUR ---
Patient not progressing towards plan of care as evidenced by continued failing cpap trial. Patient able to follow some commands weakly and nods yes/no. Strong cough, however, copious amount of secretions noted. Frequent suctioning required.
--- NOTE | 2020-05-08 17:57 | NUR ---
PATIENT NOT PROGRESSING TOWARDS PLAN OF CARE. PATIENT FAILED CPAP TRAIL TODAY. CONTINUES ON 35% FI02. PROPOFOL AND PRECEDEX FOR SEDATION. UPDATED DAUGHTER LISSETTE ABOUT PATIENTS STATUS. TOLERATING TUBE FEEDS.
[2020-05-09] VITALS (25 sets, daily range): BP systolic 100–124; BP diastolic 32–52
--- NOTE | 2020-05-09 04:40 | NUR ---
ASSUMED PT CARE AT 1900. VSS. PT INTUBATED AND SEDATED ON PROPOFOL AT 10 AMD PRECEDEX AT 0.7. PT OPENS EVES SPONTANEOUSLY WITH SEDATION VACATION, FACIAL GRIMACES TO PAIN, BUT DOESNT FOLLOW COMMANDS. PT IS STABLE... NO ACUTE CHANGES OVER NOC. WILL CONTINUE TO MONITOR
[2020-05-09 05:24] LABS: BE(vivo) 12.4 mmol/L (-2 to +3); HCO3 39.9 mmol/L (22.0-26.0); PO2 108.5 mmHg (80.0-100.0); pH 7.395 (7.360-7.450); sO2 97.8 % (92.0-98.0)
[2020-05-09 05:26] LABS: PCO2 66.6 mmHg (35.0-45.0)
[2020-05-09 05:37] LABS: ALBUMIN 1.8 g/dL (3.4-5.0); CALCIUM 8.2 mg/dL (8.5-10.1); CREATININE 0.7 mg/dL (0.6-1.0); MAGNESIUM 2.3 mg/dL (1.8-2.4); PHOSPHORUS 3.7 mg/dL (2.5-4.9); POTASSIUM 4.7 mmol/L (3.5-5.1); TOTAL BILIRUBIN 0.3 mg/dL (0.2-1.0); TOTAL PROTEIN 5.4 g/dL (6.4-8.2)
[2020-05-09 05:43] LABS: ABSOLUTE NEUTROPHILS 8.6 thou/uL (1.4-8.2); BASOPHILS 0.1 % (0.0-2.0); HEMATOCRIT 29.1 % (37.0-47.0); HEMOGLOBIN 9.1 gm/dL (12.0-15.0); LYMPHOCYTES 3.1 % (24.0-44.0); MCH 27.2 pg (26.0-34.0); MCHC 31.2 g/dL (28.0-37.0); MCV 87.2 fL (80.0-100.0); MONOCYTES 5.8 % (1.0-8.0); PLATELET COUNT 234 thou/uL (150-400); RBC 3.34 mil/uL (4.20-5.00); RDW 15.2 % (10.5-14.5); WBC 9.4 thou/uL (4.0-11.0)
--- NOTE | 2020-05-09 13:14 | NUR ---
Recommend discontinue order for megace since pt on enteral nutrition.
--- NOTE | 2020-05-09 16:35 | NUR ---
PT INTUBATED AND SEDATED, NO CPAP TODAY. SEDATION VACATION PERFORMED THIS AM. PT WILL NOD YES/NO, VERY WEAK WITH PERIPHERAL STRENGTH. LOW GRADE TEMPERATURE, ADEQUATE UOP, NO BM, TUBE FEED IN PLACE WITH RESIDUALS WNL. COPIOUS ENDOTRACHAEL SECREATIONS, BLOOD TINGED. GEN-SURGERY HAS BEEN CONSULTED FOR POSSIBLE TRACH/PEG. PT AND FAMILY HAVE BEEN UPDATED AND EDUCATED ON PT CONDITION AND POC. PT SLOWLY PROGRESSING TOWARDS POC.
[2020-05-10] VITALS (29 sets, daily range): BP systolic 89–154; BP diastolic 26–68
[2020-05-10 05:13] LABS: HEMOGLOBIN 8.5 gm/dL (12.0-15.0); MCH 27.7 pg (26.0-34.0); MCHC 31.4 g/dL (28.0-37.0); RBC 3.07 mil/uL (4.20-5.00); RDW 15.2 % (10.5-14.5); WBC 9.6 thou/uL (4.0-11.0)
[2020-05-10 05:41] LABS: CALCIUM 8.5 mg/dL (8.5-10.1); CREATININE 0.7 mg/dL (0.6-1.0); POTASSIUM 3.8 mmol/L (3.5-5.1)
[2020-05-10 14:37] LABS: PROTIME 10.3 Seconds (9.3-11.4)
--- NOTE | 2020-05-10 16:04 | NUR ---
PT INTUBATED AND SEDATED, WILL TRACK WITH EYES AND NOD YES/NO APPROPRIATELY, DOES NOT FOLLOW COMMANDS TO SQUEEZ FINGERS/MOVE TOES. TEMPERATURE MAX 100.0. NO BM, ADEQUATE UOP, TOLERATING TUBE FEEDING AT GOAL. LEVOPHED AT 2MCG/MIN FOR BP SUPPORT. PROPOFOL FOR LIGHT SEDATION. NO CPAP TODAY. VENT SETTINGS UNCHANGED. CARE/MANAGEMENT OF PT HAS BEEN DISCUSSED WITH MEDICAL TEAM AND PT. PT UPDATED AND EDUCATED ON POC. PT SLOWLY PROGRESSING TOWARDS POC. POSSIBLE TRACH/PEG THIS WEEK.
[2020-05-11] VITALS (23 sets, daily range): BP systolic 100–149; BP diastolic 28–55
[2020-05-11 03:57] LABS: HEMATOCRIT 28.4 % (37.0-47.0); HEMOGLOBIN 8.8 gm/dL (12.0-15.0); RBC 3.26 mil/uL (4.20-5.00); RDW 15.5 % (10.5-14.5); WBC 12.9 thou/uL (4.0-11.0)
[2020-05-11 04:13] LABS: CALCIUM 8.5 mg/dL (8.5-10.1); CREATININE 0.7 mg/dL (0.6-1.0)
[2020-05-11 16:36] LABS: APTT 26.4 Seconds (24.5-32.8); PROTIME 10.1 Seconds (9.3-11.4)
[2020-05-12] VITALS (29 sets, daily range): BP systolic 107–152; BP diastolic 33–55
[2020-05-12 06:26] LABS: ABSOLUTE NEUTROPHILS 11.5 thou/uL (1.4-8.2); BASOPHILS 0.1 % (0.0-2.0); HEMATOCRIT 31.4 % (37.0-47.0); HEMOGLOBIN 9.6 gm/dL (12.0-15.0); LYMPHOCYTES 1.1 % (24.0-44.0); MCH 26.8 pg (26.0-34.0); MCHC 30.7 g/dL (28.0-37.0); MCV 87.3 fL (80.0-100.0); PLATELET COUNT 311 thou/uL (150-400); POLYS 97.8 % (36.0-66.0); RDW 15.6 % (10.5-14.5); WBC 11.7 thou/uL (4.0-11.0)
[2020-05-12 06:39] LABS: CREATININE 0.5 mg/dL (0.6-1.0); POTASSIUM 4.5 mmol/L (3.5-5.1)
[2020-05-12 08:02] LABS: BE(vivo) 0.8 mmol/L (-2 to +3); HCO3 25.5 mmol/L (22.0-26.0); PO2 97.1 mmHg (80.0-100.0); pH 7.411 (7.360-7.450); sO2 97.5 % (92.0-98.0)
--- NOTE | 2020-05-12 18:24 | NUR ---
ASSUMED CARE OF PATIENT AT 1400, VSS/ SR ON MONITOR, ASSESSMENTS CHARTED; PATIENT INTUBATED AND SEDATED ON PROPOFOL AND PRECEDEX, GRIMACES TO PAIN; OG TUBE WITH JEVITY PAUSED D/T RESIDUALS ABOVE NORMAL LIMITS; PLAN IS TO MAKE PATIENT NPO AFTER MIDNIGHT FOR POSSIBLE TRACH PROCEDURE TOMORROW; PATIENT SLOWLY PROGRESSING TOWARD POC; WILL CONTINUE TO MONITOR
--- NOTE | 2020-05-12 21:57 | NUR ---
2015 - THIS RN SPOKE WITH PT'S DTR LISSETTE. UPDATE PROVIDED ON POC. QUESTIONS ANSWERED. PT IS RESTING COMFORTABLY IN BED. LIGHTLY SEDATED WITH PROPOFOL AND PRECEDEX. SHE IS EASILY ARROUSABLE TO VERBAL OR TACTILE STIMULI. PT IS ABLE TO FOLLOW SIMPLE COMMANDS LIKE SQUEEZE HER HANDS. ROY TO DD WITH ADEQUATE URINE OUTPUT. TF VIA OGT. WILL TURN OFF AFTER MIDNIGHT FOR TRACH PLACEMENT TOMORROW. REPOSITIONED TO PREVENT SKIN BREAKDOWN. LEVOPHED DRIP AT LOW DOSE FOR BP SUPPORT. WILL CONTINUE TO MONITOR DURING THE NIGHT. PROGRESSING SLOWLY TOWARD POC GOALS.
[2020-05-13] VITALS (46 sets, daily range): BP systolic 109–178; BP diastolic 25–78
[2020-05-13 06:27] LABS: HEMATOCRIT 30.9 % (37.0-47.0); HEMOGLOBIN 9.9 gm/dL (12.0-15.0); MCH 27.8 pg (26.0-34.0); MCV 86.7 fL (80.0-100.0); RBC 3.57 mil/uL (4.20-5.00); RDW 15.3 % (10.5-14.5); WBC 10.5 thou/uL (4.0-11.0)
[2020-05-13 06:47] LABS: CALCIUM 8.6 mg/dL (8.5-10.1); CREATININE 0.7 mg/dL (0.6-1.0); POTASSIUM 4.3 mmol/L (3.5-5.1)
--- NOTE | 2020-05-13 06:56 | NUR ---
SPOKE WITH PATIENT'S SON/DPOA (CELSO). UPDATED PROVIDED ON POC. QUESTIONS ANSWERED REGARDING TRACH PLACEMENT. WILL UPDATED ONCOMING NURSE.
--- NOTE | 2020-05-13 07:02 | NUR ---
NO SIGNIFICANT EVENTS OVER THE NIGHT. TITRATED LEVOPHED OFF THIS MORNING MAP >60 ALL NIGHT. COMPLETE BED BATH GIVEN THIS MORNING. ROY TO DD WITH GOOD URINE OUTPUT. TF OFF SINCE MIDNIGHT FOR TRACH PLACEMENT TODAY. ORAL CARE PROVIDED. FALL PRECAUTIONS IN PLACE. PROGRESSING SLOWLY TOWARD POC GOALS. WILL UPDATE ONCOMING NURSE.
--- NOTE | 2020-05-13 11:22 | NUR ---
When tube feed restarted after PEG placement, please change tube feed formula to vital AF 1.2 at new goal of 50ml/hr. Pt having decreased tolerance to the Jevity formula.
--- NOTE | 2020-05-13 13:11 | NUR ---
RECEIVED FROM O.R. INTO 250 VIA BED @ 1230.ALL GTTS OFF ON ARRIVAL. PRECEDEX & LEVOPHED LEFT OFF. PROPOFOL RESTARTED AT 10MCG/KG/MIN. PT COLD,WARM BLANKETS APPLIED. HANDS VERY COLD, NOT P/U SATS. HANDS WRAPPED IN WARM BLANKETS. HEAD WRAPPED W TOWEL.--VW
--- NOTE | 2020-05-13 13:54 | NUR ---
chart review. going for procedure today. lisandra spoke with son emi, " no question, had calls from nurse and dr today, thank you for calling"/son.
--- NOTE | 2020-05-13 14:53 | NUR ---
assumed care of pt at 0700, pt is a GCS of 9 at time of assesment around 0800. pt does not seem ti be in pain. pt left for OR at 1100 for traching and pegging. care of pt handed over to a different nurse on coming back to the floor. report given to accepting nurse.
--- NOTE | 2020-05-13 22:09 | NUR ---
REPORT RECEIVED FROM [facility] AT 2034. UPON INITIAL ASSESSMENT THIS RN NOTICED LARGE AMOUNT OF ABDOMINAL DISTENTION. 2044 - [facility] PAGED. NOTIFIED OF THE ABOVE FINDINGS AND THAT PT IS TACHYCARDIC IN THE 130'S - 140'S. STAT KUB ORDERED. 2051 - KUB RESULTS SHOW POSSIBLE PERFORATION. RESULTS COMMUNICATED BACK TO [facility]. 2140 - GENERAL SURGERY PAGED AND NO CALL BACK. 2206 - GENERAL SURGERY PAGED AGAIN. SPOKE WITH DR. CUNNINGHAM REGARDING KUB/ASSESSMENT FINDINGS. PER DR. CUNNINGHAM WE WILL HOLD OFF ON STARTING TUBE FEEDING AT THIS TIME.
[2020-05-14] VITALS (51 sets, daily range): BP systolic 124–185; BP diastolic 48–78
[2020-05-14 04:27] LABS: HEMATOCRIT 31.6 % (37.0-47.0); HEMOGLOBIN 9.7 gm/dL (12.0-15.0); MCH 26.8 pg (26.0-34.0); MCHC 30.8 g/dL (28.0-37.0); RBC 3.63 mil/uL (4.20-5.00); WBC 16.6 thou/uL (4.0-11.0)
[2020-05-14 04:43] LABS: CALCIUM 9.2 mg/dL (8.5-10.1); CREATININE 0.9 mg/dL (0.6-1.0); POTASSIUM 3.9 mmol/L (3.5-5.1)
--- NOTE | 2020-05-14 09:29 | EKG ---
[facility] [place] [address] ELECTROCARDIOGRAM REPORT Name: ARIELLE YA Room #: 250-P ADM IN M.R.#: [id number] Admission: 04/25/20 Attend Phys: Camilo Ledezma MD Discharge: Date of : 46 Report #: [id number] THIS REPORT FOR: cc: Pavithra Lilly MD, Karla L. 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 Member: Jayson FREY : 1950 Requested By: Camilo Ledezma Order Number: [id number] MD: Kwame Love Measurements Intervals [place] Rate: 136 P: 82 PA: 119 QRS: -54 QRSD: 74 T: 42 QT: 295 QTc: 444 Interpretive Statements Sinus tachycardia Left atrial enlargement Left anterior fascicular block Compared to ECG 04/25/2020 07:14:08 Atrial abnormality now present Sinus rhythm no longer present Poor R-wave progression no longer present Electronically Signed On 05-14-2020 9:29:00 COOK VEGETABLE by Kwame Love [email or web address] <ELECTRONICALLY SIGNED> By: Kwame Love MD, FACC 05/14/20 0929 09 09 Kwame Love MD, FAC /EPI
--- NOTE | 2020-05-14 14:47 | NUR ---
CALLED DR. MORGAN, RE HR 130 URINE OUTPUT 20 CC LAST TWO HOURS. ORDERS GIVEN. NS 500 IV BOLUS STARTED/
--- NOTE | 2020-05-14 19:09 | NUR ---
PT PROGRESSING TOWARDS GOALS EXCEPT FAILED CPAP TODAY. THIS RN DID NOT SEE SURGEON TO ELICIT OPINION ABOUT TUBE FEEDING. RN WILL INQUIRE IN AM. MORPHINE GIVEN PRN PAIN/HTN WITH GOOD RESULTS. PT LISTENED TO DAUGHTER ON PHONE TODAY. SON VISITED WHILE PT SLEEPING SO HE STATED HE WOULD COME BACK IN AM.
[2020-05-15] VITALS (47 sets, daily range): BP systolic 104–162; BP diastolic 39–75
[2020-05-15 05:31] LABS: HEMATOCRIT 28.2 % (37.0-47.0); HEMOGLOBIN 8.7 gm/dL (12.0-15.0); MCH 27.2 pg (26.0-34.0); RBC 3.21 mil/uL (4.20-5.00); RDW 16.2 % (10.5-14.5); WBC 11.1 thou/uL (4.0-11.0)
[2020-05-15 06:02] LABS: CALCIUM 8.4 mg/dL (8.5-10.1); CREATININE 0.6 mg/dL (0.6-1.0); POTASSIUM 3.2 mmol/L (3.5-5.1)
--- NOTE | 2020-05-15 07:17 | NUR ---
VSS. PT TACHYCARDIC/TACHYPNEC AT TIMES. PRN MORPHINE AND VERSED GIVEN. PT'S COMFORT LEVEL IMPROVED. 800 CC OUT IN ROY. LARGE AMOUNT OF GAS OUT IN FMS. MODERATE AMOUNT OF DRAINAGE PRESENT FROM AROUND TRACH SITE; DRESSING CHANGED FREQUENTLY. MODERATE AMOUNT OF CABRAL THICK SPUTUM INLINE.
--- NOTE | 2020-05-15 16:13 | NUR ---
DR. CUNNINGHAM TO SEE PT. CLEARED PEG FOR USE. OK'D CHANGE PER NUTRITION REC'S.
--- NOTE | 2020-05-15 18:24 | NUR ---
05/15/20 @ 1600, TUBE FEEDING WITH VITAL AF STARTED @ 10CC/HR. PT MORE AWAKE AND TRYING TO TALK. FOLLOWS COMMANDS AND IS GENERALLY COOPERATIVE WITH CARE. NYSTATIN POWDER FOR RASH IN GROIN AREAS. TYLENOL @ 1800 FOR C/O PAIN AT TRACH SITE.
[2020-05-16] VITALS (42 sets, daily range): BP systolic 111–164; BP diastolic 39–104
[2020-05-16 06:01] LABS: CALCIUM 8.6 mg/dL (8.5-10.1); CREATININE 0.6 mg/dL (0.6-1.0); POTASSIUM 3.5 mmol/L (3.5-5.1)
--- NOTE | 2020-05-16 06:15 | NUR ---
ASSUMED PT CARE AT 1900. VSS PT AWAKE NOT SEDATED TRACHED ON THE VENT. PT ATTEMPTS TO MOUTH WORDS. PT DID NOT SLEEP MUCH OVERNIGHT. PT IS HOWEVER STABLE ON 35% FIO2. PT AVERAGE U/0 OF 75ML/HR. PT IS STABLE, DTR CALLED UNIT YESTERDAY AT 2150, THIS RN UPDATED HER ON PT STATUS. WILL CONTINUE TO MONITOR PER POC
[2020-05-16 10:38] LABS: BE(vivo) 5.5 mmol/L (-2 to +3); HCO3 30.4 mmol/L (22.0-26.0); PCO2 45.9 mmHg (35.0-45.0); PO2 110.2 mmHg (80.0-100.0); pH 7.439 (7.360-7.450); sO2 98.1 % (92.0-98.0)
--- NOTE | 2020-05-16 18:00 | NUR ---
Continue plan of care, pt did not have much secretions today, miguel oral hygiene. Mouths words you can understand some things. like water. monitor shows NRS todat no temp. Plan per physician is to go to LTC. when? 1600 Son here to visit. 1730 Trevinther called for update. will cont to monitor.
[2020-05-16 21:20] LABS: CALCIUM 8.4 mg/dL (8.5-10.1); CREATININE 0.5 mg/dL (0.6-1.0)
[2020-05-16 21:23] LABS: POTASSIUM 2.9 mmol/L (3.5-5.1)
[2020-05-17] VITALS (19 sets, daily range): BP systolic 119–157; BP diastolic 35–79
--- NOTE | 2020-05-17 16:44 | NUR ---
UNEVENTFUL DAY. ? LTC 10 DAYS p TRACH.NO FAMILY CONTACT TODAY.--VW
--- NOTE | 2020-05-17 18:14 | NUR ---
chart review. pt has trach and peg. cont with vent support. will need auth for ltac when stable for dc. md to discuss moving towards ltca for dc. will cont following as needed for dc needs.
[2020-05-18] VITALS (17 sets, daily range): BP systolic 128–149; BP diastolic 44–86
--- NOTE | 2020-05-18 04:23 | NUR ---
assumed pt care at around 0130, pt is awake, nodes to yes or no questions, assessments as charted, sr on the monitor, no residual noted from peg tube, abdomen soft, started tube feeding at 0300, at 10cc/hr, meds given as per aug, o2 sats stable at 99%, vss, no distress noted, will continue to monitor
--- NOTE | 2020-05-18 09:40 | NUR ---
TRACH/PEG 05/13/20. PT ADMIT FROM HOME LIVING WITH SON, DC PLAN IS LTACH STAY FOR VENT WEANING. PT'S INSURANCE [employer] REQUIRES TRACH IN FOR 7 DAYS WITHOUT COMPLICATIONS AND PROGRESS NOTES SHOULD REFLECT ATTEMPTS AT WEANING TRIALS. DR. BALL UPDATED 05/17/20 TO REQUIREMENTS FOR [employer] LTACH AUTH. UPDATED AIRBORNE OPERATIONS MANAGER EZEQUIEL PIRES.
--- NOTE | 2020-05-18 10:30 | NUR ---
cm passed on information to hospitalist to reach out to son rt ltac, so cm and start referrals as needed. cm team passed on information to pulmonary md.
--- NOTE | 2020-05-18 16:13 | NUR ---
FAXED CLINICAL UPDATE TO [facility] PT ON SERVICE WITH THEM PRIOR TO ADM SPOKE WITH ISRAEL IN INTAKE SHE RECEIVED UPDATE AND WILL RESUME CARE AT DC IF PT DC TO HOME.
--- NOTE | 2020-05-18 20:11 | NUR ---
TRANSFER FROM ICU THIS AFTERNOON. PT ALERT AND WAKE.FOLLOWING COMMANDS. MOUTHS WORDS AND INDICATES YES/NO QUESTIONS BY NODDING HEAD. TRACK INTACT SEE NOTES FOR SETTING, SR ON TELE. 1425 OUTPUT FROM ROY AND 450 OUTPUT FROM FECAL MANAGEMENT TUBE. PEG TUBE WITH ABD BINDING IN PLACE. NO RESIDUAL, VITAL AF 1.2 RUNNING AT 20CC AND TOLERATING. GOAL RATE 50CC. DENIES SOB, DENIES PAIN. REPOSITIONED TOLERATED. WILL DC TO LTAC ONCE STABLE.
[2020-05-19 04:50] VITALS: BP 134/40
[2020-05-19 07:18] VITALS: BP 141/51
--- NOTE | 2020-05-19 07:54 | NUR ---
PT. RESTING EYES CLOSED UT ARROUSED EASILY FOR ASSESSMENT. PULMONARY MD AT BEDSIDE WILL ATTEMPT WEANING TRIALS THIS MORNING. PT IS NSR ON MONITOR. ROY IN PLACE NROMAL, CLEAR COLORED URINE-YELLOW. TUBE FEEDINGS BUMPED UP TO 30ML/HR NOW TO HIT GOAL TODAY OF 50ML/HR. REPOSITIONED PT. TO LEFT SIDE OFF COCCYX AREA WHICH NO BREAKDOWN NOTED. NO OTHER SKIN ISSUES NOTED. FECAL MGMT. IN PLACE WITH DRAINAGE AND NO BLOCKAGE OBSERVED.
[2020-05-19 11:45] VITALS: BP 123/46
--- NOTE | 2020-05-19 14:08 | NUR ---
Message left for pt's son Tiffanie to call cm regarding LTAC referrals. Referrals sent to [facility], and [facility]. Pt having vent weaning trial today. Rev codes provided to the liasons. Tube feeding being increased from 30 to 50cc hr. LTACs to check pt's ins plan to see if they are in network. Will follow.
--- NOTE | 2020-05-19 14:27 | NUR ---
TUBE FEEDINGS ON HOLD RIGHT NOW SHE WAS C/O PAIN AT ABDOMEN AREA. RESIDUAL CHECK 10ML CAME BACK. WILL LEAVE OFF FOR AWHILE AND SEE IF THIS HELPS HER DISCOMFORT GO DOWN.
[2020-05-19 15:01] VITALS: BP 144/59
--- NOTE | 2020-05-19 17:11 | NUR ---
TUBE FEEDINGS WERE RESUMED AT 35ML/HE DENIES ANYMORE STOMACH PAIN POST RETURING FEEDS ON. PT. MOVED TO OTHER SIDE TO GET OFF HER COCCYX AREA. PT. WATCHING TV DENIES ANY PAIN AT PRESENT.
[2020-05-19 20:41] VITALS: BP 132/49
--- NOTE | 2020-05-20 03:37 | NUR ---
ASSESSMENT: PT REMAIN ALERT AND ORIENT TIMES TWO, CONFUSED AT TIMES TO SITUATION AND TIME. MINIMAL SUCTION OF TRACH, CREAMY/THICK SECREATIONS PER TRACH. TF AT 40ML/HR. LOW RESIDUALS. PT C/O GENERALIZED ABD PAIN. PRN PAIN MEDS GIVEN WITH GOOD RELIEF. ROY PATENT, FECAL MANAGEMENT SYSTEM WITH BROWN, LIQUID OUT PUT. VSS, AFEBRILE. SR-ST PER MONITOR. CONTINUOUS PULSE OX READING 96-100%. SLOW PROGRESS TOWARDS DC GOALS. WILL CONTINUE TO MONITOR.
[2020-05-20 06:00] VITALS: BP 130/56
[2020-05-20 11:37] VITALS: BP 138/44
--- NOTE | 2020-05-20 12:11 | NUR ---
PT. WOKE UP LATE THIS AM, SLEPT UNTIL 11AM. SHE IS NOW ALERTA DN RESPONSIVE TO STAFF. TRACH DRESSING CHANGE PERFORMED SECRETIONS-CABRAL BEING HAD SATURATED THE DRESSING. SHE DID NOT TOLERATE WEANING TRIALS TODAY VERY WELL AT ALL-FEW MINUTES AT THE MOST. DENIES ANY CHEST PAIN AND SUCTIONED HER AT THIS TIME, SMALL AMOUNTS OF SECRETIONS OBTAINED, BEIGE AND SEMI THICK. AFEBRILE. DENIES FEELING SOB. FECAL MANAGEMENT SYSTEM FLUSHED AT THSI TIME TO MAINTAIN PATENCY, TOLERATING TUBE FEEDINGS TODAY BETTER OVERALL, DENIES NOT ABDOMEN DISCOMFORT TODAY AND RESIDUALS ARE ALMOST ZERO.
--- NOTE | 2020-05-20 16:27 | NUR ---
Spoke with son Tiffanie regarding LTAC referrals. He states understanding and would prefer [facility], [facility] then [facility] in that order due to location. He indicates that he does have dpoa and will bring a copy in this weekend. He is hopeful she will be able to wean off the vent and return home;however he is committed to caring for her at home even if she is not able to wean. She does have some caregiver hours through her [place] Medicaid and he is hoping that her hours can be increased. LTACs will need updated weaning trials/clinical faxed Saturday. [facility] has accepted. Awaiting response from [facility] and [facility].
[2020-05-20 18:02] VITALS: BP 146/75
[2020-05-20 20:30] VITALS: BP 153/61
[2020-05-20 20:50] VITALS: BP 153/61
[2020-05-21 05:00] VITALS: BP 142/63
[2020-05-21 07:30] VITALS: BP 100/78
--- NOTE | 2020-05-21 07:49 | NUR ---
ASSUME CARE 1900. PT/VITALS STABLE. PT DENIES PAIN BUT POOR TOLERANCE TO ACTIVITY. ASSESSMETN CHARTED. PROGRESSIMG SLOWLY WITH POC. NO DISTRESS NOTED, SR ON MONITOR. VITAL AF TUBE FEEDING AT GOAL RATE OF 50ML/HR AND PT TOLERATING WELL WITH LESS THAN 5 RESIDUAL. PLAN IS POSSIBLE DISCHARGE TO LTACH FOR CONTINUM OF CARE, POSSIBLE [facility]. WILL CONTINUE TO MONITOR AND FOLLOW WITH POC
[2020-05-21 08:33] LABS: ABSOLUTE NEUTROPHILS 9.3 thou/uL (1.4-8.2); BASOPHILS 0.1 % (0.0-2.0); EOSINOPHILS 0.3 % (0.0-3.0); HEMATOCRIT 28.4 % (37.0-47.0); HEMOGLOBIN 9.2 gm/dL (12.0-15.0); LYMPHOCYTES 4.8 % (24.0-44.0); MCHC 32.3 g/dL (28.0-37.0); MCV 86.8 fL (80.0-100.0); MONOCYTES 4.3 % (1.0-8.0); PLATELET COUNT 166 thou/uL (150-400); POLYS 90.5 % (36.0-66.0); RBC 3.27 mil/uL (4.20-5.00); RDW 16.6 % (10.5-14.5); WBC 10.3 thou/uL (4.0-11.0)
[2020-05-21 12:06] LABS: ALBUMIN 1.9 g/dL (3.4-5.0); CALCIUM 8.6 mg/dL (8.5-10.1); CREATININE 0.6 mg/dL (0.6-1.0); POTASSIUM 3.3 mmol/L (3.5-5.1); TOTAL BILIRUBIN 0.4 mg/dL (0.2-1.0); TOTAL PROTEIN 5.5 g/dL (6.4-8.2)
--- NOTE | 2020-05-21 13:53 | NUR ---
PT ON VENT VIA TRACH. ATTEMPTING TO MOUTH WORDS, THIS RN ABLE TO UNDERSTAND A FEW OF THEM. TF INFUSING.
[2020-05-21 17:48] VITALS: BP 140/61
[2020-05-21 19:20] VITALS: BP 120/41
--- NOTE | 2020-05-22 04:33 | NUR ---
SLEPT MOST OF SHIFT. REPOSITIONED EVERY 2 HOURS FOR SKIN CARE AND COMFORT. NODS TO YES/NO QUESTIONS AND MOUTHS WORDS. DENEIS COMPLAINTS OF PAIN. REMAINS ON VENT AND TOLERATING WELL. TUBE FEEDING AT GOAL RATE WITH 0 RESIDUALS, TOLERATING WELL. WORKING ON GOALS AND PLAN OF CARE FOR NOC. PROGRESSING TOWARDS DISCHARGE GOALS SLOWLY. CONTINUE TO ASSES CLOSELY.
[2020-05-22 05:00] VITALS: BP 126/52
[2020-05-22 11:40] VITALS: BP 139/52
[2020-05-22 15:40] VITALS: BP 135/61
[2020-05-22 20:00] VITALS: BP 135/50
--- NOTE | 2020-05-22 20:52 | NUR ---
RECEIVED PT'S CARE AROUND 709; PT. ON BED; RESTING WITH EYES CLOSED; ON VENTILATOR; SR ON THE MONITOR; DURING AM ASSESSMENT NOTICED PT. PALE; DROWSY; VS WNL; BG WNL; PT. AROUSABLE WHEN SHAKED; ALERT TO PERSON; AM MEDICATIONS GIVEN; PER RT PT. CHANGE TO CPAP TRIAL DURING AM; TOLERATED WELL WHILE SLEEPING; NOTICED INCREASE RR WHILE AWAKE; RT NOTIFIED; PEG TUBE RESIDUAL 5 ML IN THE AM; NO RESIDUAL DURING THE AFTERNOON AND EVENING; CLARIFY IF FLUIDS NEEDED WITH PHYSICIAN; ORDERS ON PLACED; D/C FLUIDS; BED BAD GIVEN BY NURSE AID CRYSTINA; REFUSED NYSTATIN DURING THE PM; TURNED FROM SIDE TO SIDE; DURING THE EVENING PT. ALERT; AWAKE; GLASSES PUT ON; WATCHING TV; ASSESSMENT CHARGED; FOLLOWING POC; PASSED ON REPORT;
[2020-05-23 04:42] VITALS: BP 149/50
--- NOTE | 2020-05-23 05:57 | NUR ---
PATIENT SLEPT THROUGH SOME OF THE NIGHT. ON VENTILATOR. PAITENT ALERT TO SELF. [id number]. WILL NOD TO YES OR NO QUESTION AND MOUTH OUT WORDS. TUBE FEEDINGS AT GOAL. RESIDUALS 2-3CCS. SOME AGITATION, GAVE ACETAMINOPHEN PER ORDERS. MORE CONFUSED TONIGHT; FORGETFUL TO TIME PLACE, AND SITUATION. FOLLOWING POC AND ASSESSING NEEDED.
[2020-05-23 08:30] VITALS: BP 152/45
[2020-05-23 11:25] VITALS: BP 153/60
--- NOTE | 2020-05-23 12:29 | NUR ---
FAXED CLINICAL UPDATE TO [facility], AND [facility] RECEIVED CONFIRMATION AND LEFT MSG WITH ADMISSIONS AT ALL FACILITIES. DP TO FOLLOW.
[2020-05-23 16:27] VITALS: BP 123/54
--- NOTE | 2020-05-23 17:17 | NUR ---
Patient stable to dc to LTAC. No beds avail at [facility], [facility] or [facility]. Sp with Stephon son of patient. He reports he spoke with [facility] but has not rec call from [facility] or [facility]. Requested they call son and discuss visitor policy and facility. Stephon reports he mentioned [facility] being first choice at it is close to home. But he wants to sp with other LTACs. [facility] allows no visitors at this time, casemgt following.
[2020-05-23 18:59] VITALS: BP 151/38
--- NOTE | 2020-05-23 19:31 | NUR ---
ASSUMED CARE PT SHIFT CHANGE. ASSESSMENTS CHARTED.MEDS GIVEN PER AUG. PT AWAKE, ORIENTED TO PERSON AND PLACE, FORGETFUL. O2 SATS AND BREATHING STABLE ON VENTILATOR. TRACH REMAINS INTACT. TRACH DRESSING CHANGED NEEDED. PT SUCTIONED THROUGHOOUT SHIFT TOLERATING WELL. PT TURNED TOLERATED. TUBE FEEDS CONTINUE. WATER FLUSES ORDERED PER STEEPLECHASE JOCKEY ORDER. VENT SETTINGS REMAIN THE SAME. PT TO DC TO LTAC WHEN PLACEMENT FOUND. PT CURRENLTLY SITTING UP IN BED IN NAP. CONTINUING TO MONITOR AND FOLLOW POC. WILL PASS ON REPORT TO NOC RN.
[2020-05-24 04:16] VITALS: BP 149/52
--- NOTE | 2020-05-24 05:24 | NUR ---
PATIENT SLEPT PART OF THE NIGHT. PATIENT IS ALERT TO SELF, BUT FORGETFUL. PATIENT TURNED Q2. PT ON VENT. VSS. MEDS GIVEN PER MAR. PAIN MEDICATION GIVEN PER ORDERS. SUNCTIONED THROUGHOUT THE NIGHT. PT WILL SAY YES OR NO AND MOUTH WORDS TO COMMUNICATE. CONTINUING TO ASSESS ACCORDING TO POC.
[2020-05-24 08:00] LABS: HEMOGLOBIN 8.6 gm/dL (12.0-15.0); MCH 27.8 pg (26.0-34.0); MCHC 31.9 g/dL (28.0-37.0); MCV 87.4 fL (80.0-100.0); RBC 3.09 mil/uL (4.20-5.00); RDW 16.7 % (10.5-14.5)
[2020-05-24 08:13] LABS: CALCIUM 8.7 mg/dL (8.5-10.1); CREATININE 0.4 mg/dL (0.6-1.0); MAGNESIUM 2.1 mg/dL (1.8-2.4); POTASSIUM 3.7 mmol/L (3.5-5.1)
[2020-05-24 08:25] VITALS: BP 153/59
[2020-05-24 11:18] VITALS: BP 133/50
--- NOTE | 2020-05-24 15:37 | NUR ---
FAXED CLINICAL UPDATE TO [facility] SPOKE WITH BENJI SHE RECEIVED UPDATE. DP TO FOLLOW.
[2020-05-24 16:11] VITALS: BP 134/47
--- NOTE | 2020-05-24 16:34 | NUR ---
Spoke with son Stephon regarding [facility] decision. Stephon reports he has not heard from [facility]. he sp with Monica at [facility] and reports [facility] now not having visitors. Alerted [facility] also no visitors. Son reports then interest in [facility]. Sent message to [facility] that [facility] are chosen due to visatation and please begin auth process. Possible bed at [facility] in am.
--- NOTE | 2020-05-24 19:11 | NUR ---
PT HAD MULTIPLE TIMES TODAY WHERE PAD HAD TO BE CHANGED D/T BEING SATURATED WITH YELLOW LIQUID, POSSIBLY URINE FROM BLADDER SPASMS?
[2020-05-24 19:55] VITALS: BP 144/61
[2020-05-25 05:15] VITALS: BP 150/83
--- NOTE | 2020-05-25 07:36 | NUR ---
assumed pt care at the change of shift, pt is awake, alert and oriented, sr on the monitor, assessments as charted, incontinent, o2 sats, stable, suctioned, prn, no acute distress noted, passed on report
[2020-05-25 07:45] VITALS: BP 145/75
[2020-05-25 10:59] VITALS: BP 136/59
--- NOTE | 2020-05-25 11:12 | NUR ---
no bed avail at [facility] today. Left message for son.
--- NOTE | 2020-05-25 11:39 | NUR ---
PT ROY WAS CONTINUOUSLY LEAKING, MULTIPLE FULL BED CHANGES PER DAY. LINE OUT WORKER HAD TRIED TO REPOSITION AND INFLATE/DEFLATE BALLOON, STILL LEAKING. ROY WAS DC'D AND AN 18FR ROY WAS INSERTED USING STERILE TECHNIQUE.
[2020-05-25 16:12] VITALS: BP 144/66
[2020-05-25 20:09] VITALS: BP 137/56
--- NOTE | 2020-05-26 03:31 | NUR ---
PATIENT TRIES TO PULL LINES BUT SHE'S EASILY REDIRECTED.TURN Q2 HOURS.ON TUBE FEEDING;PEG TUBE INTACT.ROY TO DD AND IS NOT LEAKING.RECTAL TUBE INTACT. MONITOR SHOWS SR,ST.POC CONTINUED.
[2020-05-26 03:59] VITALS: BP 129/62
[2020-05-26 08:03] VITALS: BP 124/64
[2020-05-26 11:44] VITALS: BP 122/67
[2020-05-26 15:32] VITALS: BP 135/68
--- NOTE | 2020-05-26 18:39 | NUR ---
PT'S SON TO VISIT, UPDATE GIVEN, PULLED DOWN TRACH TUBE ONCE, WAS QUICKLY REPLACED AND PT WAS REMINDED NOT TO PULL AGAIN, PT MOUTHED THAT SHE HAD PAIN AND POINTED TO HER LOWER BACK, TYLENOL GIVEN IN PEG TUBE.
[2020-05-26 19:20] VITALS: BP 124/80
[2020-05-27 04:00] VITALS: BP 151/81
[2020-05-27 07:30] VITALS: BP 159/94
--- NOTE | 2020-05-27 08:16 | NUR ---
ASSUMED CARE OF THE PATIENT AT 1900; ALERT AND ORIENTED, MOUTHS WORDS, NODS YES/NO, AND FOLLOWS COMMANDS; SR/ST ON THE MONITOR; TRACH WITH VENTILATOR ASSIST AND O2 SATs ABOVE 90; PEG TUBE IN PLACE WITH FEED RUNNING AT GOAL; ROY AND FECAL MANAGEMENT SYSTEM IN PLACE WITH GOOD OUTPUT; [id number] THROUGHOUT THE NOC; PLAN IS FOR PATIENT TO GO TO AN LTAC FACILITY TODAY IF A BED IS AVAILABLE; WILL CONTINUE TO MONITOR.
--- NOTE | 2020-05-27 09:55 | NUR ---
No bed available at [facility] today and they are still awaiting ins auth. They are hoping to have both in place for Saturday. [facility] form on the chart for ambulance/vent transport. Will follow.
[2020-05-27 11:45] VITALS: BP 175/99
--- NOTE | 2020-05-27 12:46 | NUR ---
FAXED CLINICAL UPDATE TO [facility] SPOKE WITH BENJI IN ADM SHE RECEIVED UPDATE. DP TO FOLLOW.
--- NOTE | 2020-05-27 18:18 | NUR ---
PT HAS BEEN TURNED Q 2 HRS, HAS DENIED PAIN WHEN ASKED MULTIPLE TIMES TODAY, VSS, STILL WAITING ON PLACEMENT AT LTAC. PULLED HER VENT OFF ONCE BUT WAS IMMEDIATELY PUT BACK ON AND SUCTIONED, NO FAMILY VISITED TODAY
[2020-05-27 19:30] VITALS: BP 134/41
[2020-05-28] VITALS (9 sets, daily range): BP systolic 122–150; BP diastolic 54–73
--- NOTE | 2020-05-28 07:54 | NUR ---
ASSUMED CARE OF THE PATIENT AT 1900; ALERT AND ORIENTED TO SELF/SITUATION/BEDREST; MOUTHS WORDS, NODS YES/NO, FOLLOWS COMMANDS; C/O OF GENERALIZED PAIN AND HEADACHE MANAGED WITH MEDICATIONS WITH GOOD RESULTS; [id number]; PEG TUBE IN PLACE AND FEED RUNNING AT GOAL; ROY AND FECAL MANAGEMENT SYSTEM IN PLACE WITH GOOD OUTPUT; TRACH W/VENT AND OXYGENATION ABOVE 90-PERCENT; PLAN IS TO D/C TO LTAC FACILITY ON SATURDAY; WILL CONTINUE TO MONITOR.
--- NOTE | 2020-05-28 17:38 | NUR ---
PT CARE ASSUMED AT 0700. ASSESSMENTS CHARTED. MEDICATION CHARTED. RIJ 3L. ROY. FECAL MGT SYSTEM. SINUS RHYTHM. TUBE FEEDING; VITAL AF 1.2, 60 ML. FLUSH 125 ML WATER Q6. VENTILATOR: 400 VT, 16 RATE, 5 PEEP, 30% FIO2. TRACH. INLINE SXN. PT TO [facility]; [facility] SATURDAY.
--- NOTE | 2020-05-29 04:28 | NUR ---
ASSUMED CARE OF PT AT 1900HRS. PT AOX1 AND REQUIRES TOATAL CARE. FALL PRECAUTION IN PLACE. ROY IN PLACE AND IS PATIENT. FMS IN PLACE. TRACH IN PLACE AND SUCTIONED PRN. TF GOING AT GOAL RATE AND PEG FLUSHED ORDERED. PT TURNED Q2-3H. PT REPORTED SOME PAIN AND WAS TREATED WITH PRN MEDS. PT WAS ABLE TO GET COMFORTABLE ADN SLEEP PART OF THE SHIFT. VSS AND NO S/S OF ACUTE DISTRESS. WILL CONTINUE TO MONITOR.
[2020-05-29 04:50] VITALS: BP 136/52
[2020-05-29 05:58] LABS: HEMATOCRIT 25.8 % (37.0-47.0); HEMOGLOBIN 8.2 gm/dL (12.0-15.0); MCH 27.5 pg (26.0-34.0); MCHC 31.7 g/dL (28.0-37.0); MCV 86.7 fL (80.0-100.0); RBC 2.98 mil/uL (4.20-5.00); RDW 16.4 % (10.5-14.5); WBC 6.5 thou/uL (4.0-11.0)
[2020-05-29 06:09] LABS: CALCIUM 8.6 mg/dL (8.5-10.1); CREATININE 0.4 mg/dL (0.6-1.0); POTASSIUM 3.9 mmol/L (3.5-5.1)
[2020-05-29 08:04] VITALS: BP 119/50
[2020-05-29 11:50] VITALS: BP 129/57
[2020-05-29 15:36] VITALS: BP 131/56
--- NOTE | 2020-05-29 17:43 | NUR ---
ASSUMMED PT CARE AT APPROXIMATELY 0700. PT A&O X1. ASSESSMENT CHARTED. FALL PRECAUTIONS IN PLACE. FREQUENT REORIENTATION PROVIDED. VITAL SIGNS STABLE. BLOOD SUGARS STABLE. EDUCATED PT FAMILY AND PT ABOUT POC. PT FAMILY STATED UNDERSTANDING AND DENIED HAVING FURTHER CONCERNS. PT COMFORTABLE. PT DENIES HAVING FURTHER CONCERNS. PEG TUBE C/D/I.
[2020-05-29 20:55] VITALS: BP 142/79
[2020-05-30] VITALS (8 sets, daily range): BP systolic 119–138; BP diastolic 42–58
--- NOTE | 2020-05-30 03:37 | NUR ---
patient aox1 confused and forgetful. patient on vent no soa or distress noted this shift. patient had several bowel movement this shift pericare and barrier cream applied as needed. patient attempt to pull her trachea, and tellez but easily redirectable. fall precaution within reach. patient in bed asleep at this time breathing regular and unlaboured.
[2020-05-30 07:26] LABS: HEMATOCRIT 28.5 % (37.0-47.0); HEMOGLOBIN 8.8 gm/dL (12.0-15.0); MCH 27.1 pg (26.0-34.0); MCHC 30.9 g/dL (28.0-37.0); MCV 87.8 fL (80.0-100.0); RBC 3.24 mil/uL (4.20-5.00); RDW 16.3 % (10.5-14.5); WBC 6.8 thou/uL (4.0-11.0)
[2020-05-30 07:30] LABS: CALCIUM 8.8 mg/dL (8.5-10.1); CREATININE 0.6 mg/dL (0.6-1.0); POTASSIUM 3.7 mmol/L (3.5-5.1)
[2020-05-30 12:16] LABS: URINE BILIRUBIN NEGATIVE (Negative); URINE BLOOD TRACE (Negative); URINE CLARITY CLEAR; URINE COLOR YELLOW; URINE GLUCOSE-RANDOM* NEGATIVE (Negative); URINE KETONES NEGATIVE (Negative); URINE NITRITE-REFLEX NEGATIVE (Negative); URINE PROTEIN (DIPSTICK) NEGATIVE (Negative); URINE UROBILINOGEN 0.2 E.U./dl (0.2-1.0)
[2020-05-30 12:41] LABS: URINE LEUKOCYTES-REFLEX 3+ (Negative)
[2020-05-30 12:52] LABS: CASTS None Seen /LPF (None Seen); SQUAMOUS None Seen /LPF (0-3); YEAST-REFLEX Present (None Seen)
[2020-05-30 12:53] LABS: BACTERIA-REFLEX 1-9 Few /HPF (None Seen); CRYSTALS None Seen /LPF (None Seen); URINE RBC 0-2 Rare /HPF (0-2)
--- NOTE | 2020-05-30 16:07 | NUR ---
No bed avail at [facility] today. Possible bed in am. [facility] does have auth for admission.
--- NOTE | 2020-05-30 16:53 | NUR ---
FAXED CLINICAL UPDATE TO [facility] RECEIVED CONFIRMATION.
--- NOTE | 2020-05-30 20:08 | NUR ---
PT CARE ASSUMED AT 0700. ASSESSMENTS CHARTED. MEDICATION CHARTED. RIJ 3L. ROY. TUBE FEEDING; VITAL AF 1.2; 50 GOAL. Q6 175 ML FLUSHES. SXN; SM WHITE.
[2020-05-31 04:30] VITALS: BP 122/60
[2020-05-31 07:29] VITALS: BP 137/48
--- NOTE | 2020-05-31 07:40 | NUR ---
ASSUMED CARE OF THE PATIENT AT 1900; ALERT AND ORIENTED TO SELF AND SITUATION; NONAMBULATORY WITH [id number]; SR/ST ON THE MONITOR; TRACH WITH MECHANICAL VENTILATION AND OXYGENATION ABOVE 95-PERCENT THROUGHOUT THE NOC; PEG TUBE/ABDOMINAL BINDER IN PLACE WITH AND VITAL AF RUNNING AT GOAL AND SCANT RESIDUAL AND Q6H FLUSH; ROY IN PLACE WITH GOOD URINE OUTPUT; C/O OF PAIN MANAGED WITH PRN MEDICATIONS; REFUSED ORAL CARE IN THE AM; PLAN IS FOR PATIENT TO GO TO [facility] TODAY; WILL CONTINUE TO MONITOR.
[2020-05-31 07:45] VITALS: BP 137/48
[2020-05-31 11:45] VITALS: BP 129/71
[2020-05-31 11:53] VITALS: BP 123/59
[2020-05-31] MEDS ORDERED: PULMICORT0.5 MG/21 INH (11:58)
[2020-05-31] MEDS ORDERED: IPRAT-ALBUT 0.5-3 ML INH (11:58)
[2020-05-31] MEDS ORDERED: PREDNISONE 20 M20 M1 PO (11:58)
[2020-05-31] MEDS ORDERED: NYAMYC15 GM TOP (11:58)
[2020-05-31] MEDS ORDERED: CATHFLO ACT2 MG/VIA1 INJECTION (11:58)
[2020-05-31] MEDS ORDERED: ACETAMINOP160 MG/5 M PO (11:58)
[2020-05-31] MEDS ORDERED: MORPHINE SU4 MG/1 M1 IV PUSH (11:58)
[2020-05-31] MEDS ORDERED: FERROUS SU220 MG/52 PER TUBE (11:58)
[2020-05-31] MEDS ORDERED: PEPCID20 MG PER TUBE (11:58)
[2020-05-31] MEDS ORDERED: ONDANSETRON4 MG/2 M1 IV PUSH (11:58)
[2020-05-31] MEDS ORDERED: AKWA TEARS OIN3.5 GM OPHTHALMIC (11:58)
[2020-05-31] MEDS ORDERED: HEPARIN SO5000 UNIT/ SUBQ (11:58)
[2020-05-31] MEDS ORDERED: ZOSYN 3.373.375 GM/1 IV (11:58)
[2020-05-31] MEDS ORDERED: HUMALOG100 UNIT/1 SUBQ (11:58)
--- NOTE | 2020-05-31 14:57 | NUR ---
PT DISCHARGING TODAY TO [facility] FAXED DC ORDERS/SUMMARY TO FACILITY SPOKE WITH BENJI IN ADM SHE RECEIVED ORDERS. TRANSPORT BY AMBULANCE ARRANGED WITH [facility] PT IS VENTILATOR DEPENDENT AT 1530 TODAY. PT SON NOTIFIED BY SW UNIT NOTIFIED AND CHART COPY PER US. RN TO CALL REPORT TO [phone].
--- NOTE | 2020-05-31 17:15 | NUR ---
Bed avail at [facility] today. Chart copied,orders faxed. Son to visit prior to transfer. [facility] for 1530. Request for after 1500 from [facility]. Son at bedside today and agreeable to plan. no further needs.
--- NOTE | 2020-05-31 18:54 | NUR ---
PT CARE ASSUMED AT 0700. ASSESSMENTS CHARTED. MEDICATION CHARTED. RIJ 3L. KIRILL. RUNNY STOOLS. TUBE FEEDING; VITAL AF 1.2; 50 CC/HR, 50 GOAL. VENT: AC 400, 16 RATE, 5 PEEP, 30 % FIO2. PT DISCHARGED TO [facility] AT 1700. TELEMETRY D/C'D.
== END 2020-05-31 17:28 | DRG 4 ==
LOC: ER 06:58 → EROBS 12:23 → 3W 12:23 → 2N 12:23 → EROBS 13:34 → 3W 21:28 → 2N 04-26 21:41 → 4S 04-28 16:19 → ICU 04-29 10:20 → 2N 05-18 13:14
PROVIDERS: Emergency Medicine; Internal Medicine; Internal Medicine Pulmonary Disease; Nurse Practitioner Family; Pediatrics; Specialist; ADMIT Hospitalist; ATTEND Hospitalist
PROC: 5A09357 Assistance with Respiratory Ventilation, Less than 24 Consecutive Hours, Continuous Positive Airway Pressure (ICD-10-PCS; principal; 2020-04-25)
PROC: 5A09357 Assistance with Respiratory Ventilation, Less than 24 Consecutive Hours, Continuous Positive Airway Pressure (ICD-10-PCS; 2020-04-26)
PROC: 5A09357 Assistance with Respiratory Ventilation, Less than 24 Consecutive Hours, Continuous Positive Airway Pressure (ICD-10-PCS; 2020-04-27)
PROC: 5A1955Z Respiratory Ventilation, Greater than 96 Consecutive Hours (ICD-10-PCS; 2020-04-29)
PROC: 02H633Z Insertion of Infusion Device into Right Atrium, Percutaneous Approach (ICD-10-PCS; 2020-04-29)
PROC: 5A09357 Assistance with Respiratory Ventilation, Less than 24 Consecutive Hours, Continuous Positive Airway Pressure (ICD-10-PCS; 2020-04-29)
PROC: 0BH17EZ Insertion of Endotracheal Airway into Trachea, Via Natural or Artificial Opening (ICD-10-PCS; 2020-04-29)
PROC: 0B9D8ZX Drainage of Right Middle Lung Lobe, Via Natural or Artificial Opening Endoscopic, Diagnostic (ICD-10-PCS; 2020-05-03)
PROC: 0DH68UZ Insertion of Feeding Device into Stomach, Via Natural or Artificial Opening Endoscopic (ICD-10-PCS; 2020-05-13)
PROC: 0B110F4 Bypass Trachea to Cutaneous with Tracheostomy Device, Open Approach (ICD-10-PCS; 2020-05-13)
DX: A41.9 Sepsis, unspecified organism (principal); J96.21 Acute and chronic respiratory failure with hypoxia; J69.0 Pneumonitis due to inhalation of food and vomit; J15.6 Pneumonia due to other Gram-negative bacteria; J15.1 Pneumonia due to Pseudomonas; I26.99 Other pulmonary embolism without acute cor pulmonale; E43 Unspecified severe protein-calorie malnutrition; G92 Toxic encephalopathy; J96.22 Acute and chronic respiratory failure with hypercapnia; E87.0 Hyperosmolality and hypernatremia; N39.0 Urinary tract infection, site not specified; I50.32 Chronic diastolic (congestive) heart failure; D86.9 Sarcoidosis, unspecified; J44.9 Chronic obstructive pulmonary disease, unspecified; I27.20 Pulmonary hypertension, unspecified; B96.20 Unspecified Escherichia coli [E. coli] as the cause of diseases classified elsewhere; Z20.828 Contact with and (suspected) exposure to other viral communicable diseases; F17.210 Nicotine dependence, cigarettes, uncomplicated; G47.33 Obstructive sleep apnea (adult) (pediatric); K66.8 Other specified disorders of peritoneum; R13.10 Dysphagia, unspecified; F03.90 Unspecified dementia, unspecified severity, without behavioral disturbance, psychotic disturbance, mood disturbance, and anxiety; J84.10 Pulmonary fibrosis, unspecified; I11.0 Hypertensive heart disease with heart failure; D64.9 Anemia, unspecified; Z91.19 Patient's noncompliance with other medical treatment and regimen; Z87.442 Personal history of urinary calculi; Z79.01 Long term (current) use of anticoagulants; Z99.81 Dependence on supplemental oxygen; Z86.711 Personal history of pulmonary embolism; Z86.14 Personal history of Methicillin resistant Staphylococcus aureus infection
CPT/HCPCS: 10078; 10081; 10102; 10879; 50101; 50386; 50403; 56525; 62110; 62900